=== PATIENT | female | born 1945 | race Caucasian/White ===

== ENCOUNTER → 2017-11-22 | Outpatient (CLI) | payer MEDICARE ==
--- NOTE | 2017-11-22 10:47 | US ---
EXAMINATION TYPE: US venous doppler duplex LE RT DATE OF EXAM: 11/22/2017 10:33 AM COMPARISON: Prior right lower extremity venous ultrasound October 31, 2017 CLINICAL HISTORY: I82.401 DVT of right lower extremity. History of DVT right leg 10/31/17 SIDE PERFORMED: Right TECHNIQUE: The lower extremity deep venous system is examined utilizing real time linear array sonog jodi with graded compression, doppler sonography and color-flow sonography. VESSELS IMAGED: External Iliac Vein (EIV) Common Femoral Vein Deep Femoral Vein Greater Saphenous Vein * Femoral Vein Popliteal Vein Small Saphenous Vein * Proximal Calf Veins (* superficial vessels) Right Leg: *Positive for DVT right EIV extending into popliteal vein. Superficial thrombus noted wi thin Greater saph vein at upper and mid thigh IMPRESSION: There is continuous long segment DVT in the right lower extremity. No significant change from prior.
== END | disposition home or self-care (01) ==
LOC: RADUSWWP 09:51
PROVIDERS: ATTEND Family Medicine
DX: I82.401 Acute embolism and thrombosis of unspecified deep veins of right lower extremity (principal)

== ENCOUNTER → 2018-08-29 | Outpatient (CLI) | payer MEDICARE ==
--- NOTE | 2018-08-29 14:37 | US ---
EXAMINATION TYPE: US venous doppler duplex LE BI DATE OF EXAM: 08/29/2018 2:18 PM COMPARISON: 11/22/2017 CLINICAL HISTORY: I82.529 DEEP VEIN THROMBOSIS LOWER EXT. History of DVT right leg. Patient on blood thinner SIDE PERFORMED: bilateral TECHNIQUE: The lower extremity deep venous system is examined utilizing real time linear array sonog jodi with graded compression, doppler sonography and color-flow sonography. VESSELS IMAGED: External Iliac Vein (EIV) Common Femoral Vein Deep Femoral Vein Greater Saphenous Vein * Femoral Vein Popliteal Vein Small Saphenous Vein * Proximal Calf Veins (* superficial vessels) Right Leg: +Positive for DVT. Thready flow with incomplete compression right EIV extending into popl iteal vein Left Leg: +Positive for DVT left popliteal vein IMPRESSION: 1. Exam is positive for DVT right lower extremity external iliac vein extending through the level the popliteal vein. Findings are fairly similar to the exam of 2017 2. Exam is positive for DVT left popliteal vein. No prior exam of the left lower extremity available for comparison.
== END | disposition home or self-care (01) ==
LOC: RADUSWWP 13:40
PROVIDERS: ATTEND Internal Medicine Hematology & Oncology
DX: I82.521 Chronic embolism and thrombosis of right iliac vein (principal); I82.532 Chronic embolism and thrombosis of left popliteal vein
CPT/HCPCS: 93970

== ENCOUNTER 2018-12-09 22:40 | Emergency (ER) | payer MEDICARE ==
[2018-12-09 22:49] VITALS: BP 149/98; TEMP 98.2
[2018-12-09] MEDS ORDERED: HYDROcodone/APAP 7.5-325MG 1 EACH TAB PO ONE (22:50)
--- NOTE | 2018-12-09 23:12 | XR ---
EXAMINATION TYPE: XR humerus LT DATE OF EXAM: 12/09/2018 COMPARISON: NONE HISTORY: Shoulder pain TECHNIQUE: 3 views FINDINGS: There is comminuted fracture of proximal shaft of the humerus. There is separation of the f ragments up to 10 mm. There is no dislocation. Elbow joint is not well seen. I see no elbow fracture. Shoulder joint appears intact. IMPRESSION: Acute mildly displaced comminuted fracture proximal shaft of the humerus.
[2018-12-09] MEDS ORDERED: ACET/COD 300 MG/30 MG STARTER PACK 6 TAB BTL PO STA (23:22)
--- NOTE | 2018-12-09 23:22 | ED ---
Upper Extremity HPI - General Chief Complaint: Extremity Injury, Upper Stated Complaint: Fall, Shoulder Injury Time Seen by Provider: 12/09/18 22:42 Source: patient, EMS, RN notes reviewed Mode of arrival: EMS Limitations: no limitations - History of Present Illness Initial Comments: This a 73-year-old female presents emergency Department chief complaint of trip and fall. Patient states that she was at home tripped and fell onto her left arm. Patient states that she noted she cannot move it, there is noted swelling. Denies any head injury no loss conscious. Denies any other extremity injury including lower extremity. Denies neck, back pain. Patient is right-hand dominant. - Related Data Home Medications Medication Instructions Recorded Confirmed No Known Home Medications 12/09/18 12/09/18 Allergies Allergy/AdvReac Type Severity Reaction Status Date / Time No Known Allergies Allergy Verified 12/09/18 23:15 Review of Systems ROS Statement: Those systems with pertinent positive or pertinent negative responses have been documented in the HPI. ROS Other: All systems not noted in ROS Statement are negative. 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 History of Any Multi-Drug Resistant Organisms: None Reported Past Surgical History: No Surgical Hx Reported Past Anesthesia/Blood Transfusion Reactions: No Reported Reaction Additional Past Anesthesia/Blood Transfusion Reaction / Comment(s): PT DENIED EVER HAVING ANY SX Past Psychological History: No Psychological Hx Reported Smoking Status: Current every day smoker Past Alcohol Use History: Occasional Past Drug Use History: None Reported - Past Family History Father History Unknown: Yes Mother History Unknown: Yes General Exam General appearance: alert, in no apparent distress Head exam: Present: atraumatic, normocephalic, normal inspection ENT exam: Present: normal exam, mucous membranes moist Neck exam: Present: normal inspection, full ROM. Absent: tenderness, meningismus, lymphadenopathy Respiratory exam: Present: normal lung sounds bilaterally. Absent: respiratory distress, wheezes, rales, rhonchi, stridor Cardiovascular Exam: Present: regular rate, normal rhythm, normal heart sounds. Absent: systolic murmur, diastolic murmur, rubs, gallop, clicks Extremities exam: Present: other (Noted deformity to left proximal to mid humeral region, neurovascular intact remaining extremity exam within normal limits) Back exam: Present: normal inspection, full ROM. Absent: tenderness Neurological exam: Present: alert, oriented X3, CN II-XII intact, reflexes normal. Absent: motor sensory deficit Skin exam: Present: warm, dry, intact, normal color. Absent: rash Course Vital Signs 12/09/18 22:45 Temperature 98.2 F Pulse Rate 76 Respiratory 16 Rate Blood Pressure 149/98 O2 Sat by Pulse 97 Oximetry Procedures - Orthopedic Splinting/Casting Injury #1 Side: left Upper Extremity Injury Location: shoulder, long arm Upper Extremity Immobilizer: sling/shoulder immobilizer, posterior splint, synthetic pre-padded splint Medical Decision Making - Medical Decision Making Patient presented emergency department for a trip and fall. Patient is noted to have comminuted humeral fracture. She was splinted and placed in a sling. Patient follow-up with orthopedics return parameters were discussed. Disposition Clinical Impression: Humeral fracture Disposition: HOME SELF-CARE Condition: Stable Instructions: Arm Fracture in Adults (ED) Additional Instructions: Please return to the Emergency Department if symptoms worsen or any other concerns. Is patient prescribed a controlled substance at d/c from ED?: No Referrals: None,Stated [Primary Care Provider] - 1-2 days Juan De Leon MD [STAFF PHYSICIAN] - 1-2 days Time of Disposition: 23:22
[2018-12-09 23:59] VITALS: PULSE 66; RESP 19
== END 2018-12-10 00:17 | disposition home or self-care (01) ==
LOC: EC 22:40
DX: S42.352A Displaced comminuted fracture of shaft of humerus, left arm, initial encounter for closed fracture (principal); F17.200 Nicotine dependence, unspecified, uncomplicated; W01.0XXA Fall on same level from slipping, tripping and stumbling without subsequent striking against object, initial encounter; Y92.009 Unspecified place in unspecified non-institutional (private) residence as the place of occurrence of the external cause
CPT/HCPCS: 29105; 99283

== ENCOUNTER 2019-11-18 19:56 | Emergency (ER) | payer MEDICARE ==
[2019-11-18 20:03] VITALS: TEMP 97
--- NOTE | 2019-11-18 21:23 | CT ---
EXAMINATION TYPE: CT brain wo con DATE OF EXAM: 11/18/2019 COMPARISON: None HISTORY: fall Headache CT DLP: 1099.4 mGycm Automated exposure control for dose reduction was used. There is some cerebral cortical atrophy. There is patchy hypodensity in the periventricular white mat ter. There is no mass effect nor midline shift. There is no sign of intracranial hemorrhage. Calvariu m is intact. IMPRESSION: Cerebral atrophy and chronic small vessel ischemia. No acute intracranial abnormality.
[2019-11-18 21:25] LABS: HCT 43.3 % (34.0-46.0); HGB 15.2 gm/dL (11.4-16.0); MCH 34.5 pg (25.0-35.0); MCV 98.5 fL (80.0-100.0); Mean Platelet Volume 7.8; Platelet Count 355 k/uL (150-450); RDW 13.6 % (11.5-15.5); WBC 7.4 k/uL (3.8-10.6)
--- NOTE | 2019-11-18 21:32 | XR ---
EXAMINATION TYPE: XR chest 2V DATE OF EXAM: 11/18/2019 COMPARISON: NONE HISTORY: Nausea TECHNIQUE: Single view FINDINGS: Heart size is normal. There is coarsening of the lung markings. Thoracic aorta is atheromat ous. There is no pleural effusion or pneumothorax. There is pleural thickening at the lung apices. Th ere is old fracture of the left humerus. IMPRESSION: Pleural and pulmonary scarring. Normal heart. No heart failure.
[2019-11-18 21:55] LABS: ALT 12 U/L (4-34); AST 25 U/L (14-36); African American GFR (CKD) >90 (>60 ml/min/1.73 sqM); Albumin 3.7 g/dL (3.5-5.0); Alkaline Phosphatase 118 U/L (38-126); Anion Gap 14 mmol/L; Blood Urea Nitrogen 8 mg/dL (7-17); Calcium 8.5 mg/dL (8.4-10.2); Carbon Dioxide 18 mmol/L (22-30); Chloride 106 mmol/L (98-107); Glucose 90 mg/dL (74-99); Non-African American GFR(CKD) >90 (>60 ml/min/1.73 sqM); Potassium 3.7 mmol/L (3.5-5.1); Sodium 138 mmol/L (137-145); Total Bilirubin 0.6 mg/dL (0.2-1.3)
--- NOTE | 2019-11-18 22:52 | ED ---
Fall HPI - General Chief Complaint: Fall Stated Complaint: ETOH Fall Time Seen by Provider: 11/18/19 20:17 Source: patient, EMS Mode of arrival: EMS - History of Present Illness Initial Comments: Patient is 74-year-old female presenting to emergency Department with a chief complaint of a fall. Patient brought to the ED via EMS. According to EMS, patient was in a bar having several drinks and fell afterwards. Patient does not remember the fall but does remember the ambulance ride to the ED. Patient is AO 4. Patient reports she had some tea and several alcoholic beverages. Patient states she was not accompanied by anyone at the bar. Patient denies headache, blurry vision, nausea, vomiting, diarrhea, gait instability, chest pain, shortness of breath, abdominal pain, back pain or any extremity pain. - Related Data Home Medications Medication Instructions Recorded Confirmed No Known Home Medications 12/09/18 11/18/19 Allergies Allergy/AdvReac Type Severity Reaction Status Date / Time No Known Allergies Allergy Verified 11/18/19 20:03 Review of Systems ROS Statement: Those systems with pertinent positive or pertinent negative responses have been documented in the HPI. ROS Other: All systems not noted in ROS Statement are negative. 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 History of Any Multi-Drug Resistant Organisms: None Reported Past Surgical History: No Surgical Hx Reported Past Anesthesia/Blood Transfusion Reactions: No Reported Reaction Additional Past Anesthesia/Blood Transfusion Reaction / Comment(s): PT DENIED EVER HAVING ANY SX Past Psychological History: No Psychological Hx Reported Smoking Status: Current every day smoker Past Alcohol Use History: Occasional Past Drug Use History: None Reported - Past Family History Father History Unknown: Yes Mother History Unknown: Yes General Exam Limitations: no limitations General appearance: alert, in no apparent distress Head exam: Present: normocephalic. Absent: atraumatic, normal inspection (Less then 0.5 cm laceration on the left lateral periorbital region. Hematoma on the left supraorbital region. No bony deformities noted. No active bleeding at this time.), other (Negative Kelly sign, negative hemotympanum, negative raccoon eyes.) Eye exam: Present: normal appearance, PERRL, EOMI Pupils: Present: normal accommodation ENT exam: Present: normal exam, normal oropharynx (No oral trauma), mucous membranes moist, TM's normal bilaterally, normal external ear exam Neck exam: Present: normal inspection, full ROM. Absent: tenderness Respiratory exam: Present: normal lung sounds bilaterally Cardiovascular Exam: Present: regular rate, normal rhythm, normal heart sounds Extremities exam: Present: normal inspection, full ROM Back exam: Present: normal inspection, full ROM Neurological exam: Present: alert, oriented X3 Psychiatric exam: Present: normal affect, normal mood Skin exam: Present: warm, dry, intact, normal color Course Vital Signs 11/18/19 11/18/19 19:58 23:08 Temperature 97 F L Pulse Rate 62 65 Respiratory 18 17 Rate Blood Pressure 129/79 110/65 O2 Sat by Pulse 97 98 Oximetry Medical Decision Making - Medical Decision Making Patient is 74-year-old female presenting to emergency Department with chief complaint of a fall. Patient brought to the ED via EMS. BAT 0.127. Physical examination is remarkable for a very small laceration on the left periorbital region that does not require any suturing. Hematoma in the left periorbital region as well. No other head trauma noted. No cervical tenderness. Patient has been and bleeding without any issues. Patient was in the ED for over 3 vega rs and is not below the theoretical alcohol level. Patient is not on blood thinners. CT of brain is unremarkable for acute intracranial pathologies fracture or dislocations. Chest x-ray is showing pleural scarring but otherwise no acute cardio pulmonary pathologies. Patient declining any suicidal thoughts or ideations. Patient given the opportunity to discuss with a psychiatric nurse. Patient declined states that she was to go home. Patient is requesting a ride to her car. Strict return parameters were thoroughly discussed the patient was in a standing agreeable. Case discussed with physician. - Lab Data Result diagrams: 11/18/19 20:11 11/18/19 20:11 Lab Results 11/18/19 11/18/19 Range/Units 20:11 20:11 WBC 7.4 (3.8-10.6) k/uL RBC 4.40 (3.80-5.40) m/uL Hgb 15.2 (11.4-16.0) gm/dL Hct 43.3 (34.0-46.0) % MCV 98.5 (80.0-100.0) fL MCH 34.5 (25.0-35.0) pg MCHC 35.0 (31.0-37.0) g/dL RDW 13.6 (11.5-15.5) % Plt Count 355 (150-450) k/uL Sodium 138 (137-145) mmol/L Potassium 3.7 (3.5-5.1) mmol/L Chloride 106 (98-107) mmol/L Carbon Dioxide 18 L (22-30) mmol/L Anion Gap 14 mmol/L BUN 8 (7-17) mg/dL Creatinine 0.55 (0.52-1.04) mg/dL Est GFR (CKD-EPI)AfAm >90 (>60 ml/min/1.73 sqM) Est GFR (CKD-EPI)NonAf >90 (>60 ml/min/1.73 sqM) Glucose 90 (74-99) mg/dL Calcium 8.5 (8.4-10.2) mg/dL Total Bilirubin 0.6 (0.2-1.3) mg/dL AST 25 (14-36) U/L ALT 12 (4-34) U/L Alkaline Phosphatase 118 (38-126) U/L Total Protein 7.0 (6.3-8.2) g/dL Albumin 3.7 (3.5-5.0) g/dL Disposition Clinical Impression: Fall, Traumatic hematoma of face Disposition: HOME SELF-CARE Condition: Good Instructions (If sedation given, give patient instructions): Fall Prevention (ED) Additional Instructions: Please follow with primary care. Please return to emergency department if symptoms worsen. Is patient prescribed a controlled substance at d/c from ED?: No Referrals: Zack Leon MD [Primary Care Provider] - 1-2 days Time of Disposition: 23:29
[2019-11-18 23:09] VITALS: BP 110/65; PULSE 65; RESP 17
== END 2019-11-18 23:45 | disposition home or self-care (01) ==
LOC: EC 19:56
DX: S01.112A Laceration without foreign body of left eyelid and periocular area, initial encounter (principal); F17.200 Nicotine dependence, unspecified, uncomplicated; W19.XXXA Unspecified fall, initial encounter
CPT/HCPCS: 36415; 70450; 71046; 80053; 85027; 99285

== ENCOUNTER 2019-12-31 20:15 | Inpatient (IN) | payer MEDICARE ==
[2019-12-31] MEDS ORDERED: DIPH,PERTUS(ACELL)TETVAC-LF 0.5 ML VIAL IM ONE (20:41)
--- NOTE | 2019-12-31 20:51 | ED ---
General Adult HPI - General Chief complaint: Psychiatric Symptoms Stated complaint: cuts on wrists Time Seen by Provider: 12/31/19 20:26 Source: patient, police, RN notes reviewed, old records reviewed Mode of arrival: ambulatory Limitations: no limitations - History of Present Illness Initial comments: 74-year-old female patient presents to ED with police for evaluation. She denies any physical complaints, denies suicidal or homicidal ideations. Per mateo mathis they arrived for a wellness call family and friends had not heard from her in several days. She would not answer door. They report that they made entry into the house and it did appear to be on The Didn't Notice Superficial Lacerations on Her Right Wrist. Patient Reports That This Happened While She Was Attempting to Cut Meat Yesterday. There Are Approximate 5 Lacerations. Denies any depression, prior psychiatric history, any actions to herself. Systemic: Pt denies fatigue, fever/chills, rash. Pt denies weakness, night sweats, weight loss. Neuro: Pt denies headache, visual disturbances, syncope or pre-syncope. HEENT: Pt denies ocular discharge or irritation, otalgia, rhinorrhea, pharyngitis or notable lymphadenopathy. Cardiopulmonary: Pt denies chest pain, SOB, heart palpitations, dyspnea on exertion. Abdominal/GI: Pt denies abdominal pain, n/v/d. : Pt denies dysuria, burning w/ urination, frequency/urgency. Denies new onset urinary or bowel incontinence. MSK: Pt denies myalgia, loss of strength or function in extremities. Neuro: Pt denies new onset weakness, paresthesias. - Related Data Allergies Allergy/AdvReac Type Severity Reaction Status Date / Time No Known Allergies Allergy Verified 12/31/19 20:23 Review of Systems ROS Statement: Those systems with pertinent positive or pertinent negative responses have been documented in the HPI. ROS Other: All systems not noted in ROS Statement are negative. Past Medical History Past Medical History: Hypertension History of Any Multi-Drug Resistant Organisms: None Reported Past Surgical History: No Surgical Hx Reported Past Psychological History: Depression Smoking Status: Current every day smoker Past Alcohol Use History: None Reported Past Drug Use History: None Reported General Exam - General Exam Comments Initial Comments: Constitutional: NAD, AOX3, Pt has pleasant affect. HEENT: NC/AT, trachea midline, neck supple, no lymphadenopathy. Posterior pharynx non erythematous, without exudates. External ears appear normal, without discharge. Mucous membranes moist. Eyes PERRLA, EOM intact. There is no scleral icterus. No pallor noted. Cardiopulmonary: RRR, no murmurs, rubs or gallops, no JVD noted. Lungs CTAB in anterior and posterior rendon. No peripheral edema. Abdominal exam: Abdomen soft and non-distended. Abdomen non-tender to palpation in all 4 quadrants. Bowel sounds active in LLQ. No hepatosplenomegaly. No ecchymosis Neuro: CN II-XII grossly intact. No nuchal rigidity. No raccon eyes, no huerta sign, no hemotympanum. No cervical spinal tenderness. MSK: 5 superficial lacerations on right forearm region. Cleaned dressed. No posterior calf tenderness bilaterally, homans sign negative bilaterally. Posterior tibialis and radial pulse +2 bilaterally. Sensation intact in upper and lower extremities. Full active ROM in upper and lower extremities, 5/5 stregnth. Limitations: no limitations Course Vital Signs 12/31/19 20:17 Temperature 97.8 F Pulse Rate 78 Respiratory 20 Rate Blood Pressure 157/78 O2 Sat by Pulse 98 Oximetry Medical Decision Making - Medical Decision Making 74-year-old female patient presents to ED with police for evaluation. She denies any physical complaints, denies suicidal or homicidal ideations. Per police they arrived for a wellness call family and friends had not heard from her in several days. She would not answer door. They report that they made entry into the house and it did appear to be on The Didn't Notice Superficial Lacerations on Her Right Wrist. Patient Reports That This Happened While She Was Attempting to Cut Meat Yesterday. There Are Approximate 5 Lacerations. Denies any depression, prior psychiatric history, any actions to herself. Vital signs stable, afebrile. Physical exam didn't display 5 superficial lacerations on right forearm. Full active range of motion. Clean, dressed in ED. Laboratory investigations were obtained, they are noncompressive. UA and tox screen is still pending. Salicylates 1.0. Patient was that she takes aspirin from time to time. Acetaminophen negative. Alcohol negative. EKG is nonischemic. Evaluated by EPS and recommended for admission. Case discussed with Dr. Young. - Lab Data Result diagrams: 12/31/19 21:15 12/31/19 21:15 Lab Results 12/31/19 12/31/19 Range/Units 21:15 21:15 WBC 7.5 (3.8-10.6) k/uL RBC 5.14 (3.80-5.40) m/uL Hgb 17.1 H (11.4-16.0) gm/dL Hct 50.8 H (34.0-46.0) % MCV 98.8 (80.0-100.0) fL MCH 33.3 (25.0-35.0) pg MCHC 33.7 (31.0-37.0) g/dL RDW 13.0 (11.5-15.5) % Plt Count 434 (150-450) k/uL Neutrophils % 71 % Lymphocytes % 17 % Monocytes % 6 % Eosinophils % 4 % Basophils % 1 % Neutrophils # 5.3 (1.3-7.7) k/uL Lymphocytes # 1.3 (1.0-4.8) k/uL Monocytes # 0.4 (0-1.0) k/uL Eosinophils # 0.3 (0-0.7) k/uL Basophils # 0.1 (0-0.2) k/uL Sodium 137 (137-145) mmol/L Potassium 3.8 (3.5-5.1) mmol/L Chloride 103 (98-107) mmol/L Carbon Dioxide 23 (22-30) mmol/L Anion Gap 11 mmol/L BUN 12 (7-17) mg/dL Creatinine 0.66 (0.52-1.04) mg/dL Est GFR (CKD-EPI)AfAm >90 (>60 ml/min/1.73 sqM) Est GFR (CKD-EPI)NonAf 87 (>60 ml/min/1.73 sqM) Glucose 118 H (74-99) mg/dL Calcium 9.4 (8.4-10.2) mg/dL Total Bilirubin 0.7 (0.2-1.3) mg/dL AST 28 (14-36) U/L ALT 15 (4-34) U/L Alkaline Phosphatase 126 (38-126) U/L Total Protein 7.7 (6.3-8.2) g/dL Albumin 4.1 (3.5-5.0) g/dL Salicylates 1.0 mg/dL Acetaminophen <10.0 ug/mL Serum Alcohol <10 mg/dL - EKG Data -: EKG Interpreted by Me (and Dr. Young) EKG Comments: Ventricular rate 62,. Full 120, QRS 76, QT/QTc 472/479. Sensory with premature atrial complexes, borderline left atrial enlargement. No concern for acute ischemia at this time. Disposition Clinical Impression: Psychiatric disorder Disposition: ADMITTED IP TO THIS HOSP Condition: Serious Is patient prescribed a controlled substance at d/c from ED?: No Referrals: None,Stated [Primary Care Provider] - 1-2 days
[2019-12-31 22:08] LABS: Basophils # (A) 0.1 k/uL (0-0.2); Basophils % (A) 1 %; Eosinophils # (A) 0.3 k/uL (0-0.7); Eosinophils % (A) 4 %; HCT 50.8 % (34.0-46.0); HGB 17.1 gm/dL (11.4-16.0); Lymphocytes # (A) 1.3 k/uL (1.0-4.8); Lymphocytes % (A) 17 %; MCH 33.3 pg (25.0-35.0); MCHC 33.7 g/dL (31.0-37.0); MCV 98.8 fL (80.0-100.0); Mean Platelet Volume 7.8; Monocytes # (A) 0.4 k/uL (0-1.0); Monocytes % (A) 6 %; Neutrophils # (A) 5.3 k/uL (1.3-7.7); Neutrophils % (A) 71 %; Platelet Count 434 k/uL (150-450); RBC 5.14 m/uL (3.80-5.40); WBC 7.5 k/uL (3.8-10.6)
[2019-12-31 22:14] LABS: ALT 15 U/L (4-34); AST 28 U/L (14-36); Acetaminophen <10.0 ug/mL; African American GFR (CKD) >90 (>60 ml/min/1.73 sqM); Albumin 4.1 g/dL (3.5-5.0); Alcohol <10 mg/dL; Alkaline Phosphatase 126 U/L (38-126); Anion Gap 11 mmol/L; Blood Urea Nitrogen 12 mg/dL (7-17); Calcium 9.4 mg/dL (8.4-10.2); Carbon Dioxide 23 mmol/L (22-30); Chloride 103 mmol/L (98-107); Glucose 118 mg/dL (74-99); Non-African American GFR(CKD) 87 (>60 ml/min/1.73 sqM); Potassium 3.8 mmol/L (3.5-5.1); Sodium 137 mmol/L (137-145); Total Bilirubin 0.7 mg/dL (0.2-1.3); Total Protein 7.7 g/dL (6.3-8.2)
[2020-01-01 00:58] LABS: Amphetamine Screen,Urine Not Detected (NotDetected); Barbiturate Screen,Urine Not Detected (NotDetected); Benzodiazepines Screen,Urine Not Detected (NotDetected); Cocaine Screen,Urine Not Detected (NotDetected); Methadone Screen, Urine Not Detected (NotDetected); Opiate Screen,Urine Detected (NotDetected); Oxycodone Screen, Urine Not Detected (NotDetected); Phencyclidine Screen,Urine Not Detected (NotDetected); Tricyclic Antidepressant,Urine Not Detected (NotDetected); Urn Cannabinoid Scrn Not Detected (NotDetected)
[2020-01-01] MEDS ORDERED: MAGNESIUM HYDROXIDE 2,400 MG/10 ML CUP PO PRN (01:29)
[2020-01-01] MEDS ORDERED: ZIPRASIDONE 20 MG VIAL IM PRN (01:29)
[2020-01-01] MEDS ORDERED: MAG HYDROX/AL HYDROX/SIMETH 30 ML CUP PO PRN (01:29)
[2020-01-01 02:27] LABS: Appearance,Urine Clear (Clear); Bacteria,Urine Rare /hpf; Bilirubin,Urine Negative (Negative); Blood,Urine Small (Negative); Color,Urine Yellow; Glucose,Urine (UA) Negative (Negative); Hyaline Casts,Urine 3 /lpf (0-2); Ketones,Urine Negative (Negative); Leukocyte Esterase,Urine Moderate (Negative); Mucus,Urine Rare /hpf; Nitrite,Urine Negative (Negative); Protein,Urine Negative (Negative); RBC,Urine 2 /hpf (0-5); Specific Gravity,Urine 1.009 (1.001-1.035); Squamous Epithelial Cell,Urine 2 /hpf (0-4); Urobilinogen,Urine <2.0 mg/dL (<2.0); WBC,Urine 6 /hpf (0-5)
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
[2020-01-01] MEDS: THIAMINE 100 MG TAB PO SCH (10:19)
[2020-01-01] MEDS: MULTIVITAMINS, THERA 1 EACH TAB PO SCH (10:19)
[2020-01-01 13:57] LABS: Albumin 4.1 g/dL (3.5-5.0); Bilirubin, Delta 0.4 mg/dL (0.0-0.2); Bilirubin,Unconjugated 0.1 mg/dL (0.0-1.1); Total Bilirubin 0.5 mg/dL (0.2-1.3); Total Protein 7.5 g/dL (6.3-8.2)
[2020-01-01] MEDS ORDERED: LORazepam 1 MG TAB PO PRN (14:21)
[2020-01-01 18:26] LABS: Hemoglobin A1C 4.7 % (4.0-6.0)
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
[2020-01-02] MEDS: THIAMINE 100 MG TAB PO SCH (08:41)
[2020-01-02] MEDS: MULTIVITAMINS, THERA 1 EACH TAB PO SCH (08:41)
--- NOTE | 2020-01-02 15:13 | P.PN ---
Progress Note - Text Progress Note Date: 01/02/20 Clinical Problems: Unspecified depressive disorder, rule out alcohol use disorder, rule out major neurocognitive disorder Interim history: I reviewed the medical record and interviewed the patient. She denied problems or concerns other than being in hospital. She described the circumstances that led to this hospitalization maintaining that the police had no cause to bring her to the hospital. She denied feeling depressed or having thoughts of or suicide. Admission urine was positive for opiates and her serum alcohol was less than 10. Mental status exam: She presented as disheveled elderly woman who appeared impatient and irritable. She made eye contact and attended to the interview. She had a blunted facial expression. She was alert and oriented to person, place and time. She showed no abnormality of psychomotor activity. Her speech was spontaneous with decreased rate and volume. She was angry and a bit irritable but not inappropriate. She denied suicidal ideations, wishes or homicidal ideation. She denied feeling hopeless, helpless or worthless. She di d not express ideas reference, paranoid ideation or delusions. Her thinking was concrete and associations were coherent and logical. She denied hallucinations and did not appear to be responding to internal stimuli. We completed the [facility] Orientation Memory Concentration test. Her total weighted error score was 8; total weighted error score greater than 10 is consistent with a dementia. She knew the month and year. She is able to register memory phrase "Jesus Quach, [address] [place] [id number].". She estimated time correctly (within 1 hour actual time). She is able count backwards 20-1 and name the months of the year in reverse order. She recalled one element of the memory phrase. Assessment: She is an elderly woman with no apparent history of mental illness who presented to unit voluntarily after apparently secluding herself in her apartment for 2 weeks. She is disheveled and concrete but is denying psychiatric symptoms. She has memory impairment on screening. Plan: Continue current treatment plan. Complete the [facility] Cognitive Assessment.
[2020-01-03] MEDS: MULTIVITAMINS, THERA 1 EACH TAB PO SCH (08:59)
[2020-01-03] MEDS: THIAMINE 100 MG TAB PO SCH (08:59)
--- NOTE | 2020-01-03 16:43 | P.PN ---
Progress Note - Text Progress Note Date: 01/03/20 Clinical Problems: Unspecified depressive disorder, rule out alcohol use disorder, rule out major neurocognitive disorder. Interim history: The medical record and interviewed the patient. She was slow complaint or concern other than being discharged. She continues to maintain that was devised for this admission or for the police to forcibly entered her house. She consented to [facility] Cognitive Assessment. Mental status exam: He presented as a disheveled appearing elderly female who was pleasant on approach. She made eye contact and attended to the interview. She had a blunted facial expression. Her affect was blunted but stable and appropriate. She denied suicidal or homicidal ideation. Her thinking was concrete but organized and coherent. She denied hallucinations and did not appear to be responding to internal stimuli. Her total score on the [facility] Cognitive Assessment was 21/30. She showed impairment with visual spatial/executive functioning, attention, abstraction and delayed recall. Assessment: She has evidence for cognitive impairment as demonstrated by her performance on the [facility] cognitive assessment. Plan: Evaluate for treatable causes of dementia. Continue safety precautions.
[2020-01-04] MEDS: THIAMINE 100 MG TAB PO SCH (09:09)
[2020-01-04] MEDS: MULTIVITAMINS, THERA 1 EACH TAB PO SCH (09:09)
--- NOTE | 2020-01-04 11:14 | P.PN ---
Progress Note - Text Interval history: The patient is found in the hallway she follows me to an interview room. Upon observing her this morning before we spoke she was seen ambulating in the hallway trying to enter rooms to which she did not have access. Staff report that she continues to appear confused at times. Progress notes over the weekend were reviewed. She scored 21 out of 30 on the moca exam administered by Dr. Germain. When asked again about the lacerations to her right wrist she continues to state they occurred when she was cutting meat and her knife slipped. Upon counting there are 9 lacerations which does not support her explanation. She continues to state she is not depressed or anxious. She is reporting no hallucinations. She continues to identify no support in her life with no one for us to contact to gain collateral information. She has previously stated that she has a hand gun in the home which is of concern. Mental status exam: The patient is a female appearing her stated age hygiene grooming impaired, eye contact is intermittent she is observed looking about the room. Affect remains constricted to blunted. She indicates her mood is "fine". She is reporting no auditory or visual hallucinations she is endorsing no specific delusions. She has not availed historian especially when trying to explain how her wrist was lacerated. She provides incorrect descriptions of events. She indicates that her apartment was clean and in good order when in fact the police documented that it was in disarray. She demonstrates no verbal or physical aggressiveness. She has little spontaneous speech but provides brief answers to questions. She does have a hearing impairment but when I use a louder tone she is able to hear. She demonstrates no involuntary repetitive movements. She expresses no concern about being in the hospital in terms of why she is here or when she is being discharged. Insight and judgment are poor. Plan: The patient continues to demonstrate confusion. The etiology is unclear. We will consider the possibility of neurocognitive symptoms. We will repeat the urinalysis to see if there is any evidence of infection which we could treat. The patient's appears to have lacerated her right wrist several times, she lives alone with no identifiable support, she has been using alcohol at least intermittently, and has reported having a loaded handgun in her home. I feel it's unsafe to discharge her back home under the circumstances and we will petition for a guardian. The patient requires this level of care until an appropriate safety plan is created.
[2020-01-04 12:24] LABS: Appearance,Urine Clear (Clear); Bilirubin,Urine Negative (Negative); Blood,Urine Small (Negative); Color,Urine Yellow; Glucose,Urine (UA) Negative (Negative); Ketones,Urine Negative (Negative); Leukocyte Esterase,Urine Small (Negative); Mucus,Urine Rare /hpf; Nitrite,Urine Negative (Negative); PH, Urine 5.5 (5.0-8.0); Protein,Urine Negative (Negative); RBC,Urine 1 /hpf (0-5); Specific Gravity,Urine 1.012 (1.001-1.035); Squamous Epithelial Cell,Urine <1 /hpf (0-4); Urobilinogen,Urine <2.0 mg/dL (<2.0); WBC,Urine 3 /hpf (0-5)
[2020-01-05] MEDS: THIAMINE 100 MG TAB PO SCH (09:08)
[2020-01-05] MEDS: MULTIVITAMINS, THERA 1 EACH TAB PO SCH (09:08)
--- NOTE | 2020-01-05 11:03 | P.PN ---
Progress Note - Text Interval history: The patient is found in the [facility] she follows me to an interview room. She indicates her moods fine. She states she sleeping and eating adequately. Staff report that the patient continues to demonstrate some confusion and often tries to access rooms where she is not permitted. At times the patient will answer questions appropriately in casual conversation. We discussed her use of alcohol she states that she's only had 6 months of sobriety and that was several years ago. She states that it's very unlikely that she'll ever stop drinking alcohol. She continues to refute that she intentionally cut her wrist. Staff report no agitated behavior. The patient's guardianship hearing is scheduled for Saturday. Mental status exam: The patient is alert she is a thin female she has a disheveled appearance she is dressed in her own clothing. She is observed ambulating throughout this morning. She takes very short steps almost shuffling in nature. She wanders about the unit appearing confused. She is observed trying door handles to locker rooms. She initiates no conversation she asked no questions as to why she is admitted here or when she is being discharged. She states that when she does return home her plan is to resume using alcohol. She is reporting no thoughts of harming herself or others. She reports no auditory or visual hallucinations or any specific delusions. The patient is not entirely reliable historian. She does have hearing deficit but this is overcome when I use a louder tone. She demonstrates no verbal or physical aggressiveness. She does appear somewhat stimulus bound and looks about the room. This does distract her from our conversation at least once. Plan: The patient will be monitored for safety we will continue evaluating her clinical presentation. Her guardianship hearing is Saturday. Again she requires this level of care until an appropriate placement is found to be determined by her guardian. The patient presented with intentional lacerations to her right wrist, she is excessively using alcohol, she has no social support we are able to identify, and she has a loaded firearm in her home. She demonstrates poor insight into her presentation her judgment is subsequently poor. We will monitor her for safety. She requires continued psychiatric hospital for safety reasons.
[2020-01-06] MEDS: THIAMINE 100 MG TAB PO SCH (08:28)
[2020-01-06] MEDS: MULTIVITAMINS, THERA 1 EACH TAB PO SCH ×2 (08:28→12:17)
--- NOTE | 2020-01-06 12:12 | P.PN ---
Progress Note - Text Progress Note Date: 01/06/20 Interval History: Patient was seen leaving group today after doing activities and went to the [facility] and then was agreeable to speak to life insurance underwriter in the office. Patient was concrete however was superficially cooperative with the life insurance underwriter. Patient gave minimal information about the circumstances that led her to the hospital. She states that she was "just cutting meat" when her hand slipped and she cut her arm. Patient denies any depression at this time and states that her mood is "good". Patient has a constricted affect. She states that she has been eating well on the unit and has been sleeping approximately 8 hours a night. Patient was alert and oriented 3 today and was able to spell "world" backwards and can identify the current president however no previous presidents. At this time patient denies any suicidal or homical ideations, intent or plan. Patient denies any auditory, visual hallucinations and denies any paranoia or delusions. Patient denies any side effects from the medications and has been compliant with meds. Mental Status Exam: General Appearance: Patient appears to be thin/tall, stated age is alert, superficially cooperative, guarded with poor hygiene. Behavior: Patient is calmly seated without any agitated behavior. Superficially cooperative, concrete. Speech: Patient's speech is fluent and nonpressured. Mood/Affect: Mood is improving mildly, affect is congruent and constricted. Suicidality/Homicidality: Patient denies having any suicidal or homicidal ideation intent or plan. Perceptions: Patient denies any visual hallucinations and denies any auditory hallucinations Though content/process: Poverty of content/speech. Logical and non-bizarre. Memory and concentration: AOX3, see above for further comments. Judgment and insight: Limited chronically. Assessment Mood disorder unspecified, rule out secondary to substance use. Dementia, likely secondary to chronic alcohol use History of Alcohol abuse Plan: -Patient continues to meet criteria for inpatient psychiatric admission for symptom stabilization and safety. Patient has signed adult voluntary form and medication consent and was placed in patient's chart. -Medications: At this time no specific psychotropic medication is indicated. Patient demonstrates poor insight and judgment and likely related to her chronic alcohol use and cognitive status. -Thiamine, folic acid, multivitamin for chronic alcohol use. -When necessary Ativan for agitation/aggression. -NRT - not needed as patient does not smoke -SW on board for discharge planning. The patient will be monitored for safety we will continue evaluating her clinical presentation. Her guardianship hearing is Saturday. She requires this level of care until an appropriate placement is found to be determined by her guardian. She requires continued psychiatric hospital for safety reasons.
[2020-01-06] MEDS: FOLIC ACID 1 MG TAB PO SCH (12:18)
[2020-01-07] MEDS: FOLIC ACID 1 MG TAB PO SCH (09:21)
[2020-01-07] MEDS: THIAMINE 100 MG TAB PO SCH (09:21)
[2020-01-07] MEDS: MULTIVITAMINS, THERA 1 EACH TAB PO SCH (09:21)
--- NOTE | 2020-01-07 09:49 | P.PN ---
Progress Note - Text Progress Note Date: 01/07/20 Interval History: Patient was seen lying in bed this morning and was agreeable to speak to advertising copywriter in the office. Patient was concrete however was directable and cooperative with advertising copywriter during interview. Patient gave minimal information once again about how she is doing and how her night was. She offered no overnight complaints. Patient states that she feels "fine today". Patient showed her wrist where she supposedly had a cut and appears to be healing well. Patient denies any depression at this time and states that her mood is "good". Patient has a constricted affect. She states that she has been eating well on the unit and has been sleeping approximately 8 hours a night. Patient was alert and oriented 3 today and was able to list the days of the week backwards. At this time patient denies any suicidal or homical ideations, intent or plan. Patient denies any auditory, visual hallucinations and denies any paranoia or delusions. Patient denies any side effects from the medications and has been compliant with meds. Mental Status Exam: General Appearance: Patient appears to be thin/tall, stated age is alert, superficially cooperative, guarded with poor hygiene. Behavior: Patient is calmly seated without any agitated behavior. Superficially cooperative, concrete. Speech: Patient's speech is fluent and nonpressured. Mood/Affect: Mood is "good", affect is congruent and constricted. Suicidality/Homicidality: Patient denies having any suicidal or homicidal ideation intent or plan. Perceptions: Patient denies any visual hallucinations and denies any auditory hallucinations Though content/process: Poverty of content/speech. Logical and non-bizarre. Memory and concentration: AOX3, see above for further comments. Judgment and insight: Limited chronically. Assessment Mood disorder unspecified, rule out secondary to substance use. Dementia, likely secondary to chronic alcohol use History of Alcohol abuse Plan: -Patient continues to meet criteria for inpatient psychiatric admission for symptom stabilization and safety. Patient has signed adult voluntary form and medication consent and was placed in patient's chart. -Medications: At this time no specific psychotropic medication is indicated. Patient demonstrates poor insight and judgment and likely related to her chronic alcohol use and cognitive status. -Thiamine, folic acid, multivitamin for chronic alcohol use. -When necessary Ativan for agitation/aggression. -BID WRITER consult for cognitive testing/moca. -NRT - not needed as patient does not smoke -SW on board for discharge planning. The patient will be monitored for safety we will continue evaluating her clinical presentation. Her guardianship hearing is Saturday. She requires this level of care until an appropriate placement is found to be determined by her guardian. She requires continued psychiatric hospital for safety reasons. developmental services worker also to follow-up with guardian about removal of gun in patient's house.
[2020-01-08] MEDS: THIAMINE 100 MG TAB PO SCH (09:10)
[2020-01-08] MEDS: FOLIC ACID 1 MG TAB PO SCH (09:10)
[2020-01-08] MEDS: MULTIVITAMINS, THERA 1 EACH TAB PO SCH (09:10)
--- NOTE | 2020-01-08 10:28 | P.PN ---
Progress Note - Text Progress Note Date: 01/08/20 Interval History: Patient was seen attending group this morning and was agreeable to speak to wr shreyas in the office. Patient was concrete and gave minimal information about her night and day yesterday however was directable and cooperative with ad writer during interview and answered most questions appropriately. Patient states that she does have some pain in her leg and claims that "I've been sitting for too long and it hurts" and requested to have an Aleve. She offered no overnight complaints. Patient states that she feels "fine" denies any depression. Patient continues to show impairment in her memory and recall. Patient has a constricted affect. She states that she has been eating well on the unit. She states that she has been sleeping approximately 7 hours a night. Patient was alert and oriented 3 today. At this time patient denies any suicidal or homical ideations, intent or plan. Patient denies any auditory, visual hallucinations and denies any paranoia or delusions. Patient denies any side effects from the medications and has been compliant with meds. Patient had a moca completed yesterday which showed 20 out of 30 score and mild cognitive impairment with a significant decline in her memory recall. Mental Status Exam: General Appearance: Patient appears to be thin/tall, stated age is alert, superficially cooperative, guarded with poor hygiene. Behavior: Patient is calmly seated without any agitated behavior. Superficially cooperative, concrete. Speech: Patient's speech is fluent and nonpressured. Mood/Affect: Mood is "fine", affect is congruent and constricted. Suicidality/Homicidality: Patient denies having any suicidal or homicidal ideation intent or plan. Perceptions: Patient denies any visual hallucinations and denies any auditory hallucinations Though content/process: Poverty of content/speech. Logical and non-bizarre. Memory and concentration: AOX3, see above for further comments. Judgment and insight: Limited chronically. Assessment Mood disorder unspecified, rule out secondary to substance use. Dementia, likely secondary to chronic alcohol use History of Alcohol abuse Plan: -Patient continues to meet criteria for inpatient psychiatric admission for symptom stabilization and safety. Patient has signed adult voluntary form and medication consent and was placed in patient's chart. -Medications: At this time no specific psychotropic medication is indicated. Patient demonstrates poor insight and judgment and likely related to her chronic alcohol use and cognitive status. -Thiamine, folic acid, multivitamin for chronic alcohol use. -When necessary Ativan for agitation/aggression. -INTERIOR ASSEMBLIES DEVELOPER PROVER consulted and performed a MOCA on 01/07/20 which showed 20 out of 30 score and mild cognitive impairment with a significant decline in her memory recall. -NRT - not needed as patient does not smoke -SW on board for discharge planning. The patient will be monitored for safety we will continue evaluating her clinical presentation. Her guardianship hearing is today. She requires this level of care until an appropriate placement is found to be determined by her guardian. She requires continued psychiatric hospital for safety reasons. car worker also to follow-up with guardian about removal of gun in patient's house.
[2020-01-08] MEDS: ACETAMINOPHEN TAB 325 MG TAB PO PRN (18:42)
[2020-01-09] MEDS: FOLIC ACID 1 MG TAB PO SCH (08:42)
[2020-01-09] MEDS: MULTIVITAMINS, THERA 1 EACH TAB PO SCH (08:42)
[2020-01-09] MEDS: THIAMINE 100 MG TAB PO SCH (08:42)
--- NOTE | 2020-01-09 10:44 | P.PN ---
Progress Note - Text Progress Note Date: 01/09/20 Interval History: Patient was seen wandering the hallways morning and was agreeable to speak to comic book writer in the office. Patient was concrete today and gave minimal information about her night and denied any overnight complaints. Patient states that she feels "ok" denies any depression. She states that she has been going to some of the groups and trying to participate as best she can. She states that she has been eating well on the unit. She states that she has been sleeping approximately 6-7 hours a night. Patient was alert and oriented 3 today. At this time patient denies any suicidal or homical ideations, intent or plan. Patient denies any auditory, visual hallucinations and denies any paranoia or delusions. Patient denies any side effects from the medications and has been compliant with meds. Mental Status Exam: General Appearance: Patient appears to be thin/tall, stated age is alert, superficially cooperative, poor hygiene. Behavior: Patient is calmly seated without any agitated behavior. Superficially cooperative, concrete. Speech: Patient's speech is fluent and nonpressured. Mood/Affect: Mood is "ok", affect is congruent and constricted. Suicidality/Homicidality: Patient denies having any suicidal or homicidal ideation intent or plan. Perceptions: Patient denies any visual hallucinations and denies any auditory hallucinations Though content/process: Poverty of content/speech. Logical and non-bizarre. Memory and concentration: AOX3, fair attention span. Judgment and insight: Limited chronically. Assessment Mood disorder unspecified, rule out secondary to substance use. Dementia, likely secondary to chronic alcohol use History of Alcohol abuse Plan: -Patient continues to meet criteria for inpatient psychiatric admission for symptom stabilization and safety. Patient has signed adult voluntary form and medication consent and was placed in patient's chart. -Medications: At this time no specific psychotropic medication is indicated. Patient demonstrates poor insight and judgment and likely related to her chronic alcohol use and cognitive status. -Thiamine, folic acid, multivitamin for chronic alcohol use. -When necessary Ativan for agitation/aggression. -DIRECTOR OF PROGRAM MANAGEMENT consulted and performed a MOCA on 01/07/20 which showed 20 out of 30 score and mild cognitive impairment with a significant decline in her memory recall. -NRT - not needed as patient does not smoke -SW on board for discharge planning. The patient will be monitored for safety we will continue evaluating her clinical presentation. Patient had a guardianship hearing on 01/08/2020 and now has a public guardian. Patient requires inpatient level of care until an appropriate placement is found to be determined by her guardian. She requires continued psychiatric hospital for safety reasons. forming process worker also to follow-up with guardian about removal of gun in patient's house. Likely discharge early next week.
[2020-01-10] MEDS: FOLIC ACID 1 MG TAB PO SCH (08:31)
[2020-01-10] MEDS: THIAMINE 100 MG TAB PO SCH (08:31)
[2020-01-10] MEDS: MULTIVITAMINS, THERA 1 EACH TAB PO SCH (08:31)
--- NOTE | 2020-01-10 12:09 | P.PN ---
Progress Note - Text Progress Note Date: 01/10/20 Interval History: Patient was seen wandering the hallways morning and was agreeable to speak to [place] underwriter. Patient continues to be concrete with poverty of content/speech. She denied any overnight complaints and claimed that she slept well. Patient states that she feels "good" denies any depression. She states that she has been going to some of the groups. She states that she has been eating well on the unit. She states that she has been sleeping approximately 7 hours a night. Patient was alert and oriented 2 today and believes that it was "SaturdayJanuary 08" today. At this time patient denies any suicidal or homical ideations, intent or plan. Patient denies any auditory, visual hallucinations and denies any paranoia or delusions. Patient denies any side effects from the medications and has been compliant with meds. Mental Status Exam: General Appearance: Patient appears to be thin, stated age is alert, attempts to cooperate. poor hygiene, fair eye contact . Behavior: Patient is calmly seated without any agitated behavior. concrete. Speech: Patient's speech is fluent and nonpressured. Mood/Affect: Mood is "good", affect is congruent and constricted. Suicidality/Homicidality: Patient denies having any suicidal or homicidal ideation intent or plan. Perceptions: Patient denies any visual hallucinations and denies any auditory hallucinations Though content/process: Poverty of content/speech. Logical and non-bizarre. Memory and concentration: AOX2, fair attention span. Judgment and insight: Limited chronically. Assessment Mood disorder unspecified, rule out secondary to substance use. Dementia, likely secondary to chronic alcohol use History of Alcohol abuse Plan: -Patient continues to meet criteria for inpatient psychiatric admission for symptom stabilization and safety. Patient has signed adult voluntary form and medication consent and was placed in patient's chart. -Medications: At this time no specific psychotropic medication is indicated. Patient demonstrates chronically poor insight and judgment and likely related to her chronic alcohol use and cognitive status. -Thiamine, folic acid, multivitamin for chronic alcohol use. -When necessary Ativan for agitation/aggression. -SMALL ELECTRIC ENGINE TECHNICIAN consulted and performed a MOCA on 01/07/20 which showed 20 out of 30 score and mild cognitive impairment with a significant decline in her memory recall. -NRT - not needed as patient does not smoke -SW on board for discharge planning. The patient will be monitored for safety we will continue evaluating her clinical presentation. Patient had a guardianship hearing on 01/08/2020 and now has a public guardian. Patient requires inpatient level of care until an appropriate placement is found to be determined by her guardian. She requires continued psychiatric hospital for safety reasons. clerical office worker also to follow-up with guardian about removal of gun in patient's house. Likely discharge early next week once she has a safe environment to return to at home .
[2020-01-11] MEDS: FOLIC ACID 1 MG TAB PO SCH (08:24)
[2020-01-11] MEDS: MULTIVITAMINS, THERA 1 EACH TAB PO SCH (08:24)
[2020-01-11] MEDS: THIAMINE 100 MG TAB PO SCH (08:24)
--- NOTE | 2020-01-11 13:11 | P.PN ---
Progress Note - Text Progress Note Date: 01/11/20 Interval History: Patient was seen sitting in the lounge this morning and watching television and was agreeable to speak to keno writer. Patient continues to be concrete with poverty of content/speech and offered no overnight complaints and claimed that she slept well. Patient states that she feels "alright" denies any depression at this time. She states that she has been going to some of the groups. She states that she has been eating well on the unit. She states that she has been sleeping cris roximately 6-7 hours last night. Patient was alert and oriented 2 today and believes that it was "saturdayDecember 26" today. At this time patient denies any suicidal or homical ideations, intent or plan. Patient denies any auditory, visual hallucinations and denies any paranoia or delusions. Patient denies any side effects from the medications and has been compliant with meds. Mental Status Exam: General Appearance: Patient appears to be thin, stated age is alert, attempts to cooperate. poor hygiene, fair eye contact . Behavior: Patient is calmly seated without any agitated behavior. concrete. Speech: Patient's speech is fluent and nonpressured. Mood/Affect: Mood is "alright", affect is congruent and constricted. Suicidality/Homicidality: Patient denies having any suicidal or homicidal ideation intent or plan. Perceptions: Patient denies any visual hallucinations and denies any auditory hallucinations Though content/process: Poverty of content/speech. Logical and non-bizarre. Memory and concentration: AOX2, fair attention span. Judgment and insight: Limited chronically. Assessment Mood disorder unspecified, rule out secondary to substance use. Dementia, likely secondary to chronic alcohol use History of Alcohol abuse Plan: -Patient continues to meet criteria for inpatient psychiatric admission for symptom stabilization and safety. Patient has signed adult voluntary form and medication consent and was placed in patient's chart. -Medications: At this time no specific psychotropic medication is indicated. Patient demonstrates chronically poor insight and judgment and likely related to her chronic alcohol use and cognitive status. -Thiamine, folic acid, multivitamin for chronic alcohol use. -When necessary Ativan for agitation/aggression. -DATABASE DEVELOPMENT PROJECT MANAGER consulted and performed a MOCA on 01/07/20 which showed 20 out of 30 score and mild cognitive impairment with a significant decline in her memory recall. -NRT - not needed as patient does not smoke -SW on board for discharge planning. The patient will be monitored for safety we will continue evaluating her clinical presentation. Patient had a guardianship hearing on 01/08/2020 and now has a public guardian. Patient requires inpatient level of care until an appropriate placement is found to be determined by her guardian. She requires continued psychiatric hospital for safety reasons. paint factory worker following up with guardian about removal of gun in patient's house. Likely discharge once she has a safe environment to return to at home in the next 1-2 days.
[2020-01-12] MEDS: MULTIVITAMINS, THERA 1 EACH TAB PO SCH (08:27)
[2020-01-12] MEDS: THIAMINE 100 MG TAB PO SCH (08:27)
[2020-01-12] MEDS: FOLIC ACID 1 MG TAB PO SCH (08:27)
--- NOTE | 2020-01-12 10:48 | P.PN ---
Progress Note - Text Interval history: The patient is found in her room she follows me to an interview room. During my absence the patient was up oriented a guardian. Social work has been communicating with them to determine a disposition. The patient indicates her mood is okay. She continues to lack insight into the reason for the admission. She reports that she sleep at night appetite is stable. She is reporting no complaints including any physical symptoms. Mental status exam: The patient is alert she has a disheveled appearance hygiene is adequate she is dressed in her own clothing. Eye contact is appropriate speech is nonspontaneous but she provides answers to questions. She reports no suicidal or homicidal ideation intent or plan. She is reporting no auditory or visual hallucinations or specific delusions. Insight and judgment remain impaired. She demonstrates no verbal or physical aggressiveness she demonstrates no involuntary repetitive movements. She is oriented to person place and date. Plan: The patient will continue on her current medication. We will monitor her for safety. She is encouraged to participate in the milieu. We are awaiting feedback from her newly appointed guardian in terms of disposition. We will be sure that the firearm is removed from her home if she is returning to that residence. She requires continued psychiatric hospitalization until a safe disposition can be determined. Vital signs reviewed.
[2020-01-13] MEDS: THIAMINE 100 MG TAB PO SCH (08:11)
[2020-01-13] MEDS: MULTIVITAMINS, THERA 1 EACH TAB PO SCH (08:11)
[2020-01-13] MEDS: FOLIC ACID 1 MG TAB PO SCH (08:11)
--- NOTE | 2020-01-13 09:20 | P.PN ---
Progress Note - Text Interval history: The patient is found in the [facility] she follows me to an interview room. She indicates her mood is good. Her thoughts of been focused on being discharged. Social work notes were reviewed. Contact has been made with the guardian's office. No directions provided yet as to what the patient's disposition will be as determined by the guardian. The patient states that she slept last night staff indicates she slept 6 hours. She has been eating. No report of any behavioral disturbance. Again we discussed the self induced lacerations on her wrist and she continues to assert that it was accidental while she was cutting meat. Mental status exam: The patient is alert she is dressed in the same clothing hygiene grooming fair. Eye contact is appropriate speech is fluent nonspontaneous but she does provide answers to questions. She does mumble under her breath in disagreement at times especially when discussing the lacerations on her wrist. She reports no thoughts of self-harm or harm to others she is reporting no auditory or visual hallucinations she is endorsing no specific delusions. Insight and judgment remain impaired. She continues to not understand why she was admitted. Again she asked no questions about her discharge treatment or any aspect of this hospitalization. She maintains a con stricted affect. Plan: The patient will continue on her current medications. We are awaiting input from the guardian in terms of the disposition. We will continue to monitor her for safety. She requires hospitalization until she is safely transitioned either back to her home with some sort of intervention in place or another type of residence. Vital signs reviewed.
[2020-01-14] MEDS: FOLIC ACID 1 MG TAB PO SCH (08:47)
[2020-01-14] MEDS: MULTIVITAMINS, THERA 1 EACH TAB PO SCH (08:47)
[2020-01-14] MEDS: THIAMINE 100 MG TAB PO SCH (08:47)
--- NOTE | 2020-01-14 10:18 | P.PN ---
Progress Note - Text Interval history: The patient is found in the hallway she follows me to an interview room. Again she indicates her mood is fine. She has no questions or concerns. Social work notes were reviewed. We have been in contact with the guardian's office several times. They are working on having the firearm removed. It appears that the patient may be returning back to her residence with in-home care. The patient indicates she sleeping at night appetite is stable. She has been attending some groups but is not able to comment on any of the group content. No behavioral disturbances reported. Mental status exam: The patient's a thin female she stressed her own clothing hygiene grooming fair. Eye contacts appropriate. She has a constricted affect. She is reporting no thoughts of harming herself or others. She reports no auditory or visual hallucinations or specific delusions. She demonstrates no verbal or physical aggressiveness. She has no spontaneous speech but provides answers to questions asked. She does have hearing impairment but this is overcome fairly easily in session. She remains oriented to person place and date. She demonstrates no repetitive involuntary movements. Plan: The patient will continue on her current medication. We are awaiting discharge planning recommendations from her guardian. We will monitor her for safety encourage full participation in the milieu. Vital signs reviewed. She requires continued hospitalization until appropriate discharge planning is complete.
[2020-01-15] MEDS: MULTIVITAMINS, THERA 1 EACH TAB PO SCH (08:19)
[2020-01-15] MEDS: THIAMINE 100 MG TAB PO SCH (08:19)
[2020-01-15] MEDS: FOLIC ACID 1 MG TAB PO SCH (08:19)
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
[2020-01-16] MEDS: FOLIC ACID 1 MG TAB PO SCH (08:15)
[2020-01-16] MEDS: THIAMINE 100 MG TAB PO SCH (08:15)
[2020-01-16] MEDS: MULTIVITAMINS, THERA 1 EACH TAB PO SCH (08:15)
--- NOTE | 2020-01-16 10:03 | P.PN ---
Progress Note - Text Interval history: The patient is found in group she follows me to an interview room. She indicates she was just leaving group She wanted to walk around and "see what else was going on". She has no spontaneous speech today. She indicates her mood is fine. She is sleeping at night appetite is stable. She has no questions or concerns regarding her treatment. Mental status exam: The patient's a thin female she has a disheveled appearance hygiene is fair. She is dressed in the same clothing. Eye contact is appropriate. She does have a hearing impairment but we are able to overcome that by using a louder tone of speech. She is reporting no suicidal or homicidal ideation intent or plan she is reporting no symptoms of psychosis. She is not a valid historian. Insight and judgment are impaired. She continues to under appreciate the reason she was admitted in the need for ongoing supervision once discharged. She demonstrates no verbal or physical aggressiveness she demonstrates no involuntary repetitive movements. Plan: Suspect neurocognitive disorder, continue supportive medications as written. We will monitor her for safety. Vital signs reviewed. She is encouraged to continue participating in groups. We continue to await appropriate placement and an AFC home to be determined by the patient's guard
[2020-01-17] MEDS: MULTIVITAMINS, THERA 1 EACH TAB PO SCH (08:46)
[2020-01-17] MEDS: THIAMINE 100 MG TAB PO SCH (08:46)
[2020-01-17] MEDS: FOLIC ACID 1 MG TAB PO SCH (08:46)
--- NOTE | 2020-01-17 13:02 | P.PN ---
Progress Note - Text Interval history: The patient is found in her room she follows me to an interview room. She states her mood is fine. She has no questions or concerns. She reports no visits or phone calls. She indicates that she has been eating meals and going to groups. Mental status exam: The patient is a thin female appearing her stated age he has a disheveled appearance she is dressed in her own clothing eye contact is appropriate. She has little spontaneous speech but does answer questions. She reports no suicidal or homicidal ideation intent or plan she reports no auditory or visual hallucinations or any specific delusions. Again she is an impaired historian to some extent. She was not oriented to day of week she reported it was Saturday rather than Saturday she did correctly name the month and she could recall my name. She demonstrates no verbal or physical aggressiveness. Affect is constricted. Plan: The patient will continue on the current medication. Again we suspect neurocognitive symptoms. Vital signs reviewed. We will monitor her for safety. We continue to await appropriate placement as determined by her guardian.
[2020-01-17] MEDS: ACETAMINOPHEN TAB 325 MG TAB PO PRN (18:26)
[2020-01-18] MEDS: FOLIC ACID 1 MG TAB PO SCH (08:31)
[2020-01-18] MEDS: MULTIVITAMINS, THERA 1 EACH TAB PO SCH (08:31)
[2020-01-18] MEDS: THIAMINE 100 MG TAB PO SCH (08:31)
--- NOTE | 2020-01-18 09:33 | P.PN ---
Progress Note - Text Interval history: The patient is found in her room she follows me to an interview room. She states her mood is good. She indicates she is sleeping well and appetite is stable. She has no questions or concerns today. She selectively attended groups. Mental status exam: The patient is alert she is dressed in her own clothing which is the same. She appears to have fair hygiene grooming is disheveled. Eye contact is appropriate. She is pleasant easily directed. Again she has no questions regarding her treatment for a discharge date. She reports no suicidal or homicidal ideation intent or plan. She is reporting no auditory or visual hallucinations she endorses no specific delusions. Insight and judgment are impaired. She demonstrates no verbal or physical aggressiveness. She demonstrates no tangential thinking loose associations or flight of ideas. Plan: The patient is suspected to have symptoms of neurocognitive disorder, we continue to collaborate with her guardian to find appropriate placement as her current residence was determined to be unsafe and she has no support. We will monitor her for safety and encourage full participation in the milieu. Vital signs are stable. She is ambulating without difficulty. Her oral intake is being monitored.
[2020-01-19] MEDS: FOLIC ACID 1 MG TAB PO SCH (08:17)
[2020-01-19] MEDS: MULTIVITAMINS, THERA 1 EACH TAB PO SCH (08:17)
[2020-01-19] MEDS: THIAMINE 100 MG TAB PO SCH (08:17)
--- NOTE | 2020-01-19 09:13 | P.PN ---
Progress Note - Text Interval history: The patient is found in her room she follows me to an interview room. She indicates her mood is fine. She did meet with a videotape sales representative from a AFC home yesterday. The patient expresses an understanding that she will be residing at a different place where there'll be more helpful available. She has no questions or concerns regarding placement or her medication. She slept 7 hours last night appetite stable. She selectively attended groups. Mental status exam: The patient is alert she is pleasant cooperative she is easily directed. She is observed appropriately ambulating in the hallway without ataxia. She does not appear lethargic. Eye contact is good speech is not very spontaneous but she provides brief answers to questions asked. Affect is appropriately bright today she is reporting no suicidal or homicidal ideation intent or plan. She is reporting no auditory or visual hallucinations or any sp ecific delusions. Due to neurocognitive symptoms she is an impaired historian. She identifies the day the week as Saturday rather than Saturday. She demonstrates no verbal or physical aggressiveness she demonstrates no involuntary repetitive movements. Insight and judgment remain impaired. Plan: The patient will continue on her current medications. We will anticipate discharging her once inappropriate A[facility] home is identified. Vital signs reviewed. She is encouraged to participate in the milieu we will continue to monitor her for safety.
[2020-01-19] MEDS: ACETAMINOPHEN TAB 325 MG TAB PO PRN (17:23)
[2020-01-20] MEDS: FOLIC ACID 1 MG TAB PO SCH (08:15)
[2020-01-20] MEDS: THIAMINE 100 MG TAB PO SCH (08:15)
[2020-01-20] MEDS: MULTIVITAMINS, THERA 1 EACH TAB PO SCH (08:15)
--- NOTE | 2020-01-20 11:29 | P.PN ---
Progress Note - Text Interval history: The patient is found in her room she follows me to an interview room. She indicates her mood is fine. She is aware that new placement has been determined. We are awaiting further direction from her guardian. The patient has no questions or concerns. Mental status exam: The patient is alert she is dressed in her own clothing she has a disheveled appearance eye contact is appropriate. She has little spontaneous speech but offers brief answers to questions. She indicates her mood is fine. She continues to lack insight into the reasons for this admission her judgment is subsequently impacted by suspected symptoms of neurocognitive disorder. She demonstrates no verbal or physical aggressiveness. She endorses no current suicidal or homicidal thoughts. Again she expresses no interest in her treatment or discharge plans spontaneously. Plan: The patient will continue on the current medication we are awaiting further direction from her guardian. The patient requires continued hospitalization until she safely placed at the [facility] home. It is because of her suspected symptoms of major neurocognitive disorder that she requires this level of care. I'll signs reviewed. We will continue to monitor her for safety.
[2020-01-20] MEDS: ACETAMINOPHEN TAB 325 MG TAB PO PRN (19:12)
[2020-01-21] MEDS: FOLIC ACID 1 MG TAB PO SCH (09:05)
[2020-01-21] MEDS: MULTIVITAMINS, THERA 1 EACH TAB PO SCH (09:05)
[2020-01-21] MEDS: THIAMINE 100 MG TAB PO SCH (09:05)
--- NOTE | 2020-01-21 09:07 | P.PN ---
Progress Note - Text Interval history: The patient's found in her room she follows me to an interview room. She continues to report mood is stable. She is reported to have slept 6 hours last night appetite stable. She's had no contact with anyone via phone no visiting. Social work notes were reviewed it appears that a discharge is planned for tomorrow. The patient has no questions or concerns about discharge. Mental status exam: The patient is alert she is a thin female appearing her stated age. She is dressed in the same clothing that she has worn throughout the hospitalization. She has a disheveled appearance. She seated calmly she demonstrates no verbal or physical aggressiveness. She reports no suicidal or homicidal ideation intent or plan. She is reporting no auditory or visual hallucinations or any specific delusions. She is in no acute distress. Insight and judgment remain impaired. She is oriented to day the week as Saturday rather than . Again she engages in a conversation spontaneously. She asks some questions about discharge planning or her new residence. Plan: The patient will continue on current medications. We anticipate her being discharged tomorrow to an [facility] home under the direction of her guardian. Vital signs reviewed the remain within normal limits. She continues to family without difficulty. She is encouraged to fully participate in the milieu.
[2020-01-21] MEDS: ACETAMINOPHEN TAB 325 MG TAB PO PRN (19:48)
[2020-01-22 07:06] VITALS: BP 120/59; PULSE 76; RESP 14; TEMP 97.7
[2020-01-22] MEDS: MULTIVITAMINS, THERA 1 EACH TAB PO SCH (08:44)
[2020-01-22] MEDS: FOLIC ACID 1 MG TAB PO SCH (08:44)
[2020-01-22] MEDS: THIAMINE 100 MG TAB PO SCH (08:44)
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
[2020-01-22] MEDS: ACETAMINOPHEN TAB 325 MG TAB PO PRN (09:25)
[2020-01-22 10:13] VITALS: BMI 21.6
== END 2020-01-22 10:19 | disposition home health service (06) | DRG 884 ==
LOC: EC 20:15 → 3MHU 01-01 → MERGE 01-01
PROVIDERS: ADMIT Psychiatry & Neurology Psychiatry; ATTEND Psychiatry & Neurology Psychiatry
DX: F01.50 Vascular dementia, unspecified severity, without behavioral disturbance, psychotic disturbance, mood disturbance, and anxiety (principal); Z71.6 Tobacco abuse counseling; F17.210 Nicotine dependence, cigarettes, uncomplicated; F32.9 Major depressive disorder, single episode, unspecified; I10 Essential (primary) hypertension; S61.511A Laceration without foreign body of right wrist, initial encounter; Z79.82 Long term (current) use of aspirin; F10.10 Alcohol abuse, uncomplicated; D75.1 Secondary polycythemia; H91.90 Unspecified hearing loss, unspecified ear; M19.90 Unspecified osteoarthritis, unspecified site; V89.2XXS Person injured in unspecified motor-vehicle accident, traffic, sequela; M19.042 Primary osteoarthritis, left hand; M19.041 Primary osteoarthritis, right hand; X78.1XXA Intentional self-harm by knife, initial encounter
CPT/HCPCS: 36415; 80053; 80061; 80076; 80306; 80320; 80329; 81001; 83036; 83520; 84443; 85025; 87086; 90471; 90715; 93005; 99285

== ENCOUNTER 2021-12-25 10:30 | Emergency (ER) | payer MEDICARE ==
[2021-12-25] MEDS ORDERED: SODIUM CHLORIDE 0.9% 500 ML 500 ML IV STA (11:16)
--- NOTE | 2021-12-25 11:23 | ED ---
General Adult HPI - General Chief complaint: Fall Stated complaint: Fall, Weakness Time Seen by Provider: 12/25/21 11:10 Source: patient, EMS, RN notes reviewed, old records reviewed Mode of arrival: EMS Limitations: altered mental status (hx dementia) - History of Present Illness Initial comments: Patient arrives via EMS from assisted living after she was found on the floor in her room. Patient denies falling and denies any pain. It was not a witnessed fall. The nurse did speak with the facility who expressed concern that the patient had a bump on the back of her head and left arm redness. Patient denies any pain, difficulty breathing, fevers, nausea vomiting or diarrhea. There is no evidence of head trauma. She denies left arm pain. Vital signs are stable. -: days(s) (1) Severity scale (1-10): 0 Associated Symptoms: denies other symptoms - Related Data Home Medications Medication Instructions Recorded Confirmed Atorvastatin [Lipitor] 10 mg PO HS 12/25/21 12/25/21 Donepezil [Aricept] 10 mg PO HS 12/25/21 12/25/21 Ergocalciferol [Vitamin D2 (1250 1,250 mcg PO REINOSO 12/25/21 12/25/21 Mcg = 82902 Iu)] Ibuprofen [Motrin Ib] 400 mg PO Q8H PRN 12/25/21 12/25/21 Lactose-Reduced Food [Boost] 237 ml PO DAILY 12/25/21 12/25/21 Magnesium Hydroxide [Milk of 2,400 mg PO DAILY 12/25/21 12/25/21 Magnesia] Oxybutynin Chloride [Oxybutynin 10 mg PO DAILY 12/25/21 12/25/21 Chloride ER] Psyllium Husk 100% [Metamucil 6 gm PO DAILY PRN 12/25/21 12/25/21 Packet] QUEtiapine [SEROquel] 25 mg PO HS 12/25/21 12/25/21 polyethylene glycoL 3350 [Miralax] 17 gm PO DAILY PRN 12/25/21 12/25/21 Previous Rx's Medication Instructions Recorded Nystatin 100,000Unit/gm Cream 1 applic TOPICAL BID #15 gram 12/25/21 [Mycostatin Cream] Allergies Allergy/AdvReac Type Severity Reaction Status Date / Time No Known Allergies Allergy Verified 12/25/21 13:18 Review of Systems ROS Statement: Those systems with pertinent positive or pertinent negative responses have been documented in the HPI. ROS Other: All systems not noted in ROS Statement are negative. 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 History of Any Multi-Drug Resistant Organisms: None Reported Past Surgical History: No Surgical Hx Reported, Orthopedic Surgery Past Anesthesia/Blood Transfusion Reactions: No Reported Reaction Additional Past Anesthesia/Blood Transfusion Reaction / Comment(s): PT DENIED EVER HAVING ANY SX Past Psychological History: Depression, No Psychological Hx Reported Smoking Status: Former smoker Past Alcohol Use History: None Reported, Occasional - Past Family History Father History Unknown: Yes Mother History Unknown: Yes General Exam Limitations: altered mental status General appearance: alert, in no apparent distress Head exam: Present: atraumatic, normocephalic, normal inspection Eye exam: Present: normal appearance, EOMI. Absent: scleral icterus, conjunctival injection ENT exam: Present: normal exam, normal oropharynx, mucous membranes moist Neck exam: Present: normal inspection, full ROM. Absent: tenderness, meningismus, lymphadenopathy, thyromegaly Respiratory exam: Present: normal lung sounds bilaterally. Absent: respiratory distress, wheezes, rales, rhonchi, stridor Cardiovascular Exam: Present: regular rate GI/Abdominal exam: Present: soft, normal bowel sounds. Absent: distended, tenderness, guarding, rebound, rigid External exam: Present: erythema (intertrigo left groin). Absent: swelling, lesions, lacerations, ecchymosis Extremities exam: Present: normal inspection, full ROM, normal capillary refill. Absent: tenderness, pedal edema, joint swelling, calf tenderness Back exam: Present: normal inspection. Absent: tenderness, CVA tenderness (R), CVA tenderness (L), rash noted Expanded Back exam: Negative Straight Leg Raising: Left, Right Neurological exam: Present: alert, CN II-XII intact Expanded Patient oriented to: Present: person, place, time Speech: Present: fluid speech Cranial nerves: EOM's Intact: Normal, Gag Reflex: Normal, Tongue Deviation: Normal Motor strength exam: RUE: 5, LUE: 5, RLE: 5, LLE: 5 Eye Response: (4) open spontaneously Motor Response: (6) obeys commands Verbal Response: (5) oriented Lewis Total: 15 Psychiatric exam: Present: normal affect, normal mood Skin exam: Present: warm, dry, intact, normal color. Absent: cyanosis, diaphoretic Course Vital Signs 12/25/21 12/25/21 12/25/21 10:38 13:00 16:22 Temperature 98.3 F 98.6 F Pulse Rate 86 78 84 Respiratory 16 18 18 Rate Blood Pressure 107/64 110/74 118/87 O2 Sat by Pulse 96 96 99 Oximetry EKG Findings - EKG Results: EKG: sinus rhythm (Ventricular rate 80, NE interval 0.112, QRS 0.70, QTC 0.468), not changed from: (01/01/2020) Medical Decision Making - Medical Decision Making Patient arrives via EMS from assisted living after she was found on the floor in her room. There was not a witnessed fall. The ER nurse did speak with the facility who expressed concern that the patient had a bump on the back of her head and left arm redness. Patient denies any pain. There is no evidence of head trauma. She denies left arm pain however patient does have a surgical history of a proximal humerus fracture with internal fixation screws and plates. Due to the facility's concern that the patient may have hit her head CT, was performed. CT of brain and C-spine shows no acute fracture dislocation of cervical spine. There is age-related atrophy and small vessel ischemia. No intracranial hemorrhage, mass affect or midline shift is seen. Chest x-ray shows an underlying COPD. X-ray of the left humerus was obtained and compared to the left humerus x-ray performed in November 2018. There is a fixating plate through prior comminuted fracture of the left proximal humerus with incomplete healing and nonunion. There are a few loose screws outside fixating plate with extensive demineralization and ossification. Findings are consistent with loosening and/or infection recommended to correlate clinically. I have low suspicion for infection, patient has no leukocytosis, no fevers and no pain at the site. She has good range of motion and there is no erythema. UA shows no evidence of ketones or white blood cells. White blood cell count 6.6, hemoglobin and hematocrit are stable. She is negative for influenza or coronavirus. Blood glucose is 100. Electrolytes are unremarkable. Patient is able to stand at the bedside ambulate with one person assistance. It is unclear why the patient was found on the floor, there is no evidence of trauma. Vital signs are stable. Case discussed with Dr. Blevins and was agreeable to discharge patient back to facility to follow up with PCP and return to the emergency room with any new or concerning symptoms. - Lab Data Result diagrams: 12/25/21 12:10 12/25/21 12:10 Lab Results 12/25/21 12/25/21 12/25/21 Range/Units 12:10 12:10 12:10 WBC 6.6 (3.8-10.6) k/uL RBC 4.48 (3.80-5.40) m/uL Hgb 14.0 (11.4-16.0) gm/dL Hct 43.0 (34.0-46.0) % MCV 96.1 (80.0-100.0) fL MCH 31.3 (25.0-35.0) pg MCHC 32.6 (31.0-37.0) g/dL RDW 15.0 (11.5-15.5) % Plt Count 444 (150-450) k/uL MPV 7.5 Neutrophils % 79 % Lymphocytes % 10 % Monocytes % 8 % Eosinophils % 0 % Basophils % 1 % Neutrophils # 5.2 (1.3-7.7) k/uL Lymphocytes # 0.7 L (1.0-4.8) k/uL Monocytes # 0.5 (0-1.0) k/uL Eosinophils # 0.0 (0-0.7) k/uL Basophils # 0.0 (0-0.2) k/uL PT 10.6 (9.0-12.0) sec INR 1.0 (<1.2) APTT 22.9 (22.0-30.0) sec Sodium 139 (137-145) mmol/L Potassium 3.9 (3.5-5.1) mmol/L Chloride 107 (98-107) mmol/L Carbon Dioxide 24 (22-30) mmol/L Anion Gap 8 mmol/L BUN 13 (7-17) mg/dL Creatinine 0.60 (0.52-1.04) mg/dL Est GFR (CKD-EPI)AfAm >90 (>60 ml/min/1.73 sqM) Est GFR (CKD-EPI)NonAf 89 (>60 ml/min/1.73 sqM) Glucose 100 H (74-99) mg/dL Plasma Lactic Acid Wilder (0.7-2.0) mmol/L Calcium 9.0 (8.4-10.2) mg/dL Magnesium 2.1 (1.6-2.3) mg/dL Total Bilirubin 0.5 (0.2-1.3) mg/dL AST 25 (14-36) U/L ALT 17 (4-34) U/L Alkaline Phosphatase 107 (38-126) U/L Troponin I (0.000-0.034) ng/mL Total Protein 7.2 (6.3-8.2) g/dL Albumin 3.4 L (3.5-5.0) g/dL Urine Color Urine Appearance (Clear) Urine pH (5.0-8.0) Ur Specific [place] (1.001-1.035) Urine Protein (Negative) Urine Glucose (UA) (Negative) Urine Ketones (Negative) Urine Blood (Negative) Urine Nitrite (Negative) Urine Bilirubin (Negative) Urine Urobilinogen (<2.0) mg/dL Ur Leukocyte Esterase (Negative) Urine RBC (0-5) /hpf Urine WBC (0-5) /hpf Urine Bacteria (None) /hpf Hyaline Casts (0-2) /lpf Urine Mucus (None) /hpf Coronavirus (PCR) (Not Detectd) Influenza Type A RNA (Not Detectd) Influenza Type B (PCR) (Not Detectd) RSV (PCR) (Negative) 12/25/21 12/25/21 12/25/21 Range/Units 12:10 12:10 12:30 WBC (3.8-10.6) k/uL RBC (3.80-5.40) m/uL Hgb (11.4-16.0) gm/dL Hct (34.0-46.0) % MCV (80.0-100.0) fL MCH (25.0-35.0) pg MCHC (31.0-37.0) g/dL RDW (11.5-15.5) % Plt Count (150-450) k/uL MPV Neutrophils % % Lymphocytes % % Monocytes % % Eosinophils % % Basophils % % Neutrophils # (1.3-7.7) k/uL Lymphocytes # (1.0-4.8) k/uL Monocytes # (0-1.0) k/uL Eosinophils # (0-0.7) k/uL Basophils # (0-0.2) k/uL PT (9.0-12.0) sec INR (<1.2) APTT (22.0-30.0) sec Sodium (137-145) mmol/L Potassium (3.5-5.1) mmol/L Chloride (98-107) mmol/L Carbon Dioxide (22-30) mmol/L Anion Gap mmol/L BUN (7-17) mg/dL Creatinine (0.52-1.04) mg/dL Est GFR (CKD-EPI)AfAm (>60 ml/min/1.73 sqM) Est GFR (CKD-EPI)NonAf (>60 ml/min/1.73 sqM) Glucose (74-99) mg/dL Plasma Lactic Acid Wilder 1.5 (0.7-2.0) mmol/L Calcium (8.4-10.2) mg/dL Magnesium (1.6-2.3) mg/dL Total Bilirubin (0.2-1.3) mg/dL AST (14-36) U/L ALT (4-34) U/L Alkaline Phosphatase (38-126) U/L Troponin I 0.015 (0.000-0.034) ng/mL Total Protein (6.3-8.2) g/dL Albumin (3.5-5.0) g/dL Urine Color Urine Appearance (Clear) Urine pH (5.0-8.0) Ur Specific [place] (1.001-1.035) Urine Protein (Negative) Urine Glucose (UA) (Negative) Urine Ketones (Negative) Urine Blood (Negative) Urine Nitrite (Negative) Urine Bilirubin (Negative) Urine Urobilinogen (<2.0) mg/dL Ur Leukocyte Esterase (Negative) Urine RBC (0-5) /hpf Urine WBC (0-5) /hpf Urine Bacteria (None) /hpf Hyaline Casts (0-2) /lpf Urine Mucus (None) /hpf Coronavirus (PCR) Not Detected (Not Detectd) Influenza Type A RNA (Not Detectd) Influenza Type B (PCR) (Not Detectd) RSV (PCR) (Negative) 12/25/21 12/25/21 Range/Units 12:30 15:37 WBC (3.8-10.6) k/uL RBC (3.80-5.40) m/uL Hgb (11.4-16.0) gm/dL Hct (34.0-46.0) % MCV (80.0-100.0) fL MCH (25.0-35.0) pg MCHC (31.0-37.0) g/dL RDW (11.5-15.5) % Plt Count (150-450) k/uL MPV Neutrophils % % Lymphocytes % % Monocytes % % Eosinophils % % Basophils % % Neutrophils # (1.3-7.7) k/uL Lymphocytes # (1.0-4.8) k/uL Monocytes # (0-1.0) k/uL Eosinophils # (0-0.7) k/uL Basophils # (0-0.2) k/uL PT (9.0-12.0) sec INR (<1.2) APTT (22.0-30.0) sec Sodium (137-145) mmol/L Potassium (3.5-5.1) mmol/L Chloride (98-107) mmol/L Carbon Dioxide (22-30) mmol/L Anion Gap mmol/L BUN (7-17) mg/dL Creatinine (0.52-1.04) mg/dL Est GFR (CKD-EPI)AfAm (>60 ml/min/1.73 sqM) Est GFR (CKD-EPI)NonAf (>60 ml/min/1.73 sqM) Glucose (74-99) mg/dL Plasma Lactic Acid Wilder (0.7-2.0) mmol/L Calcium (8.4-10.2) mg/dL Magnesium (1.6-2.3) mg/dL Total Bilirubin (0.2-1.3) mg/dL AST (14-36) U/L ALT (4-34) U/L Alkaline Phosphatase (38-126) U/L Troponin I (0.000-0.034) ng/mL Total Protein (6.3-8.2) g/dL Albumin (3.5-5.0) g/dL Urine Color Yellow Urine Appearance Clear (Clear) Urine pH 5.5 (5.0-8.0) Ur Specific [place] 1.020 (1.001-1.035) Urine Protein Trace H (Negative) Urine Glucose (UA) Negative (Negative) Urine Ketones Negative (Negative) Urine Blood Negative (Negative) Urine Nitrite Negative (Negative) Urine Bilirubin Negative (Negative) Urine Urobilinogen <2.0 (<2.0) mg/dL Ur Leukocyte Esterase Small H (Negative) Urine RBC 3 (0-5) /hpf Urine WBC 1 (0-5) /hpf Urine Bacteria Rare H (None) /hpf Hyaline Casts 3 H (0-2) /lpf Urine Mucus Rare H (None) /hpf Coronavirus (PCR) (Not Detectd) Influenza Type A RNA Not Detected (Not Detectd) Influenza Type B (PCR) Not Detected (Not Detectd) RSV (PCR) Negative (Negative) Disposition Clinical Impression: Intertrigo, Fall Disposition: HOME SELF-CARE Condition: Good Instructions (If sedation given, give patient instructions): Fall Prevention for Older Adults (ED), Skin Yeast Infection (ED) Additional Instructions: Use nystatin powder to the left groin. Follow-up with your primary care doctor next week. Return to the emergency room with any new or concerning symptoms. Prescriptions: Nystatin 100,000Unit/gm Cream [Mycostatin Cream] 1 applic TOPICAL BID #15 gram Is patient prescribed a controlled substance at d/c from ED?: No Referrals: None,Stated [Primary Care Provider] - 1-2 days Time of Disposition: 16:49
--- NOTE | 2021-12-25 12:13 | CT ---
EXAMINATION TYPE: CT brain billy weeks con DATE OF EXAM: 12/25/2021 COMPARISON: CT brain 11/18/2019 HISTORY: fall, trauma and pain CT DLP: 1231.2 mGycm Automated exposure control for dose reduction was used. TECHNIQUE: CT scan of the head and cervical spine are performed without contrast. FINDINGS: There is no acute intracranial hemorrhage, mass effect, or midline shift identified. The ventricles and sulci are within normal limits in size. There is cortical atrophy. Periventricular wh ite matter shows patchy low attenuation as on prior exam. The globes are intact and the visualized si nuses are clear. Cervical spine is visualized in its entirety from C1 through upper thoracic levels and demonstrates s atisfactory alignment without evidence of acute fracture or dislocation. Prevertebral soft tissue ap pears within normal limits. The C1-C2 articulation is unremarkable. There is degenerative disc murray ges, loss of disc height at C4-5, C5-6 and C6-7, multilevel foraminal encroachment. There is multilev el facet arthropathy. Lung apices show no pneumothorax, apical pleural thickening is present, there i s an azygos lobe present. Degenerative changes are present temporomandibular joints. There is spinal curvature. IMPRESSION: 1. There is no acute fracture or dislocation evident in the cervical spine. Stable age-related change s of atrophy and chronic small vessel ischemia 2. No acute intracranial hemorrhage, mass effect, or midline shift is seen.
[2021-12-25 12:37] LABS: Partial Thromboplastin Time 22.9 sec (22.0-30.0); Prothrombin Time 10.6 sec (9.0-12.0)
[2021-12-25 12:41] LABS: Basophils % (A) 1 %; Eosinophils % (A) 0 %; Lymphocytes # (A) 0.7 k/uL (1.0-4.8); Lymphocytes % (A) 10 %; MCH 31.3 pg (25.0-35.0); MCHC 32.6 g/dL (31.0-37.0); MCV 96.1 fL (80.0-100.0); Mean Platelet Volume 7.5; Monocytes # (A) 0.5 k/uL (0-1.0); Monocytes % (A) 8 %; Neutrophils # (A) 5.2 k/uL (1.3-7.7); Neutrophils % (A) 79 %; Platelet Count 444 k/uL (150-450); RBC 4.48 m/uL (3.80-5.40); WBC 6.6 k/uL (3.8-10.6)
[2021-12-25 12:44] LABS: ALT 17 U/L (4-34); AST 25 U/L (14-36); African American GFR (CKD) >90 (>60 ml/min/1.73 sqM); Albumin 3.4 g/dL (3.5-5.0); Alkaline Phosphatase 107 U/L (38-126); Anion Gap 8 mmol/L; Blood Urea Nitrogen 13 mg/dL (7-17); Carbon Dioxide 24 mmol/L (22-30); Chloride 107 mmol/L (98-107); Glucose 100 mg/dL (74-99); Magnesium 2.1 mg/dL (1.6-2.3); Non-African American GFR(CKD) 89 (>60 ml/min/1.73 sqM); Potassium 3.9 mmol/L (3.5-5.1); Sodium 139 mmol/L (137-145); Total Bilirubin 0.5 mg/dL (0.2-1.3); Total Protein 7.2 g/dL (6.3-8.2)
--- NOTE | 2021-12-25 13:10 | XR ---
EXAMINATION TYPE: XR chest 2V DATE OF EXAM: 12/25/2021 COMPARISON: 11/18/2019 HISTORY: 76-year-old female with weakness TECHNIQUE: AP and lateral views FINDINGS: Partially visualized plate and screw fixation left humerus. The fracture there may be ununited. Incom pletely imaged. Heart normal size. Mild hyperinflation. Mild interstitial densities especially mid and lower lungs. N ormal variant azygos fissure. No pleural effusion. IMPRESSION: 1. Suspect underlying COPD. Some interstitial density in the mid and lower lungs could reflect bronch itis, chronic asthma, or atypical pneumonia. Clinically correlate. 2. Plate and screw fixation of the left humerus is only partially visualized. There may be a nonunion at the fracture site.
--- NOTE | 2021-12-25 14:57 | XR ---
EXAMINATION TYPE: XR humerus LT DATE OF EXAM: 12/25/2021 CLINICAL HISTORY: Pain after fall injury. TECHNIQUE: Two views of the left humerus are obtained. COMPARISON: Prior left humerus x-ray December 09, 2018. FINDINGS: There is a fixating plate through prior comminuted fracture left proximal humerus with inco mplete healing or nonunion. There are few loose screws outside fixating plate with extensive deminera lization and heterotopic ossification. Some abnormal surrounding lucency is present in the femoral he ad and distally. Findings are consistent with loosening and/or infection since time of fixation. Tiff elate clinically. No suspicious linear lucency to suggest new acute fracture. Visualized left elbow j oint appears within normal limits. Overlying clothing material and/or blankets are present. IMPRESSION: As above.
[2021-12-25 15:58] LABS: Appearance,Urine Clear (Clear); Bacteria,Urine Rare /hpf; Bilirubin,Urine Negative (Negative); Blood,Urine Negative (Negative); Color,Urine Yellow; Glucose,Urine (UA) Negative (Negative); Hyaline Casts,Urine 3 /lpf (0-2); Ketones,Urine Negative (Negative); Leukocyte Esterase,Urine Small (Negative); Mucus,Urine Rare /hpf; Nitrite,Urine Negative (Negative); PH, Urine 5.5 (5.0-8.0); Protein,Urine Trace (Negative); RBC,Urine 3 /hpf (0-5); Urobilinogen,Urine <2.0 mg/dL (<2.0); WBC,Urine 1 /hpf (0-5)
[2021-12-25 16:23] VITALS: RESP 18
[2021-12-25 16:53] VITALS: TEMP 98.6
[2021-12-25 18:06] VITALS: BP 114/82; PULSE 81
== END 2021-12-25 17:50 | disposition home or self-care (01) ==
LOC: EC 10:30 → EEVIPCON 10:30 → EC 17:50
DX: L30.4 Erythema intertrigo (principal); F17.200 Nicotine dependence, unspecified, uncomplicated; Z20.822 Contact with and (suspected) exposure to COVID-19; W19.XXXA Unspecified fall, initial encounter
CPT/HCPCS: 36415; 70450; 71046; 72125; 80053; 81001; 83605; 83735; 84484; 85025; 85610; 85730; 87502; 87634; 87635; 93005; 96360; 99285

== ENCOUNTER 2021-12-26 18:39 | Inpatient (IN) | payer MEDICARE ==
[2021-12-26] MEDS ORDERED: ACETAMINOPHEN TAB 500 MG TAB PO STA (18:48)
--- NOTE | 2021-12-26 18:50 | ED ---
General Adult HPI - General Stated complaint: Weakness Time Seen by Provider: 12/26/21 18:41 Source: patient, EMS, RN notes reviewed, old records reviewed Mode of arrival: EMS Limitations: no limitations - History of Present Illness Initial comments: Patient is a pleasantly demented 76 year old female presenting to the emergency department for generalized weakness. Patient normally is and that her with a walker however is refusing to walk. Patient also reportedly has a mild cough. Patient denies any problems and is unclear why she is here. When directly questioned patient admits to having a mild cough. Patient also agrees that not walking is abnormal for her. - Related Data Home Medications Medication Instructions Recorded Confirmed Atorvastatin [Lipitor] 10 mg PO HS 12/25/21 12/26/21 Donepezil [Aricept] 10 mg PO HS 12/25/21 12/26/21 Ergocalciferol [Vitamin D2 (1250 1,250 mcg PO MO 12/25/21 12/26/21 Mcg = 22068 Iu)] Ibuprofen [Motrin Ib] 400 mg PO Q8H PRN 12/25/21 12/26/21 Lactose-Reduced Food [Boost] 237 ml PO DAILY 12/25/21 12/26/21 Magnesium Hydroxide [Milk of 2,400 mg PO DAILY 12/25/21 12/26/21 Magnesia] Oxybutynin Chloride [Oxybutynin 10 mg PO DAILY 12/25/21 12/26/21 Chloride ER] Psyllium Husk 100% [Metamucil 6 gm PO DAILY PRN 12/25/21 12/26/21 Packet] QUEtiapine [SEROquel] 25 mg PO HS 12/25/21 12/26/21 polyethylene glycoL 3350 [Miralax] 17 gm PO DAILY PRN 12/25/21 12/26/21 Previous Rx's Medication Instructions Recorded Nystatin 100,000Unit/gm Cream 1 applic TOPICAL BID #15 gram 12/25/21 [Mycostatin Cream] Allergies Allergy/AdvReac Type Severity Reaction Status Date / Time No Known Allergies Allergy Verified 12/26/21 20:53 Review of Systems ROS Statement: Those systems with pertinent positive or pertinent negative responses have been documented in the HPI. ROS Other: All systems not noted in ROS Statement are negative. Constitutional: Reports: fever Eyes: Denies: eye pain ENT: Denies: ear pain Respiratory: Reports: cough. 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 History of Any Multi-Drug Resistant Organisms: None Reported Past Surgical History: No Surgical Hx Reported, Orthopedic Surgery Past Anesthesia/Blood Transfusion Reactions: No Reported Reaction Additional Past Anesthesia/Blood Transfusion Reaction / Comment(s): PT DENIED EVER HAVING ANY SX Past Psychological History: Depression, No Psychological Hx Reported Smoking Status: Former smoker Past Alcohol Use History: None Reported, Occasional - Past Family History Father History Unknown: Yes Mother History Unknown: Yes General Exam Limitations: no limitations General appearance: alert, in no apparent distress Head exam: Present: normocephalic Eye exam: Present: normal appearance, PERRL Neck exam: Present: normal inspection. Absent: tenderness, meningismus Respiratory exam: Present: normal lung sounds bilaterally Cardiovascular Exam: Present: regular rate, normal rhythm GI/Abdominal exam: Present: soft. Absent: tenderness Extremities exam: Present: normal inspection Neurological exam: Present: alert Expanded Cranial nerves: EOM's Intact: Normal Sensory exam: Upper Extremity Light Touch: Normal, Lower Extremity Light Touch: Normal Motor strength exam: RUE: 5, LUE: 5, RLE: 5, LLE: 5 Eye Response: (4) open spontaneously Motor Response: (6) obeys commands Verbal Response: (4) confused conversation Psychiatric exam: Present: normal affect, normal mood Skin exam: Present: normal color Course Vital Signs 12/26/21 12/26/21 12/26/21 18:41 18:50 19:43 Temperature 100.7 F H Pulse Rate 18 L 84 Respiratory 18 18 18 Rate Blood Pressure 115/69 117/88 O2 Sat by Pulse 98 96 Oximetry EKG Findings - EKG Comments: EKG Findings:: Sinus tachycardia at 01/24/2004. OK 114. QRS 64. QT 348. QTC 457. Normal axis. Normal QRS. No acute ST change. Medical Decision Making - Medical Decision Making Patient does have positive COVID-19 test. Patient otherwise is acting appropriately without any focal weakness. Patient does not meet criteria for inpatient care. - Lab Data Result diagrams: 12/26/21 19:25 12/26/21 19:25 Lab Results 12/26/21 12/26/21 12/26/21 Range/Units 19:25 19:25 19:25 WBC 7.3 (3.8-10.6) k/uL RBC 4.30 (3.80-5.40) m/uL Hgb 13.5 (11.4-16.0) gm/dL Hct 41.4 (34.0-46.0) % MCV 96.4 (80.0-100.0) fL MCH 31.4 (25.0-35.0) pg MCHC 32.6 (31.0-37.0) g/dL RDW 14.6 (11.5-15.5) % Plt Count 445 (150-450) k/uL MPV 7.6 Neutrophils % 78 % Lymphocytes % 11 % Monocytes % 7 % Eosinophils % 1 % Basophils % 1 % Neutrophils # 5.7 (1.3-7.7) k/uL Lymphocytes # 0.8 L (1.0-4.8) k/uL Monocytes # 0.5 (0-1.0) k/uL Eosinophils # 0.1 (0-0.7) k/uL Basophils # 0.1 (0-0.2) k/uL PT 10.5 (9.0-12.0) sec INR 1.0 (<1.2) APTT 26.3 (22.0-30.0) sec Sodium (137-145) mmol/L Potassium (3.5-5.1) mmol/L Chloride (98-107) mmol/L Carbon Dioxide (22-30) mmol/L Anion Gap mmol/L BUN (7-17) mg/dL Creatinine (0.52-1.04) mg/dL Est GFR (CKD-EPI)AfAm (>60 ml/min/1.73 sqM) Est GFR (CKD-EPI)NonAf (>60 ml/min/1.73 sqM) Glucose (74-99) mg/dL Plasma Lactic Acid Wilder (0.7-2.0) mmol/L Calcium (8.4-10.2) mg/dL Total Bilirubin (0.2-1.3) mg/dL AST (14-36) U/L ALT (4-34) U/L Alkaline Phosphatase (38-126) U/L Total Protein (6.3-8.2) g/dL Albumin (3.5-5.0) g/dL Urine Color Yellow Urine Appearance Clear (Clear) Urine pH 5.0 (5.0-8.0) Ur Specific [place] 1.023 (1.001-1.035) Urine Protein Trace H (Negative) Urine Glucose (UA) Negative (Negative) Urine Ketones Negative (Negative) Urine Blood Trace H (Negative) Urine Nitrite Negative (Negative) Urine Bilirubin Negative (Negative) Urine Urobilinogen <2.0 (<2.0) mg/dL Ur Leukocyte Esterase Negative (Negative) Urine RBC 2 (0-5) /hpf Urine WBC 1 (0-5) /hpf Ur Squamous Epith Cells <1 (0-4) /hpf Urine Mucus Rare H (None) /hpf Coronavirus (PCR) (Not Detectd) 12/26/21 12/26/21 12/26/21 Range/Units 19:25 19:25 19:25 WBC (3.8-10.6) k/uL RBC (3.80-5.40) m/uL Hgb (11.4-16.0) gm/dL Hct (34.0-46.0) % MCV (80.0-100.0) fL MCH (25.0-35.0) pg MCHC (31.0-37.0) g/dL RDW (11.5-15.5) % Plt Count (150-450) k/uL MPV Neutrophils % % Lymphocytes % % Monocytes % % Eosinophils % % Basophils % % Neutrophils # (1.3-7.7) k/uL Lymphocytes # (1.0-4.8) k/uL Monocytes # (0-1.0) k/uL Eosinophils # (0-0.7) k/uL Basophils # (0-0.2) k/uL PT (9.0-12.0) sec INR (<1.2) APTT (22.0-30.0) sec Sodium 137 (137-145) mmol/L Potassium 5.5 H (3.5-5.1) mmol/L Chloride 101 (98-107) mmol/L Carbon Dioxide 25 (22-30) mmol/L Anion Gap 11 mmol/L BUN 19 H (7-17) mg/dL Creatinine 0.60 (0.52-1.04) mg/dL Est GFR (CKD-EPI)AfAm >90 (>60 ml/min/1.73 sqM) Est GFR (CKD-EPI)NonAf 89 (>60 ml/min/1.73 sqM) Glucose 106 H (74-99) mg/dL Plasma Lactic Acid Wilder 2.4 H* (0.7-2.0) mmol/L Calcium 8.8 (8.4-10.2) mg/dL Total Bilirubin 1.0 (0.2-1.3) mg/dL AST 58 H (14-36) U/L ALT 27 (4-34) U/L Alkaline Phosphatase 95 (38-126) U/L Total Protein 8.3 H (6.3-8.2) g/dL Albumin 3.9 (3.5-5.0) g/dL Urine Color Urine Appearance (Clear) Urine pH (5.0-8.0) Ur Specific [place] (1.001-1.035) Urine Protein (Negative) Urine Glucose (UA) (Negative) Urine Ketones (Negative) Urine Blood (Negative) Urine Nitrite (Negative) Urine Bilirubin (Negative) Urine Urobilinogen (<2.0) mg/dL Ur Leukocyte Esterase (Negative) Urine RBC (0-5) /hpf Urine WBC (0-5) /hpf Ur Squamous Epith Cells (0-4) /hpf Urine Mucus (None) /hpf Coronavirus (PCR) Detected A (Not Detectd) - Radiology Data Radiology results: image reviewed (Chest x-ray does show some mild increase inte rstitial density) Disposition Clinical Impression: COVID-19 Disposition: HOME SELF-CARE Condition: Stable Instructions (If sedation given, give patient instructions): Coronavirus Di e 2019 (COVID-19) Additional Instructions: Please follow-up with your primary care physician in the next day or 2 for recheck. [id number] Tylenol as needed for fever. [id number] vitamin C, vitamin D, and zinc may help. Return for not tolerating oral intake, difficulty breathing, uncontrolled fevers, worsening or changing symptoms or other concerns. Is patient prescribed a controlled substance at d/c from ED?: No Referrals: Adiel,Peter, MD [STAFF PHYSICIAN] - 1-2 days Time of Disposition: 21:46
[2021-12-26 19:59] LABS: Basophils # (A) 0.1 k/uL (0-0.2); Basophils % (A) 1 %; Eosinophils # (A) 0.1 k/uL (0-0.7); Eosinophils % (A) 1 %; HCT 41.4 % (34.0-46.0); HGB 13.5 gm/dL (11.4-16.0); Lymphocytes # (A) 0.8 k/uL (1.0-4.8); Lymphocytes % (A) 11 %; MCH 31.4 pg (25.0-35.0); MCHC 32.6 g/dL (31.0-37.0); MCV 96.4 fL (80.0-100.0); Mean Platelet Volume 7.6; Monocytes # (A) 0.5 k/uL (0-1.0); Monocytes % (A) 7 %; Neutrophils # (A) 5.7 k/uL (1.3-7.7); Neutrophils % (A) 78 %; Platelet Count 445 k/uL (150-450); RDW 14.6 % (11.5-15.5); WBC 7.3 k/uL (3.8-10.6)
[2021-12-26 20:12] LABS: Partial Thromboplastin Time 26.3 sec (22.0-30.0); Prothrombin Time 10.5 sec (9.0-12.0)
[2021-12-26 20:14] LABS: ALT 27 U/L (4-34); AST 58 U/L (14-36); African American GFR (CKD) >90 (>60 ml/min/1.73 sqM); Albumin 3.9 g/dL (3.5-5.0); Alkaline Phosphatase 95 U/L (38-126); Anion Gap 11 mmol/L; Blood Urea Nitrogen 19 mg/dL (7-17); Calcium 8.8 mg/dL (8.4-10.2); Carbon Dioxide 25 mmol/L (22-30); Chloride 101 mmol/L (98-107); Glucose 106 mg/dL (74-99); Non-African American GFR(CKD) 89 (>60 ml/min/1.73 sqM); Sodium 137 mmol/L (137-145); Total Protein 8.3 g/dL (6.3-8.2)
[2021-12-26 20:25] LABS: Potassium 5.5 mmol/L (3.5-5.1)
--- NOTE | 2021-12-26 21:00 | XR ---
EXAMINATION TYPE: XR chest 2V DATE OF EXAM: 12/26/2021 COMPARISON: 12/25/2021 HISTORY: Fever TECHNIQUE: 2 views FINDINGS: There is some coarsening of the interstitial markings. There are chest leads. There is mild pleural thickening at the lung apices. Heart size is normal. There is no pleural effusion. IMPRESSION: There is increased pulmonary interstitial density compared to recent exam and could be de veloping mild acute pneumonia.
[2021-12-26] MEDS ORDERED: SODIUM CHLORIDE 0.9% 500 ML 500 ML IV STA (21:17)
[2021-12-26 21:27] LABS: Appearance,Urine Clear (Clear); Bilirubin,Urine Negative (Negative); Blood,Urine Trace (Negative); Color,Urine Yellow; Glucose,Urine (UA) Negative (Negative); Ketones,Urine Negative (Negative); Leukocyte Esterase,Urine Negative (Negative); Mucus,Urine Rare /hpf; Nitrite,Urine Negative (Negative); Protein,Urine Trace (Negative); RBC,Urine 2 /hpf (0-5); Specific Gravity,Urine 1.023 (1.001-1.035); Squamous Epithelial Cell,Urine <1 /hpf (0-4); Urobilinogen,Urine <2.0 mg/dL (<2.0); WBC,Urine 1 /hpf (0-5)
[2021-12-26] MEDS ORDERED: NALOXONE 0.4 MG/ML 1 ML VIAL IV PRN (23:34)
[2021-12-27] MEDS ORDERED: IBUPROFEN 400 MG TAB PO PRN (00:48)
[2021-12-27] MEDS: SODIUM CHLORIDE 0.9% 1,000 ML IV SCH ×3 (00:58→21:46)
[2021-12-27] MEDS ORDERED: ACETAMINOPHEN TAB 325 MG TAB PO PRN (01:27)
[2021-12-27] MEDS: QUEtiapine 25 MG TAB PO SCH ×2 (01:28→20:31)
[2021-12-27] MEDS: DONEPEZIL 10 MG TAB PO SCH ×2 (01:28→20:31)
[2021-12-27] MEDS ORDERED: PSYLLIUM HUSK 100% 6 GM PACKET PO PRN (09:00)
[2021-12-27] MEDS ORDERED: polyethylene glycoL 3350 17 GM POWD.PACK PO PRN (09:00)
[2021-12-27] MEDS: NYSTATIN 100,000 UNIT/GM POWD 15 GM TOPICAL SCH ×2 (09:15→20:31)
[2021-12-27] MEDS: OXYBUTYNIN 10 MG TAB.ER.24 PO SCH (09:15)
[2021-12-27 13:05] VITALS: BMI 24.3
[2021-12-27] MEDS: ATORVASTATIN 10 MG TAB PO SCH (20:31)
[2021-12-28] MEDS: ASCORBIC ACID 500 MG TAB PO SCH ×2 (09:29→21:26)
[2021-12-28] MEDS: OXYBUTYNIN 10 MG TAB.ER.24 PO SCH (09:29)
[2021-12-28] MEDS: CHOLECALCIFEROL 25 MCG (1000 IU) TABLET PO SCH (09:29)
[2021-12-28] MEDS: NYSTATIN 100,000 UNIT/GM POWD 15 GM TOPICAL SCH ×2 (09:29→21:26)
[2021-12-28] MEDS: ZINC SULFATE 220 MG CAP PO SCH (09:29)
[2021-12-28] MEDS: ENOXAPARIN 40 MG/0.4 ML SYRINGE SQ SCH (09:29)
--- NOTE | 2021-12-28 10:07 | P.HPIM ---
History of Present Illness H&P Date: 12/27/21 Patient was a 76-year-old the female with a known history of psychiatric problems and the has a guardian, [facility] and was brought into the hospital be because she was falling. Patient is incidentally found to have mild low-grade fever and a chest x-ray findings consistent with the COVID-19 and a had COVID-19 be serous pocket positive. Apart from a low-grade fever on admission patient doesn't have any symptoms at this time. Patient is not a good historian. Patient potassium is bit elevated and it's hemolyzed sample. Patient had mild lactic acidosis was receiving IV fluids although she pulled out IV lines we'll repeat lactic is acid again. REVIEW OF SYSTEMS: CONSTITUTIONAL: No fever, no malaise, no fatigue. HEENT: No recent visual problems or hearing problems. Denied any sore throat. CARDIOVASCULAR: No chest pain, orthopnea, PND, no palpitations, no syncope. PULMONARY: No shortness of breath, no cough, no hemoptysis. GASTROINTESTINAL: No diarrhea, no nausea, no vomiting, no abdominal pain. NEUROLOGICAL: No headaches, no weakness, no numbness. HEMATOLOGICAL: Denies any bleeding or petechiae. GENITOURINARY: Denies any burning micturition, frequency, or urgency. MUSCULOSKELETAL/RHEUMATOLOGICAL: Denies any joint pain, swelling, or any muscle pain. ENDOCRINE: Denies any polyuria or polydipsia. The rest of the 14-point review of systems is negative. Patient is not a reliable historian PHYSICAL EXAMINATION: GENERAL: The patient is alert and oriented x2, not in any acute distress. Well developed, well nourished. HEENT: Pupils are round and equally reacting to light. EOMI. No scleral icterus. No conjunctival pallor. Normocephalic, atraumatic. No pharyngeal erythema. No thyromegaly. CARDIOVASCULAR: S1 and S2 present. No murmurs, rubs, or gallops. PULMONARY: Chest is clear to auscultation, no wheezing or crackles. ABDOMEN: Soft, nontender, nondistended, normoactive bowel sounds. No palpable organomegaly. MUSCULOSKELETAL: No joint swelling or deformity. EXTREMITIES: No cyanosis, clubbing, or pedal edema. NEUROLOGICAL: Gross neurological examination did not reveal any focal deficits. SKIN: No rashes. Assessment and plan -Falls, generalized weakness secondary to age-related muscle atrophy and moderate dementia. -Possible vascular dementia -Hyperlipidemia -COVID-19 infection asymptomatic at this time patient does have COVID-19 pneumonia will not require any steroids at this time as patient is not hypoxic patient will be started on with vitamins we will obtain d-dimer. 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 History of Any Multi-Drug Resistant Organisms: None Reported Past Surgical History: Unable to Obtain, Orthopedic Surgery Past Anesthesia/Blood Transfusion Reactions: Unable to Obtain Additional Past Anesthesia/Blood Transfusion Reaction / Comment(s): PT DENIED EVER HAVING ANY SX Past Psychological History: Depression Smoking Status: Former smoker Past Alcohol Use History: Heavy Additional Past Alcohol Use History / Comment(s): STARTED SMOKING AT AGE 14(1959) SMOKED 1/2 PPD. Previous ETOH Past Drug Use History: None Reported - Past Family History Father History Unknown: Yes Mother History Unknown: Yes Medications and Allergies Home Medications Medication Instructions Recorded Confirmed Type Atorvastatin [Lipitor] 10 mg PO HS 12/25/21 12/26/21 History Donepezil [Aricept] 10 mg PO HS 12/25/21 12/26/21 History Ergocalciferol [Vitamin D2 (1250 1,250 mcg PO MO 12/25/21 12/26/21 History Mcg = 48929 Iu)] Ibuprofen [Motrin Ib] 400 mg PO Q8H PRN 12/25/21 12/26/21 History Lactose-Reduced Food [Boost] 237 ml PO DAILY 12/25/21 12/26/21 History Magnesium Hydroxide [Milk of 2,400 mg PO DAILY 12/25/21 12/26/21 History Magnesia] Nystatin 100,000Unit/gm Cream 1 applic TOPICAL BID #15 gram 12/25/21 12/26/21 Rx [Mycostatin Cream] Oxybutynin Chloride [Oxybutynin 10 mg PO DAILY 12/25/21 12/26/21 History Chloride ER] Psyllium Husk 100% [Metamucil 6 gm PO DAILY PRN 12/25/21 12/26/21 History Packet] QUEtiapine [SEROquel] 25 mg PO HS 12/25/21 12/26/21 History polyethylene glycoL 3350 [Miralax] 17 gm PO DAILY PRN 12/25/21 12/26/21 History Allergies Allergy/AdvReac Type Severity Reaction Status Date / Time No Known Allergies Allergy Verified 12/26/21 20:53 Physical Exam Vitals: Vital Signs Temp Pulse Resp BP Pulse Ox 12/28/21 05:59 97.7 F 73 14 116/66 97 12/28/21 01:25 99.9 F H 78 16 107/44 96 12/27/21 22:25 99 F 81 20 107/63 95 12/27/21 18:00 98.9 F 66 18 102/60 95 12/27/21 14:00 98.7 F 72 18 121/74 96 Intake and Output 12/27/21 12/28/21 12/28/21 22:59 06:59 14:59 Intake Total 450 480 296 Balance 450 480 296 Intake: Oral 450 480 296 Other: Voiding Method Diaper # Voids 3 2 # Bowel Movements 1 Results CBC & Chem 7: 12/26/21 19:25 12/26/21 19:25 Labs: Abnormal Lab Results - Last 24 Hours (Table) 12/28/21 Range/Units 07:11 D-Dimer 3.84 H (<0.60) mg/L FEU Microbiology - Last 24 Hours (Table) 12/26/21 19:25 Blood Culture - Preliminary Blood No Growth after 24 hours 12/26/21 19:25 Blood Culture - Preliminary Blood No Growth after 24 hours Thrombosis Risk Factor Assmnt - Choose All That Apply Any of the Below Risk Factors Present?: Yes Other Risk Factors: Yes Each Risk Factor Represents 3 Points: Age 75 years or older, History of DVT/PE Thrombosis Risk Factor Assessment Total Risk Factor Score: 6 Thrombosis Risk Factor Assessment Level: High Risk
--- NOTE | 2021-12-28 10:15 | P.PN ---
Subjective Patient was a 76-year-old the female with a known history of psychiatric problems and the has a guardian, lives at a intermediate and was brought into the hospital be because she was falling. Patient is incidentally found to have mild low-grade fever and a chest x-ray findings consistent with the COVID-19 and a had COVID-19 be serous pocket positive. Apart from a low-grade fever on admission patient doesn't have any symptoms at this time. Patient is not a good historian. Patient potassium is bit elevated and it's hemolyzed sample. Patient had mild lactic acidosis was receiving IV fluids although she pulled out IV lines we'll repeat lactic is acid again. 12/28/2021 Patient's d-dimer is elevated will obtain a CT of the chest rule out pulmonary embolism Lactic acid levels have come down. Patient will be evaluated by physical therapy and occupational therapy patient will need placement. Constitutional: Denied any fatigue denied any fever. Cardio vascular: denied any chest pain, palpitations Gastrointestinal denied any nausea vomiting Pulmonary: Denied any shortness of breath cough Neurologic denied any new focal deficits All inpatient medications were reviewed and appropriate changes in these medications as dictated in the interval history and assessment and plan. PHYSICAL EXAMINATION: GENERAL: The patient is alert and oriented x2, not in any acute distress. Well developed, well nourished. HEENT: Pupils are round and equally reacting to light. EOMI. No scleral icterus. No conjunctival pallor. Normocephalic, atraumatic. No pharyngeal erythema. No thyromegaly. CARDIOVASCULAR: S1 and S2 present. No murmurs, rubs, or gallops. PULMONARY: Chest is clear to auscultation, no wheezing or crackles. ABDOMEN: Soft, nontender, nondistended, normoactive bowel sounds. No palpable organomegaly. MUSCULOSKELETAL: No joint swelling or deformity. EXTREMITIES: No cyanosis, clubbing, or pedal edema. NEUROLOGICAL: Gross neurological examination did not reveal any focal deficits. SKIN: No rashes. Assessment and plan -Falls, generalized weakness secondary to age-related muscle atrophy and moderate dementia. Physical therapy and occupational evaluation and the patient will need is for subacute rehabilitation -Possible vascular dementia -Hyperlipidemia -COVID-19 infection asymptomatic at this time patient does have COVID-19 pneumonia will not require any steroids at this time as patient is not hypoxic patient will be started on with vitamins, d-dimer is elevated will obtain a CT angios the chest to rule out any pulmonary embolism. -Lactic acidosis secondary to COVID-19 patient is on IV fluids and lactic acid h as come down DVT prophylaxis: Lovenox Objective - Vital Signs Vital signs: Vital Signs Temp 97.7 F 12/28/21 05:59 Pulse 73 12/28/21 05:59 Resp 14 12/28/21 05:59 BP 116/66 12/28/21 05:59 Pulse Ox 97 12/28/21 05:59 Intake & Output 12/27/21 12/28/21 12/28/21 18:59 06:59 18:59 Intake Total 450 480 296 Balance 450 480 296 Weight 68.5 kg Intake: Oral 450 480 296 Other: Voiding Method Diaper Diaper # Voids 3 2 # Bowel Movements 1 - Labs CBC & Chem 7: 12/26/21 19:25 12/26/21 19:25 Labs: Abnormal Lab Results - Last 24 Hours (Table) 12/28/21 Range/Units 07:11 D-Dimer 3.84 H (<0.60) mg/L FEU Microbiology - Last 24 Hours (Table) 12/26/21 19:25 Blood Culture - Preliminary Blood No Growth after 24 hours 12/26/21 19:25 Blood Culture - Preliminary Blood No Growth after 24 hours
--- NOTE | 2021-12-28 15:05 | CT ---
EXAMINATION TYPE: CT chest angio for PE DATE OF EXAM: 12/28/2021 COMPARISON: NONE HISTORY: pulmonary embolism CT DLP: 273.7 mGycm. Automated Exposure Control for Dose Reduction was Utilized. CONTRAST: CTA scan of the thorax is performed with IV Contrast, patient injected with 100 mL of Isovue 370, pul monary embolism protocol. MIP Images are created on CT scanner and reviewed. FINDINGS: LUNGS: The exam is suboptimal as patient unable to hold breath. There is azygos lobe/fissure. Mild in creased interstitial markings. No pleural effusion or pneumothorax seen. Mild left basilar linear sca rring and/or atelectasis. Dependent atelectasis or consolidation right lung base. MEDIASTINUM: There is satisfactory enhancement of the pulmonary artery and its branches, there is no CT evidence for pulmonary embolism. Satisfactory enhancement of the aorta without aneurysm or dissect ion. There are prominent left hilar and subcarinal lymph nodes. No cardiomegaly or pericardial effu jocelyn is seen. OTHER: Multiple enlarged left axillary lymph nodes. For reference there is 2.4 x 1.7 cm lymph node ax ial image 30. Partial visualization of surgical change left shoulder. Underlying scoliotic curvature Omni coronal images in the upper to midthoracic spine. IMPRESSION: 1. No CT evidence for acute pulmonary embolism. 2. Mild interstitial edema. No suspicious focal infiltrate. Correlate for fluid overload state. 3. Abnormal left axillary adenopathy. Correlate clinically. Consider reactive from recent infectious process if patient had recent left upper extremity infection. Consider product of recent vaccine or b ooster administration, correlate clinically. Otherwise other etiologies such as neoplasm from primary lymphoma or breast cancer would be in differential.
[2021-12-28] MEDS: QUEtiapine 25 MG TAB PO SCH (21:26)
[2021-12-28] MEDS: DONEPEZIL 10 MG TAB PO SCH (21:26)
[2021-12-28] MEDS: ATORVASTATIN 10 MG TAB PO SCH (21:26)
[2021-12-28] MEDS: SODIUM CHLORIDE 0.9% 1,000 ML IV SCH (21:29)
[2021-12-29] MEDS: SODIUM CHLORIDE 0.9% 1,000 ML IV SCH ×2 (06:16→16:52)
[2021-12-29] MEDS: ASCORBIC ACID 500 MG TAB PO SCH (07:37)
[2021-12-29] MEDS: OXYBUTYNIN 10 MG TAB.ER.24 PO SCH (07:37)
[2021-12-29] MEDS: CHOLECALCIFEROL 25 MCG (1000 IU) TABLET PO SCH (07:37)
[2021-12-29] MEDS: ZINC SULFATE 220 MG CAP PO SCH (07:37)
[2021-12-29] MEDS: ENOXAPARIN 40 MG/0.4 ML SYRINGE SQ SCH (07:37)
[2021-12-29] MEDS: NYSTATIN 100,000 UNIT/GM POWD 15 GM TOPICAL SCH (07:42)
[2021-12-29 12:10] LABS: African American GFR (CKD) >90 (>60 ml/min/1.73 sqM); Anion Gap 6 mmol/L; Blood Urea Nitrogen 9 mg/dL (7-17); Calcium 8.9 mg/dL (8.4-10.2); Carbon Dioxide 25 mmol/L (22-30); Chloride 107 mmol/L (98-107); Glucose 94 mg/dL (74-99); Non-African American GFR(CKD) >90 (>60 ml/min/1.73 sqM); Potassium 4.2 mmol/L (3.5-5.1); Sodium 138 mmol/L (137-145)
--- NOTE | 2021-12-29 13:47 | P.DS ---
Providers Date of admission: 12/26/21 23:34 Attending physician: Justine Sue Primary care physician: Stated None Hospital Course: Final Diagnosis Falls, generalized weakness secondary to age-related muscle atrophy and moderate dementia Possible vascular dementia Hyperlipidemia Acute Covid 19 infection with pneumonia, patient is on room air was 99% oxygen saturation continues on vitamins, d-dimer was elevated CT angiogram ruled out pulmonary embolism Lactic acidosis secondary to COVID-19, resolved with IV fluids History DVT which this will continue Lovenox for a short duration after discharge Osteoarthritis' History tobacco use, not currently smoking Left axillary adenopathy, recommend follow up on discharge with Gen. surgery for possible biopsy and evaluation Discharge disposition Patient is discharged in stable condition she is currently medically cleared for discharge to subacute rehab. Hospital course This is a pleasant 76 revealed presents to the hospital with complaints of generalized weakness, she does usually uses a walker however she is refusing to walk at this time. She reports falls at home. She also has a mild cough with no sputum production. Patient is also unclear why she is in the [facility]. She was brought in by EMS. Chest x-ray on admission shows increased pulmonary interstitial density compared to recent exam that could be developing mild acute pneumonia. She also presents with fever 100.7. Past medical history significant for DVT, osteoarthritis, patient is not a good historian. COVID-19 PCR was positive. Because of which we proceeded to do a d-dimer which was 2.84, CT angiography was completed which showed no evidence for acute pulmonary embolism, mild interstitial edema, there is no suspicious focal infiltrate, correlate for fluid overload state. Abnormal left at axillary adenopathy was found, correlate clinically. Consider reactive from recent infectious processes patient had a recent left upper extremity infection. Also consider product of recent vaccine or booster ministration. Correlate clinically. Otherwise other etiology such as neoplasm from primary lymphoma or breast cancer will be differential. Recommended outpatient follow-up with Gen. surgery for this patient would need possible biopsy and further evaluation. Additional labs on admission show a potassium of 5.5, sodium 137, BUN 19, creatinine 0.60, glucose 106, lactic acid 2.4, AST 58, ALT 27, urinalysis negative for infection. She was hydrated with IV fluids and subsequently lactic acid improved 1.1 and repeat chemistry panel is within normal limits. Patient was evaluated PT OT to recommend subacute rehab on discharge. 12/29/2021 Patient evaluated today resting in bed, she is oriented however slightly confused. She does states that she lives alone. She denies any chest pain cough or shortness of breath. She denies any nausea vomiting diarrhea. There is no focal neurological deficits. Lungs are clear to auscultation, S1-S2 present abdomen soft nontender. Vital signs are stable today, repeat lab work within normal limits. She is cleared medically for discharge to rehab on room air. She will need a follow-up with a PCP we did refer Dr. Chun as well as a general surgery we did refer her to Dr. Jarrell Salinas. Due to history of DVT, we will continue Lovenox for short duration at rehab, two-week duration. Additionally she can continue with vitamins there is no need for steroids at this time. Please see medication reconciliaton for a list of current medications. Thank you for allowing us to participate in the care of this patient. Patient Condition at Discharge: Stable Plan - Discharge Summary Discharge Rx Participant: No New Discharge Prescriptions: New Acetaminophen Tab [Tylenol] 650 mg PO Q6HR PRN tab PRN Reason: Fever And/ Or Pain Ascorbic Acid [Vitamin C] 500 mg PO DAILY #30 tab Cholecalciferol [Vitamin D3 (25 Mcg = 1000 Iu)] 100 mcg PO DAILY #30 tablet Nystatin 100,000 Unit/gm Powd [Mycostatin Powder] 1 applic TOPICAL BID Continue Psyllium Husk 100% [Metamucil Packet] 6 gm PO DAILY PRN PRN Reason: BOWEL REGULARITY Ibuprofen [Motrin Ib] 400 mg PO Q8H PRN PRN Reason: Pain Ergocalciferol [Vitamin D2 (1250 Mcg = 63936 Iu)] 1,250 mcg PO MO polyethylene glycoL 3350 [Miralax] 17 gm PO DAILY PRN PRN Reason: Constipation QUEtiapine [SEROquel] 25 mg PO HS Donepezil [Aricept] 10 mg PO HS Atorvastatin [Lipitor] 10 mg PO HS Oxybutynin Chloride [Oxybutynin Chloride ER] 10 mg PO DAILY Magnesium Hydroxide [Milk of Magnesia] 2,400 mg PO DAILY Lactose-Reduced Food [Boost] 237 ml PO DAILY Nystatin 100,000Unit/gm Cream [Mycostatin Cream] 1 applic TOPICAL BID #15 gram Discharge Medication List Atorvastatin [Lipitor] 10 mg PO HS 12/25/21 [History] Donepezil [Aricept] 10 mg PO HS 12/25/21 [History] Ergocalciferol [Vitamin D2 (1250 Mcg = 35334 Iu)] 1,250 mcg PO MO 12/25/21 [History] Ibuprofen [Motrin Ib] 400 mg PO Q8H PRN 12/25/21 [History] Lactose-Reduced Food [Boost] 237 ml PO DAILY 12/25/21 [History] Magnesium Hydroxide [Milk of Magnesia] 2,400 mg PO DAILY 12/25/21 [History] Nystatin 100,000Unit/gm Cream [Mycostatin Cream] 1 applic TOPICAL BID #15 gram 12/25/21 [Rx] Oxybutynin Chloride [Oxybutynin Chloride ER] 10 mg PO DAILY 12/25/21 [History] Psyllium Husk 100% [Metamucil Packet] 6 gm PO DAILY PRN 12/25/21 [History] QUEtiapine [SEROquel] 25 mg PO HS 12/25/21 [History] polyethylene glycoL 3350 [Miralax] 17 gm PO DAILY PRN 12/25/21 [History] Acetaminophen Tab [Tylenol] 650 mg PO Q6HR PRN tab 12/29/21 [Rx] Ascorbic Acid [Vitamin C] 500 mg PO DAILY #30 tab 12/29/21 [Rx] Cholecalciferol [Vitamin D3 (25 Mcg = 1000 Iu)] 100 mcg PO DAILY #30 tablet 12/29/21 [Rx] Nystatin 100,000 Unit/gm Powd [Mycostatin Powder] 1 applic TOPICAL BID 12/29/21 [Rx] Follow up Appointment(s)/Referral(s): Peter Chun MD [STAFF PHYSICIAN] - 1-2 days Inga Rockwell MD [STAFF PHYSICIAN] - 1 Week (Patient needs follow up for left axillary adenopathy, multiple found, 2.4 x 1.7cm for reference size.) Patient Instructions/Handouts: Coronavirus Disease 2019 (COVID-19) Activity/Diet/Wound Care/Special Instructions: Please follow-up with your primary care physician in the next day or 2 for recheck. [id number] Tylenol as needed for fever. [id number] vitamin C, vitamin D, and zinc may help. Return for not tolerating oral intake, difficulty breathing, uncontrolled fevers, worsening or changing symptoms or other concerns. Discharge Disposition: TRANSFER TO SNF/ECF
[2021-12-29 14:06] VITALS: BP 121/73; PULSE 75; RESP 17; TEMP 98.3
[2022-01-01] MEDS ORDERED: ERGOCALCIFEROL 1,250 MCG (50,000 IU) CAPSULE PO SCH (09:00)
== END 2021-12-29 17:28 | DRG 177 ==
LOC: EC 18:39 → OBSVTOIN 23:34 → 4SSUR 23:34
PROVIDERS: ADMIT Hospitalist; ATTEND Hospitalist
DX: U07.1 COVID-19 (principal); J12.82 Pneumonia due to coronavirus disease 2019; E87.2 Acidosis; F01.50 Vascular dementia, unspecified severity, without behavioral disturbance, psychotic disturbance, mood disturbance, and anxiety; M62.50 Muscle wasting and atrophy, not elsewhere classified, unspecified site; R59.0 Localized enlarged lymph nodes; M19.042 Primary osteoarthritis, left hand; M19.041 Primary osteoarthritis, right hand; F32.A Depression, unspecified; R29.6 Repeated falls; E78.5 Hyperlipidemia, unspecified; Z79.899 Other long term (current) drug therapy; Z87.891 Personal history of nicotine dependence; Z86.718 Personal history of other venous thrombosis and embolism; Z87.2 Personal history of diseases of the skin and subcutaneous tissue
CPT/HCPCS: 36415; 71046; 71275; 80048; 80053; 81001; 83605; 85025; 85379; 85610; 85730; 87040; 87635; 93005; 94760; 99285

== ENCOUNTER 2024-02-29 06:37 | Emergency (ER) | payer MEDICARE ==
--- NOTE | 2024-02-29 07:02 | ED ---
GI Bleed HPI - General Chief complaint: GI Bleed Stated complaint: Rectal bleeding Time Seen by Provider: 02/29/24 06:38 Source: EMS, RN notes reviewed Mode of arrival: EMS Limitations: language barrier, altered mental status - History of Present Illness Initial comments: 78-year-old female presents emergency department from [facility] home for small amount of bright red blood in brief. Patient reportedly has a hemorrhoid and noticed some bright red blood the size of a quarter. Patient is on no blood thinners per records. Patient has a history of dementia is nonverbal. No reports of pain no fevers no other complaints noted. Information is very limited. - Related Data Home Medications Medication Instructions Recorded Confirmed Atorvastatin [Lipitor] 10 mg PO HS 12/25/21 12/26/21 Donepezil [Aricept] 10 mg PO HS 12/25/21 12/26/21 Ergocalciferol [Vitamin D2 (1250 1,250 mcg PO MO 12/25/21 12/26/21 Mcg = 51819 Iu)] Ibuprofen [Motrin Ib] 400 mg PO Q8H PRN 12/25/21 12/26/21 Lactose-Reduced Food [Boost] 237 ml PO DAILY 12/25/21 12/26/21 Magnesium Hydroxide [Milk of 2,400 mg PO DAILY 12/25/21 12/26/21 Magnesia] Oxybutynin Chloride [oxyBUTYnin 10 mg PO DAILY 12/25/21 12/26/21 chloride ER] Psyllium Husk 100% [Metamucil 6 gm PO DAILY PRN 12/25/21 12/26/21 Packet] QUEtiapine [SEROquel] 25 mg PO HS 12/25/21 12/26/21 polyethylene glycoL 3350 [Miralax] 17 gm PO DAILY PRN 12/25/21 12/26/21 Previous Rx's Medication Instructions Recorded Nystatin 100,000Unit/gm Cream 1 applic TOPICAL BID #15 gram 12/25/21 [Mycostatin Cream] Acetaminophen Tab [Tylenol] 650 mg PO Q6HR PRN tab 12/29/21 Ascorbic Acid [Vitamin C] 500 mg PO DAILY #30 tab 12/29/21 Cholecalciferol [Vitamin D3 (25 100 mcg PO DAILY #30 tablet 12/29/21 Mcg = 1000 Iu)] Enoxaparin [Lovenox] 40 mg SQ DAILY each 12/29/21 Nystatin 100,000 Unit/gm Powd 1 applic TOPICAL BID 12/29/21 [Mycostatin Powder] Zinc Sulfate [Orazinc] 220 mg PO DAILY cap 12/29/21 Allergies Allergy/AdvReac Type Severity Reaction Status Date / Time No Known Allergies Allergy Verified 02/29/24 06:41 Review of Systems ROS Statement: Those systems with pertinent positive or pertinent negative responses have been documented in the HPI. ROS Other: All systems not noted in ROS Statement are negative. 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 History of Any Multi-Drug Resistant Organisms: None Reported Past Surgical History: Unable to Obtain, Orthopedic Surgery Past Anesthesia/Blood Transfusion Reactions: Unable to Obtain Additional Past Anesthesia/Blood Transfusion Reaction / Comment(s): PT DENIED EVER HAVING ANY SX Past Psychological History: Depression Smoking Status: Former smoker Past Alcohol Use History: Heavy Past Drug Use History: None Reported - Past Family History Father History Unknown: Yes Mother History Unknown: Yes General Exam General appearance: alert, in no apparent distress Head exam: Present: atraumatic, normocephalic, normal inspection Neck exam: Present: normal inspection. Absent: tenderness, meningismus, lymphadenopathy Respiratory exam: Present: normal lung sounds bilaterally. Absent: respiratory distress, wheezes, rales, rhonchi, stridor Cardiovascular Exam: Present: regular rate, normal rhythm, normal heart sounds. Absent: systolic murmur, diastolic murmur, rubs, gallop, clicks GI/Abdominal exam: Present: soft, normal bowel sounds. Absent: distended, tenderness, guarding, rebound, rigid Rectal exam: Present: hemorrhoids, other (No bleeding noted) Neurological exam: Present: alert Skin exam: Present: warm, dry, intact, normal color. Absent: rash Course Vital Signs 02/29/24 02/29/24 06:38 08:17 Temperature 98.2 F Pulse Rate 58 L 68 Respiratory 16 18 Rate Blood Pressure 150/82 137/73 O2 Sat by Pulse 98 97 Oximetry Medical Decision Making - Medical Decision Making Was pt. sent in by a medical professional or institution (, PA, [employer], urgent care, hospital, or fci...) When possible be specific @ -No Did you speak to anyone other than the patient for history (EMS, parent, family, police, friend...)? What history was obtained from this source @ -Obtained from EMS as patient is nonverbal Did you review nursing and triage notes (agree or disagree)? Why? @ -I reviewed and agree with nursing and triage notes Were old charts reviewed (outside hosp., previous admission, EMS record, old EKG, old radiological studies, urgent care reports/EKG's, fci records)? Report findings @ -No old charts were reviewed Differential Diagnosis (chest pain, altered mental status, abdominal pain women, abdominal pain men, vaginal bleeding, weakness, fever, dyspnea, syncope, headache, dizziness, GI bleed, back pain, seizure, CVA, palpatations, mental he alth, musculoskeletal)? @ -Differential GI Bleed: Esophageal varices, aortoenteric fistula, [place]ph[place], gastritis, peptic ulcer disease, diverticulosis, inflammatory bowel disease, hemorrhoids, fissure, colitis, malignancy, Meckels diverticulum, this is not meant to be an all- inclusive list. EKG interpreted by me (3pts min.). @ -None X-rays interpreted by me (1pt min.). @ -None done CT interpreted by me (1pt min.). @ -None done U/S interpreted by me (1pt. min.). @ -None done What testing was considered but not performed or refused? (CT, X-rays, U/S, labs)? Why? @ -None What meds were considered but not given or refused? Why? @ -None Did you discuss the management of the patient with other professionals (professionals i.e. , PA, [employer], lab, RT, psych nurse, social media designer, box strapper, teacher, account officer, case operator)? Give summary @ -No Was smoking cessation discussed for >3mins.? @ -No Was critical care preformed (if so, how long)? @ -No Were there social determinants of health that impacted care today? How? (Homelessness, low income, unemployed, alcoholism, drug addiction, tr ansportation, low edu. Level, literacy, decrease access to med. care, [facility], rehab)? @ -No Was there de-escalation of care discussed even if they declined (Discuss DNR or withdrawal of care, Hospice)? DNR status @ -No What co-morbidities impacted this encounter? (DM, HTN, Smoking, COPD, CAD, Cancer, CVA, ARF, Chemo, Hep., AIDS, mental health diagnosis, sleep apnea, morbid obesity)? @ -None Was patient admitted / discharged? Hospital course, mention meds given and route, prescriptions, significant lab abnormalities, going to OR and other pertinent info. @ -Discharged patient laboratory findings are unremarkable patient did report to have small amount of blood within her brief by staff she has no active bleeding likely from hemorrhoid. Patient will be discharged back and return for any worsening or changing symptoms. Undiagnosed new problem with uncertain prognosis? @ -No Drug Therapy requiring intensive monitoring for toxicity (Heparin, Nitro, Insulin, Cardizem)? @ -No Were any procedures done? @ -No Diagnosis/symptom? @ -Hemorrhoid, rectal bleeding Acute, or Chronic, or Acute on Chronic? @ -Acute Uncomplicated (without systemic symptoms) or Complicated (systemic symptoms)? @ -Uncomplicated Side effects of treatment? @ -No Exacerbation, Progression, or Severe Exacerbation? @ -No Poses a threat to life or bodily function? How? (Chest pain, [place], [place], pneumonia, PE, COPD, DKA, ARF, appy, cholecystitis, CVA, Diverticulitis, Homicidal, Suicidal, threat to staff... and all critical care pts) @ -No - Lab Data Result diagrams: 02/29/24 06:58 02/29/24 06:58 Lab Results 02/29/24 02/29/24 Range/Units 06:58 06:58 WBC 8.8 (3.8-10.6) k/uL RBC 4.81 (3.80-5.40) m/uL Hgb 15.1 (11.4-16.0) gm/dL Hct 45.6 (34.0-46.0) % MCV 94.8 (80.0-100.0) fL MCH 31.3 (25.0-35.0) pg MCHC 33.0 (31.0-37.0) g/dL RDW 16.6 H (11.5-15.5) % Plt Count 424 (150-450) k/uL MPV 8.6 Neutrophils % 70 % Lymphocytes % 18 % Monocytes % 8 % Eosinophils % 3 % Basophils % 1 % Neutrophils # 6.2 (1.3-7.7) k/uL Lymphocytes # 1.5 (1.0-4.8) k/uL Monocytes # 0.7 (0-1.0) k/uL Eosinophils # 0.3 (0-0.7) k/uL Basophils # 0.1 (0-0.2) k/uL Anisocytosis Slight Sodium 143 (137-145) mmol/L Potassium 4.5 (3.5-5.1) mmol/L Chloride 111 H (98-107) mmol/L Carbon Dioxide 20 L (22-30) mmol/L Anion Gap 12 mmol/L BUN 19 H (7-17) mg/dL Creatinine 0.44 L (0.52-1.04) mg/dL Est GFR (CKD-EPI)AfAm >90 (>60 ml/min/1.73 sqM) Est GFR (CKD-EPI)NonAf >90 (>60 ml/min/1.73 sqM) Glucose 84 (74-99) mg/dL Calcium 9.1 (8.4-10.2) mg/dL Total Bilirubin 0.6 (0.2-1.3) mg/dL AST 33 (14-36) U/L ALT 33 (4-34) U/L Alkaline Phosphatase 65 (38-126) U/L Total Protein 7.2 (6.3-8.2) g/dL Albumin 3.6 (3.5-5.0) g/dL Disposition Clinical Impression: Hemorrhoids, Rectal bleeding Disposition: HOME SELF-CARE Condition: Stable Instructions (If sedation given, give patient instructions): Gastrointestinal Bleeding (ED) Additional Instructions: Please return to the Emergency Department if symptoms worsen or any other concerns. Is patient prescribed a controlled substance at d/c from ED?: No Referrals: None,Stated [Primary Care Provider] - 1-2 days Time of Disposition: 09:03
[2024-02-29 07:32] VITALS: TEMP 98.2
[2024-02-29 08:06] LABS: Anisocytosis Slight; Basophils # (A) 0.1 k/uL (0-0.2); Basophils % (A) 1 %; Eosinophils # (A) 0.3 k/uL (0-0.7); Eosinophils % (A) 3 %; HCT 45.6 % (34.0-46.0); HGB 15.1 gm/dL (11.4-16.0); Lymphocytes # (A) 1.5 k/uL (1.0-4.8); Lymphocytes % (A) 18 %; MCH 31.3 pg (25.0-35.0); MCV 94.8 fL (80.0-100.0); Mean Platelet Volume 8.6; Monocytes # (A) 0.7 k/uL (0-1.0); Monocytes % (A) 8 %; Neutrophils # (A) 6.2 k/uL (1.3-7.7); Neutrophils % (A) 70 %; Platelet Count 424 k/uL (150-450); RBC 4.81 m/uL (3.80-5.40); RDW 16.6 % (11.5-15.5); WBC 8.8 k/uL (3.8-10.6)
[2024-02-29 08:30] LABS: ALT 33 U/L (4-34); AST 33 U/L (14-36); African American GFR (CKD) >90 (>60 ml/min/1.73 sqM); Albumin 3.6 g/dL (3.5-5.0); Alkaline Phosphatase 65 U/L (38-126); Anion Gap 12 mmol/L; Blood Urea Nitrogen 19 mg/dL (7-17); Calcium 9.1 mg/dL (8.4-10.2); Carbon Dioxide 20 mmol/L (22-30); Chloride 111 mmol/L (98-107); Glucose 84 mg/dL (74-99); Non-African American GFR(CKD) >90 (>60 ml/min/1.73 sqM); Sodium 143 mmol/L (137-145); Total Bilirubin 0.6 mg/dL (0.2-1.3); Total Protein 7.2 g/dL (6.3-8.2)
[2024-02-29 08:53] VITALS: PULSE 68; RESP 18
[2024-02-29 08:54] LABS: Potassium 4.5 mmol/L (3.5-5.1)
[2024-02-29 10:13] VITALS: BP 137/76
== END 2024-02-29 09:49 | disposition home or self-care (01) ==
LOC: EC 06:37
DX: K64.9 Unspecified hemorrhoids (principal); Z87.891 Personal history of nicotine dependence
CPT/HCPCS: 36415; 80053; 85025; 99285

== ENCOUNTER 2024-03-17 09:52 | Inpatient (IN) | payer MEDICARE ==
--- NOTE | 2024-03-17 10:17 | ED ---
ENT HPI - General Source: patient, EMS, RN notes reviewed Mode of arrival: EMS Limitations: no limitations <Barbara Yeh - Last Filed: 03/17/24 12:51> <Ryan Bourgeois - Last Filed: 03/17/24 15:08> - General Chief complaint: ENT Stated complaint: AMS,JOSE Time Seen by Provider: 03/17/24 10:05 - History of Present Illness Initial comments: This is an 78-year-old female with a history of dementia who presents emergency department via EMS from [facility] chief complaint of potential aspiration. Patient is nonverbal therefore history was obtained from EMS and nursing facility. It was stated that patient Was choking this morning on her breakfast which included sausage and oatmeal. It was observed that the patient expelled the sausage and oatmeal after this time. After this the patient is experiencing a productive cough. (Barbara Yeh) - Related Data Home Medications Medication Instructions Recorded Confirmed Atorvastatin [Lipitor] 10 mg PO HS@199912/25/21 03/17/24 Magnesium Hydroxide [Milk of 2,400 mg PO DAILY@79912/25/21 03/17/24 Magnesia] Oxybutynin Chloride [oxyBUTYnin 10 mg PO DAILY@79912/25/21 03/17/24 chloride ER] Psyllium Husk 100% [Metamucil 6 gm PO HS@199912/25/21 03/17/24 Packet] QUEtiapine [SEROquel] 25 mg PO HS@199912/25/21 03/17/24 polyethylene glycoL 3350 [Miralax] 17 gm PO DAILY PRN 12/25/21 03/17/24 Ammonium Lactate Cream [Lac-Hydrin 1 applic TOPICAL DAILY PRN 03/17/24 03/17/24 12% Cream] Ascorbic Acid [Vitamin C] 500 mg PO DAILY@79903/17/24 03/17/24 Benadryl [place] 2-0.1% 1 applic TOPICAL QID PRN 03/17/24 03/17/24 Coricidin Hbp Chest Congestion & 1 cap PO Q6H PRN 03/17/24 03/17/24 Cough Cyproheptadine [Cyproheptadine HCl] 4 mg PO QID@08,12,16,20 03/17/24 03/17/24 Ensure 1 can PO DAILY@0800 03/17/24 03/17/24 Famotidine [Pepcid] 20 mg PO HS@199903/17/24 03/17/24 Ibuprofen [Motrin] 400 mg PO Q8H PRN 03/17/24 03/17/24 Loperamide HCl [Loperamide] 2 - 4 mg PO QID PRN MDD 16 MG 03/17/24 03/17/24 Magnesium Hydroxide [Milk of 2,400 mg PO DAILY PRN 03/17/24 03/17/24 Magnesia] Megestrol Acetate 624 mg PO DAILY@0800 03/17/24 03/17/24 Mirtazapine 30 mg PO HS@199903/17/24 03/17/24 Nystatin 100,000Unit/gm Cream 1 applic TOPICAL BID@08,199903/17/24 03/17/24 [Mycostatin Cream] Pedialyte Pack 1 pack PO Q48H 03/17/24 03/17/24 Sennosides [Senokot] 17.2 mg PO HS@199903/17/24 03/17/24 nitrofurantoin macrocrystaL 100 mg PO BID@08,199903/17/24 03/17/24 Previous Rx's Medication Instructions Recorded Acetaminophen Tab [Tylenol] 650 mg PO Q6HR PRN tab 12/29/21 Allergies Allergy/AdvReac Type Severity Reaction Status Date / Time No Known Allergies Allergy Verified 03/17/24 12:41 Review of Systems ROS Other: All systems not noted in ROS Statement are negative. <Barbara Yeh - Last Filed: 03/17/24 12:51> ROS Other: All systems not noted in ROS Statement are negative. <Ryan Bourgeois - Last Filed: 03/17/24 15:08> ROS Statement: Those systems with pertinent positive or pertinent negative responses have been documented in the HPI. 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 History of Any Multi-Drug Resistant Organisms: None Reported Past Surgical History: Unable to Obtain, Orthopedic Surgery Past Anesthesia/Blood Transfusion Reactions: Unable to Obtain Additional Past Anesthesia/Blood Transfusion Reaction / Comment(s): PT DENIED EVER HAVING ANY SX Past Psychological History: Depression Smoking Status: Former smoker Past Alcohol Use History: Heavy Past Drug Use History: None Reported - Past Family History Father History Unknown: Yes Mother History Unknown: Yes <Barbara Yeh - Last Filed: 03/17/24 12:51> General Exam Limitations: no limitations, language barrier (patient is nonverbal on examination) Head exam: Present: atraumatic, normocephalic, normal inspection Eye exam: Present: normal appearance, PERRL, EOMI. Absent: scleral icterus, conjunctival injection, periorbital swelling ENT exam: Present: normal exam, mucous membranes moist Neck exam: Present: normal inspection. Absent: tenderness, meningismus, lymphadenopathy Respiratory exam: Present: wheezes, rhonchi. Absent: normal lung sounds amberly aterally Cardiovascular Exam: Present: regular rate, normal rhythm, tachycardia, normal heart sounds. Absent: systolic murmur, diastolic murmur, rubs, gallop, clicks GI/Abdominal exam: Present: soft, normal bowel sounds. Absent: distended, tenderness, guarding, rebound, rigid Extremities exam: Present: normal inspection, full ROM, normal capillary refill. Absent: tenderness, pedal edema, joint swelling, calf tenderness Back exam: Present: normal inspection Neurological exam: Present: alert, oriented X3, CN II-XII intact Psychiatric exam: Present: normal affect, normal mood Skin exam: Present: warm, dry, intact, normal color. Absent: rash <Barbara Yeh - Last Filed: 03/17/24 12:51> Course Vital Signs 03/17/24 03/17/24 03/17/24 10:01 10:15 10:20 Temperature 97.5 F L Pulse Rate 104 H Respiratory 16 Rate Blood Pressure 122/86 O2 Sat by Pulse 93 L 82 L 83 L Oximetry Fraction of Inspired Oxygen (FIO2) 03/17/24 03/17/24 03/17/24 10:50 11:00 11:23 Temperature Pulse Rate 127 H Respiratory Rate Blood Pressure O2 Sat by Pulse 87 L 93 L 97 Oximetry Fraction of Inspired Oxygen (FIO2) 03/17/24 03/17/24 03/17/24 12:02 12:34 12:45 Temperature 97.9 F Pulse Rate 140 H 144 H Respiratory 38 H 38 H Rate Blood Pressure 197/111 137/97 O2 Sat by Pulse 96 Oximetry Fraction of 100 Inspired Oxygen (FIO2) 03/17/24 03/17/24 03/17/24 12:53 13:10 13:34 Temperature Pulse Rate 135 H Respiratory 32 H Rate Blood Pressure 149/89 O2 Sat by Pulse 95 Oximetry Fraction of 100 50 Inspired Oxygen (FIO2) 03/17/24 03/17/24 03/17/24 14:00 14:13 14:25 Temperature 98.9 F Pulse Rate 120 H 131 H 120 H Respiratory 32 H 40 H 40 H Rate Blood Pressure 126/101 115/86 108/64 O2 Sat by Pulse 90 L 91 L 94 L Oximetry Fraction of Inspired Oxygen (FIO2) Procedures - Intubation Sedative: Versed Paralytic: Succinylcholine Laryngoscope: Barrett Size: 4 ET Tube Size: 8 ET Tube Uncuffed: No Tube Secured Location: teeth Tube Placement Confirmation: visualized tube passing through cords, equal breath sounds bilaterally, no breath sounds over epigastrium, confirmation by capnometry Patient Tolerated Procedure: well Intubation Complications: none <Ryan Bourgeois - Last Filed: 03/17/24 15:08> Medical Decision Making - Lab Data Result diagrams: 03/17/24 12:28 <Barbara Yeh - Last Filed: 03/17/24 12:51> - Lab Data Result diagrams: 03/17/24 12:28 03/17/24 12:28 <Ryan Bourgeois - Last Filed: 03/17/24 15:08> - Medical Decision Making Was pt. sent in by a medical professional or institution (, PA, BULK DELIVERY DRIVER, urgent care, hospital, or half-way...) When possible be specific @ -[No] Did you speak to anyone other than the patient for history (EMS, parent, family, police, friend...)? What history was obtained from this source @ -[No] Did you review nursing and triage notes (agree or disagree)? Why? @ -[I reviewed and agree with nursing and triage notes] Were old charts reviewed (outside hosp., previous admission, EMS record, old EK G, old radiological studies, urgent care reports/EKG's, half-way records)? Report findings @ -[No old charts were reviewed] Differential Diagnosis (chest pain, altered mental status, abdominal pain women, abdominal pain men, vaginal bleeding, weakness, fever, dyspnea, syncope, headache, dizziness, GI bleed, back pain, seizure, CVA, palpatations, mental health, musculoskeletal)? @ -Differential Dyspnea: Coronary syndrome, arrhythmia, tamponade, asthma, COPD, pulmonary embolism, pneumonia, pneumothorax, pulmonary effusion, anaphylaxis, diabetic ketoacidosis, flailed chest, pulmonary contusion, diaphragmatic rupture, anemia, neuromuscular, this is not meant to be an all-inclusive list. EKG interpreted by me (3pts min.). @ -Pleated at 1158 reading sinus tachycardia, ventricular 143, AR interval 137, QTc 406. X-rays interpreted by me (1pt min.). @ -Chest x-ray no acute cardiopulmonary process or disease noted CT interpreted by me (1pt min.). @ -[None done] U/S interpreted by me (1pt. min.). @ -[None done] What testing was considered but not performed or refused? (CT, X-rays, U/S, labs)? Why? @ -[None] What meds were considered but not given or refused? Why? @ -[None] Did you discuss the management of the patient with other professionals (professionals i.e. , PA, BULK DELIVERY DRIVER, lab, RT, psych nurse, social media coordinator, rough planer tender, teacher, homicide squad commanding officer, manager case)? Give summary @ -[No] Was smoking cessation discussed for >3mins.? @ -[No] Was critical care preformed (if so, how long)? @ -[No] Were there social determinants of health that impacted care today? How? (Homelessness, low income, unemployed, alcoholism, drug addiction, transportation, low edu. Level, literacy, decrease access to med. care, [place] [facility], rehab)? @ -[No] Was there de-escalation of care discussed even if they declined (Discuss DNR or withdrawal of care, Hospice)? DNR status @ -[No] What co-morbidities impacted this encounter? (DM, HTN, Smoking, COPD, CAD, Cancer, CVA, ARF, Chemo, Hep., AIDS, mental health diagnosis, sleep apnea, morbid obesity)? @ -Dementia Was patient admitted / discharged? Hospital course, mention meds given and route, prescriptions, significant lab abnormalities, going to OR and other pe rtinent info. @ -78-year-old female with complaint of choking on food this morning. Of systems unable to be obtained due to patient being nonverbal at baseline from dementia diagnosis. On physical examination patient noted to have ongoing rales noted over the superior bilateral lung bases in addition to being auscultated on the anterior chest. Cardiac examination unremarkable. Patient was noted to be hypoxic with 6 L nasal cannula therefore patient placed on nonrebreather mask. At this time, [place] consultation was made with recommendation of suction due to clinical suggestion of retained aspirated products on physical examination. Additionally, patient's chest x-ray unremarkable. At this time, it is noted that patient is requiring further oxygen demand and she was placed on 15 L nonrebreather mask. Additionally patient noted to be tachycardic and hypertensive. Laboratory results ordered in addition to EKG, blood cultures, lactate and patient started on antibiotics for aspiration pneumonia. Undiagnosed new problem with uncertain prognosis? @ -[No] Drug Therapy requiring intensive monitoring for toxicity (Heparin, Nitro, Insulin, Cardizem)? @ -[No] Were any procedures done? @ -[No] Diagnosis/symptom? @ -[default] Acute, or Chronic, or Acute on Chronic? @ -[default] Uncomplicated (without systemic symptoms) or Complicated (systemic symptoms)? @ -[default] Side effects of treatment? @ -[No] Exacerbation, Progression, or Severe Exacerbation? @ -[No] Poses a threat to life or bodily function? How? (Chest pain, USA, PA, pneumonia, PE, COPD, DKA, ARF, appy, cholecystitis, CVA, Diverticulitis, Homicidal, Suicidal, threat to staff... and all critical care pts) @ -[No] (Brabara Yeh) EKG is interpreted by myself. EKG shows a sinus tachycardia with frequent PVCs at a rate of 119 QRS is 96 AR interval is 124 QT interval 339 QTc 410. Patient's EKG shows no ST segment ovation or depression. Was pt. sent in by a medical professional or institution (NANDO Smith, BULK DELIVERY DRIVER, urgent care, hospital, or half-way...) When possible be specific @ -Patient was sent into the hospital from the half-way. Did you speak to anyone other than the patient for history (EMS, parent, family, police, friend...)? What history was obtained from this source @ -No Did you review nursing and triage notes (agree or disagree)? Why? @ -I reviewed and agree with nursing and triage notes Were old charts reviewed (outside hosp., previous admission, EMS record, old EKG, old radiological studies, urgent care reports/EKG's, half-way records)? Report findings @ -I compared today's chest x-ray with the previous chest x-ray this chest x-ray shows no new abnormalities. I did compare today's lab work with old lab work and today's white count was considerably elevated. Differential Diagnosis (chest pain, altered mental status, abdominal pain women, abdominal pain men, vaginal bleeding, weakness, fever, dyspnea, syncope, headache, dizziness, GI bleed, back pain, seizure, CVA, palpatations, mental health, musculoskeletal)? @ -Differential Dyspnea: Coronary syndrome, arrhythmia, tamponade, asthma, COPD, pulmonary embolism, pneumonia, pneumothorax, pulmonary effusion, anaphylaxis, diabetic ketoacidosis, flailed chest, pulmonary contusion, diaphragmatic rupture, anemia, neuromuscular, this is not meant to be an all-inclusive list. EKG interpreted by me (3pts min.). @ -As above X-rays interpreted by me (1pt min.). @ -Chest x-ray shows no acute abnormality CT interpreted by me (1pt min.). @ -None done U/S interpreted by me (1pt. min.). @ -None done What testing was considered but not performed or refused? (CT, X-rays, U/S, labs)? Why? @ -None What meds were considered but not given or refused? Why? @ -None Did you discuss the management of the patient with other professionals (professionals i.e. DrPatricia, PA, BULK DELIVERY DRIVER, lab, RT, psych nurse, social media coordinator, rough planer tender, teacher, homicide squad commanding officer, manager case)? Give summary @ -I spoke with Dr. Escobedo and he agreed to admit the patient. I also spoke with Dr. Nieto and he will see the patient for critical care management Was smoking cessation discussed for >3mins.? @ -No Was critical care preformed (if so, how long)? @ -35 minutes Were there social determinants of health that impacted care today? How? (Ho melessness, low income, unemployed, alcoholism, drug addiction, transportation, low edu. Level, literacy, decrease access to med. care, [place] [facility], rehab)? @ -No Was there de-escalation of care discussed even if they declined (Discuss DNR or withdrawal of care, Hospice)? DNR status @ -No What co-morbidities impacted this encounter? (DM, HTN, Smoking, COPD, CAD, Cancer, CVA, ARF, Chemo, Hep., AIDS, mental health diagnosis, sleep apnea, morbid obesity)? @ -None Was patient admitted / discharged? Hospital course, mention meds given and route, prescriptions, significant lab abnormalities, going to OR and other pertinent info. @ -Patient came in and was seen by the physician vector control assistant initially patient got progressively worse with her respiratory distress and was eventually placed on a nonrebreather and was having difficulty maintaining at this point in time I took her into a trauma module and intubated the patient. Patient was also started on antibiotics. Patient was put on propofol because she was not tolerating the vent very well however she was oxygenating much better and heart rate was coming down nicely. Patient will be admitted to Dr. Escobedo and I consulted Dr. Nieto Undiagnosed new problem with uncertain prognosis? @ -No Drug Therapy requiring intensive monitoring for toxicity (Heparin, Nitro, Insulin, Cardizem)? @ -No Were any procedures done? @ -No Diagnosis/symptom? @ -Aspiration pneumonia Acute, or Chronic, or Acute on Chronic? @ -Acute Uncomplicated (without systemic symptoms) or Complicated (systemic symptoms)? @ -Complicated Side effects of treatment? @ -No Exacerbation, Progression, or Severe Exacerbation? @ -No Poses a threat to life or bodily function? How? (Chest pain, USA, PA, pneumonia, PE, COPD, DKA, ARF, appy, cholecystitis, CVA, Diverticulitis, Homicidal, Suicidal, threat to staff... and all critical care pts) @ -Yes this can lead to sepsis and endorgan dysfunction Diagnosis/symptom? @ -Respiratory failure Acute, or Chronic, or Acute on Chronic? @ -Acute Uncomplicated (without systemic symptoms) or Complicated (systemic symptoms)? @ -Complicated Side effects of treatment? @ -None Exacerbation, Progression, or Severe Exacerbation] @ -No Poses a threat to life or bodily function? @ -Yes this can lead to hypoxia and endorgan dysfunction (Ryan Bourgeois) - Lab Data Lab Results 03/17/24 03/17/24 03/17/24 Range/Units 12:28 12:28 12:28 WBC 30.5 H (3.8-10.6) k/uL RBC 4.92 (3.80-5.40) m/uL Hgb 15.1 (11.4-16.0) gm/dL Hct 46.9 H (34.0-46.0) % MCV 95.2 (80.0-100.0) fL MCH 30.6 (25.0-35.0) pg MCHC 32.2 (31.0-37.0) g/dL RDW 16.3 H (11.5-15.5) % Plt Count 680 H (150-450) k/uL MPV 8.7 Neutrophils % (Manual) 85 % Band Neuts % (Manual) 1 % Lymphocytes % (Manual) 13 % Monocytes % (Manual) 2 % Eosinophils % (Manual) 1 % Myelocytes % 1 % Neutrophils # (Manual) 26.20 H (1.3-7.7) k/uL Lymphocytes # (Manual) 3.97 (1.0-4.8) k/uL Monocytes # (Manual) 0.61 (0-1.0) k/uL Eosinophils # (Manual) 0.31 (0-0.7) k/uL Myelocytes # (Manual) 0.31 H (0) k/uL Nucleated RBCs 0 (0-0) /100 WBC Manual Slide Review Performed Anisocytosis Slight PT 10.7 (10.0-12.5) sec INR 1.0 (<1.2) APTT 19.9 L (22.0-30.0) sec Sample Site ABG pH (7.35-7.45) ABG pCO2 (35-45) mmHg ABG pO2 (83-108) mmHg ABG HCO3 (21-25) mmol/L ABG Total CO2 (19-24) mmol/L ABG O2 Saturation (94-97) % ABG Base Excess mmol/L Jose Test FiO2 % Sodium 140 (137-145) mmol/L Potassium 4.6 (3.5-5.1) mmol/L Chloride 108 H (98-107) mmol/L Carbon Dioxide 24 (22-30) mmol/L Anion Gap 8 mmol/L BUN 21 H (7-17) mg/dL Creatinine 0.50 L (0.52-1.04) mg/dL Est GFR (CKD-EPI)AfAm >90 (>60 ml/min/1.73 sqM) Est GFR (CKD-EPI)NonAf >90 (>60 ml/min/1.73 sqM) Glucose 132 H (74-99) mg/dL Plasma Lactic Acid Wilder (0.7-2.0) mmol/L Calcium 9.3 (8.4-10.2) mg/dL Magnesium 2.2 (1.6-2.3) mg/dL Total Bilirubin 0.5 (0.2-1.3) mg/dL AST 29 (14-36) U/L ALT 35 H (4-34) U/L Alkaline Phosphatase 91 (38-126) U/L Troponin I (0.000-0.034) ng/mL NT-Pro-B Natriuret Pep 1580 pg/mL Total Protein 7.7 (6.3-8.2) g/dL Albumin 3.9 (3.5-5.0) g/dL Urine Color Urine Appearance (Clear) Urine pH (5.0-8.0) Ur Specific [place] (1.001-1.035) Urine Protein (Negative) Urine Glucose (UA) (Negative) Urine Ketones (Negative) Urine Blood (Negative) Urine Nitrite (Negative) Urine Bilirubin (Negative) Urine Urobilinogen (<2.0) mg/dL Ur Leukocyte Esterase (Negative) Urine RBC (0-5) /hpf Urine WBC (0-5) /hpf Urine Mucus (None) /hpf 03/17/24 03/17/24 03/17/24 Range/Units 12:28 12:28 13:17 WBC (3.8-10.6) k/uL RBC (3.80-5.40) m/uL Hgb (11.4-16.0) gm/dL Hct (34.0-46.0) % MCV (80.0-100.0) fL MCH (25.0-35.0) pg MCHC (31.0-37.0) g/dL RDW (11.5-15.5) % Plt Count (150-450) k/uL MPV Neutrophils % (Manual) % Band Neuts % (Manual) % Lymphocytes % (Manual) % Monocytes % (Manual) % Eosinophils % (Manual) % Myelocytes % % Neutrophils # (Manual) (1.3-7.7) k/uL Lymphocytes # (Manual) (1.0-4.8) k/uL Monocytes # (Manual) (0-1.0) k/uL Eosinophils # (Manual) (0-0.7) k/uL Myelocytes # (Manual) (0) k/uL Nucleated RBCs (0-0) /100 WBC Manual Slide Review Anisocytosis PT (10.0-12.5) sec INR (<1.2) APTT (22.0-30.0) sec Sample Site rrad ABG pH 7.35 (7.35-7.45) ABG pCO2 41 (35-45) mmHg ABG pO2 314 H (83-108) mmHg ABG HCO3 23 (21-25) mmol/L ABG Total CO2 24 (19-24) mmol/L ABG O2 Saturation 99.7 H (94-97) % ABG Base Excess -2.9 mmol/L Jose Test Yes FiO2 100 % Sodium (137-145) mmol/L Potassium (3.5-5.1) mmol/L Chloride (98-107) mmol/L Carbon Dioxide (22-30) mmol/L Anion Gap mmol/L BUN (7-17) mg/dL Creatinine (0.52-1.04) mg/dL Est GFR (CKD-EPI)AfAm (>60 ml/min/1.73 sqM) Est GFR (CKD-EPI)NonAf (>60 ml/min/1.73 sqM) Glucose (74-99) mg/dL Plasma Lactic Acid Wilder 1.5 (0.7-2.0) mmol/L Calcium (8.4-10.2) mg/dL Magnesium (1.6-2.3) mg/dL Total Bilirubin (0.2-1.3) mg/dL AST (14-36) U/L ALT (4-34) U/L Alkaline Phosphatase (38-126) U/L Troponin I 0.016 (0.000-0.034) ng/mL NT-Pro-B Natriuret Pep pg/mL Total Protein (6.3-8.2) g/dL Albumin (3.5-5.0) g/dL Urine Color Urine Appearance (Clear) Urine pH (5.0-8.0) Ur Specific [place] (1.001-1.035) Urine Protein (Negative) Urine Glucose (UA) (Negative) Urine Ketones (Negative) Urine Blood (Negative) Urine Nitrite (Negative) Urine Bilirubin (Negative) Urine Urobilinogen (<2.0) mg/dL Ur Leukocyte Esterase (Negative) Urine RBC (0-5) /hpf Urine WBC (0-5) /hpf Urine Mucus (None) /hpf 03/17/24 Range/Units 14:37 WBC (3.8-10.6) k/uL RBC (3.80-5.40) m/uL Hgb (11.4-16.0) gm/dL Hct (34.0-46.0) % MCV (80.0-100.0) fL MCH (25.0-35.0) pg MCHC (31.0-37.0) g/dL RDW (11.5-15.5) % Plt Count (150-450) k/uL MPV Neutrophils % (Manual) % Band Neuts % (Manual) % Lymphocytes % (Manual) % Monocytes % (Manual) % Eosinophils % (Manual) % Myelocytes % % Neutrophils # (Manual) (1.3-7.7) k/uL Lymphocytes # (Manual) (1.0-4.8) k/uL Monocytes # (Manual) (0-1.0) k/uL Eosinophils # (Manual) (0-0.7) k/uL Myelocytes # (Manual) (0) k/uL Nucleated RBCs (0-0) /100 WBC Manual Slide Review Anisocytosis PT (10.0-12.5) sec INR (<1.2) APTT (22.0-30.0) sec Sample Site ABG pH (7.35-7.45) ABG pCO2 (35-45) mmHg ABG pO2 (83-108) mmHg ABG HCO3 (21-25) mmol/L ABG Total CO2 (19-24) mmol/L ABG O2 Saturation (94-97) % ABG Base Excess mmol/L Jose Test FiO2 % Sodium (137-145) mmol/L Potassium (3.5-5.1) mmol/L Chloride (98-107) mmol/L Carbon Dioxide (22-30) mmol/L Anion Gap mmol/L BUN (7-17) mg/dL Creatinine (0.52-1.04) mg/dL Est GFR (CKD-EPI)AfAm (>60 ml/min/1.73 sqM) Est GFR (CKD-EPI)NonAf (>60 ml/min/1.73 sqM) Glucose (74-99) mg/dL Plasma Lactic Acid Wilder (0.7-2.0) mmol/L Calcium (8.4-10.2) mg/dL Magnesium (1.6-2.3) mg/dL Total Bilirubin (0.2-1.3) mg/dL AST (14-36) U/L ALT (4-34) U/L Alkaline Phosphatase (38-126) U/L Troponin I (0.000-0.034) ng/mL NT-Pro-B Natriuret Pep pg/mL Total Protein (6.3-8.2) g/dL Albumin (3.5-5.0) g/dL Urine Color Colorless Urine Appearance Clear (Clear) Urine pH 6.5 (5.0-8.0) Ur Specific [place] 1.013 (1.001-1.035) Urine Protein Negative (Negative) Urine Glucose (UA) Negative (Negative) Urine Ketones Negative (Negative) Urine Blood Moderate H (Negative) Urine Nitrite Negative (Negative) Urine Bilirubin Negative (Negative) Urine Urobilinogen <2.0 (<2.0) mg/dL Ur Leukocyte Esterase Trace H (Negative) Urine RBC 13 H (0-5) /hpf Urine WBC 5 (0-5) /hpf Urine Mucus Rare H (None) /hpf Critical Care Time Critical Care Time: Yes Total Critical Care Time: 35 <Ryan Bourgeois - Last Filed: 03/17/24 15:08> Disposition <Barbara Yeh - Last Filed: 03/17/24 12:51> Time of Disposition: 15:07 <Ryan Bourgeois - Last Filed: 03/17/24 15:08> Clinical Impression: Aspiration pneumonia Disposition: ADMITTED IP TO THIS HOSP Referrals: Stanislaw Grey MD [Primary Care Provider] - 1-2 days
--- NOTE | 2024-03-17 11:10 | XR ---
EXAMINATION TYPE: XR chest 2V DATE OF EXAM: 03/17/2024 11:02 AM CLINICAL INDICATION:Female, 78 years old with history of productive cough; [facility] COMPARISON: Chest radiographs from T1 22 TECHNIQUE: XR chest 2V Frontal and lateral views of the chest. FINDINGS: Lungs/Pleura: There is no evidence of pleural effusion, focal consolidation, or pneumothorax. Pulmonary vascularity: Unremarkable. Heart/mediastinum: Cardiomediastinal silhouette is unremarkable. Musculoskeletal: No acute osseous pathology. Other findings: None Lines/Tubes: None IMPRESSION: No acute cardiopulmonary disease/process.
[2024-03-17] MEDS: MIDAZOLAM 1 MG/ML 5 ML VIAL IV STA (12:42)
[2024-03-17 12:43] LABS: Anisocytosis Slight; HCT 46.9 % (34.0-46.0); HGB 15.1 gm/dL (11.4-16.0); MCH 30.6 pg (25.0-35.0); MCHC 32.2 g/dL (31.0-37.0); MCV 95.2 fL (80.0-100.0); Mean Platelet Volume 8.7; Platelet Count 680 k/uL (150-450); RBC 4.92 m/uL (3.80-5.40); RDW 16.3 % (11.5-15.5); WBC 30.5 k/uL (3.8-10.6)
[2024-03-17] MEDS ORDERED: VANCOMYCIN IV PER PHARMACY 1 EACH MISC MISCELLANE PRN (12:47)
[2024-03-17 12:51] LABS: ALT 35 U/L (4-34); AST 29 U/L (14-36); African American GFR (CKD) >90 (>60 ml/min/1.73 sqM); Albumin 3.9 g/dL (3.5-5.0); Alkaline Phosphatase 91 U/L (38-126); Anion Gap 8 mmol/L; Blood Urea Nitrogen 21 mg/dL (7-17); Calcium 9.3 mg/dL (8.4-10.2); Carbon Dioxide 24 mmol/L (22-30); Chloride 108 mmol/L (98-107); Glucose 132 mg/dL (74-99); Magnesium 2.2 mg/dL (1.6-2.3); Non-African American GFR(CKD) >90 (>60 ml/min/1.73 sqM); Potassium 4.6 mmol/L (3.5-5.1); Sodium 140 mmol/L (137-145); Total Bilirubin 0.5 mg/dL (0.2-1.3); Total Protein 7.7 g/dL (6.3-8.2)
[2024-03-17] MEDS: SODIUM CHLORIDE 0.9% 1,000 ML IV STA (12:54)
[2024-03-17] MEDS: SUCCINYLCHOLINE CHLORIDE 200 MG/10 ML VIAL IV ONE (12:54)
[2024-03-17 12:58] LABS: NT-Pro-B-Type Natriuretic Pept 1580 pg/mL
[2024-03-17 13:04] LABS: Prothrombin Time 10.7 sec (10.0-12.5)
--- NOTE | 2024-03-17 13:12 | XR ---
EXAMINATION TYPE: XR chest 1V portable DATE OF EXAM: 03/17/2024 1:02 PM CLINICAL INDICATION:Female, 78 years old with history of post intubation; [facility] COMPARISON: Chest radiographs from 03/17/2024 TECHNIQUE: XR chest 1V portable Frontal view of the chest. FINDINGS: Lungs/Pleura: There is no evidence of pleural effusion, focal consolidation, or pneumothorax. Pulmonary vascularity: Unremarkable. Heart/mediastinum: Cardiomediastinal silhouette is unremarkable. Musculoskeletal: No acute osseous pathology. Other findings: None Lines/Tubes: Tracheostomy cannula tip projecting over the trachea. Nasogastric tube with its distal tip projecting over the GE junction. It could be advanced for better positioning.. IMPRESSION: Tracheostomy cannula tip projecting over the trachea. Nasogastric tube with its distal tip projecting over the GE junction. It could be advanced for better positioning.. No radiographic evidence of acute cardiopulmonary disease/process.
[2024-03-17] MEDS: PIPERACILLIN-TAZOBACTAM 3.375 GM in SODIUM CHLORIDE 0.9% 100 ML IVPB STA (13:15)
[2024-03-17 13:22] LABS: ABG Base Excess -2.9 mmol/L; ABG HCO3 23 mmol/L (21-25); ABG Oxygen Saturation 99.7 % (94-97); ABG PCO2 41 mmHg (35-45); ABG PH 7.35 (7.35-7.45); ABG PO2 314 mmHg (83-108); ABG TCO2 24 mmol/L (19-24); Allen Test Performed? Yes
[2024-03-17 13:30] LABS: Band Neutrophils % 1 %; Eosinophils # (M) 0.31 k/uL (0-0.7); Lymphocytes # (M) 3.97 k/uL (1.0-4.8); Monocytes # (M) 0.61 k/uL (0-1.0); Myelocytes # (M) 0.31 k/uL (0); Myelocytes % 1 %; Neutrophils % (M) 85 %; Nucleated Red Blood Cells 0 /100 WBC (0-0); Total Cells Counted 200
[2024-03-17 13:35] LABS: Partial Thromboplastin Time 19.9 sec (22.0-30.0)
[2024-03-17] MEDS: VANCOMYCIN 1,250 MG in SODIUM CHLORIDE 0.9% 250 ML IVPB ONE (14:00)
[2024-03-17] MEDS: AMPICILLIN-SULBACTAM 3 GM in SODIUM CHLORIDE 0.9% 100 ML IVPB STA (14:02)
[2024-03-17] MEDS: IPRATROPIUM-ALBUTEROL 3 ML NEB INHALATION STA (14:10)
[2024-03-17] MEDS: metroNIDAZOLE-NS PMX 500 MG in SALINE 1 100ML.BAG IVPB STA (14:19)
[2024-03-17 14:51] LABS: Appearance,Urine Clear (Clear); Bilirubin,Urine Negative (Negative); Blood,Urine Moderate (Negative); Color,Urine Colorless; Glucose,Urine (UA) Negative (Negative); Ketones,Urine Negative (Negative); Leukocyte Esterase,Urine Trace (Negative); Mucus,Urine Rare /hpf; Nitrite,Urine Negative (Negative); PH, Urine 6.5 (5.0-8.0); Protein,Urine Negative (Negative); RBC,Urine 13 /hpf (0-5); Specific Gravity,Urine 1.013 (1.001-1.035); Urobilinogen,Urine <2.0 mg/dL (<2.0); WBC,Urine 5 /hpf (0-5)
[2024-03-17] MEDS ORDERED: NALOXONE 0.4 MG/ML 1 ML VIAL IV PRN (15:08)
--- NOTE | 2024-03-17 16:00 | P.CNPUL ---
History of Present Illness Consult date: 03/17/24 Requesting physician: Toni Escobedo Reason for consult: abnormal CXR/CT, other (Critical care management) Chief complaint: Aspiration History of present illness: This is a 78-year-old female patient with a known history of hyperlipidemia and dementia and resides in a adult foster care setting. He was brought into the emergency room earlier this morning for possible aspiration. Apparently the patient is nonverbal. She was found choking this morning after her breakfast of sausage and oatmeal. She developed productive cough. This x-ray initially revealed no acute pulmonary process. Her condition continued to deteriorate and she required intubation mechanical ventilatory support. He was seen in consultation in the emergency department. She remains intubated on the mechanical ventilator at assist-control mode at a rate of 16, tidal volume 350, FiO2 of 50% and a PEEP of 5. Initial blood gases on 100% FiO2 revealed a PaO2 of 314, pCO2 41, pH 7.35. White count 30.5. Hemoglobin 15.1. Platelets 680. INR 1.0. Sodium 140. Potassium 4.6. Bicarb 24. BUN 21. Creatinine 0.50. Glucose 132. proBNP 1580. She is sedated on propofol at 50 mcg/kg/min. She has been initiated on vancomycin, Flagyl and Zosyn. Review of Systems ROS unobtainable: due to endotracheal tube Past Medical History Past Medical History: Unable to Obtain, Dementia, Deep Vein Thrombosis (DVT), Osteoarthritis (OA), Skin Disorder Additional Past Medical History / Comment(s): ARHTITIS IN HANDS. History of Any Multi-Drug Resistant Organisms: None Reported Past Surgical History: Unable to Obtain, Orthopedic Surgery Past Anesthesia/Blood Transfusion Reactions: Unable to Obtain Additional Past Anesthesia/Blood Transfusion Reaction / Comment(s): PT DENIED EVER HAVING ANY SX Past Psychological History: Depression Smoking Status: Former smoker Past Alcohol Use History: Heavy Past Drug Use History: None Reported - Past Family History Father History Unknown: Yes Mother History Unknown: Yes Medications and Allergies Home Medications Medication Instructions Recorded Confirmed Type Atorvastatin [Lipitor] 10 mg PO HS@199912/25/21 03/17/24 History Magnesium Hydroxide [Milk of 2,400 mg PO DAILY@79912/25/21 03/17/24 History Magnesia] Oxybutynin Chloride [oxyBUTYnin 10 mg PO DAILY@0800 12/25/21 03/17/24 History chloride ER] Psyllium Husk 100% [Metamucil 6 gm PO HS@199912/25/21 03/17/24 History Packet] QUEtiapine [SEROquel] 25 mg PO HS@199912/25/21 03/17/24 History polyethylene glycoL 3350 [Miralax] 17 gm PO DAILY PRN 12/25/21 03/17/24 History Acetaminophen Tab [Tylenol] 650 mg PO Q6HR PRN tab 12/29/21 03/17/24 Rx Ammonium Lactate Cream [Lac-Hydrin 1 applic TOPICAL DAILY PRN 03/17/24 03/17/24 History 12% Cream] Ascorbic Acid [Vitamin C] 500 mg PO DAILY@79903/17/24 03/17/24 History Benadryl [place] 2-0.1% 1 applic TOPICAL QID PRN 03/17/24 03/17/24 History Coricidin Hbp Chest Congestion & 1 cap PO Q6H PRN 03/17/24 03/17/24 History Cough Cyproheptadine [Cyproheptadine HCl] 4 mg PO QID@08,12,16,20 03/17/24 03/17/24 History Ensure 1 can PO DAILY@79903/17/24 03/17/24 History Famotidine [Pepcid] 20 mg PO HS@199903/17/24 03/17/24 History Ibuprofen [Motrin] 400 mg PO Q8H PRN 03/17/24 03/17/24 History Loperamide HCl [Loperamide] 2 - 4 mg PO QID PRN MDD 16 MG 03/17/24 03/17/24 History Magnesium Hydroxide [Milk of 2,400 mg PO DAILY PRN 03/17/24 03/17/24 History Magnesia] Megestrol Acetate 624 mg PO DAILY@79903/17/24 03/17/24 History Mirtazapine 30 mg PO HS@199903/17/24 03/17/24 History Nystatin 100,000Unit/gm Cream 1 applic TOPICAL BID@799,199903/17/24 03/17/24 History [Mycostatin Cream] Pedialyte Pack 1 pack PO Q48H 03/17/24 03/17/24 History Sennosides [Senokot] 17.2 mg PO HS@199903/17/24 03/17/24 History nitrofurantoin macrocrystaL 100 mg PO BID@799,199903/17/24 03/17/24 History Allergies Allergy/AdvReac Type Severity Reaction Status Date / Time No Known Allergies Allergy Verified 03/17/24 12:41 Physical Exam Vitals: Vital Signs Temp Pulse Resp BP Pulse Ox FiO2 03/17/24 15:11 50 03/17/24 14:25 98.9 F 120 H 40 H 108/64 94 L 03/17/24 14:13 131 H 40 H 115/86 91 L 03/17/24 14:00 120 H 32 H 126/101 90 L 03/17/24 13:34 50 03/17/24 13:10 135 H 32 H 149/89 95 03/17/24 12:53 100 03/17/24 12:45 100 03/17/24 12:34 144 H 38 H 137/97 03/17/24 12:02 97.9 F 140 H 38 H 197/111 96 03/17/24 11:23 127 H 97 03/17/24 11:00 93 L 03/17/24 10:50 87 L 03/17/24 10:20 83 L 03/17/24 10:15 82 L 03/17/24 10:01 97.5 F L 104 H 16 122/86 93 L Intake and Output 03/17/24 03/17/24 03/17/24 06:59 14:59 22:59 Intake Total 9.083 Output Total 900 Balance -890.917 Intake: Intake, IV Titration 9.083 Amount propofoL 1,000 mg In 9.083 Empty Bag 1 bag @ 15 MCG/ KG/MIN 6.124 mls/hr IV . [id number] [facility] Rx#:[id number] Output: Urine 900 Other: Weight 68.039 kg GENERAL EXAM: Intubated, sedated 78-year-old female on the mechanical ventilator. HEAD: Normocephalic. EYES: Normal reaction of pupils, equal size. NOSE: Clear with pink turbinates. THROAT: Orogastric and endotracheal tube secured in place. No erythema or exudates. NECK: No masses, no JVD. CHEST: No chest wall deformity. LUNGS: Equal air entry with bilateral scattered rhonchi. CVS: S1 and S2 normal with no audible murmur, regular rhythm. ABDOMEN: No hepatosplenomegaly, normal bowel sounds, no guarding or rigidity. SPINE: No scoliosis or deformity SKIN: No rashes CENTRAL NERVOUS SYSTEM: Sedated, tone is normal in all 4 extremities. EXTREMITIES: There is no peripheral edema. No clubbing, no cyanosis. Peripheral pulses are intact. Results - Laboratory Findings CBC and BMP: 03/17/24 12:28 03/17/24 12:28 ABG ABG pH 7.35 (7.35-7.45) 03/17/24 13:17 ABG pCO2 41 mmHg (35-45) 03/17/24 13:17 ABG pO2 314 mmHg (83-108) H 03/17/24 13:17 ABG O2 Saturation 99.7 % (94-97) H 03/17/24 13:17 PT/INR, D-dimer PT 10.7 sec (10.0-12.5) 03/17/24 12:28 INR 1.0 (<1.2) 03/17/24 12:28 Abnormal lab findings: Abnormal Labs 03/17/24 03/17/24 03/17/24 12:28 12:28 12:28 WBC 30.5 H Hct 46.9 H RDW 16.3 H Plt Count 680 H Neutrophils # (Manual) 26.20 H Myelocytes # (Manual) 0.31 H APTT 19.9 L ABG pO2 ABG O2 Saturation Chloride 108 H BUN 21 H Creatinine 0.50 L Glucose 132 H ALT 35 H Urine Blood Ur Leukocyte Esterase Urine RBC Urine Mucus 03/17/24 03/17/24 13:17 14:37 WBC Hct RDW Plt Count Neutrophils # (Manual) Myelocytes # (Manual) APTT ABG pO2 314 H ABG O2 Saturation 99.7 H Chloride BUN Creatinine Glucose ALT Urine Blood Moderate H Ur Leukocyte Esterase Trace H Urine RBC 13 H Urine Mucus Rare H - Diagnostic Findings Chest x-ray: image reviewed Assessment and Plan Assessment: Acute hypoxemic respiratory failure secondary to aspiration of oatmeal, sausage requiring intubation mechanical ventilatory support Leukocytosis secondary to above History of advanced dementia residing in an adult foster care Hyperlipidemia Plan: The patient was seen and evaluated Chest x-ray, ABGs, labs and medications reviewed Continue vancomycin and Zosyn for now Ventilator adjustments made accordingly Add bronchodilators every 4 hours We will continue to follow and make further recommendations based on her clinical status I have personally seen and examined the patient, performed the documentation and the assessment and plan as written. Number of minutes spent on the visit: 20.
[2024-03-17] MEDS ORDERED: SODIUM CHLORIDE 0.9% IVPB SCH (18:00)
[2024-03-17] MEDS ORDERED: AMPICILLIN SULBACTAM IVPB SCH (18:00)
[2024-03-17] MEDS ORDERED: metroNIDAZOLE-NS PMX 500 MG in SALINE 1 100ML.BAG IVPB SCH (20:00)
[2024-03-17] MEDS: IPRATROPIUM-ALBUTEROL 3 ML NEB INHALATION SCH (20:05)
[2024-03-17] MEDS: SODIUM CHLORIDE 0.9% 500 ML 500 ML IV ONE ×2 (21:10→23:32)
[2024-03-17 21:13] LABS: Glucose,Whole Blood 106 mg/dL (70-110)
--- NOTE | 2024-03-17 22:01 | P.HPIM ---
History of Present Illness H&P Date: 03/17/24 Chief Complaint: Aspiration This is a 78-year-old patient, brought into the ER. She was sent in from [facility] which is assisted living via EMS for potential aspiration. Patient at baseline is nonverbal. Patient was found to be choking on her breakfast including sausages and oatmeal. Patient did expel the sausage and oatmeal. Patient became progressively hypoxic in the ER had to be intubated. oat meal was recovered beyond the vocal cords. Patient taken to the ICU. Intubated. Currently on FiO2 50% and a PEEP of 5. Drips include propofol. Review of systems: Patient intubated. Social history: Patient lives at [facility]. History of heavy alcohol use in the past. Started smoking at age of 14 smoked half a pack a day. Physical examination: VITAL SIGNS: 96, 120, 32, 76 x 53, 92% on ventilator GENERAL: BMI 24.2, laying in bed intubated. EYES: Pupils equal. Conjunctiva paul l. HEENT: External appearance of nose and ears normal, oral cavity grossly normal. Endotracheal tube NECK: JVD not raised; masses not palpable. HEART: First and second heart sounds are normal; no edema. LUNGS: Respiratory rate crease diminished breath sounds some crackles. ABDOMEN: Soft, nontender, liver spleen not palpable, no masses palpable. PSYCH: Patient sedated l. MUSCULOSKELETAL: OA NEUROLOGICAL: Cranial nerves grossly intact; no facial asymmetry, no obvious neuro abnormality. LYMPHATICS: No lymph nodes palpable in the axilla and neck INVESTIGATIONS, reviewed in the clinical context: March 17, 2024: White count 3.5 hemoglobin 15.1 platelets 680 sodium 140 potassium 4.6. 21 creatinine 0.50 Troponin I 0.016. proBNP 1580 EKG tracing personally reviewed by me-sinus tachycardia. Questionable atrial flutter. Chest x-ray film personally reviewed by me-hyperinflation. Possible scant infiltrate Assessment plan: -Aspiration pneumonitis secondary to patient witnessed to choke on oatmeal and sausage. Some of that was coughed up. Some more was obtained when patient being intubated in the ER. IV Zosyn -Acute hypoxic respiratory failure from aspiration pneumonia, requiring ventilator assist FiO2 50%. PEEP 5. -Severe cognitive impairment underlying dementia -Primary osteoarthritis Tylenol as needed -Hyperlipidemia Lipitor 10 mg nightly -Chronic urinary incontinence Oxybutynin Full code Patient is ICU. Being followed by dredge pipe operator. 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 History of Any Multi-Drug Resistant Organisms: None Reported Past Surgical History: Unable to Obtain, Orthopedic Surgery Past Anesthesia/Blood Transfusion Reactions: Unable to Obtain Additional Past Anesthesia/Blood Transfusion Reaction / Comment(s): PT DENIED EVER HAVING ANY SX Past Psychological History: Depression Smoking Status: Former smoker Past Alcohol Use History: Heavy Past Drug Use History: None Reported - Past Family History Father History Unknown: Yes Mother History Unknown: Yes Medications and Allergies Home Medications Medication Instructions Recorded Confirmed Type Atorvastatin [Lipitor] 10 mg PO HS@199912/25/21 03/17/24 History Magnesium Hydroxide [Milk of 2,400 mg PO DAILY@79912/25/21 03/17/24 History Magnesia] Oxybutynin Chloride [oxyBUTYnin 10 mg PO DAILY@79912/25/21 03/17/24 History chloride ER] Psyllium [place] 100% [Metamucil 6 gm PO HS@199912/25/21 03/17/24 History Packet] QUEtiapine [SEROquel] 25 mg PO HS@199912/25/21 03/17/24 History polyethylene glycoL 3350 [Miralax] 17 gm PO DAILY PRN 12/25/21 03/17/24 History Acetaminophen Tab [Tylenol] 650 mg PO Q6HR PRN tab 12/29/21 03/17/24 Rx Ammonium Lactate Cream [Lac-Hydrin 1 applic TOPICAL DAILY PRN 03/17/24 03/17/24 History 12% Cream] Ascorbic Acid [Vitamin C] 500 mg PO DAILY@0803/17/24 03/17/24 History Benadryl [place] 2-0.1% 1 applic TOPICAL QID PRN 03/17/24 03/17/24 History Coricidin Hbp Chest Congestion & 1 cap PO Q6H PRN 03/17/24 03/17/24 History Cough Cyproheptadine [Cyproheptadine HCl] 4 mg PO QID@08,12,16,20 03/17/24 03/17/24 History Ensure 1 can PO DAILY@0800 03/17/24 03/17/24 History Famotidine [Pepcid] 20 mg PO HS@199903/17/24 03/17/24 History Ibuprofen [Motrin] 400 mg PO Q8H PRN 03/17/24 03/17/24 History Loperamide HCl [Loperamide] 2 - 4 mg PO QID PRN MDD 16 MG 03/17/24 03/17/24 History Magnesium Hydroxide [Milk of 2,400 mg PO DAILY PRN 03/17/24 03/17/24 History Magnesia] Megestrol Acetate 624 mg PO DAILY@0800 03/17/24 03/17/24 History Mirtazapine 30 mg PO HS@199903/17/24 03/17/24 History Nystatin 100,000Unit/gm Cream 1 applic TOPICAL BID@08,199903/17/24 03/17/24 History [Mycostatin Cream] Pedialyte Pack 1 pack PO Q48H 03/17/24 03/17/24 History Sennosides [Senokot] 17.2 mg PO HS@199903/17/24 03/17/24 History nitrofurantoin macrocrystaL 100 mg PO BID@08,199903/17/24 03/17/24 History Allergies Allergy/AdvReac Type Severity Reaction Status Date / Time No Known Allergies Allergy Verified 03/17/24 12:41 Physical Exam Vitals: Vital Signs Temp Pulse Resp BP Pulse Ox FiO2 03/17/24 21:30 96 F L 121 H 32 H 76/53 50 03/17/24 21:05 14 03/17/24 20:39 96.0 F L 118 H 21 84/51 92 L 03/17/24 20:30 120 H 36 H 74/50 92 L 03/17/24 20:15 116 H 03/17/24 20:08 50 03/17/24 20:05 120 H 03/17/24 20:00 117 H 36 H 92/57 91 L 03/17/24 19:30 121 H 35 H 88/70 91 L 03/17/24 19:00 121 H 35 H 105/58 92 L 03/17/24 18:30 118 H 37 H 99/57 93 L 03/17/24 18:00 114 H 37 H 95/59 95 03/17/24 17:30 103 H 16 92/59 93 L 50 03/17/24 17:00 105 H 16 86/58 93 L 50 03/17/24 16:30 105 H 16 93/62 92 L 50 03/17/24 16:00 105 H 16 89/61 93 L 03/17/24 15:30 108 H 16 91/57 92 L 50 03/17/24 15:11 50 03/17/24 15:00 100 16 85/61 93 L 03/17/24 14:30 118 H 16 108/64 93 L 03/17/24 14:25 98.9 F 120 H 40 H 108/64 94 L 03/17/24 14:13 131 H 40 H 115/86 91 L 03/17/24 14:00 131 H 16 91/80 93 L 03/17/24 13:34 50 03/17/24 13:30 125 H 16 155/120 100 03/17/24 13:10 135 H 32 H 149/89 95 03/17/24 13:00 133 H 141/90 96 03/17/24 12:53 100 03/17/24 12:45 100 03/17/24 12:34 144 H 38 H 137/97 03/17/24 12:30 197/111 96 03/17/24 12:02 97.9 F 140 H 38 H 197/111 96 03/17/24 12:00 138 H 182/114 97 03/17/24 11:54 182/114 96 03/17/24 11:23 127 H 97 03/17/24 11:00 93 L 03/17/24 10:50 87 L 03/17/24 10:20 83 L 03/17/24 10:15 82 L 03/17/24 10:01 97.5 F L 104 H 16 122/86 93 L Intake and Output 03/17/24 03/17/24 03/17/24 06:59 14:59 22:59 Intake Total 9.083 131.997 Output Total 900 Balance -890.917 131.997 Intake: Intake, IV Titration 9.083 131.997 Amount propofoL 1,000 mg In 9.083 131.997 Empty Bag 1 bag @ 15 MCG/ KG/MIN 6.124 mls/hr IV . [id number] [facility] Rx#:[id number] Output: Urine 900 Other: Weight 68.039 kg Results CBC & Chem 7: 03/17/24 12:28 03/17/24 12:28 Labs: Abnormal Lab Results - Last 24 Hours (Table) 03/17/24 03/17/24 03/17/24 Range/Units 12:28 12:28 12:28 WBC 30.5 H (3.8-10.6) k/uL Hct 46.9 H (34.0-46.0) % RDW 16.3 H (11.5-15.5) % Plt Count 680 H (150-450) k/uL Neutrophils # (Manual) 26.20 H (1.3-7.7) k/uL Myelocytes # (Manual) 0.31 H (0) k/uL APTT 19.9 L (22.0-30.0) sec ABG pO2 (83-108) mmHg ABG O2 Saturation (94-97) % Chloride 108 H (98-107) mmol/L BUN 21 H (7-17) mg/dL Creatinine 0.50 L (0.52-1.04) mg/dL Glucose 132 H (74-99) mg/dL ALT 35 H (4-34) U/L Urine Blood (Negative) Ur Leukocyte Esterase (Negative) Urine RBC (0-5) /hpf Urine Mucus (None) /hpf 03/17/24 03/17/24 Range/Units 13:17 14:37 WBC (3.8-10.6) k/uL Hct (34.0-46.0) % RDW (11.5-15.5) % Plt Count (150-450) k/uL Neutrophils # (Manual) (1.3-7.7) k/uL Myelocytes # (Manual) (0) k/uL APTT (22.0-30.0) sec ABG pO2 314 H (83-108) mmHg ABG O2 Saturation 99.7 H (94-97) % Chloride (98-107) mmol/L BUN (7-17) mg/dL Creatinine (0.52-1.04) mg/dL Glucose (74-99) mg/dL ALT (4-34) U/L Urine Blood Moderate H (Negative) Ur Leukocyte Esterase Trace H (Negative) Urine RBC 13 H (0-5) /hpf Urine Mucus Rare H (None) /hpf
[2024-03-17] MEDS: SODIUM CHLORIDE 0.9% 1,000 ML IV ONE (22:27)
[2024-03-17] MEDS: PIPERACILLIN-TAZOBACTAM 3.375 GM in SODIUM CHLORIDE 0.9% 100 ML IVPB SCH (22:27)
[2024-03-18] MEDS ORDERED: VANCOMYCIN 1,250 MG in SODIUM CHLORIDE 0.9% 250 ML IVPB SCH
[2024-03-18] MEDS: NYSTATIN 100,000UNIT/GM CREAM 30 GM TUBE TOPICAL SCH (00:25)
[2024-03-18] MEDS: NOREPINEPHRINE 4 MG in SODIUM CHLORIDE 0.9% 250 ML IV SCH (00:34)
--- NOTE | 2024-03-18 00:56 | XR ---
EXAM: XR Chest, 1 View CLINICAL HISTORY: OG Placement TECHNIQUE: Frontal view of the chest. COMPARISON: Portal chest single view dated 03/17/2024 FINDINGS: Lungs: Subsegmental perihilar, left lower lung zone and right mid- upper lung zone airspace opacities, more prominent from the previous examination. There is no subsegmental opacities noted in the right lower lung zone and minimally in the medial left apex and perihilar region. Pleural space: Mild blunting the left costophrenic margin is not significantly altered. No large pleural effusions or pneumothorax. Heart: Unremarkable. No cardiomegaly. Mediastinum: The mediastinal contours are thought to be stable and unremarkable. No tracheal deviation. Bones/joints: No acute osseous abnormality. Stable prior ORIF of the proximal left humerus. Tubes, lines and devices: Nasogastric tube tip cannot be seen but is below the diaphragm. The endotracheal tube is identified with the tip approximately 3.7 cm from the shay. IMPRESSION: 1. The orogastric tube tip is not included, but is presumed in the distal body of the stomach. 2. Subsegmental perihilar, left lower lung zone and right mid-upper lung zone airspace opacities, more prominent from the previous examination. There is no subsegmental opacities noted in the right lower lung zone and minimally in the medial left apex and perihilar region. Findings are most consistent with multifocal pneumonia. Asymmetric edema is thought to be less likely.
[2024-03-18] MEDS: MIRTAZAPINE 15 MG TAB PO SCH (02:21)
--- NOTE | 2024-03-18 04:29 | P.PCN ---
Date of Procedure: 03/18/24 Preoperative Diagnosis: Aspiration pneumonia; sepsis; septic shock Postoperative Diagnosis: Aspiration pneumonia; sepsis; septic shock Procedure(s) Performed: Insertion of a left wrist radial arterial line Indications for Procedure: Continuous blood pressure monitoring and frequent blood draws Description of Procedure: Informed consent was obtained, and a procedural timeout was performed . The patient was placed in supine position. The left radial region was prepared in a sterile fashion, and a sterile drape was applied. The left radial artery was palpated, easily cannulated, and a guidewire was placed. A Cook catheter was inserted over the guidewire, and the guidewire was removed. There was good arterial blood flow, good arterial waveform, and no complications. The line was secured with using a 3-0 silk suture.
[2024-03-18 05:25] LABS: Glucose,Whole Blood 133 mg/dL (70-110)
[2024-03-18 05:51] LABS: ABG Base Excess -6.8 mmol/L; ABG HCO3 20 mmol/L (21-25); ABG Oxygen Saturation 99.4 % (94-97); ABG PCO2 43 mmHg (35-45); ABG PH 7.28 (7.35-7.45); ABG PO2 150 mmHg (83-108); ABG TCO2 21 mmol/L (19-24); Allen Test Performed? Yes
[2024-03-18 05:55] LABS: African American GFR (CKD) >90 (>60 ml/min/1.73 sqM); Anion Gap 8 mmol/L; Blood Urea Nitrogen 22 mg/dL (7-17); Calcium 7.8 mg/dL (8.4-10.2); Carbon Dioxide 18 mmol/L (22-30); Chloride 115 mmol/L (98-107); Glucose 130 mg/dL (74-99); Non-African American GFR(CKD) 87 (>60 ml/min/1.73 sqM); Potassium 3.7 mmol/L (3.5-5.1); Sodium 141 mmol/L (137-145)
[2024-03-18] MEDS: POTASSIUM BICARBONATE/CIT AC 20 MEQ TABLET.EFF NG-TUBE SCH (06:10)
[2024-03-18 06:47] LABS: Anisocytosis Slight; HCT 41.2 % (34.0-46.0); HGB 13.2 gm/dL (11.4-16.0); Hypochromasia Slight; MCH 31.5 pg (25.0-35.0); MCHC 32.1 g/dL (31.0-37.0); MCV 98.1 fL (80.0-100.0); Macrocytosis Slight; Mean Platelet Volume 9.3; Platelet Count 293 k/uL (150-450); RDW 16.7 % (11.5-15.5); WBC 28.6 k/uL (3.8-10.6)
--- NOTE | 2024-03-18 07:32 | XR ---
EXAMINATION TYPE: XR chest 1V portable DATE OF EXAM: 03/18/2024 HISTORY: Shortness of breath. COMPARISON: 03/18/2024 TECHNIQUE: Single view of the chest is submitted. FINDINGS: Demonstrated are scattered senescent parenchymal change. Persistent patchy infiltrate right upper lobe. Improving aeration throughout the left lung. The heart is stable. Hilar and mediastinal structures are within normal limits. Degenerative changes are seen of the dorsal spine. IMPRESSION: 1. Persistent patchy infiltrate right upper lobe. Improving aeration throughout the left lung.
[2024-03-18] MEDS: OXYBUTYNIN 10 MG TAB.ER.24 PO SCH (07:45)
[2024-03-18] MEDS: VASOPRESSIN 60 UNIT in SODIUM CHLORIDE 0.9% 150 ML IV SCH (07:45)
[2024-03-18] MEDS: MEGESTROL 400 MG/10 ML CUP PO SCH (08:29)
[2024-03-18] MEDS: CYPROHEPTADINE 4 MG TABLET PO SCH (08:29)
[2024-03-18] MEDS: PANTOPRAZOLE 40 MG/10 ML VIAL IV SCH (08:30)
[2024-03-18] MEDS: ENOXAPARIN 40 MG/0.4 ML SYRINGE SQ SCH (08:31)
[2024-03-18] MEDS: CHLORHEXIDINE GLUCONATE 15 ML CUP MUCOUS MEM SCH (08:31)
[2024-03-18] MEDS: CISATRACURIUM 2 MG/ML 5 ML VIAL IV ONE (09:15)
[2024-03-18 09:20] LABS: Band Neutrophils % 10 %; Lymphocytes # (M) 0.57 k/uL (1.0-4.8); Metamyelocytes # (M) 0.57 k/uL (0); Metamyelocytes % 2 %; Monocytes # (M) 1.14 k/uL (0-1.0); Neutrophils % (M) 83 %; Nucleated Red Blood Cells 0 /100 WBC (0-0); Total Cells Counted 200
--- NOTE | 2024-03-18 10:53 | XR ---
EXAMINATION TYPE: XR chest 1V confirm line plcco DATE OF EXAM: 03/18/2024 HISTORY: Shortness of breath. COMPARISON: 03/18/2024 TECHNIQUE: Single view of the chest is submitted. FINDINGS: Endotracheal and NG tubes are unchanged in position. Left subclavian central venous line with its dis trip tip overlying the SVC. No evidence for pneumothorax. Patchy infiltrates persist right upper lobe, right perihilar and left perihilar left lower lobe regio ns. Hyperinflation compatible with COPD. The heart is stable. Hilar and mediastinal structures are within normal limits. Degenerative changes are seen of the dorsal spine. IMPRESSION: 1. Endotracheal and NG tubes are unchanged in position. Left subclavian central venous line with its distal tip overlying the SVC. No evidence for pneumothorax. 2. Patchy infiltrates persist right upper lobe, right perihilar and left perihilar left lower lobe r egions.
--- NOTE | 2024-03-18 11:30 | PCN ---
PROCEDURE NOTE PROCEDURE PERFORMED: Right radial art line. PREOPERATIVE DIAGNOSES: Frequent blood draws, blood gas monitoring, hypotension. POSTOPERATIVE DIAGNOSES: Frequent blood draws, blood gas monitoring, hypotension. AUTOMOTIVE ASSEMBLER: Dr. Nieto. FIRST ENGRAVER COPPERPLATE: Dr. Patricia Vora. A time-out was completed verifying correct patient, procedure, site, positioning, and implant(s) or special equipment if applicable. DESCRIPTION OF PROCEDURE: Jose's test was performed to ensure adequate perfusion. The patient's right wrist was prepped and draped in sterile fashion. 1% Lidocaine was used to anesthetize the area. An 18G Arrow arterial line was introduced into the radial/femoral artery. The catheter was threaded over the guide wire and the needle was removed with appropriate pulsatile blood return. Blood loss was minimal. The catheter was then sutured in place to the skin and a sterile dressing applied. Perfusion to the extremity distal to the point of catheter insertion was checked and found to be adequate. There was good waveform and blood pressure reading. The catheter was sutured in place. Sterile dressing was applied by the nurse. There was no immediate complication. The patient tolerated the procedure well and there were no complications. MMODL / IJN: [id number] /
--- NOTE | 2024-03-18 11:36 | PCN ---
PROCEDURE NOTE PROCEDURE: A left subclavian triple-lumen catheter. PREOPERATIVE DIAGNOSIS: Administration of fluids and pressors. POSTOPERATIVE DIAGNOSIS: Administration of fluids and pressors. BALLPOINT PEN CARTRIDGE TESTER: Dr. Nieto. FIRST SENIOR BUYER: Patricia Vora. INDICATIONS: Hemodynamic monitoring/Intravenous access. A time-out was completed verifying correct patient, procedure, site, positioning, and implant(s) or special equipment if applicable. DESCRIPTION OF PROCEDURE: The patient was placed in a dependent position appropriate for triple lumen catheter placement based on the vein to be cannulated. The patient's left shoulder was prepped and draped in sterile fashion. 1% Lidocaine was used to anesthetize the surrounding skin area. A triple lumen 9F Cordis catheter was introduced into the left subclavian vein using Seldinger technique. The catheter was threaded smoothly over the guide wire and appropriate blood return was obtained. Each lumen of the catheter was evacuated of air and flushed with sterile saline. The catheter was then sutured in place to the skin and a sterile dressing applied. Perfusion to the extremity distal to the point of catheter insertion was checked and found to be adequate. There was no immediate complication. There was good blood return from all 3 ports. The patient tolerated the procedure well. The catheter was sutured in place. Sterile dressing was applied by the nurse. A chest x-ray was ordered. The tip of the catheter should be seen at the junction of the right atrium and superior vena cava. The patient's procedure took place in room 264. MMODL / IJN: [id number] /
[2024-03-18 11:46] LABS: Glucose,Whole Blood 125 mg/dL (70-110)
[2024-03-18] MEDS: LACTATED RINGERS 1,000 ML IV SCH (13:03)
--- NOTE | 2024-03-18 13:25 | P.PN ---
Subjective Progress Note Date: 03/18/24 This is a 78-year-old female patient with a known history of hyperlipidemia and dementia and resides in a adult foster care setting. He was brought into the emergency room earlier this morning for possible aspiration. Apparently the patient is nonverbal. She was found choking this morning after her breakfast of sausage and oatmeal. She developed productive cough. This x-ray initially revealed no acute pulmonary process. Her condition continued to deteriorate and she required intubation mechanical ventilatory support. He was seen in consultation in the emergency department. She remains intubated on the mechanical ventilator at assist-control mode at a rate of 16, tidal volume 350, FiO2 of 50% and a PEEP of 5. Initial blood gases on 100% FiO2 revealed a PaO2 of 314, pCO2 41, pH 7.35. White count 30.5. Hemoglobin 15.1. Platelets 680. INR 1.0. Sodium 140. Potassium 4.6. Bicarb 24. BUN 21. Creatinine 0.50. Glucose 132. proBNP 1580. She is sedated on propofol at 50 mcg/kg/min. She has been initiated on vancomycin, Flagyl and Zosyn. The patient is seen today March 18, 2024 and follow-up in the intensive care unit. She remains intubated on mechanical ventilator. Currently in assist- control mode at a rate of 16, tidal volume 350, FiO2 40% and a PEEP of 5. Morning blood gases revealed pO2 of 150, pCO2 43 and a pH of 7.22 that was on 50% FiO2. She remains sedated on propofol 35 mcg/kg/min. She has required norepinephrine at 9.5 mcg/min. She has lactated Ringer's at 75 mL/h. She is continued on Lovenox for DVT prophylaxis. Continued on antibiotics in the form of Zosyn. White count 28.6. Hemoglobin 13.2. Platelets 293. Sodium 141. Potassium 3.7. Bicarb 18. BUN 22. Creatinine 0.61. Glucose 130. Chest x-ray reveals endotracheal nasogastric tubes in good position. Left subclavian triple-lumen catheter in place. There is patchy infiltrates persist in the right upper lobe right perihilar and left perihilar lower lobe regions. Sputum culture is pending. Objective - Vital Signs Vital signs: Vital Signs Temp 98.7 F 03/18/24 12:00 Pulse 98 03/18/24 12:45 Resp 32 H 03/18/24 12:45 BP 100/64 03/18/24 12:45 Pulse Ox 97 03/18/24 12:45 FiO2 40 03/18/24 12:00 Intake & Output 03/17/24 03/18/24 03/18/24 18:59 06:59 18:59 Intake Total 57.051 1722.942 634.211 Output Total 900 565 155 Balance -401.896 2227.942 479.211 Weight 68.039 kg 58.287 kg 58.287 kg Intake: IV 1600 225 Lactated Ringers 1,000 ml 150 @ 75 mls/hr IV .[id number] [facility] Rx#:[id number] Piperacillin-Tazobactam 3 100 75 .375 gm In Sodium Chloride 0.9% 100 ml @ 25 mls/hr IVPB Q8H RON Rx#: [id number] Sodium Chloride 0.9% 1, 1000 000 ml @ 999 mls/hr IV . Q1H1M ONE Rx#:[id number] Sodium Chloride 0.9% 500 500 ml 500 ml @ 999 mls/hr IV .Q31M ONE Rx#:[id number] Intake, IV Titration 57.051 122.942 399.211 Amount Norepinephrine 4 mg In 22.942 399.211 Sodium Chloride 0.9% 250 ml @ 0.03 MCG/KG/MIN 7. 777 mls/hr IV .Q24H RON Rx#:[id number] propofoL 1,000 mg In 57.051 100.000 Empty Bag 1 bag @ 15 MCG/ KG/MIN 6.124 mls/hr IV . [id number] [facility] Rx#:[id number] Tube Feeding 10 Output: Urine 900 565 155 Other: Voiding Method Indwelling Catheter Indwelling Catheter ABP, PAP, CO, CI - Last Documented Arterial Blood Pressure 83/62 - Exam GENERAL EXAM: Intubated, sedated this 78-year-old female, comfortable in no apparent distress. HEAD: Normocephalic. EYES: Normal reaction of pupils, equal size. NOSE: Clear with pink turbinates. THROAT: No erythema or exudates. NECK: Right IJ triple-lumen catheter in place no masses, no JVD. CHEST: No chest wall deformity. LUNGS: Equal air entry with bilateral scattered rhonchi. CVS: S1 and S2 normal with no audible murmur, regular rhythm. ABDOMEN: No hepatosplenomegaly, normal bowel sounds, no guarding or rigidity. SPINE: No scoliosis or deformity SKIN: No rashes CENTRAL NERVOUS SYSTEM: No focal deficits, tone is normal in all 4 extremities. EXTREMITIES: Right radial arterial line in place. There is no peripheral edema. No clubbing, no cyanosis. Peripheral pulses are intact. - Labs CBC & Chem 7: 03/18/24 05:20 03/18/24 05:20 Labs: Abnormal Lab Results - Last 24 Hours (Table) 03/17/24 03/17/24 03/17/24 Range/Units 12:28 12:28 13:17 WBC (3.8-10.6) k/uL RDW (11.5-15.5) % Neutrophils # (Manual) 26.20 H (1.3-7.7) k/uL Lymphocytes # (Manual) (1.0-4.8) k/uL Monocytes # (Manual) (0-1.0) k/uL Metamyelocytes # (Man) (0) k/uL Myelocytes # (Manual) 0.31 H (0) k/uL APTT 19.9 L (22.0-30.0) sec ABG pH (7.35-7.45) ABG pO2 314 H (83-108) mmHg ABG HCO3 (21-25) mmol/L ABG O2 Saturation 99.7 H (94-97) % Chloride (98-107) mmol/L Carbon Dioxide (22-30) mmol/L BUN (7-17) mg/dL Glucose (74-99) mg/dL POC Glucose (mg/dL) (70-110) mg/dL Calcium (8.4-10.2) mg/dL Urine Blood (Negative) Ur Leukocyte Esterase (Negative) Urine RBC (0-5) /hpf Urine Mucus (None) /hpf 03/17/24 03/18/24 03/18/24 Range/Units 14:37 05:20 05:20 WBC 28.6 H (3.8-10.6) k/uL RDW 16.7 H (11.5-15.5) % Neutrophils # (Manual) 26.50 H (1.3-7.7) k/uL Lymphocytes # (Manual) 0.57 L (1.0-4.8) k/uL Monocytes # (Manual) 1.14 H (0-1.0) k/uL Metamyelocytes # (Man) 0.57 H (0) k/uL Myelocytes # (Manual) (0) k/uL APTT (22.0-30.0) sec ABG pH (7.35-7.45) ABG pO2 (83-108) mmHg ABG HCO3 (21-25) mmol/L ABG O2 Saturation (94-97) % Chloride 115 H (98-107) mmol/L Carbon Dioxide 18 L (22-30) mmol/L BUN 22 H (7-17) mg/dL Glucose 130 H (74-99) mg/dL POC Glucose (mg/dL) (70-110) mg/dL Calcium 7.8 L (8.4-10.2) mg/dL Urine Blood Moderate H (Negative) Ur Leukocyte Esterase Trace H (Negative) Urine RBC 13 H (0-5) /hpf Urine Mucus Rare H (None) /hpf 03/18/24 03/18/24 03/18/24 Range/Units 05:24 05:51 11:45 WBC (3.8-10.6) k/uL RDW (11.5-15.5) % Neutrophils # (Manual) (1.3-7.7) k/uL Lymphocytes # (Manual) (1.0-4.8) k/uL Monocytes # (Manual) (0-1.0) k/uL Metamyelocytes # (Man) (0) k/uL Myelocytes # (Manual) (0) k/uL APTT (22.0-30.0) sec ABG pH 7.28 L (7.35-7.45) ABG pO2 150 H (83-108) mmHg ABG HCO3 20 L (21-25) mmol/L ABG O2 Saturation 99.4 H (94-97) % Chloride (98-107) mmol/L Carbon Dioxide (22-30) mmol/L BUN (7-17) mg/dL Glucose (74-99) mg/dL POC Glucose (mg/dL) 133 H 125 H (70-110) mg/dL Calcium (8.4-10.2) mg/dL Urine Blood (Negative) Ur Leukocyte Esterase (Negative) Urine RBC (0-5) /hpf Urine Mucus (None) /hpf Microbiology - Last 24 Hours (Table) 03/17/24 12:55 Gram Stain - Preliminary Sputum Assessment and Plan Assessment: Acute hypoxemic respiratory failure secondary to aspiration requiring intubation mechanical ventilatory support Leukocytosis secondary to above History of advanced dementia residing in an adult foster care Hyperlipidemia Plan: The patient was seen and evaluated Chest x-ray, ABGs, labs and medications reviewed Allowing for permissive acidosis FiO2 decreased to 40% Continue Zosyn, bronchodilators Continue DVT and GI prophylaxis We will continue to follow I have personally seen and examined the patient, performed the documentation and the assessment and plan as written. Number of minutes spent on the visit: 15.
--- NOTE | 2024-03-18 15:20 | P.PN ---
Progress Note - Text Progress Note Date: 03/18/24 Chief Complaint: Aspiration This is a 78-year-old patient, brought into the ER. She was sent in from [facility] which is assisted living via EMS for potential aspiration. Patient at baseline is nonverbal. Patient was found to be choking on her breakfast including sausages and oatmeal. Patient did expel the sausage and oatmeal. Patient became progressively hypoxic in the ER had to be intubated. oat meal was recovered beyond the vocal cords. Patient taken to the ICU. Intubated. Currently on FiO2 50% and a PEEP of 5. Drips include propofol. March 18: ICU. Remains intubated. FiO2 40 and a PEEP of 5. Patient last started on norepinephrine. Started on tube feeding at 10 cc an hour. Also on propofol. Vasopressin was ordered last night but never started. Active Medications Acetaminophen (Acetaminophen Tab 325 Mg Tab) 650 mg PO Q6HR PRN PRN Reason: Fever and/ or Pain Albuterol/Ipratropium (Ipratropium-Albuterol 3 Ml Neb) 3 ml INHALATION RT-Q4H [facility] Last Admin: 03/18/24 11:36 Dose: 3 ml Atorvastatin Calcium (Atorvastatin 10 Mg Tab) 10 mg PO HS@2000 R[facility] Chlorhexidine Gluconate (Chlorhexidine Gluconate 15 Ml Cup) 15 ml MUCOUS MEM BID [facility] Last Admin: 03/18/24 08:31 Dose: 15 ml Cyproheptadine HCl (Cyproheptadine 4 Mg Tablet) 4 mg PO QID@08,12,16,20 RON Last Admin: 03/18/24 13:03 Dose: 4 mg Enoxaparin Sodium (Enoxaparin 40 Mg/0.4 Ml Syringe) 40 mg SQ DAILY [facility] Last Admin: 03/18/24 08:31 Dose: 40 mg Famotidine (Famotidine 20 Mg Tab) 20 mg PO HS@2000 RON Piperacillin Sod/Tazobactam (Sod 3.375 gm/ Sodium Chloride) 100 mls @ 25 mls/hr IVPB Q8H [facility]; Protocol Last Admin: 03/18/24 13:03 Dose: 25 mls/hr Propofol 1,000 mg/ IV Solution 100 mls @ 6.124 mls/hr IV .[id number] [facility]; Protocol Last Admin: 03/17/24 22:26 Dose: 35 mcg/kg/min, 14.288 mls/hr Norepinephrine Bitartrate 4 mg (/ Sodium Chloride) 254 mls @ 7.777 mls/hr IV .Q24H [facility]; Protocol Last Titration: 03/18/24 13:05 Dose: 0.22 mcg/kg/min, 57.03 mls/hr Vasopressin 60 unit/ Sodium (Chloride) 153 mls @ 4.59 mls/hr IV .Q24H [facility]; Protocol Last Admin: 03/18/24 07:45 Dose: Not Given Lactated Ringer's (Lactated Ringers) 1,000 mls @ 75 mls/hr IV .[id number] [facility] Last Admin: 03/18/24 13:03 Dose: 75 mls/hr Megestrol Acetate (Megestrol 400 Mg/10 Ml Cup) 624 mg PO DAILY@0800 [facility] Last Admin: 03/18/24 08:29 Dose: 624 mg Mirtazapine (Mirtazapine 15 Mg Tab) 30 mg PO HS@1999 [facility] Last Admin: 03/18/24 02:21 Dose: Not Given Naloxone HCl (Naloxone 0.4 Mg/Ml 1 Ml Vial) 0.2 mg IV Q2M PRN PRN Reason: Opioid Reversal Nystatin (Nystatin 100,000unit/Gm Cream 30 Gm Tube) 1 applic TOPICAL BID@799,1999 [facility]; Protocol Last Admin: 03/18/24 08:31 Dose: 1 applic Oxybutynin Chloride (Oxybutynin 10 Mg Tab.Er.24) 10 mg PO DAILY@0800 [facility] Last Admin: 03/18/24 07:45 Dose: Not Given Pantoprazole Sodium (Pantoprazole 40 Mg/10 Ml Vial) 40 mg IV DAILY [facility] Last Admin: 03/18/24 08:30 Dose: 40 mg Social history: Patient lives at [facility]. History of heavy alcohol use in the past. Started smoking at age of 14 smoked half a pack a day. Physical examination: VITAL SIGNS: Afebrile, 95, 31, 98/53, 97% on FiO2 50% GENERAL: laying in bed intubated. EYES: Pupils equal. Conjunctiva paul l. HEENT: External appearance of nose and ears normal, oral cavity grossly normal. Endotracheal tube. OG tube feeding NECK: JVD not raised; masses not palpable. HEART: First and second heart sounds are normal; no edema. LUNGS: Respiratory rate crease diminished breath sounds some crackles. ABDOMEN: Soft, nontender, liver spleen not palpable, no masses palpable. PSYCH: Patient sedated l. MUSCULOSKELETAL: OA INVESTIGATIONS, reviewed in the clinical context: March 18: White count 14.6 hemoglobin 13.2 platelets 293 sodium 141 potassium 3.7 BUN 22 creatinine 0.61 March 17, 2024: White count 3.5 hemoglobin 15.1 platelets 680 sodium 140 potassium 4.6. 21 creatinine 0.50 Troponin I 0.016. proBNP 1580 EKG tracing personally reviewed by me-sinus tachycardia. Questionable atrial flutter. Chest x-ray film personally reviewed by me-hyperinflation. Possible scant infiltrate Assessment plan: -Aspiration pneumonitis secondary to patient witnessed to choke on oatmeal and sausage. Some of that was coughed up. Some more was obtained when patient being intubated in the ER. IV Zosyn -Septic shock from underlying pneumonia IV norepinephrine -Acute hypoxic respiratory failure from aspiration pneumonia, requiring ventilator assist: Slow to respond FiO2 40%. PEEP 5. -Severe cognitive impairment underlying dementia -Primary osteoarthritis Tylenol as needed -Hyperlipidemia Lipitor 10 mg nightly -Chronic urinary incontinence Oxybutynin Full code Remains critically ill. Nurses try to get more information from the jail. 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 History of Any Multi-Drug Resistant Organisms: None Reported Past Surgical History: Unable to Obtain, Orthopedic Surgery Past Anesthesia/Blood Transfusion Reactions: Unable to Obtain Additional Past Anesthesia/Blood Transfusion Reaction / Comment(s): PT DENIED EVER HAVING ANY SX Past Psychological History: Depression Smoking Status: Former smoker Past Alcohol Use History: Heavy Past Drug Use History: None Reported
[2024-03-18 18:29] LABS: Glucose,Whole Blood 137 mg/dL (70-110)
[2024-03-18] MEDS: FAMOTIDINE 20 MG TAB PO SCH (21:49)
[2024-03-18] MEDS: ATORVASTATIN 10 MG TAB PO SCH (21:49)
[2024-03-19 00:13] LABS: Glucose,Whole Blood 135 mg/dL (70-110)
[2024-03-19 05:05] LABS: Anisocytosis Slight; Basophils # (A) 0.1 k/uL (0-0.2); Basophils % (A) 0 %; Eosinophils # (A) 0.3 k/uL (0-0.7); Eosinophils % (A) 1 %; HGB 11.6 gm/dL (11.4-16.0); Lymphocytes # (A) 0.8 k/uL (1.0-4.8); Lymphocytes % (A) 4 %; MCH 31.2 pg (25.0-35.0); MCHC 32.3 g/dL (31.0-37.0); MCV 96.5 fL (80.0-100.0); Macrocytosis Slight; Mean Platelet Volume 8.4; Monocytes # (A) 0.5 k/uL (0-1.0); Monocytes % (A) 2 %; Neutrophils # (A) 19.3 k/uL (1.3-7.7); Neutrophils % (A) 92 %; Platelet Count 236 k/uL (150-450); Poikilocytosis Slight; RBC 3.73 m/uL (3.80-5.40); RDW 17.1 % (11.5-15.5)
[2024-03-19 05:56] LABS: African American GFR (CKD) >90 (>60 ml/min/1.73 sqM); Anion Gap 3 mmol/L; Blood Urea Nitrogen 14 mg/dL (7-17); Carbon Dioxide 22 mmol/L (22-30); Chloride 118 mmol/L (98-107); Glucose 121 mg/dL (74-99); Non-African American GFR(CKD) >90 (>60 ml/min/1.73 sqM); Potassium 3.6 mmol/L (3.5-5.1); Sodium 143 mmol/L (137-145)
[2024-03-19 06:01] LABS: Glucose,Whole Blood 97 mg/dL (70-110)
[2024-03-19] MEDS: POTASSIUM BICARBONATE/CIT AC 20 MEQ TABLET.EFF NG-TUBE SCH (06:08)
[2024-03-19 06:20] LABS: ABG Base Excess -3.1 mmol/L; ABG HCO3 23 mmol/L (21-25); ABG Oxygen Saturation 99.5 % (94-97); ABG PCO2 43 mmHg (35-45); ABG PH 7.33 (7.35-7.45); ABG PO2 127 mmHg (83-108); ABG TCO2 24 mmol/L (19-24); Allen Test Performed? Yes
--- NOTE | 2024-03-19 07:55 | XR ---
EXAMINATION TYPE: XR chest 1V portable DATE OF EXAM: 03/19/2024 COMPARISON: 03/18/2024 HISTORY: SOB, Follow Up FINDINGS: Indwelling tubes and catheters are unchanged. Patchy infiltrates persist right upper lobe, right perihilar and left perihilar left lower lobe regio ns. Stable appearance of the cardio-mediastinal structures at this time. IMPRESSION: 1. Stable portable chest. Clinical correlation and follow up until resolution is recommended.
[2024-03-19 11:49] LABS: Glucose,Whole Blood 102 mg/dL (70-110)
--- NOTE | 2024-03-19 12:02 | CDI ---
Date: 03/19/2024 From: Patricia Sanchez Phone: [phone] Admit Date: 03/17/2024 03:12:00 PM Patient Name: Olivia Butts Visit Number: [id number] Discharge Date: ATTENTION: The Clinical Documentation Specialists (CDI) and [facility] Coding Staff appreciate your assistance in clarifying documentation. Please respond to the clarification below the line at the bottom and electronically sign. The CDI & [facility] Coding staff will review the response and follow-up if needed. Please note: Queries are made part of the Legal Health Record. If you have any questions, please contact the author of this message via ITS. Dr. Toni Escobedo: Sepsis is documented in the Procedure Note 03/18. For each diagnosis, documentation must be clear to determine if the condition was present at the time of the patients inpatient admission or developed during the hospital stay. Additional clarification regarding the sepsis is requested. History/Risk Factors: Dementia who presents after aspiration of breakfast and intubated in the ED Clinical Indicators: 03/17 Triage VS: 122/86, 97.5, 104, 93% room air 03/18-03/19 Temperature max: 100.7 (03/18) 03/18 Procedure Note (Insertion of left wrist radial arterial line), Pre/Post- operative diagnosis: "Aspiration pneumonia; sepsis; septic shock" 03/18 IM PN, Assessment plan: "Septic shock from underlying pneumonia." 03/17 Chest X Ray, Impression: "No acute cardiopulmonary disease/process." 03/18 Chest X Ray, Impression: "2. Subsegmental perihilar, left lower lung zone and right mid-upper lung zone airspace opacities, more prominent from the previous examination.... Findings are most consistent with multifocal pneumonia." 03/17-03/19 WBC: 30.5, 28.6, 21.0 03/17 Lactic Acid: 1.5 03/18 Procalcitonin: 11.40, Treatment: Zosyn 3.375gram IV [id number] start 03/17 Flagyl 500m g IV once 03/17 Vancomycin 1,250mg IV once 03/17 Normal Saline 1000cc IV bolus X2 on 03/17 Normal Saline 500cc IV bolus x2 on 03/17 Levophed titrated drip start 03/18 Definition of Present on Admission (POA): A diagnosis present at the time the order for admission to inpatient status was written. Please clarify if the Sepsis was POA [ + ] Y = Yes, the condition was present at the time of the order for inpatient admission. [ ] N = No, the condition was not present at the time of the order for inpatient admission. [ ] W = Clinically undetermined if the condition was present at the time of the order for inpatient admission. MTDD
--- NOTE | 2024-03-19 12:42 | P.PN ---
Subjective Progress Note Date: 03/19/24 This is a 78-year-old female patient with a known history of hyperlipidemia and dementia and resides in a adult foster care setting. He was brought into the emergency room earlier this morning for possible aspiration. Apparently the patient is nonverbal. She was found choking this morning after her breakfast of sausage and oatmeal. She developed productive cough. This x-ray initially revealed no acute pulmonary process. Her condition continued to deteriorate and she required intubation mechanical ventilatory support. He was seen in consultation in the emergency department. She remains intubated on the mechanical ventilator at assist-control mode at a rate of 16, tidal volume 350, FiO2 of 50% and a PEEP of 5. Initial blood gases on 100% FiO2 revealed a PaO2 of 314, pCO2 41, pH 7.35. White count 30.5. Hemoglobin 15.1. Platelets 680. INR 1.0. Sodium 140. Potassium 4.6. Bicarb 24. BUN 21. Creatinine 0.50. Glucose 132. proBNP 1580. She is sedated on propofol at 50 mcg/kg/min. She has been initiated on vancomycin, Flagyl and Zosyn. The patient is seen today March 18, 2024 and follow-up in the intensive care unit. She remains intubated on mechanical ventilator. Currently in assist- control mode at a rate of 16, tidal volume 350, FiO2 40% and a PEEP of 5. Morning blood gases revealed pO2 of 150, pCO2 43 and a pH of 7.22 that was on 50% FiO2. She remains sedated on propofol 35 mcg/kg/min. She has required norepinephrine at 9.5 mcg/min. She has lactated Ringer's at 75 mL/h. She is continued on Lovenox for DVT prophylaxis. Continued on antibiotics in the form of Zosyn. White count 28.6. Hemoglobin 13.2. Platelets 293. Sodium 141. Potassium 3.7. Bicarb 18. BUN 22. Creatinine 0.61. Glucose 130. Chest x-ray reveals endotracheal nasogastric tubes in good position. Left subclavian triple-lumen catheter in place. There is patchy infiltrates persist in the right upper lobe right perihilar and left perihilar lower lobe regions. Sputum culture is pending. The patient is seen today March 19, 2024 in follow-up in the intensive care unit. She remains intubated on mechanical ventilator. Currently on assist- control mode with a rate of 16, tidal volume 350, FiO2 30% and a PEEP of 5. Morning blood gases reveal a PaO2 of 127 pounds, pCO2 43, pH 7.33. Chest x-ray reveals right upper lobe and left lower lobe infiltrates. Procalcitonin 11.4. She is currently on Zosyn. Remains on lactated Ringer's at 75 MLS per hour. Continued on sedation with propofol at 25 mcg/kg/min. Norepinephrine at 4 mcg/min. Being nourished with vital AF. Blood cultures pending. Sputum culture revealed no growth. White count 21.0. Hemoglobin 11.6. Platelets 236. Sodium 143. Potassium 3.6. Bicarb 22. BUN 14. Creatinine 0.50. She is continued on DuoNeb inhalations, Lovenox for DVT prophylaxis. Objective - Vital Signs Vital signs: Vital Signs Temp 96.8 F L 03/19/24 04:00 Pulse 100 03/19/24 11:11 Resp 27 H 03/19/24 07:00 BP 128/61 03/19/24 07:00 Pulse Ox 95 03/19/24 07:00 FiO2 30 03/19/24 11:12 Intake & Output 03/18/24 03/19/24 03/19/24 18:59 06:59 18:59 Intake Total 8528.171 6769.279 75 Output Total 675 1090 50 Balance 843.429 919.279 25 Weight 58.287 kg Intake: IV 875 1100 75 Lactated Ringers 1,000 ml 675 900 75 @ 75 mls/hr IV .[id number] [facility] Rx#:[id number] Piperacillin-Tazobactam 3 200 200 .375 gm In Sodium Chloride 0.9% 100 ml @ 25 mls/hr IVPB Q8H [facility] Rx#: [id number] Intake, IV Titration 503.429 639.279 Amount Norepinephrine 4 mg In 485.058 550.212 Sodium Chloride 0.9% 250 ml @ 0.03 MCG/KG/MIN 7. 777 mls/hr IV .Q24H [facility] Rx#:[id number] propofoL 1,000 mg In 18.371 89.067 Empty Bag 1 bag @ 15 MCG/ KG/MIN 6.124 mls/hr IV . [id number] [facility] Rx#:[id number] Tube Feeding 80 210 Other 60 60 Output: Urine 675 1090 50 Other: Voiding Method Indwelling Catheter Indwelling Catheter ABP, PAP, CO, CI - Last Documented Arterial Blood Pressure 100/45 - Exam GENERAL EXAM: Intubated, sedated this 78-year-old female, in no apparent distress. HEAD: Normocephalic. EYES: Normal reaction of pupils, equal size. NOSE: Clear with pink turbinates. THROAT: No erythema or exudates. NECK: Right IJ triple-lumen catheter in place no masses, no JVD. CHEST: No chest wall deformity. LUNGS: Equal air entry with bilateral scattered rhonchi. CVS: S1 and S2 normal with no audible murmur, regular rhythm. ABDOMEN: No hepatosplenomegaly, normal bowel sounds, no guarding or rigidity. SPINE: No scoliosis or deformity SKIN: No rashes CENTRAL NERVOUS SYSTEM: No focal deficits, tone is normal in all 4 extremities. EXTREMITIES: Right radial arterial line in place. There is no peripheral edema. No clubbing, no cyanosis. Peripheral pulses are intact. - Labs CBC & Chem 7: 03/19/24 04:48 03/19/24 04:48 Labs: Abnormal Lab Results - Last 24 Hours (Table) 03/18/24 03/18/24 03/19/24 Range/Units 05:20 18:27 00:11 WBC (3.8-10.6) k/uL RBC (3.80-5.40) m/uL RDW (11.5-15.5) % Neutrophils # (1.3-7.7) k/uL Lymphocytes # (1.0-4.8) k/uL ABG pH (7.35-7.45) ABG pO2 (83-108) mmHg ABG O2 Saturation (94-97) % Chloride (98-107) mmol/L Creatinine (0.52-1.04) mg/dL Glucose (74-99) mg/dL POC Glucose (mg/dL) 137 H 135 H (70-110) mg/dL Calcium (8.4-10.2) mg/dL Procalcitonin 11.40 H (0.02-0.09) ng/mL 03/19/24 03/19/24 03/19/24 Range/Units 04:48 04:48 06:15 WBC 21.0 H (3.8-10.6) k/uL RBC 3.73 L (3.80-5.40) m/uL RDW 17.1 H (11.5-15.5) % Neutrophils # 19.3 H (1.3-7.7) k/uL Lymphocytes # 0.8 L (1.0-4.8) k/uL ABG pH 7.33 L (7.35-7.45) ABG pO2 127 H (83-108) mmHg ABG O2 Saturation 99.5 H (94-97) % Chloride 118 H (98-107) mmol/L Creatinine 0.50 L (0.52-1.04) mg/dL Glucose 121 H (74-99) mg/dL POC Glucose (mg/dL) (70-110) mg/dL Calcium 8.0 L (8.4-10.2) mg/dL Procalcitonin (0.02-0.09) ng/mL Microbiology - Last 24 Hours (Table) 03/17/24 12:55 Gram Stain - Final Sputum Sputum Culture - Final 03/17/24 12:28 Blood Culture - Preliminary Blood Assessment and Plan Assessment: Acute hypoxemic respiratory failure secondary to aspiration requiring intubation mechanical ventilatory support Leukocytosis secondary to above History of advanced dementia residing in an adult foster care Hyperlipidemia Plan: The patient was seen and evaluated Chest x-ray, ABGs, labs and medications reviewed Continue Zosyn, bronchodilators No requiring a small dose of pressors Continue DVT and GI prophylaxis Daily interruption of sedation We will continue to follow I have personally seen and examined the patient, performed the documentation and the assessment and plan as written. Number of minutes spent on the visit: 15.
[2024-03-19] MEDS: METOCLOPRAMIDE 5 MG/ML 2 ML VIAL IVP SCH (13:16)
--- NOTE | 2024-03-19 13:56 | P.PN ---
Progress Note - Text Progress Note Date: 03/19/24 Chief Complaint: Aspiration This is a 78-year-old patient, brought into the ER. She was sent in from [facility] which is assisted living via EMS for potential aspiration. Patient at baseline is nonverbal. Patient was found to be choking on her breakfast including sausages and oatmeal. Patient did expel the sausage and oatmeal. Patient became progressively hypoxic in the ER had to be intubated. oat meal was recovered beyond the vocal cords. Patient taken to the ICU. Intubated. Currently on FiO2 50% and a PEEP of 5. Drips include propofol. March 18: ICU. Remains intubated. FiO2 40 and a PEEP of 5. Patient last started on norepinephrine. Started on tube feeding at 10 cc an hour. Also on propofol. Vasopressin was ordered last night but never started. March 19: ICU. Intubated. FiO2 30% and a PEEP of 5. Drips include propofol 25 mics, norepinephrine 0.07 mcg. Tube feeding at 30 cc an hour. Sedated. Remains on IV Zosyn. At Active Medications Acetaminophen (Acetaminophen Tab 325 Mg Tab) 650 mg PO Q6HR PRN PRN Reason: Fever and/ or Pain Albuterol/Ipratropium (Ipratropium-Albuterol 3 Ml Neb) 3 ml INHALATION RT-Q4H [facility] Last Admin: 03/19/24 11:10 Dose: 3 ml Atorvastatin Calcium (Atorvastatin 10 Mg Tab) 10 mg PO HS@1999 [facility] Last Admin: 03/18/24 21:49 Dose: 10 mg Chlorhexidine Gluconate (Chlorhexidine Gluconate 15 Ml Cup) 15 ml MUCOUS MEM BID [facility] Last Admin: 03/19/24 10:13 Dose: 15 ml Cyproheptadine HCl (Cyproheptadine 4 Mg Tablet) 4 mg PO QID@08,12,16,20 [facility] Last Admin: 03/19/24 13:17 Dose: 4 mg Enoxaparin Sodium (Enoxaparin 40 Mg/0.4 Ml Syringe) 40 mg SQ DAILY [facility] Last Admin: 03/19/24 10:13 Dose: 40 mg Famotidine (Famotidine 20 Mg Tab) 20 mg PO HS@1999 [facility] Last Admin: 03/18/24 21:49 Dose: 20 mg Piperacillin Sod/Tazobactam (Sod 3.375 gm/ Sodium Chloride) 100 mls @ 25 mls/hr IVPB Q8H [facility]; Protocol Last Admin: 03/19/24 13:15 Dose: 25 mls/hr Propofol 1,000 mg/ IV Solution 100 mls @ 6.124 mls/hr IV .[id number] [facility]; Protocol Last Titration: 03/19/24 06:44 Dose: 25 mcg/kg/min, 10.206 mls/hr Norepinephrine Bitartrate 4 mg (/ Sodium Chloride) 254 mls @ 7.777 mls/hr IV .Q24H [facility]; Protocol Last Titration: 03/19/24 06:59 Dose: 0.07 mcg/kg/min, 18.146 mls/hr Lactated Ringer's (Lactated Ringers) 1,000 mls @ 75 mls/hr IV .[id number] [facility] Last Admin: 03/19/24 13:16 Dose: 75 mls/hr Megestrol Acetate (Megestrol 400 Mg/10 Ml Cup) 624 mg PO DAILY@08 [facility] Last Admin: 03/19/24 10:14 Dose: 624 mg Metoclopramide HCl (Metoclopramide 5 Mg/Ml 2 Ml Vial) 10 mg IVP Q6HR [facility] Last Admin: 03/19/24 13:16 Dose: 10 mg Mirtazapine (Mirtazapine 15 Mg Tab) 30 mg PO HS@1999 [facility] Last Admin: 03/18/24 21:50 Dose: 30 mg Naloxone HCl (Naloxone 0.4 Mg/Ml 1 Ml Vial) 0.2 mg IV Q2M PRN PRN Reason: Opioid Reversal Nystatin (Nystatin 100,000unit/Gm Cream 30 Gm Tube) 1 applic TOPICAL BID@ [facility]; Protocol Last Admin: 03/19/24 10:15 Dose: 1 applic Oxybutynin Chloride (Oxybutynin 10 Mg Tab.Er.24) 10 mg PO DAILY@0800 [facility] Last Admin: 03/19/24 10:34 Dose: Not Given Pantoprazole Sodium (Pantoprazole 40 Mg/10 Ml Vial) 40 mg IV DAILY [facility] Last Admin: 03/19/24 10:13 Dose: 40 mg Social history: Patient lives at [facility]. History of heavy alcohol use in the past. Started smoking at age of 14 smoked half a pack a day. Physical examination: VITAL SIGNS: Afebrile, 101, 27, 128 x 61, 95% on 30% FiO2 GENERAL: laying in bed intubated. EYES: Pupils equal. Conjunctiva paul l. HEENT: External appearance of nose and ears normal, oral cavity grossly normal. Endotracheal tube. OG tube feeding NECK: JVD not raised; masses not palpable. HEART: First and second heart sounds are normal; no edema. LUNGS: Respiratory rate crease diminished breath sounds some crackles. ABDOMEN: Soft, nontender, liver spleen not palpable, no masses palpable. PSYCH: Patient sedated l. MUSCULOSKELETAL: OA INVESTIGATIONS, reviewed in the clinical context: March 19: White count 21 hemoglobin 11.6 platelets 236 potassium 3.6 creatinine 0.5 March 18: White count 14.6 hemoglobin 13.2 platelets 293 sodium 141 potassium 3.7 BUN 22 creatinine 0.61 March 17, 2024: White count 3.5 hemoglobin 15.1 platelets 680 sodium 140 potassium 4.6. 21 creatinine 0.50 Troponin I 0.016. proBNP 1580 EKG tracing personally reviewed by me-sinus tachycardia. Questionable atrial flutter. Chest x-ray film personally reviewed by me-hyperinflation. Possible scant infiltrate Assessment plan: -Aspiration pneumonitis secondary to patient witnessed to choke on oatmeal and sausage. Some of that was coughed up. Some more was obtained when patient being intubated in the ER.: Slow to respond IV Zosyn -Septic shock from underlying pneumonia: Slow to respond IV norepinephrine -Acute hypoxic respiratory failure from aspiration pneumonia, requiring ventilator assist: Slow to respond FiO2 30%. PEEP 5. -Severe cognitive impairment underlying dementia -Primary osteoarthritis Tylenol as needed -Hyperlipidemia Lipitor 10 mg nightly -Chronic urinary incontinence Oxybutynin Full code Remains critically ill. ICU. 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 History of Any Multi-Drug Resistant Organisms: None Reported Past Surgical History: Unable to Obtain, Orthopedic Surgery Past Anesthesia/Blood Transfusion Reactions: Unable to Obtain Additional Past Anesthesia/Blood Transfusion Reaction / Comment(s): PT DENIED EVER HAVING ANY SX Past Psychological History: Depression Smoking Status: Former smoker Past Alcohol Use History: Heavy Past Drug Use History: None Reported
[2024-03-19] MEDS: DEXTROSE 5% IN WATER 100 ML with AMIODARONE 150 MG IV ONE (14:27)
[2024-03-19] MEDS: AMIODARONE 360 MG in DEXTROSE 5% IN WATER 200 ML IV ONE (14:27)
[2024-03-19] MEDS ORDERED: Potassium Replacement Protocol 1 EACH MISC MISCELLANE PRN (15:04)
[2024-03-19] MEDS: POTASSIUM CHLORIDE 20 MEQ in WATER FOR INJECTION 1 100ML.BAG IVPB SCH (15:19)
[2024-03-19] MEDS: NOREPINEPHRINE 8 MG in SODIUM CHLORIDE 0.9% 250 ML IV SCH (15:42)
[2024-03-19] MEDS: LACTATED RINGERS 1,000 ML IV ONE (17:29)
[2024-03-19 17:58] LABS: Glucose,Whole Blood 135 mg/dL (70-110)
[2024-03-19] MEDS: AMIODARONE 450 MG in DEXTROSE 5% IN WATER 250 ML IV SCH (20:58)
[2024-03-19] MEDS: AMIODARONE 360 MG in DEXTROSE 5% IN WATER 200 ML IV SCH (21:47)
[2024-03-19] MEDS: VASOPRESSIN 20 UNIT in SODIUM CHLORIDE 0.9% 50 ML IV SCH (22:26)
[2024-03-20 00:04] LABS: Glucose,Whole Blood 41 mg/dL (70-110)
[2024-03-20 00:08] LABS: Glucose,Whole Blood 167 mg/dL (70-110)
[2024-03-20 04:07] LABS: Anisocytosis Slight; Basophils # (A) 0.1 k/uL (0-0.2); Basophils % (A) 0 %; Eosinophils # (A) 0.3 k/uL (0-0.7); Eosinophils % (A) 1 %; HCT 35.2 % (34.0-46.0); HGB 11.2 gm/dL (11.4-16.0); Hypochromasia Slight; Lymphocytes # (A) 0.9 k/uL (1.0-4.8); Lymphocytes % (A) 5 %; MCH 30.7 pg (25.0-35.0); MCHC 31.7 g/dL (31.0-37.0); MCV 96.8 fL (80.0-100.0); Macrocytosis Slight; Monocytes # (A) 0.4 k/uL (0-1.0); Monocytes % (A) 2 %; Neutrophils # (A) 17.3 k/uL (1.3-7.7); Neutrophils % (A) 91 %; Platelet Count 252 k/uL (150-450); Poikilocytosis Slight; RBC 3.64 m/uL (3.80-5.40); RDW 16.7 % (11.5-15.5)
[2024-03-20 04:16] LABS: African American GFR (CKD) >90 (>60 ml/min/1.73 sqM); Anion Gap 3 mmol/L; Blood Urea Nitrogen 10 mg/dL (7-17); Calcium 7.9 mg/dL (8.4-10.2); Carbon Dioxide 21 mmol/L (22-30); Chloride 116 mmol/L (98-107); Glucose 173 mg/dL (74-99); Non-African American GFR(CKD) >90 (>60 ml/min/1.73 sqM); Potassium 3.7 mmol/L (3.5-5.1); Sodium 140 mmol/L (137-145)
[2024-03-20] MEDS ORDERED: Potassium Replacement Protocol 1 EACH MISC MISCELLANE PRN (04:46)
[2024-03-20] MEDS: POTASSIUM BICARBONATE/CIT AC 20 MEQ TABLET.EFF NG-TUBE SCH ×2 (05:18→17:24)
[2024-03-20 06:22] LABS: ABG Base Excess -2.6 mmol/L; ABG HCO3 24 mmol/L (21-25); ABG Oxygen Saturation 98.5 % (94-97); ABG PCO2 46 mmHg (35-45); ABG PH 7.32 (7.35-7.45); ABG PO2 99 mmHg (83-108); ABG TCO2 25 mmol/L (19-24)
[2024-03-20 06:40] LABS: Glucose,Whole Blood 149 mg/dL (70-110)
--- NOTE | 2024-03-20 07:16 | XR ---
EXAMINATION TYPE: XR chest 1V portable DATE OF EXAM: 03/20/2024 COMPARISON: 03/19/2024 HISTORY: SOB, Follow Up FINDINGS: Indwelling tubes and catheters are unchanged. Scattered airspace infiltrates throughout both lung rendon remain stable. Stable appearance of the cardio-mediastinal structures at this time. Mild bilateral Pleural effusion unchanged. IMPRESSION: 1. Stable portable chest. Clinical correlation and follow up until resolution is recommended.
[2024-03-20 11:48] LABS: Glucose,Whole Blood 145 mg/dL (70-110)
--- NOTE | 2024-03-20 11:57 | P.PN ---
Subjective Progress Note Date: 03/20/24 This is a 78-year-old female patient with a known history of hyperlipidemia and dementia and resides in a adult foster care setting. He was brought into the emergency room earlier this morning for possible aspiration. Apparently the patient is nonverbal. She was found choking this morning after her breakfast of sausage and oatmeal. She developed productive cough. This x-ray initially revealed no acute pulmonary process. Her condition continued to deteriorate and she required intubation mechanical ventilatory support. He was seen in consultation in the emergency department. She remains intubated on the mechanical ventilator at assist-control mode at a rate of 16, tidal volume 350, FiO2 of 50% and a PEEP of 5. Initial blood gases on 100% FiO2 revealed a PaO2 of 314, pCO2 41, pH 7.35. White count 30.5. Hemoglobin 15.1. Platelets 680. INR 1.0. Sodium 140. Potassium 4.6. Bicarb 24. BUN 21. Creatinine 0.50. Glucose 132. proBNP 1580. She is sedated on propofol at 50 mcg/kg/min. She has been initiated on vancomycin, Flagyl and Zosyn. The patient is seen today March 18, 2024 and follow-up in the intensive care unit. She remains intubated on mechanical ventilator. Currently in assist- control mode at a rate of 16, tidal volume 350, FiO2 40% and a PEEP of 5. Morning blood gases revealed pO2 of 150, pCO2 43 and a pH of 7.22 that was on 50% FiO2. She remains sedated on propofol 35 mcg/kg/min. She has required norepinephrine at 9.5 mcg/min. She has lactated Ringer's at 75 mL/h. She is continued on Lovenox for DVT prophylaxis. Continued on antibiotics in the form of Zosyn. White count 28.6. Hemoglobin 13.2. Platelets 293. Sodium 141. Potassium 3.7. Bicarb 18. BUN 22. Creatinine 0.61. Glucose 130. Chest x-ray reveals endotracheal nasogastric tubes in good position. Left subclavian triple-lumen catheter in place. There is patchy infiltrates persist in the right upper lobe right perihilar and left perihilar lower lobe regions. Sputum culture is pending. The patient is seen today March 19, 2024 in follow-up in the intensive care unit. She remains intubated on mechanical ventilator. Currently on assist- control mode with a rate of 16, tidal volume 350, FiO2 30% and a PEEP of 5. Morning blood gases reveal a PaO2 of 127 pounds, pCO2 43, pH 7.33. Chest x-ray reveals right upper lobe and left lower lobe infiltrates. Procalcitonin 11.4. She is currently on Zosyn. Remains on lactated Ringer's at 75 MLS per hour. Continued on sedation with propofol at 25 mcg/kg/min. Norepinephrine at 4 mcg/min. Being nourished with vital AF. Blood cultures pending. Sputum culture revealed no growth. White count 21.0. Hemoglobin 11.6. Platelets 236. Sodium 143. Potassium 3.6. Bicarb 22. BUN 14. Creatinine 0.50. She is continued on DuoNeb inhalations, Lovenox for DVT prophylaxis. The patient is seen today March 20, 2024 in follow-up in the [facility] intensive care unit. She remains intubated on the mechanical ventilator. Current setti ngs are assist-control mode with a rate of 16, tidal volume 350, FiO2 30% and a PEEP of 5. Morning blood gases revealed a PaO2 of 99, pCO2 46, pH 7.32. She has lactated Ringer's at 75 MLS per hour. Sedated on propofol at 40 mcg/kg/min. Remains on amiodarone at 1 mg/min. Vasopressin at 0.03 units/min. Norepinephrine at 7.2 mcg/min. She is being nourished with vital AF at 34 out of 34 MLS per hour. She is continued on Zosyn. Chest x-ray is stable with scattered airspace infiltrates bilaterally. White count 19.0. Hemoglobin 11.2. Platelets 252. Sodium 140. Potassium 3.7. Bicarb 21. BUN 10. Creatinine 0.35. Glucose 173. She is continued on bronchodilators. Continue on Lovenox for DVT prophylaxis. Objective - Vital Signs Vital signs: Vital Signs Temp 97.6 F 03/20/24 08:00 Pulse 74 03/20/24 11:30 Resp 23 03/20/24 11:30 BP 103/61 03/20/24 11:30 Pulse Ox 96 03/20/24 11:30 FiO2 30 03/20/24 09:54 Intake & Output 03/19/24 03/20/24 03/20/24 18:59 06:59 18:59 Intake Total 3315.755 1730.023 816.672 Output Total 1385 575 240 Balance 9023.787 3202.023 576.672 Weight 60.691 kg Intake: IV 2541.53 750 409 .9 NS pressure bag 9 Amiodarone 360 mg In 166.53 Dextrose 5% in Water 200 ml @ 1 MG/MIN 33.333 mls/ hr IV .Q6H [facility] Rx#: [id number] Dextrose 5% in Water 100 100 ml @ 618 mls/hr IV .Q10M [facility] with Amiodarone 150 mg Rx#:[id number] Lactated Ringers 1,000 ml 975 750 300 @ 75 mls/hr IV .[id number] [facility] Rx#:[id number] Lactated Ringers 1,000 ml 1000 @ 999 mls/hr IV .Q1H1M [facility] Rx#:[id number] Piperacillin-Tazobactam 3 100 100 .375 gm In Sodium Chloride 0.9% 100 ml @ 25 mls/hr IVPB Q8H [facility] Rx#: [id number] Potassium Chloride 20 meq 200 In Water For Injection 1 100ml.bag @ 50 mls/hr IVPB Q2H [facility] Rx#: [id number] Intake, IV Titration 370.225 708.023 241.672 Amount Amiodarone 360 mg In 200 194.998 Dextrose 5% in Water 200 ml @ 1 MG/MIN 33.333 mls/ hr IV .Q6H [facility] Rx#: [id number] Norepinephrine 4 mg In 154.542 Sodium Chloride 0.9% 250 ml @ 0.03 MCG/KG/MIN 7. 777 mls/hr IV .Q24H [facility] Rx#:[id number] Norepinephrine 8 mg In 97.974 313.189 46.674 Sodium Chloride 0.9% 250 ml @ 0.18 MCG/KG/MIN 20. 301 mls/hr IV .[id number] [facility] Rx#:[id number] Vasopressin 20 unit In 34.807 Sodium Chloride 0.9% 50 ml @ 0.03 UNITS/MIN 4.59 mls/hr IV .Q11H7M [facility] Rx# :[id number] propofoL 1,000 mg In 117.709 160.027 Empty Bag 1 bag @ 15 MCG/ KG/MIN 6.124 mls/hr IV . [id number] [facility] Rx#:[id number] Tube Feeding 314 272 136 Other 90 30 Output: Urine 1385 575 240 Other: Voiding Method Indwelling Catheter Indwelling Catheter Indwelling Catheter ABP, PAP, CO, CI - Last Documented Arterial Blood Pressure 95/56 - Exam GENERAL EXAM: Intubated, sedated this 78-year-old female, on the mechanical ventilator, in no apparent distress. HEAD: Normocephalic. EYES: Sluggish reaction of pupils, equal size. NOSE: Clear with pink turbinates. THROAT: No erythema or exudates. NECK: Right IJ triple-lumen catheter in place no masses, no JVD. CHEST: No chest wall deformity. LUNGS: Equal air entry with bilateral scattered rhonchi. CVS: S1 and S2 normal with no audible murmur, regular rhythm. ABDOMEN: No hepatosplenomegaly, normal bowel sounds, no guarding or rigidity. SPINE: No scoliosis or deformity SKIN: No rashes CENTRAL NERVOUS SYSTEM: No focal deficits, tone is normal in all 4 extremities. EXTREMITIES: Right radial arterial line in place. There is no peripheral edema. No clubbing, no cyanosis. Peripheral pulses are intact. - Labs CBC & Chem 7: 03/20/24 03:52 03/20/24 03:52 Labs: Abnormal Lab Results - Last 24 Hours (Table) 03/19/24 03/20/24 03/20/24 Range/Units 17:56 00:03 00:07 WBC (3.8-10.6) k/uL RBC (3.80-5.40) m/uL Hgb (11.4-16.0) gm/dL RDW (11.5-15.5) % Neutrophils # (1.3-7.7) k/uL Lymphocytes # (1.0-4.8) k/uL ABG pH (7.35-7.45) ABG pCO2 (35-45) mmHg ABG Total CO2 (19-24) mmol/L ABG O2 Saturation (94-97) % Chloride (98-107) mmol/L Carbon Dioxide (22-30) mmol/L Creatinine (0.52-1.04) mg/dL Glucose (74-99) mg/dL POC Glucose (mg/dL) 135 H 41 L 167 H (70-110) mg/dL Calcium (8.4-10.2) mg/dL 03/20/24 03/20/24 03/20/24 Range/Units 03:52 03:52 06:15 WBC 19.0 H (3.8-10.6) k/uL RBC 3.64 L (3.80-5.40) m/uL Hgb 11.2 L (11.4-16.0) gm/dL RDW 16.7 H (11.5-15.5) % Neutrophils # 17.3 H (1.3-7.7) k/uL Lymphocytes # 0.9 L (1.0-4.8) k/uL ABG pH 7.32 L (7.35-7.45) ABG pCO2 46 H (35-45) mmHg ABG Total CO2 25 H (19-24) mmol/L ABG O2 Saturation 98.5 H (94-97) % Chloride 116 H (98-107) mmol/L Carbon Dioxide 21 L (22-30) mmol/L Creatinine 0.35 L (0.52-1.04) mg/dL Glucose 173 H (74-99) mg/dL POC Glucose (mg/dL) (70-110) mg/dL Calcium 7.9 L (8.4-10.2) mg/dL 03/20/24 03/20/24 Range/Units 06:39 11:46 WBC (3.8-10.6) k/uL RBC (3.80-5.40) m/uL Hgb (11.4-16.0) gm/dL RDW (11.5-15.5) % Neutrophils # (1.3-7.7) k/uL Lymphocytes # (1.0-4.8) k/uL ABG pH (7.35-7.45) ABG pCO2 (35-45) mmHg ABG Total CO2 (19-24) mmol/L ABG O2 Saturation (94-97) % Chloride (98-107) mmol/L Carbon Dioxide (22-30) mmol/L Creatinine (0.52-1.04) mg/dL Glucose (74-99) mg/dL POC Glucose (mg/dL) 149 H 145 H (70-110) mg/dL Calcium (8.4-10.2) mg/dL Microbiology - Last 24 Hours (Table) 03/17/24 12:28 Blood Culture - Preliminary Blood 03/17/24 12:55 Gram Stain - Final Sputum Sputum Culture - Final Assessment and Plan Assessment: Acute hypoxemic respiratory failure secondary to aspiration requiring intubation mechanical ventilatory support Hypotension secondary to above requiring pressor support Leukocytosis secondary to above Atrial fibrillation with a rapid ventricular response currently on amiodarone drip History of advanced dementia residing in an adult foster care Hyperlipidemia Plan: The patient was seen and evaluated Chest x-ray, ABGs, labs and medications reviewed Sputum and blood cultures revealed no growth Continue Zosyn, bronchodilators Titrate the pressors as tolerated Amiodarone for atrial fibrillation Cardiology consult Daily interruption of sedation Prognosis is guarded We will continue to follow I have personally seen and examined the patient, performed the documentation and the assessment and plan as written. Number of minutes spent on the visit: 15.
[2024-03-20] MEDS: AMIODARONE 200 MG TAB PO SCH (13:35)
[2024-03-20] MEDS: LACTULOSE 20 GM/30 ML CUP PO ONE (13:40)
[2024-03-20] MEDS: HEPARIN SOD,PORK IN 0.45% NACL 25,000 UNIT in 0.45% NACL 1 250ML.BAG IV SCH (13:43)
[2024-03-20] MEDS: HEPARIN SODIUM 1,000 UN/ML (10ML VL) IV ONE (13:45)
[2024-03-20 14:10] LABS: Anisocytosis Slight; Basophils # (A) 0.1 k/uL (0-0.2); Basophils % (A) 0 %; Eosinophils # (A) 0.3 k/uL (0-0.7); Eosinophils % (A) 2 %; HCT 35.7 % (34.0-46.0); HGB 11.2 gm/dL (11.4-16.0); Hypochromasia Moderate; Lymphocytes # (A) 1.1 k/uL (1.0-4.8); Lymphocytes % (A) 6 %; MCH 31.1 pg (25.0-35.0); MCHC 31.3 g/dL (31.0-37.0); MCV 99.3 fL (80.0-100.0); Macrocytosis Slight; Monocytes # (A) 0.4 k/uL (0-1.0); Monocytes % (A) 2 %; Neutrophils # (A) 17.1 k/uL (1.3-7.7); Neutrophils % (A) 90 %; Platelet Count 243 k/uL (150-450); Poikilocytosis Slight; RBC 3.59 m/uL (3.80-5.40); RDW 16.8 % (11.5-15.5); WBC 19.1 k/uL (3.8-10.6)
[2024-03-20 14:18] LABS: Partial Thromboplastin Time 27.4 sec (22.0-30.0); Prothrombin Time 10.7 sec (10.0-12.5)
--- NOTE | 2024-03-20 17:25 | P.PN ---
Progress Note - Text Progress Note Date: 03/20/24 Chief Complaint: Aspiration This is a 78-year-old patient, brought into the ER. She was sent in from [facility] which is assisted living via EMS for potential aspiration. Patient at baseline is nonverbal. Patient was found to be choking on her breakfast including sausages and oatmeal. Patient did expel the sausage and oatmeal. Patient became progressively hypoxic in the ER had to be intubated. oat meal was recovered beyond the vocal cords. Patient taken to the ICU. Intubated. Currently on FiO2 50% and a PEEP of 5. Drips include propofol. March 18: ICU. Remains intubated. FiO2 40 and a PEEP of 5. Patient last started on norepinephrine. Started on tube feeding at 10 cc an hour. Also on propofol. Vasopressin was ordered last night but never started. March 19: ICU. Intubated. FiO2 30% and a PEEP of 5. Drips include propofol 25 mics, norepinephrine 0.07 mcg. Tube feeding at 30 cc an hour. Sedated. Remains on IV Zosyn. March 20 ICU. Intubated. FiO2 30 and PEEP of 5. Last night went into atrial fibrillation. Put on IV amiodarone. Went back in sinus rhythm. Drips include propofol 35 mics, norepinephrine 0.11 nikolas. Vasopressin started at 0.03 mics. Minimal secretions. Tube feeding at 34 cc an hour. Active Medications Acetaminophen (Acetaminophen Tab 325 Mg Tab) 650 mg PO Q6HR PRN PRN Reason: Fever and/ or Pain Albuterol/Ipratropium (Ipratropium-Albuterol 3 Ml Neb) 3 ml INHALATION RT-Q4H [facility] Last Admin: 03/20/24 15:36 Dose: 3 ml Amiodarone HCl (Amiodarone 200 Mg Tab) 400 mg PO BID [facility] Last Admin: 03/20/24 13:35 Dose: 400 mg Atorvastatin Calcium (Atorvastatin 10 Mg Tab) 10 mg PO HS@2000 [facility] Last Admin: 03/19/24 21:24 Dose: 10 mg Chlorhexidine Gluconate (Chlorhexidine Gluconate 15 Ml Cup) 15 ml MUCOUS MEM BID [facility] Last Admin: 03/20/24 08:58 Dose: 15 ml Cyproheptadine HCl (Cyproheptadine 4 Mg Tablet) 4 mg PO QID@08,12,16,20 [facility] Last Admin: 03/20/24 13:40 Dose: 4 mg Famotidine (Famotidine 20 Mg Tab) 20 mg PO HS@2000 [facility] Last Admin: 03/19/24 21:25 Dose: 20 mg Heparin Sodium (Porcine) (Heparin Sodium 1,000 Un/Ml (10ml Vl)) 0 unit IV PER PROTOCOL PRN; Protocol PRN Reason: Low PTT Piperacillin Sod/Tazobactam (Sod 3.375 gm/ Sodium Chloride) 100 mls @ 25 mls/hr IVPB Q8H [facility]; Protocol Last Admin: 03/20/24 13:49 Dose: 25 mls/hr Propofol 1,000 mg/ IV Solution 100 mls @ 6.124 mls/hr IV .[id number] [facility]; Protocol Last Titration: 03/20/24 13:15 Dose: Infused Lactated Ringer's (Lactated Ringers) 1,000 mls @ 75 mls/hr IV .[id number] [facility] Last Admin: 03/20/24 13:35 Dose: 75 mls/hr Norepinephrine Bitartrate 8 mg (/ Sodium Chloride) 258 mls @ 20.301 mls/hr IV .[id number] [facility]; Protocol Last Titration: 03/20/24 15:52 Dose: 0.08 mcg/kg/min, 9.023 mls/hr Vasopressin 20 unit/ Sodium (Chloride) 51 mls @ 4.59 mls/hr IV .Q11H7M [facility]; Protocol Last Admin: 03/20/24 06:01 Dose: 0.03 units/min, 4.59 mls/hr Heparin Sodium/Sodium Chloride (25,000 unit/ Sodium Chloride) 250 mls @ 7.283 mls/hr IV .Q24H [facility]; Protocol Last Admin: 03/20/24 13:43 Dose: 12 units/kg/hr, 7.283 mls/hr Megestrol Acetate (Megestrol 400 Mg/10 Ml Cup) 624 mg PO DAILY@0800 [facility] Last Admin: 03/20/24 08:59 Dose: 624 mg Metoclopramide HCl (Metoclopramide 5 Mg/Ml 2 Ml Vial) 10 mg IVP Q6HR [facility] Last Admin: 03/20/24 13:40 Dose: 10 mg Mirtazapine (Mirtazapine 15 Mg Tab) 30 mg PO HS@1999 [facility] Last Admin: 03/19/24 21:25 Dose: 30 mg Miscellaneous Information (Potassium Replacement Protocol 1 Each Misc) 1 each MISCELLANE DAILY PRN; Protocol PRN Reason: Per Protocol Miscellaneous Information (Potassium Replacement Protocol 1 Each Misc) 1 each MISCELLANE DAILY PRN; Protocol PRN Reason: Per Protocol Naloxone HCl (Naloxone 0.4 Mg/Ml 1 Ml Vial) 0.2 mg IV Q2M PRN PRN Reason: Opioid Reversal Nystatin (Nystatin 100,000unit/Gm Cream 30 Gm Tube) 1 applic TOPICAL BID@799,1999 [facility]; Protocol Last Admin: 03/20/24 09:01 Dose: 1 applic Oxybutynin Chloride (Oxybutynin 10 Mg Tab.Er.24) 10 mg PO DAILY@08 [facility] Last Admin: 03/20/24 08:02 Dose: Not Given Pantoprazole Sodium (Pantoprazole 40 Mg/10 Ml Vial) 40 mg IV DAILY [facility] Last Admin: 03/20/24 08:58 Dose: 40 mg Psyllium Hydrophilic Mucilloid (Psyllium Husk 100% 6 Gm Packet) 6 gm PO DAILY [facility] Social history: Patient lives at [facility]. History of heavy alcohol use in the past. Started smoking at age of 14 smoked half a pack a day. Physical examination: VITAL SIGNS: 97.8, 79, 25, 117/87, 97% on ventilator 30% GENERAL: laying in bed intubated. EYES: Pupils equal. Conjunctiva paul l. HEENT: External appearance of nose and ears normal, oral cavity grossly normal. Endotracheal tube. OG tube feeding NECK: JVD not raised; masses not palpable. HEART: First and second heart sounds are normal; no edema. LUNGS: Respiratory rate crease diminished breath sounds some crackles. ABDOMEN: Soft, nontender, liver spleen not palpable, no masses palpable. PSYCH: Patient sedated l. MUSCULOSKELETAL: OA INVESTIGATIONS, reviewed in the clinical context: March 19: White count 21 hemoglobin 11.6 platelets 236 potassium 3.6 creatinine 0.5 March 18: White count 14.6 hemoglobin 13.2 platelets 293 sodium 141 potassium 3.7 BUN 22 creatinine 0.61 March 17, 2024: White count 3.5 hemoglobin 15.1 platelets 680 sodium 140 potassium 4.6. 21 creatinine 0.50 Troponin I 0.016. proBNP 1580 EKG tracing personally reviewed by me-sinus tachycardia. Questionable atrial flutter. Chest x-ray film personally reviewed by me-hyperinflation. Possible scant infiltrate Assessment plan: -Aspiration pneumonitis secondary to patient witnessed to choke on oatmeal and sausage. Some of that was coughed up. Some more was obtained when patient being intubated in the ER.: IV Zosyn -Septic shock from underlying pneumonia: Slow to respond IV norepinephrine, IV vasopressin added overnight -Paroxysmal atrial fibrillation rapid ventricular rate IV amiodarone -Acute hypoxic respiratory failure from aspiration pneumonia, requiring ventilator assist: Slow to respond FiO2 30%. PEEP 5. -Severe cognitive impairment underlying dementia -Primary osteoarthritis Tylenol as needed -Hyperlipidemia Lipitor 10 mg nightly -Chronic urinary incontinence Oxybutynin Full code Critically ill. 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 History of Any Multi-Drug Resistant Organisms: None Reported Past Surgical History: Unable to Obtain, Orthopedic Surgery Past Anesthesia/Blood Transfusion Reactions: Unable to Obtain Additional Past Anesthesia/Blood Transfusion Reaction / Comment(s): PT DENIED EVER HAVING ANY SX Past Psychological History: Depression Smoking Status: Former smoker Past Alcohol Use History: Heavy Past Drug Use History: None Reported
[2024-03-20 17:41] LABS: Glucose,Whole Blood 151 mg/dL (70-110)
--- NOTE | 2024-03-20 19:11 | CA ---
Transthoracic Echo Report Name: Olivia Butts Age: 78 Gender: F : 1945 Exam Date: 03/20/2024 14:31 Exam Location: [place] [place] [facility] Ht (in): 66 Wt (lb): 133 Ordering Physician: Hong Pa MD ([id number]) Attending/Referring Phys: Thierno HE Metal Cnc Operator Eunice Ashby RDCS Procedure CPT: Indications: PAF Cardiac Hx: Technical Quality: Good Contrast 1: Definity Total Dose (mL): 2 Contrast 2: Total Dose (mL): MEASUREMENTS (Male / Female) Normal Values 2D ECHO LV Diastolic Diameter PLAX 4.2 cm 4.2 - 5.9 / 3.9 - 5.3 cm LV Systolic Diameter PLAX 3.2 cm IVS Diastolic Thickness 1.1 cm 0.6 - 1.0 / 0.6 - 0.9 cm LVPW Diastolic Thickness 1.1 cm 0.6 - 1.0 / 0.6 - 0.9 cm LV Relative Wall Thickness 0.5 RV Internal Dim ED PLAX 3.0 cm LA Systolic Diameter LX 3.7 cm 3.0 - 4.0 / 2.7 - 3.8 cm LV Diastolic Volume MOD BP 54.5 cm??? 67 - 155 / 56 - 104 cm??? LV Systolic Volume MOD BP 26.5 cm??? 22 - 58 / 19 - 49 cm??? LV Ejection Fraction MOD BP 51.3 % >= 55 % LV Cardiac Index MOD BP 1352.9 cm???/min???m??? LV Diastolic Volume MOD 4C 53.2 cm??? LV Systolic Volume MOD 4C 31.1 cm??? LV Ejection Fraction MOD 4C 41.7 % LV Cardiac Index MOD 4C 1071.4 cm???/min???m??? LV Diastolic Length 4C 6.4 cm LV Systolic Length 4C 5.6 cm LV Diastolic Volume MOD 2C 37.0 cm??? LV Systolic Volume MOD 2C 19.5 cm??? LV Ejection Fraction MOD 2C 47.3 % LV Cardiac Index MOD 2C 847.0 cm???/min???m??? LV Diastolic Length 2C 5.9 cm LV Systolic Length 2C 5.4 cm LA Volume 58.1 cm??? 18 - 58 / 22 - 52 cm??? LA Volume Index 34.7 cm???/m??? 16 - 28 cm???/m??? M-MODE Aortic Root Diameter MM 2.9 cm MV E Point Septal Separation 0.5 cm AV Cusp Separation MM 1.8 cm DOPPLER AV Peak Velocity 86.5 cm/s AV Peak Gradient 3.0 mmHg MV Area PHT 3.6 cm??? Mitral E Point Velocity 127.9 cm/s Mitral A Point Velocity 97.2 cm/s Mitral E to A Ratio 1.3 MV Deceleration Time 213.3 ms TR Peak Velocity 285.1 cm/s TR Peak Gradient 32.5 mmHg Right Ventricular Systolic Press 52.0 mmHg FINDINGS Left Ventricle Left ventricular ejection fraction is estimated at 50-55 %. Left ventricular cavity size normal. Mildly increased septal wall thickness. Mildly increased posterior wall thickness. Mildly decreased left ventricular ejection fraction. Right Ventricle Normal right ventricular size. Moderate pulmonary hypertension. Right Atrium Mild right atrial dilatation. Left Atrium Mildly increased left atrial volume. Mitral Valve Mitral valve thickened. Mild mitral annular calcification. Mild mitral regurgitation. Aortic Valve Trileaflet aortic valve. Trace to mild aortic regurgitation. Tricuspid Valve Structurally normal tricuspid valve. Moderate tricuspid regurgitation. Pulmonic Valve Structurally normal pulmonic valve. Mild pulmonic regurgitation. Pericardium No pericardial effusion. Aorta Normal size aortic root and proximal ascending aorta. CONCLUSIONS Increased LV mass with borderline normal LV systolic function Previewed by: Dr. Jaswant Matson MD (Electronically Signed) Final Date: 20 March 2024 19:11
[2024-03-20] MEDS: HEPARIN SODIUM 1,000 UN/ML (10ML VL) IV PRN (22:30)
--- NOTE | 2024-03-20 23:40 | CONS ---
CONSULTATION HISTORY OF PRESENT ILLNESS: Olivia is a 78-year-old lady, who is in the ICU, intubated on vent following her admission with aspiration pneumonia. The patient was at [facility] prior to coming in. We have been consulted last night, as the patient developed atrial fibrillation with rapid ventricular rate. This lasted for several hours and was started on IV amiodarone following which she converted to sinus rhythm. At the time of my evaluation this morning, she is in sinus rhythm, intubated on vent. I am going to stop the IV Cardizem and start her on amiodarone and IV heparin per protocol. PAST MEDICAL HISTORY: Significant for dyslipidemia. MEDICATIONS: Medications at home are as charted, I reviewed them. ALLERGIES: No known drug allergies. FAMILY HISTORY: I am unable to obtain from the patient, who is intubated and vented. SOCIAL HISTORY: I am unable to obtain from the patient, who is intubated and vented. REVIEW OF SYSTEMS: I am unable to obtain from the patient, who is intubated and vented. PHYSICAL EXAMINATION: GENERAL: The patient is intubated on vent. Remains in sinus rhythm, stable hemodynamically. CHEST: Reveals good air entry bilaterally. HEART: Reveals first and second heart sounds. No gallop. ABDOMEN: Soft. EXTREMITIES: Reveals mild edema. Peripheral pulses are palpable. ASSESSMENT AND PLAN: 1. Aspiration. 2. Vent-requiring respiratory failure, probably related to aspiration. 3. Paroxysmal atrial fibrillation. PLAN: The patient will be treated with IV heparin and amiodarone and obtain a 2D echo if one has not been done. LESLIE / DIONN: [id number] /
[2024-03-21 00:28] LABS: Glucose,Whole Blood 150 mg/dL (70-110)
--- NOTE | 2024-03-21 06:02 | XR ---
EXAM: XR Chest, 1 View CLINICAL HISTORY: Vent TECHNIQUE: Frontal view of the chest. COMPARISON: 03/20/2024. FINDINGS: Lines are unchanged. Heart is normal in size. Slight increase in bilateral multifocal infiltrates greatest in the right upper lobe and lung bases. Slight increase in bilateral pleural effusions, left greater than right. No pneumothorax. Bones are unchanged. IMPRESSION: Slight increase in patchy bilateral infiltrates and pleural effusions.
[2024-03-21 06:03] LABS: Glucose,Whole Blood 139 mg/dL (70-110)
[2024-03-21 06:16] LABS: Anisocytosis Slight; Basophils % (A) 0 %; Eosinophils # (A) 0.3 k/uL (0-0.7); Eosinophils % (A) 2 %; HCT 33.3 % (34.0-46.0); HGB 10.5 gm/dL (11.4-16.0); Hypochromasia Slight; Lymphocytes # (A) 0.7 k/uL (1.0-4.8); Lymphocytes % (A) 6 %; MCH 30.3 pg (25.0-35.0); MCHC 31.4 g/dL (31.0-37.0); MCV 96.4 fL (80.0-100.0); Macrocytosis Slight; Mean Platelet Volume 9.1; Monocytes # (A) 0.3 k/uL (0-1.0); Monocytes % (A) 3 %; Neutrophils # (A) 11.3 k/uL (1.3-7.7); Neutrophils % (A) 89 %; Platelet Count 173 k/uL (150-450); Poikilocytosis Slight; RBC 3.46 m/uL (3.80-5.40); RDW 17.1 % (11.5-15.5); WBC 12.6 k/uL (3.8-10.6)
[2024-03-21 06:19] LABS: Prothrombin Time 10.7 sec (10.0-12.5)
[2024-03-21 06:28] LABS: African American GFR (CKD) >90 (>60 ml/min/1.73 sqM); Anion Gap 3 mmol/L; Blood Urea Nitrogen 9 mg/dL (7-17); Calcium 7.5 mg/dL (8.4-10.2); Carbon Dioxide 25 mmol/L (22-30); Chloride 108 mmol/L (98-107); Glucose 113 mg/dL (74-99); Magnesium 1.6 mg/dL (1.6-2.3); Non-African American GFR(CKD) >90 (>60 ml/min/1.73 sqM); Sodium 136 mmol/L (137-145)
[2024-03-21 07:12] LABS: ABG Base Excess 1.3 mmol/L; ABG HCO3 26 mmol/L (21-25); ABG Oxygen Saturation 98.7 % (94-97); ABG PCO2 39 mmHg (35-45); ABG PH 7.43 (7.35-7.45); ABG PO2 88 mmHg (83-108); ABG TCO2 27 mmol/L (19-24); Allen Test Performed? Yes
[2024-03-21] MEDS ORDERED: Magnesium Replacement Protocol 1 EACH MISC MISCELLANE PRN (08:02)
[2024-03-21] MEDS: PSYLLIUM HUSK 100% 6 GM PACKET PO SCH (08:10)
[2024-03-21] MEDS: MAGNESIUM SULFATE-D5W PMX 1 GM in DEXTROSE/WATER 1 100ML.BAG IVPB SCH (08:56)
--- NOTE | 2024-03-21 11:30 | OP ---
OPERATIVE REPORT DATE OF SERVICE : PREOPERATIVE DIAGNOSES: 1. Frequent blood draws. 2. Blood gas monitoring. POSTOPERATIVE DIAGNOSES: 1. Frequent blood draws. 2. Blood gas monitoring. FIRST CLINICAL CYTOGENETICIST SCIENTIST: Dr. Patricia Vora. Informed consent and universal timeout. The patient's procedure was done in room 264. ARTERIAL LINE PLACEMENT: Indications: Hemodynamic monitoring. A time-out was completed verifying correct patient, procedure, site, positioning, and implant(s) or special equipment if applicable. Jose's test was performed to ensure adequate perfusion. The patient's right/left wrist or right/left groin was prepped and draped in sterile fashion. 1% Lidocaine was used to anesthetize the area. An 18G Arrow arterial line was introduced into the femoral artery. The catheter was threaded over the guide wire and the needle was removed with appropriate pulsatile blood return. Blood loss was minimal. The catheter was then sutured in place to the skin and a sterile dressing applied. Perfusion to the extremity distal to the point of catheter insertion was checked and found to be adequate. The patient tolerated the procedure well and there were no complications. There was good blood return and waveform. The catheter was sutured in place. A sterile dressing was applied by the nurse. There was no immediate complication. MMODL / IJN: [id number] /
[2024-03-21 11:47] LABS: Glucose,Whole Blood 134 mg/dL (70-110)
--- NOTE | 2024-03-21 13:57 | P.PN ---
Subjective Progress Note Date: 03/21/24 This is a 78-year-old female patient with a known history of hyperlipidemia and dementia and resides in a adult foster care setting. He was brought into the emergency room earlier this morning for possible aspiration. Apparently the patient is nonverbal. She was found choking this morning after her breakfast of sausage and oatmeal. She developed productive cough. This x-ray initially revealed no acute pulmonary process. Her condition continued to deteriorate and she required intubation mechanical ventilatory support. He was seen in consultation in the emergency department. She remains intubated on the mechanical ventilator at assist-control mode at a rate of 16, tidal volume 350, FiO2 of 50% and a PEEP of 5. Initial blood gases on 100% FiO2 revealed a PaO2 of 314, pCO2 41, pH 7.35. White count 30.5. Hemoglobin 15.1. Platelets 680. INR 1.0. Sodium 140. Potassium 4.6. Bicarb 24. BUN 21. Creatinine 0.50. Glucose 132. proBNP 1580. She is sedated on propofol at 50 mcg/kg/min. She has been initiated on vancomycin, Flagyl and Zosyn. The patient is seen today March 18, 2024 and follow-up in the intensive care unit. She remains intubated on mechanical ventilator. Currently in assist- control mode at a rate of 16, tidal volume 350, FiO2 40% and a PEEP of 5. Morning blood gases revealed pO2 of 150, pCO2 43 and a pH of 7.22 that was on 50% FiO2. She remains sedated on propofol 35 mcg/kg/min. She has required norepinephrine at 9.5 mcg/min. She has lactated Ringer's at 75 mL/h. She is continued on Lovenox for DVT prophylaxis. Continued on antibiotics in the form of Zosyn. White count 28.6. Hemoglobin 13.2. Platelets 293. Sodium 141. Potassium 3.7. Bicarb 18. BUN 22. Creatinine 0.61. Glucose 130. Chest x-ray reveals endotracheal nasogastric tubes in good position. Left subclavian triple-lumen catheter in place. There is patchy infiltrates persist in the right upper lobe right perihilar and left perihilar lower lobe regions. Sputum culture is pending. The patient is seen today March 19, 2024 in follow-up in the intensive care unit. She remains intubated on mechanical ventilator. Currently on assist- control mode with a rate of 16, tidal volume 350, FiO2 30% and a PEEP of 5. Morning blood gases reveal a PaO2 of 127 pounds, pCO2 43, pH 7.33. Chest x-ray reveals right upper lobe and left lower lobe infiltrates. Procalcitonin 11.4. She is currently on Zosyn. Remains on lactated Ringer's at 75 MLS per hour. Continued on sedation with propofol at 25 mcg/kg/min. Norepinephrine at 4 mcg/min. Being nourished with vital AF. Blood cultures pending. Sputum culture revealed no growth. White count 21.0. Hemoglobin 11.6. Platelets 236. Sodium 143. Potassium 3.6. Bicarb 22. BUN 14. Creatinine 0.50. She is continued on DuoNeb inhalations, Lovenox for DVT prophylaxis. The patient is seen today March 20, 2024 in follow-up in the corporate communications intern intensive care unit. She remains intubated on the mechanical ventilator. Current setti ngs are assist-control mode with a rate of 16, tidal volume 350, FiO2 30% and a PEEP of 5. Morning blood gases revealed a PaO2 of 99, pCO2 46, pH 7.32. She has lactated Ringer's at 75 MLS per hour. Sedated on propofol at 40 mcg/kg/min. Remains on amiodarone at 1 mg/min. Vasopressin at 0.03 units/min. Norepinephrine at 7.2 mcg/min. She is being nourished with vital AF at 34 out of 34 MLS per hour. She is continued on Zosyn. Chest x-ray is stable with scattered airspace infiltrates bilaterally. White count 19.0. Hemoglobin 11.2. Platelets 252. Sodium 140. Potassium 3.7. Bicarb 21. BUN 10. Creatinine 0.35. Glucose 173. She is continued on bronchodilators. Continue on Lovenox for DVT prophylaxis. The patient is seen today March 21, 2024 in follow-up in the intensive care [facility]. She remains intubated on the mechanical ventilator. Currently on assist- control mode at a rate of 16, tidal volume 350, FiO2 30% and a PEEP of 5. Morning blood gases revealed a PaO2 of 88, pCO2 39 and a pH of 7.43. She remains on a heparin drip. Continue on lactated Ringer's at 75 MLS per hour. Propofol at 15 mcg/kg/min. Vasopressin at 0.03 units/min. She is being nourished with vital HP at 10 with a goal of 29. She has had issues with high residuals. She is on Reglan. She remains in atrial fibrillation. Blood culture revealed no growth. Sputum culture revealed no growth. White count 12.6. Hemoglobin 10.5. Platelets 173. Sodium 136. Potassium 4.0. Bicarb 25. BUN 9. Creatinine 0.30. Glucose 113. Remains on bronchodilators. Remains on Zosyn. Objective - Vital Signs Vital signs: Vital Signs Temp 98.8 F 03/21/24 08:00 Pulse 85 03/21/24 13:00 Resp 34 H 03/21/24 13:00 BP 117/59 03/21/24 13:00 Pulse Ox 97 03/21/24 13:00 FiO2 30 03/21/24 12:22 Intake & Output 03/20/24 03/21/24 03/21/24 18:59 06:59 18:59 Intake Total 2260.832 6801.442 3420.105 Output Total 550 580 525 Balance 1710.832 831.396 795.105 Weight 60.691 kg 64.127 kg Intake: IV 1289 903 943 .9 NS pressure bag 39 3 18 Lactated Ringers 1,000 ml 1050 900 525 @ 75 mls/hr IV .[id number] RON Rx#:[id number] Magnesium Sulfate-D5w Pmx 200 1 gm In Dextrose/Water 1 100ml.bag @ 100 mls/hr IVPB Q1H RON Rx#: [id number] Piperacillin-Tazobactam 3 200 200 .375 gm In Sodium Chloride 0.9% 100 ml @ 25 mls/hr IVPB Q8H RON Rx#: [id number] Intake, IV Titration 504.832 159.396 89.105 Amount Amiodarone 360 mg In 194.998 Dextrose 5% in Water 200 ml @ 1 MG/MIN 33.333 mls/ hr IV .Q6H RON Rx#: [id number] Heparin Sod,Pork in 0.45% 63.726 NaCl 25,000 unit In 0.45 % NaCl 1 250ml.bag @ 12 UNITS/KG/HR 7.283 mls/hr IV .Q24H RON Rx#: [id number] Norepinephrine 8 mg In 149.308 1.598 Sodium Chloride 0.9% 250 ml @ 0.18 MCG/KG/MIN 20. 301 mls/hr IV .[id number] RON Rx#:[id number] Vasopressin 20 unit In 51 51 Sodium Chloride 0.9% 50 ml @ 0.03 UNITS/MIN 4.59 mls/hr IV .[id number] RON Rx# :[id number] propofoL 1,000 mg In 109.526 43.072 89.105 Empty Bag 1 bag @ 15 MCG/ KG/MIN 6.124 mls/hr IV . [id number] RON Rx#:[id number] Oral 200 Tube Feeding 407 319 58 Other 60 30 30 Output: Urine 550 580 525 Other: Voiding Method Indwelling Catheter Indwelling Catheter Indwelling Catheter ABP, PAP, CO, CI - Last Documented Arterial Blood Pressure 132/54 - Exam GENERAL EXAM: Intubated, sedated 78-year-old female, on the ventilator, in no apparent distress. HEAD: Normocephalic. EYES: Sluggish reaction of pupils, equal size. NOSE: Clear with pink turbinates. THROAT: No erythema or exudates. NECK: Right IJ triple-lumen catheter in place no masses, no JVD. CHEST: No chest wall deformity. LUNGS: Equal air entry with bilateral scattered rhonchi. CVS: S1 and S2 normal with no audible murmur, regular rhythm. ABDOMEN: No hepatosplenomegaly, normal bowel sounds, no guarding or rigidity. SPINE: No scoliosis or deformity SKIN: No rashes CENTRAL NERVOUS SYSTEM: No focal deficits, tone is normal in all 4 extremities. EXTREMITIES: Right femoral arterial line in place. There is no peripheral edema. No clubbing, no cyanosis. Peripheral pulses are intact. - Labs CBC & Chem 7: 03/21/24 05:18 03/21/24 05:18 Labs: Abnormal Lab Results - Last 24 Hours (Table) 03/20/24 03/20/24 03/21/24 Range/Units 13:58 17:38 00:27 WBC 19.1 H (3.8-10.6) k/uL RBC 3.59 L (3.80-5.40) m/uL Hgb 11.2 L (11.4-16.0) gm/dL Hct (34.0-46.0) % RDW 16.8 H (11.5-15.5) % Neutrophils # 17.1 H (1.3-7.7) k/uL Lymphocytes # (1.0-4.8) k/uL APTT (22.0-30.0) sec ABG HCO3 (21-25) mmol/L ABG Total CO2 (19-24) mmol/L ABG O2 Saturation (94-97) % Sodium (137-145) mmol/L Chloride (98-107) mmol/L Creatinine (0.52-1.04) mg/dL Glucose (74-99) mg/dL POC Glucose (mg/dL) 151 H 150 H (70-110) mg/dL Calcium (8.4-10.2) mg/dL 03/21/24 03/21/24 03/21/24 Range/Units 05:18 05:18 05:18 WBC 12.6 H (3.8-10.6) k/uL RBC 3.46 L (3.80-5.40) m/uL Hgb 10.5 L (11.4-16.0) gm/dL Hct 33.3 L (34.0-46.0) % RDW 17.1 H (11.5-15.5) % Neutrophils # 11.3 H (1.3-7.7) k/uL Lymphocytes # 0.7 L (1.0-4.8) k/uL APTT 44.6 H (22.0-30.0) sec ABG HCO3 (21-25) mmol/L ABG Total CO2 (19-24) mmol/L ABG O2 Saturation (94-97) % Sodium 136 L (137-145) mmol/L Chloride 108 H (98-107) mmol/L Creatinine 0.30 L (0.52-1.04) mg/dL Glucose 113 H (74-99) mg/dL POC Glucose (mg/dL) (70-110) mg/dL Calcium 7.5 L (8.4-10.2) mg/dL 03/21/24 03/21/24 03/21/24 Range/Units 06:02 07:11 11:44 WBC (3.8-10.6) k/uL RBC (3.80-5.40) m/uL Hgb (11.4-16.0) gm/dL Hct (34.0-46.0) % RDW (11.5-15.5) % Neutrophils # (1.3-7.7) k/uL Lymphocytes # (1.0-4.8) k/uL APTT (22.0-30.0) sec ABG HCO3 26 H (21-25) mmol/L ABG Total CO2 27 H (19-24) mmol/L ABG O2 Saturation 98.7 H (94-97) % Sodium (137-145) mmol/L Chloride (98-107) mmol/L Creatinine (0.52-1.04) mg/dL Glucose (74-99) mg/dL POC Glucose (mg/dL) 139 H 134 H (70-110) mg/dL Calcium (8.4-10.2) mg/dL Microbiology - Last 24 Hours (Table) 03/17/24 12:28 Blood Culture - Preliminary Blood Assessment and Plan Assessment: Acute hypoxemic respiratory failure secondary to aspiration requiring intubation mechanical ventilatory support Hypotension secondary to above requiring pressor support Leukocytosis secondary to above Atrial fibrillation with a rapid ventricular response currently on oral amiodarone drip and a heparin drip History of advanced dementia residing in an adult foster care Hyperlipidemia Plan: The patient was seen and evaluated Chest x-ray, ABGs, labs and medications reviewed Continue the current treatment plan Remains on a heparin drip Daily interruption of sedation Prognosis is guarded We will continue to follow I have personally seen and examined the patient, performed the documentation and the assessment and plan as written. Number of minutes spent on the visit: 15.
--- NOTE | 2024-03-21 14:50 | P.PN ---
Progress Note - Text Progress Note Date: 03/21/24 Chief Complaint: Aspiration This is a 78-year-old patient, brought into the ER. She was sent in from [facility] which is assisted living via EMS for potential aspiration. Patient at baseline is nonverbal. Patient was found to be choking on her breakfast including sausages and oatmeal. Patient did expel the sausage and oatmeal. Patient became progressively hypoxic in the ER had to be intubated. oat meal was recovered beyond the vocal cords. Patient taken to the ICU. Intubated. Currently on FiO2 50% and a PEEP of 5. Drips include propofol. March 18: ICU. Remains intubated. FiO2 40 and a PEEP of 5. Patient last started on norepinephrine. Started on tube feeding at 10 cc an hour. Also on propofol. Vasopressin was ordered last night but never started. March 19: ICU. Intubated. FiO2 30% and a PEEP of 5. Drips include propofol 25 mics, norepinephrine 0.07 mcg. Tube feeding at 30 cc an hour. Sedated. Remains on IV Zosyn. March 20 ICU. Intubated. FiO2 30 and PEEP of 5. Last night went into atrial fibrillation. Put on IV amiodarone. Went back in sinus rhythm. Drips include propofol 35 mics, norepinephrine 0.11 nikolas. Vasopressin started at 0.03 mics. Minimal secretions. Tube feeding at 34 cc an hour. March 21: ICU. Intubated. FiO2 30 and a PEEP of 5. Patient had a high residual volume of 550 cc. Reglan was added. Drips include propofol 30 mics, vasopressin 0.3 mcg, patient IV heparin. Telemetry shows sinus rhythm. Has been in and out of A-fib. Active Medications Acetaminophen (Acetaminophen Tab 325 Mg Tab) 650 mg PO Q6HR PRN PRN Reason: Fever and/ or Pain Albuterol/Ipratropium (Ipratropium-Albuterol 3 Ml Neb) 3 ml INHALATION RT-Q4H [facility] Last Admin: 03/21/24 12:22 Dose: 3 ml Amiodarone HCl (Amiodarone 200 Mg Tab) 400 mg PO BID [facility] Last Admin: 03/21/24 08:06 Dose: 400 mg Atorvastatin Calcium (Atorvastatin 10 Mg Tab) 10 mg PO HS@2000 [facility] Last Admin: 03/20/24 20:38 Dose: 10 mg Chlorhexidine Gluconate (Chlorhexidine Gluconate 15 Ml Cup) 15 ml MUCOUS MEM BID [facility] Last Admin: 03/21/24 08:06 Dose: 15 ml Cyproheptadine HCl (Cyproheptadine 4 Mg Tablet) 4 mg PO QID@08,12,16,20 [facility] Last Admin: 03/21/24 12:58 Dose: 4 mg Famotidine (Famotidine 20 Mg Tab) 20 mg PO HS@2000 [facility] Last Admin: 03/20/24 20:38 Dose: 20 mg Heparin Sodium (Porcine) (Heparin Sodium 1,000 Un/Ml (10ml Vl)) 0 unit IV PER PROTOCOL PRN; Protocol PRN Reason: Low PTT Last Admin: 03/20/24 22:30 Dose: 3,000 unit Piperacillin Sod/Tazobactam (Sod 3.375 gm/ Sodium Chloride) 100 mls @ 25 mls/hr IVPB Q8H [facility]; Protocol Last Admin: 03/21/24 13:00 Dose: 25 mls/hr Propofol 1,000 mg/ IV Solution 100 mls @ 6.124 mls/hr IV .[id number] [facility]; Protocol Last Admin: 03/21/24 12:56 Dose: 25 mcg/kg/min, 10.206 mls/hr Lactated Ringer's (Lactated Ringers) 1,000 mls @ 75 mls/hr IV .[id number] [facility] Last Admin: 03/21/24 05:54 Dose: 75 mls/hr Norepinephrine Bitartrate 8 mg (/ Sodium Chloride) 258 mls @ 20.301 mls/hr IV .[id number] [facility]; Protocol Last Admin: 03/21/24 07:40 Dose: Not Given Vasopressin 20 unit/ Sodium (Chloride) 51 mls @ 4.59 mls/hr IV .[id number] [facility]; Protocol Last Admin: 03/21/24 09:04 Dose: 0.03 units/min, 4.59 mls/hr Heparin Sodium/Sodium Chloride (25,000 unit/ Sodium Chloride) 250 mls @ 7.283 mls/hr IV .Q24H [facility]; Protocol Last Admin: 03/21/24 14:28 Dose: 15 units/kg/hr, 9.104 mls/hr Megestrol Acetate (Megestrol 400 Mg/10 Ml Cup) 624 mg PO DAILY@0800 [facility] Last Admin: 03/21/24 08:07 Dose: 624 mg Metoclopramide HCl (Metoclopramide 5 Mg/Ml 2 Ml Vial) 10 mg IVP Q6HR [facility] Last Admin: 03/21/24 12:56 Dose: 10 mg Mirtazapine (Mirtazapine 15 Mg Tab) 30 mg PO HS@1999 [facility] Last Admin: 03/20/24 20:39 Dose: 30 mg Miscellaneous Information (Potassium Replacement Protocol 1 Each Misc) 1 each MISCELLANE DAILY PRN; Protocol PRN Reason: Per Protocol Miscellaneous Information (Potassium Replacement Protocol 1 Each Misc) 1 each MISCELLANE DAILY PRN; Protocol PRN Reason: Per Protocol Miscellaneous Information (Magnesium Replacement Protocol 1 Each Misc) 1 each MISCELLANE DAILY PRN; Protocol PRN Reason: Per Protocol Naloxone HCl (Naloxone 0.4 Mg/Ml 1 Ml Vial) 0.2 mg IV Q2M PRN PRN Reason: Opioid Reversal Nystatin (Nystatin 100,000unit/Gm Cream 30 Gm Tube) 1 applic TOPICAL BID@799,1999 [facility]; Protocol Last Admin: 03/21/24 08:13 Dose: 1 applic Oxybutynin Chloride (Oxybutynin 10 Mg Tab.Er.24) 10 mg PO DAILY@0800 [facility] Last Admin: 03/21/24 08:10 Dose: 10 mg Pantoprazole Sodium (Pantoprazole 40 Mg/10 Ml Vial) 40 mg IV DAILY [facility] Last Admin: 03/21/24 08:06 Dose: 40 mg Psyllium Hydrophilic Mucilloid (Psyllium Husk 100% 6 Gm Packet) 6 gm PO DAILY [facility] Last Admin: 03/21/24 08:10 Dose: 6 gm Social history: Patient lives at [facility]. History of heavy alcohol use in the past. Started smoking at age of 14 smoked half a pack a day. Physical examination: VITAL SIGNS: Afebrile, 86, 30, 104/48, 97% on ventilator GENERAL: laying in bed intubated. EYES: Pupils equal. Conjunctiva paul l. HEENT: External appearance of nose and ears normal, oral cavity grossly normal. Endotracheal tube. OG tube feeding NECK: JVD not raised; masses not palpable. HEART: First and second heart sounds are normal; no edema. LUNGS: Respiratory rate crease diminished breath sounds some crackles. ABDOMEN: Soft, nontender, liver spleen not palpable, no masses palpable. PSYCH: Patient sedated l. MUSCULOSKELETAL: OA INVESTIGATIONS, reviewed in the clinical context: March 21: White count 12.6 hemoglobin 10.5 platelets 173 sodium 136 potassium 4 creatinine 0.30 March 19: White count 21 hemoglobin 11.6 platelets 236 potassium 3.6 creatinine 0.5 March 18: White count 14.6 hemoglobin 13.2 platelets 293 sodium 141 potassium 3.7 BUN 22 creatinine 0.61 Sputum culture [March 17]: Normal respiratory clara March 17, 2024: White count 3.5 hemoglobin 15.1 platelets 680 sodium 140 potassium 4.6. 21 creatinine 0.50 Troponin I 0.016. proBNP 1580 EKG tracing personally reviewed by me-sinus tachycardia. Questionable atrial flutter. Chest x-ray film personally reviewed by me-hyperinflation. Possible scant infiltrate Assessment plan: -Aspiration pneumonitis secondary to patient witnessed to choke on oatmeal and sausage. Some of that was coughed up. Some more was obtained when patient being intubated in the ER.: IV Zosyn -Septic shock from underlying pneumonia: Slow to respond IV norepinephrine, IV vasopressin -Paroxysmal atrial fibrillation rapid ventricular rate, in and out of A-fib IV amiodarone -Acute hypoxic respiratory failure from aspiration pneumonia, requiring ventilator assist: FiO2 30%. PEEP 5. -Severe cognitive impairment underlying dementia -Primary osteoarthritis Tylenol as needed -Hyperlipidemia Lipitor 10 mg nightly -Chronic urinary incontinence Oxybutynin Full code Past Medical History Past Medical History: Unable to Obtain, Dementia, Deep Vein Thrombosis (DVT), Osteoarthritis (OA), Skin Disorder Additional Past Medical History / Comment(s): ARHTITIS IN HANDS. History of Any Multi-Drug Resistant Organisms: None Reported Past Surgical History: Unable to Obtain, Orthopedic Surgery Past Anesthesia/Blood Transfusion Reactions: Unable to Obtain Additional Past Anesthesia/Blood Transfusion Reaction / Comment(s): PT DENIED EVER HAVING ANY SX Past Psychological History: Depression Smoking Status: Former smoker Past Alcohol Use History: Heavy Past Drug Use History: None Reported
[2024-03-21 17:41] LABS: Glucose,Whole Blood 108 mg/dL (70-110)
--- NOTE | 2024-03-21 22:28 | PN ---
PROGRESS NOTE SUBJECTIVE: This is a 78-year-old patient, who was in the ICU, intubated on vent. She was admitted for aspiration pneumonia and we were consulted because of atrial fibrillation with rapid ventricular rate. She is currently on IV heparin and had been started on amiodarone. An echocardiogram on this admission revealed normal LV systolic function with moderate pulmonary hypertension. This morning, she remains in atrial fibrillation at times poorly controlled ventricular rate. OBJECTIVE: VITAL SIGNS: Heart rate is around 100 to 110 beats per minute, blood pressure is 100/62, respiratory rate is 30. CHEST: Reveals diminished air entry with occasional rhonchi. HEART: Reveals first and second heart sounds. No gallop. EXTREMITIES: Did not reveal any edema. Peripheral pulses are felt. LABORATORY DATA: Labs show that the potassium is 4, creatinine is 0.3. ASSESSMENT: 1. Vent requiring respiratory failure. 2. Paroxysmal atrial fibrillation. 3. Aspiration pneumonia. PLAN: I will continue the patient on amiodarone and IV heparin. MMODL / IJN: [id number] /
[2024-03-22 00:37] LABS: Glucose,Whole Blood 97 mg/dL (70-110)
[2024-03-22 04:27] LABS: African American GFR (CKD) >90 (>60 ml/min/1.73 sqM); Anion Gap 3 mmol/L; Blood Urea Nitrogen 7 mg/dL (7-17); Calcium 8.2 mg/dL (8.4-10.2); Carbon Dioxide 30 mmol/L (22-30); Chloride 115 mmol/L (98-107); Glucose 107 mg/dL (74-99); Magnesium 2.1 mg/dL (1.6-2.3); Non-African American GFR(CKD) >90 (>60 ml/min/1.73 sqM); Potassium 3.1 mmol/L (3.5-5.1); Sodium 148 mmol/L (137-145)
[2024-03-22 04:42] LABS: Anisocytosis Slight; Basophils % (A) 0 %; Eosinophils # (A) 0.3 k/uL (0-0.7); Eosinophils % (A) 3 %; HCT 36.1 % (34.0-46.0); HGB 11.8 gm/dL (11.4-16.0); Lymphocytes # (A) 0.7 k/uL (1.0-4.8); Lymphocytes % (A) 7 %; MCH 30.9 pg (25.0-35.0); MCHC 32.7 g/dL (31.0-37.0); MCV 94.5 fL (80.0-100.0); Monocytes # (A) 0.3 k/uL (0-1.0); Monocytes % (A) 3 %; Neutrophils # (A) 8.7 k/uL (1.3-7.7); Neutrophils % (A) 86 %; Platelet Count 198 k/uL (150-450); Poikilocytosis Slight; RBC 3.83 m/uL (3.80-5.40); RDW 16.8 % (11.5-15.5); WBC 10.2 k/uL (3.8-10.6)
[2024-03-22] MEDS: POTASSIUM CHLORIDE 20 MEQ in WATER FOR INJECTION 1 100ML.BAG IVPB SCH (04:58)
[2024-03-22 05:45] LABS: ABG Base Excess 5.1 mmol/L; ABG HCO3 30 mmol/L (21-25); ABG Oxygen Saturation 98.4 % (94-97); ABG PCO2 48 mmHg (35-45); ABG PH 7.41 (7.35-7.45); ABG PO2 106 mmHg (83-108); ABG TCO2 31 mmol/L (19-24); Allen Test Performed? Yes
[2024-03-22 06:33] LABS: Glucose,Whole Blood 90 mg/dL (70-110)
--- NOTE | 2024-03-22 10:28 | PN ---
PROGRESS NOTE A 78-year-old lady, who is intubated and on vent for aspiration pneumonia. She is on IV heparin and amiodarone. We were consulted because of atrial fibrillation with rapid ventricular rate. She is currently in sinus rhythm. She has normal LV function. PHYSICAL EXAMINATION: GENERAL: Intubated on vent, sedated. On exam, comfortable at rest. VITAL SIGNS: Stable. CHEST: Reveals diminished air entry at the bases. HEART: Reveals first and second heart sounds. No gallop. ABDOMEN: Soft. EXTREMITIES: Did not reveal any edema. Peripheral pulses are felt. LABS: Showed the creatinine is 0.3, hemoglobin is 7.8. ASSESSMENT AND PLAN: 1. Vent requiring respiratory failure secondary to aspiration pneumonia. 2. Paroxysmal atrial fibrillation. PLAN: She will continue current medications including amiodarone and heparin. MMODL / IJN: [id number] /
[2024-03-22 11:47] LABS: Glucose,Whole Blood 103 mg/dL (70-110)
--- NOTE | 2024-03-22 12:37 | P.PN ---
Subjective Progress Note Date: 03/22/24 This is a 78-year-old female patient with a known history of hyperlipidemia and dementia and resides in a adult foster care setting. He was brought into the emergency room earlier this morning for possible aspiration. Apparently the patient is nonverbal. She was found choking this morning after her breakfast of sausage and oatmeal. She developed productive cough. This x-ray initially revealed no acute pulmonary process. Her condition continued to deteriorate and she required intubation mechanical ventilatory support. He was seen in consultation in the emergency department. She remains intubated on the mechanical ventilator at assist-control mode at a rate of 16, tidal volume 350, FiO2 of 50% and a PEEP of 5. Initial blood gases on 100% FiO2 revealed a PaO2 of 314, pCO2 41, pH 7.35. White count 30.5. Hemoglobin 15.1. Platelets 680. INR 1.0. Sodium 140. Potassium 4.6. Bicarb 24. BUN 21. Creatinine 0.50. Glucose 132. proBNP 1580. She is sedated on propofol at 50 mcg/kg/min. She has been initiated on vancomycin, Flagyl and Zosyn. The patient is seen today March 18, 2024 and follow-up in the intensive care unit. She remains intubated on mechanical ventilator. Currently in assist- control mode at a rate of 16, tidal volume 350, FiO2 40% and a PEEP of 5. Morning blood gases revealed pO2 of 150, pCO2 43 and a pH of 7.22 that was on 50% FiO2. She remains sedated on propofol 35 mcg/kg/min. She has required norepinephrine at 9.5 mcg/min. She has lactated Ringer's at 75 mL/h. She is continued on Lovenox for DVT prophylaxis. Continued on antibiotics in the form of Zosyn. White count 28.6. Hemoglobin 13.2. Platelets 293. Sodium 141. Potassium 3.7. Bicarb 18. BUN 22. Creatinine 0.61. Glucose 130. Chest x-ray reveals endotracheal nasogastric tubes in good position. Left subclavian triple-lumen catheter in place. There is patchy infiltrates persist in the right upper lobe right perihilar and left perihilar lower lobe regions. Sputum culture is pending. The patient is seen today March 19, 2024 in follow-up in the intensive care unit. She remains intubated on mechanical ventilator. Currently on assist- control mode with a rate of 16, tidal volume 350, FiO2 30% and a PEEP of 5. Morning blood gases reveal a PaO2 of 127 pounds, pCO2 43, pH 7.33. Chest x-ray reveals right upper lobe and left lower lobe infiltrates. Procalcitonin 11.4. She is currently on Zosyn. Remains on lactated Ringer's at 75 MLS per hour. Continued on sedation with propofol at 25 mcg/kg/min. Norepinephrine at 4 mcg/min. Being nourished with vital AF. Blood cultures pending. Sputum culture revealed no growth. White count 21.0. Hemoglobin 11.6. Platelets 236. Sodium 143. Potassium 3.6. Bicarb 22. BUN 14. Creatinine 0.50. She is continued on DuoNeb inhalations, Lovenox for DVT prophylaxis. The patient is seen today March 20, 2024 in follow-up in the [facility] intensive care unit. She remains intubated on the mechanical ventilator. Current setti ngs are assist-control mode with a rate of 16, tidal volume 350, FiO2 30% and a PEEP of 5. Morning blood gases revealed a PaO2 of 99, pCO2 46, pH 7.32. She has lactated Ringer's at 75 MLS per hour. Sedated on propofol at 40 mcg/kg/min. Remains on amiodarone at 1 mg/min. Vasopressin at 0.03 units/min. Norepinephrine at 7.2 mcg/min. She is being nourished with vital AF at 34 out of 34 MLS per hour. She is continued on Zosyn. Chest x-ray is stable with scattered airspace infiltrates bilaterally. White count 19.0. Hemoglobin 11.2. Platelets 252. Sodium 140. Potassium 3.7. Bicarb 21. BUN 10. Creatinine 0.35. Glucose 173. She is continued on bronchodilators. Continue on Lovenox for DVT prophylaxis. The patient is seen today March 21, 2024 in follow-up in the intensive care [facility]. She remains intubated on the mechanical ventilator. Currently on assist- control mode at a rate of 16, tidal volume 350, FiO2 30% and a PEEP of 5. Morning blood gases revealed a PaO2 of 88, pCO2 39 and a pH of 7.43. She remains on a heparin drip. Continue on lactated Ringer's at 75 MLS per hour. Propofol at 15 mcg/kg/min. Vasopressin at 0.03 units/min. She is being nourished with vital HP at 10 with a goal of 29. She has had issues with high residuals. She is on Reglan. She remains in atrial fibrillation. Blood culture revealed no growth. Sputum culture revealed no growth. White count 12.6. Hemoglobin 10.5. Platelets 173. Sodium 136. Potassium 4.0. Bicarb 25. BUN 9. Creatinine 0.30. Glucose 113. Remains on bronchodilators. Remains on Zosyn. The patient is seen today March 22, 2024 in follow-up in the intensive care unit. She remains intubated on the mechanical ventilator and assist-control mode at a rate of 16, tidal volume 350, FiO2 30% and a PEEP of 5. Morning blood gases revealed a PaO2 of 106, pCO2 48, pH 7.41. She is sedated on propofol at 25 mcg/kg/min. Heparin drip per weight-based protocol. Lactated Ringer's at 75 MLS per hour. Vital AF tube feedings currently on hold due to high residuals. Chest x-ray continues to reveal bilateral patchy opacities. Blood culture revealed no growth. Sputum culture revealed no growth. White count 10.2. Hemoglobin 11.1. Platelets 198. Sodium 148. Potassium 3.1. Bicarb 30. BUN 7. Creatinine 0.31. Glucose 107. She remains on a heparin drip for episodes of atrial fibrillation. Continued on bronchodilators. Antibiotics in the form of Zosyn. Objective - Vital Signs Vital signs: Vital Signs Temp 97.5 F L 03/22/24 04:00 Pulse 78 03/22/24 12:18 Resp 19 03/22/24 11:00 BP 124/75 03/22/24 11:00 Pulse Ox 98 03/22/24 11:00 FiO2 30 03/22/24 12:19 Intake & Output 03/21/24 03/22/24 03/22/24 18:59 06:59 18:59 Intake Total 2016.890 1303.684 570.771 Output Total 810 3690 620 Balance 1206.890 -2386.316 -49.229 Weight 62.4 kg Intake: IV 1411 858 468 .9 NS pressure bag 36 33 18 Lactated Ringers 1,000 ml 975 825 450 @ 75 mls/hr IV .[id number] RON Rx#:[id number] Magnesium Sulfate-D5w Pmx 200 1 gm In Dextrose/Water 1 100ml.bag @ 100 mls/hr IVPB Q1H [facility]ON Rx#: [id number] Piperacillin-Tazobactam 3 200 .375 gm In Sodium Chloride 0.9% 100 ml @ 25 mls/hr IVPB Q8H RON Rx#: [id number] Intake, IV Titration 277.890 295.684 92.771 Amount Heparin Sod,Pork in 0.45% 145.664 131.098 NaCl 25,000 unit In 0.45 % NaCl 1 250ml.bag @ 12 UNITS/KG/HR 7.283 mls/hr IV .Q24H RON Rx#: [id number] Vasopressin 20 unit In 43.121 Sodium Chloride 0.9% 50 ml @ 0.03 UNITS/MIN 4.59 mls/hr IV .[id number] RON Rx# :[id number] propofoL 1,000 mg In 89.105 164.586 92.771 Empty Bag 1 bag @ 15 MCG/ KG/MIN 6.124 mls/hr IV . [id number] RON Rx#:[id number] Oral 200 Tube Feeding 68 90 10 Other 60 60 Output: Urine 810 3690 620 Other: Voiding Method Indwelling Catheter Indwelling Catheter Indwelling Catheter ABP, PAP, CO, CI - Last Documented Arterial Blood Pressure 123/53 - Exam GENERAL EXAM: Intubated, sedated 78-year-old female, in no apparent distress. HEAD: Normocephalic. EYES: Sluggish reaction of pupils, equal size. NOSE: Clear with pink turbinates. THROAT: No erythema or exudates. NECK: Right IJ triple-lumen catheter in place no masses, no JVD. CHEST: No chest wall deformity. LUNGS: Equal air entry with bilateral scattered rhonchi. CVS: S1 and S2 normal with no audible murmur, regular rhythm. ABDOMEN: No hepatosplenomegaly, normal bowel sounds, no guarding or rigidity. SPINE: No scoliosis or deformity SKIN: No rashes CENTRAL NERVOUS SYSTEM: No focal deficits, tone is normal in all 4 extremities. EXTREMITIES: Right femoral arterial line in place. There is no peripheral edema. No clubbing, no cyanosis. Peripheral pulses are intact. - Labs CBC & Chem 7: 03/22/24 03:53 03/22/24 03:53 Labs: Abnormal Lab Results - Last 24 Hours (Table) 03/22/24 03/22/24 03/22/24 Range/Units 03:53 03:53 03:53 RDW 16.8 H (11.5-15.5) % Neutrophils # 8.7 H (1.3-7.7) k/uL Lymphocytes # 0.7 L (1.0-4.8) k/uL APTT 41.1 H (22.0-30.0) sec ABG pCO2 (35-45) mmHg ABG HCO3 (21-25) mmol/L ABG Total CO2 (19-24) mmol/L ABG O2 Saturation (94-97) % Sodium 148 H (137-145) mmol/L Potassium 3.1 L (3.5-5.1) mmol/L Chloride 115 H (98-107) mmol/L Creatinine 0.31 L (0.52-1.04) mg/dL Glucose 107 H (74-99) mg/dL Calcium 8.2 L (8.4-10.2) mg/dL 03/22/24 03/22/24 Range/Units 05:42 11:30 RDW (11.5-15.5) % Neutrophils # (1.3-7.7) k/uL Lymphocytes # (1.0-4.8) k/uL APTT 59.5 H (22.0-30.0) sec ABG pCO2 48 H (35-45) mmHg ABG HCO3 30 H (21-25) mmol/L ABG Total CO2 31 H (19-24) mmol/L ABG O2 Saturation 98.4 H (94-97) % Sodium (137-145) mmol/L Potassium (3.5-5.1) mmol/L Chloride (98-107) mmol/L Creatinine (0.52-1.04) mg/dL Glucose (74-99) mg/dL Calcium (8.4-10.2) mg/dL Assessment and Plan Assessment: Acute hypoxemic respiratory failure secondary to aspiration requiring intubation mechanical ventilatory support Hypotension secondary to above requiring pressor support Leukocytosis secondary to above Atrial fibrillation with a rapid ventricular response currently on oral amiodarone drip and a heparin drip History of advanced dementia residing in an adult foster care Hyperlipidemia Plan: The patient was seen and evaluated Chest x-ray, ABGs, labs and medications reviewed Titrate down the FiO2 to 25% Remains on a heparin drip Continue Zosyn and bronchodilator Daily interruption of sedation Prognosis is guarded We will continue to follow I have personally seen and examined the patient, performed the documentation and the assessment and plan as written. Number of minutes spent on the visit: 15.
[2024-03-22] MEDS: POTASSIUM CHLORIDE 10 MEQ in WATER FOR INJECTION 1 100ML.BAG IVPB SCH ×2 (13:19→19:26)
--- NOTE | 2024-03-22 15:25 | P.PN ---
Progress Note - Text Progress Note Date: 03/22/24 Chief Complaint: Aspiration This is a 78-year-old patient, brought into the ER. She was sent in from [facility] which is assisted living via EMS for potential aspiration. Patient at baseline is nonverbal. Patient was found to be choking on her breakfast including sausages and oatmeal. Patient did expel the sausage and oatmeal. Patient became progressively hypoxic in the ER had to be intubated. oat meal was recovered beyond the vocal cords. Patient taken to the ICU. Intubated. Currently on FiO2 50% and a PEEP of 5. Drips include propofol. March 18: ICU. Remains intubated. FiO2 40 and a PEEP of 5. Patient last started on norepinephrine. Started on tube feeding at 10 cc an hour. Also on propofol. Vasopressin was ordered last night but never started. March 19: ICU. Intubated. FiO2 30% and a PEEP of 5. Drips include propofol 25 mics, norepinephrine 0.07 mcg. Tube feeding at 30 cc an hour. Sedated. Remains on IV Zosyn. March 20 ICU. Intubated. FiO2 30 and PEEP of 5. Last night went into atrial fibrillation. Put on IV amiodarone. Went back in sinus rhythm. Drips include propofol 35 mics, norepinephrine 0.11 nikolas. Vasopressin started at 0.03 mics. Minimal secretions. Tube feeding at 34 cc an hour. March 21: ICU. Intubated. FiO2 30 and a PEEP of 5. Patient had a high residual volume of 550 cc. Reglan was added. Drips include propofol 30 mics, vasopressin 0.3 mcg, patient IV heparin. Telemetry shows sinus rhythm. Has been in and out of A-fib. March 22: ICU. Intubated. Hypothermic overnight. Put on Jose hugger. Patient been off epinephrine since yesterday. Also taken off vasopressin. Blood pressures running with systolic around 130s. Propofol was discontinued this afternoon. Patient again had high residuals today around 500 cc. Reglan changed to 10 mg every 6. Dulcolax suppository 10 mg. If no good then we will try enema. Discussed with nurse. Active Medications Acetaminophen (Acetaminophen Tab 325 Mg Tab) 650 mg PO Q6HR PRN PRN Reason: Fever and/ or Pain Albuterol/Ipratropium (Ipratropium-Albuterol 3 Ml Neb) 3 ml INHALATION RT-Q4H [facility] Last Admin: 03/22/24 12:18 Dose: 3 ml Amiodarone HCl (Amiodarone 200 Mg Tab) 400 mg PO BID [facility] Last Admin: 03/22/24 08:29 Dose: 400 mg Atorvastatin Calcium (Atorvastatin 10 Mg Tab) 10 mg PO HS@2000 [facility] Last Admin: 03/21/24 21:12 Dose: 10 mg Bisacodyl (Bisacodyl 10 Mg Supp) 10 mg RECTAL DAILY [facility] Chlorhexidine Gluconate (Chlorhexidine Gluconate 15 Ml Cup) 15 ml MUCOUS MEM BID [facility] Last Admin: 03/22/24 08:29 Dose: 15 ml Cyproheptadine HCl (Cyproheptadine 4 Mg Tablet) 4 mg PO QID@08,12,16,20 [facility] Last Admin: 03/22/24 12:00 Dose: Not Given Famotidine (Famotidine 20 Mg Tab) 20 mg PO BID [facility] Heparin Sodium (Porcine) (Heparin Sodium 1,000 Un/Ml (10ml Vl)) 0 unit IV PER PROTOCOL PRN; Protocol PRN Reason: Low PTT Last Admin: 03/22/24 04:52 Dose: 1,560 unit Piperacillin Sod/Tazobactam (Sod 3.375 gm/ Sodium Chloride) 100 mls @ 25 mls/hr IVPB Q8H [facility]; Protocol Last Admin: 03/22/24 12:32 Dose: 25 mls/hr Propofol 1,000 mg/ IV Solution 100 mls @ 6.124 mls/hr IV .[id number] [facility]; Protocol Last Titration: 03/22/24 12:53 Dose: 0 mcg/kg/min, 0 mls/hr Lactated Ringer's (Lactated Ringers) 1,000 mls @ 75 mls/hr IV .[id number] [facility] Last Admin: 03/22/24 06:37 Dose: 75 mls/hr Heparin Sodium/Sodium Chloride (25,000 unit/ Sodium Chloride) 250 mls @ 7.283 mls/hr IV .Q24H [facility]; Protocol Last Admin: 03/22/24 13:19 Dose: 17 units/kg/hr, 10.317 mls/hr Metoclopramide HCl (Metoclopramide 5 Mg/Ml 2 Ml Vial) 10 mg IVP Q6HR [facility] Last Admin: 03/22/24 12:32 Dose: 10 mg Mirtazapine (Mirtazapine 15 Mg Tab) 30 mg PO HS@1999 [facility] Last Admin: 03/21/24 21:15 Dose: 30 mg Miscellaneous Information (Potassium Replacement Protocol 1 Each Misc) 1 each MISCELLANE DAILY PRN; Protocol PRN Reason: Per Protocol Miscellaneous Information (Magnesium Replacement Protocol 1 Each Misc) 1 each MISCELLANE DAILY PRN; Protocol PRN Reason: Per Protocol Naloxone HCl (Naloxone 0.4 Mg/Ml 1 Ml Vial) 0.2 mg IV Q2M PRN PRN Reason: Opioid Reversal Nystatin (Nystatin 100,000unit/Gm Cream 30 Gm Tube) 1 applic TOPICAL BID@799,1999 [facility]; Protocol Last Admin: 03/22/24 08:28 Dose: 1 applic Oxybutynin Chloride (Oxybutynin 10 Mg Tab.Er.24) 10 mg PO DAILY@0800 [facility] Last Admin: 03/22/24 08:35 Dose: Not Given Social history: Patient lives at [facility]. History of heavy alcohol use in the past. Started smoking at age of 14 smoked half a pack a day. Physical examination: VITAL SIGNS: 7.4, 105, 27, 123 x 65, 93% on ventilator GENERAL: laying in bed intubated. Is open eyes EYES: Pupils equal. Conjunctiva paul l. HEENT: External appearance of nose and ears normal, oral cavity grossly normal. Endotracheal tube. OG tube feeding NECK: JVD not raised; masses not palpable. HEART: First and second heart sounds are normal; no edema. LUNGS: Respiratory rate crease diminished breath sounds some crackles. ABDOMEN: Soft, nontender, liver spleen not palpable, no masses palpable. PSYCH: Patient sedated l. MUSCULOSKELETAL: OA INVESTIGATIONS, reviewed in the clinical context: March 22: White count 10.2 hemoglobin 11.8 platelets 198 sodium 148 potassium 3.1 creatinine 0.31 March 21: White count 12.6 hemoglobin 10.5 platelets 173 sodium 136 potassium 4 creatinine 0.30 March 19: White count 21 hemoglobin 11.6 platelets 236 potassium 3.6 creatinine 0.5 March 18: White count 14.6 hemoglobin 13.2 platelets 293 sodium 141 potassium 3.7 BUN 22 creatinine 0.61 Sputum culture [March 17]: Normal respiratory clara March 17, 2024: White count 3.5 hemoglobin 15.1 platelets 680 sodium 140 potassium 4.6. 21 creatinine 0.50 Troponin I 0.016. proBNP 1580 EKG tracing personally reviewed by me-sinus tachycardia. Questionable atrial flutter. Chest x-ray film personally reviewed by me-hyperinflation. Possible scant infiltrate Assessment plan: -Aspiration pneumonitis secondary to patient witnessed to choke on oatmeal and sausage. Some of that was coughed up. Some more was obtained when patient being intubated in the ER.: IV Zosyn -Septic shock from underlying pneumonia: Better IV norepinephrine, IV vasopressin-both discontinued yesterday -IV heparin monitoring Follow PTT -Hypothermia multifactorial Jose hugger. -Paroxysmal atrial fibrillation rapid ventricular rate, in and out of A-fib likely sinus rhythm IV amiodarone-changed to oral amiodarone -Acute hypoxic respiratory failure from aspiration pneumonia, requiring ventilator assist: FiO2 30%. PEEP 5. -Severe cognitive impairment underlying dementia -Primary osteoarthritis Tylenol as needed -Hyperlipidemia Lipitor 10 mg nightly -Chronic urinary incontinence Oxybutynin Full code Will try Dulcolax suppository if not enema for constipation. HP to subcu Lovenox for IV heparin starting this evening. 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 History of Any Multi-Drug Resistant Organisms: None Reported Past Surgical History: Unable to Obtain, Orthopedic Surgery Past Anesthesia/Blood Transfusion Reactions: Unable to Obtain Additional Past Anesthesia/Blood Transfusion Reaction / Comment(s): PT DENIED EVER HAVING ANY SX Past Psychological History: Depression Smoking Status: Former smoker Past Alcohol Use History: Heavy Past Drug Use History: None Reported
[2024-03-22] MEDS: bisacodyL 10 MG SUPP RECTAL SCH (15:53)
--- NOTE | 2024-03-22 16:29 | XR ---
EXAMINATION TYPE: XR chest 1V DATE OF EXAM: 03/22/2024 5:32 AM CLINICAL INDICATION:Female, 78 years old with history of mechanical ventilation; [facility] COMPARISON: 03/21/2024 TECHNIQUE: XR chest 1V Portable AP radiograph of the chest.. FINDINGS: Right-sided central venous line has been removed. NG tube appears slightly retracted with the tip now over the proximal stomach and the sidehole may be at or just above the GE junction. Left subclavian CVC is stable with its tip over the SVC/RA junction. CM silhouette is stable. Heart is normal in size. Partial calcified aorta. The lungs again demonstrate multiple patchy and focal nodular opacities bilaterally. Suspected small left and tiny right pleural effusions, unchanged. No visualized pneumothorax. Osseous structures appear unchanged. Left proximal humeral fixation hardware IMPRESSION: 1. Interval removal of the right IJ central venous line. 2. NG tube appears slightly retracted from its previous position. Recommend advancement of the least several centimeters to lie in the more distal stomach. 3. Similar pulmonary status. Patchy bilateral pulmonary infiltrates and pleural effusions.
[2024-03-22 18:17] LABS: Glucose,Whole Blood 101 mg/dL (70-110)
[2024-03-22] MEDS: ENOXAPARIN 60 MG/0.6 ML SYRINGE SQ SCH (21:29)
[2024-03-22] MEDS: FAMOTIDINE 20 MG TAB PO SCH (21:37)
[2024-03-23 00:53] LABS: Glucose,Whole Blood 92 mg/dL (70-110)
[2024-03-23 05:13] LABS: Anisocytosis Slight; Basophils # (A) 0.1 k/uL (0-0.2); Basophils % (A) 1 %; Eosinophils # (A) 0.2 k/uL (0-0.7); Eosinophils % (A) 2 %; Lymphocytes # (A) 1.1 k/uL (1.0-4.8); Lymphocytes % (A) 10 %; MCHC 32.3 g/dL (31.0-37.0); MCV 95.8 fL (80.0-100.0); Monocytes # (A) 0.7 k/uL (0-1.0); Monocytes % (A) 6 %; Neutrophils # (A) 9.2 k/uL (1.3-7.7); Neutrophils % (A) 81 %; Platelet Count 243 k/uL (150-450); RBC 3.55 m/uL (3.80-5.40); RDW 17.2 % (11.5-15.5); WBC 11.4 k/uL (3.8-10.6)
[2024-03-23 05:39] LABS: African American GFR (CKD) >90 (>60 ml/min/1.73 sqM); Anion Gap 4 mmol/L; Blood Urea Nitrogen 5 mg/dL (7-17); Calcium 7.7 mg/dL (8.4-10.2); Carbon Dioxide 28 mmol/L (22-30); Chloride 113 mmol/L (98-107); Glucose 85 mg/dL (74-99); Non-African American GFR(CKD) >90 (>60 ml/min/1.73 sqM); Potassium 3.8 mmol/L (3.5-5.1); Sodium 145 mmol/L (137-145)
[2024-03-23] MEDS: DILTIAZEM 125 MG in SODIUM CHLORIDE 0.9% 100 ML IV SCH (05:41)
[2024-03-23] MEDS: DILTIAZEM DRIP BOLUS FROM BAG 1 MG SOLN IV ONE (05:41)
[2024-03-23 06:17] LABS: ABG HCO3 28 mmol/L (21-25); ABG Oxygen Saturation 98.7 % (94-97); ABG PCO2 38 mmHg (35-45); ABG PH 7.49 (7.35-7.45); ABG PO2 96 mmHg (83-108); ABG TCO2 30 mmol/L (19-24)
[2024-03-23 06:38] LABS: Glucose,Whole Blood 74 mg/dL (70-110)
[2024-03-23] MEDS: POTASSIUM CHLORIDE 10 MEQ in WATER FOR INJECTION 1 100ML.BAG IVPB SCH ×2 (06:38→14:17)
--- NOTE | 2024-03-23 07:20 | XR ---
EXAMINATION TYPE: XR chest 1V portable DATE OF EXAM: 03/23/2024 5:44 AM CLINICAL INDICATION:Female, 78 years old with history of mechanical ventilation; COMPARISON: Chest radiographs from 03/22/2024 TECHNIQUE: XR chest 1V portable Frontal view of the chest. FINDINGS: Lungs/Pleura: Multifocal airspace opacities. No evidence of pneumothorax or pleural effusion. Pulmonary vascularity: Unremarkable. Heart/mediastinum: Cardiomediastinal silhouette is unremarkable. Musculoskeletal: No acute osseous pathology. Other findings: None Lines/Tubes: Endotracheal tube with distal tip xx cm above the shay. Nasogastric tube with its distal tip and side-port projecting under the diaphragm. Left internal jugular central venous catheter with distal tip at the cavoatrial junction. IMPRESSION: 1. Similar multifocal airspace opacities. 2. Stable support lines and tubes.
--- NOTE | 2024-03-23 08:31 | P.PN ---
Subjective Progress Note Date: 03/23/24 PROGRESS NOTE The patient is a 78-year-old female with known history of hyperlipidemia, dementia who is intubated because of pneumonia. She had episodes of paroxysmal atrial fibrillation. She continues on IV heparin and was started yesterday on IV Cardizem because of episodes of paroxysmal atrial fibrillation. She is back in sinus mechanism. She is on no vasopressor. The patient was hypotensive ini tially requiring vasopressors. Her echocardiogram showed a preserved systolic function. Medications: IV Cardizem, amiodarone 400 mg twice a day, atorvastatin 10 mg daily, Zosyn, subcu Lovenox PHYSICAL EXAMINATION: Blood pressure 102/50 heart rate 90, intubated and sedated LUNGS: Clear to auscultation anteriorly HEART: Regular rate and rhythm, S1, S2. No S3. Systolic ejection murmur ABDOMEN: Soft, no organomegaly EXTREMETIES: No edema LAB: Hemoglobin 11, platelets 243, potassium 3.8, BUN 5, creatinine 0.33 IMPRESSION: 1. Respiratory failure with aspiration pneumonia 2. Paroxysmal atrial fibrillation, back in sinus mechanism, receiving subcu Lovenox 3. History of hyperlipidemia 4. History of dementia PLAN: 1. Continue IV Cardizem for now 2. Follow hemoglobin for signs of bleeding 3. Follow renal functions 4. Prognosis remains guarded Objective - Vital Signs Vital signs: Vital Signs Temp 98.7 F 03/23/24 08:00 Pulse 90 03/23/24 08:00 Resp 29 H 03/23/24 08:00 BP 102/54 03/23/24 08:00 Pulse Ox 97 03/23/24 08:00 FiO2 30 03/23/24 08:00 Intake & Output 03/22/24 03/23/24 03/23/24 18:59 06:59 18:59 Intake Total 1518.543 904.875 256 Output Total 1500 785 200 Balance 18.543 119.875 56 Weight 64.5 kg Intake: IV 1314 858 256 .9 NS pressure bag 39 33 6 Lactated Ringers 1,000 ml 975 825 150 @ 75 mls/hr IV .[id number] RON Rx#:[id number] Piperacillin-Tazobactam 3 100 100 .375 gm In Sodium Chloride 0.9% 100 ml @ 25 mls/hr IVPB Q8H RON Rx#: [id number] Potassium Chloride 10 meq 200 In Water For Injection 1 100ml.bag @ 100 mls/hr IVPB Q1H RON Rx#: [id number] Intake, IV Titration 194.543 46.875 Amount Heparin Sod,Pork in 0.45% 87.179 NaCl 25,000 unit In 0.45 % NaCl 1 250ml.bag @ 12 UNITS/KG/HR 7.283 mls/hr IV .Q24H RON Rx#: [id number] propofoL 1,000 mg In 107.364 46.875 Empty Bag 1 bag @ 15 MCG/ KG/MIN 6.124 mls/hr IV . [id number] RON Rx#:[id number] Tube Feeding 10 Output: Urine 1500 785 200 Other: Voiding Method Indwelling Catheter Indwelling Catheter # Bowel Movements 1 ABP, PAP, CO, CI - Last Documented Arterial Blood Pressure 105/44 - Labs CBC & Chem 7: 03/23/24 04:44 03/23/24 04:44 Labs: Abnormal Lab Results - Last 24 Hours (Table) 03/22/24 03/22/24 03/23/24 Range/Units 11:30 23:47 04:28 WBC (3.8-10.6) k/uL RBC (3.80-5.40) m/uL Hgb (11.4-16.0) gm/dL RDW (11.5-15.5) % Neutrophils # (1.3-7.7) k/uL APTT 59.5 H (22.0-30.0) sec ABG pH 7.49 H (7.35-7.45) ABG HCO3 28 H (21-25) mmol/L ABG Total CO2 30 H (19-24) mmol/L ABG O2 Saturation 98.7 H (94-97) % Chloride (98-107) mmol/L BUN (7-17) mg/dL Creatinine (0.52-1.04) mg/dL Calcium (8.4-10.2) mg/dL Stool Occult Blood Positive H (Negative) 03/23/24 03/23/24 03/23/24 Range/Units 04:44 04:44 07:13 WBC 11.4 H (3.8-10.6) k/uL RBC 3.55 L (3.80-5.40) m/uL Hgb 11.0 L (11.4-16.0) gm/dL RDW 17.2 H (11.5-15.5) % Neutrophils # 9.2 H (1.3-7.7) k/uL APTT 32.3 H (22.0-30.0) sec ABG pH (7.35-7.45) ABG HCO3 (21-25) mmol/L ABG Total CO2 (19-24) mmol/L ABG O2 Saturation (94-97) % Chloride 113 H (98-107) mmol/L BUN 5 L (7-17) mg/dL Creatinine 0.33 L (0.52-1.04) mg/dL Calcium 7.7 L (8.4-10.2) mg/dL Stool Occult Blood (Negative) Microbiology - Last 24 Hours (Table) 03/17/24 12:28 Blood Culture - Final Blood
[2024-03-23] MEDS: methylPREDNISolone SOD SUCCI 125 MG/2 ML VIAL IV SCH (12:00)
[2024-03-23 12:10] LABS: Glucose,Whole Blood 69 mg/dL (70-110)
[2024-03-23 13:44] LABS: Potassium 3.8 mmol/L (3.5-5.1)
[2024-03-23] MEDS: DEXTROSE 50% SYRINGE 50 ML IVP STA (14:06)
[2024-03-23] MEDS: DEXTROSE 50% SYRINGE 50 ML IVP ONE (14:14)
--- NOTE | 2024-03-23 14:28 | P.PN ---
Subjective Progress Note Date: 03/23/24 This is a 78-year-old female patient with a known history of hyperlipidemia and dementia and resides in a adult foster care setting. He was brought into the emergency room earlier this morning for possible aspiration. Apparently the patient is nonverbal. She was found choking this morning after her breakfast of sausage and oatmeal. She developed productive cough. This x-ray initially revealed no acute pulmonary process. Her condition continued to deteriorate and she required intubation mechanical ventilatory support. He was seen in consultation in the emergency department. She remains intubated on the mechanical ventilator at assist-control mode at a rate of 16, tidal volume 350, FiO2 of 50% and a PEEP of 5. Initial blood gases on 100% FiO2 revealed a PaO2 of 314, pCO2 41, pH 7.35. White count 30.5. Hemoglobin 15.1. Platelets 680. INR 1.0. Sodium 140. Potassium 4.6. Bicarb 24. BUN 21. Creatinine 0.50. Glucose 132. proBNP 1580. She is sedated on propofol at 50 mcg/kg/min. She has been initiated on vancomycin, Flagyl and Zosyn. The patient is seen today March 18, 2024 and follow-up in the intensive care unit. She remains intubated on mechanical ventilator. Currently in assist- control mode at a rate of 16, tidal volume 350, FiO2 40% and a PEEP of 5. Morning blood gases revealed pO2 of 150, pCO2 43 and a pH of 7.22 that was on 50% FiO2. She remains sedated on propofol 35 mcg/kg/min. She has required norepinephrine at 9.5 mcg/min. She has lactated Ringer's at 75 mL/h. She is continued on Lovenox for DVT prophylaxis. Continued on antibiotics in the form of Zosyn. White count 28.6. Hemoglobin 13.2. Platelets 293. Sodium 141. Potassium 3.7. Bicarb 18. BUN 22. Creatinine 0.61. Glucose 130. Chest x-ray reveals endotracheal nasogastric tubes in good position. Left subclavian triple-lumen catheter in place. There is patchy infiltrates persist in the right upper lobe right perihilar and left perihilar lower lobe regions. Sputum culture is pending. The patient is seen today March 19, 2024 in follow-up in the intensive care unit. She remains intubated on mechanical ventilator. Currently on assist- control mode with a rate of 16, tidal volume 350, FiO2 30% and a PEEP of 5. Morning blood gases reveal a PaO2 of 127 pounds, pCO2 43, pH 7.33. Chest x-ray reveals right upper lobe and left lower lobe infiltrates. Procalcitonin 11.4. She is currently on Zosyn. Remains on lactated Ringer's at 75 MLS per hour. Continued on sedation with propofol at 25 mcg/kg/min. Norepinephrine at 4 mcg/min. Being nourished with vital AF. Blood cultures pending. Sputum culture revealed no growth. White count 21.0. Hemoglobin 11.6. Platelets 236. Sodium 143. Potassium 3.6. Bicarb 22. BUN 14. Creatinine 0.50. She is continued on DuoNeb inhalations, Lovenox for DVT prophylaxis. The patient is seen today March 20, 2024 in follow-up in the [facility] intensive care unit. She remains intubated on the mechanical ventilator. Current sett ings are assist-control mode with a rate of 16, tidal volume 350, FiO2 30% and a PEEP of 5. Morning blood gases revealed a PaO2 of 99, pCO2 46, pH 7.32. She has lactated Ringer's at 75 MLS per hour. Sedated on propofol at 40 mcg/kg/min. Remains on amiodarone at 1 mg/min. Vasopressin at 0.03 units/min. Norepinephrine at 7.2 mcg/min. She is being nourished with vital AF at 34 out of 34 MLS per hour. She is continued on Zosyn. Chest x-ray is stable with scattered airspace infiltrates bilaterally. White count 19.0. Hemoglobin 11.2. Platelets 252. Sodium 140. Potassium 3.7. Bicarb 21. BUN 10. Creatinine 0.35. Glucose 173. She is continued on bronchodilators. Continue on Lovenox for DVT prophylaxis. The patient is seen today March 21, 2024 in follow-up in the intensive care u [facility]. She remains intubated on the mechanical ventilator. Currently on assist- control mode at a rate of 16, tidal volume 350, FiO2 30% and a PEEP of 5. Morning blood gases revealed a PaO2 of 88, pCO2 39 and a pH of 7.43. She remains on a heparin drip. Continue on lactated Ringer's at 75 MLS per hour. Propofol at 15 mcg/kg/min. Vasopressin at 0.03 units/min. She is being nourished with vital HP at 10 with a goal of 29. She has had issues with high residuals. She is on Reglan. She remains in atrial fibrillation. Blood culture revealed no growth. Sputum culture revealed no growth. White count 12.6. Hemoglobin 10.5. Platelets 173. Sodium 136. Potassium 4.0. Bicarb 25. BUN 9. Creatinine 0.30. Glucose 113. Remains on bronchodilators. Remains on Zosyn. The patient is seen today March 22, 2024 in follow-up in the intensive care unit. She remains intubated on the mechanical ventilator and assist-control mode at a rate of 16, tidal volume 350, FiO2 30% and a PEEP of 5. Morning blood gases revealed a PaO2 of 106, pCO2 48, pH 7.41. She is sedated on propofol at 25 mcg/kg/min. Heparin drip per weight-based protocol. Lactated Ringer's at 75 MLS per hour. Vital AF tube feedings currently on hold due to high residuals. Chest x-ray continues to reveal bilateral patchy opacities. Blood culture revealed no growth. Sputum culture revealed no growth. White count 10.2. Hemoglobin 11.1. Platelets 198. Sodium 148. Potassium 3.1. Bicarb 30. BUN 7. Creatinine 0.31. Glucose 107. She remains on a heparin drip for episodes of atrial fibrillation. Continued on bronchodilators. Antibiotics in the form of Zosyn. On today's evaluation 03/23/2024, seen the patient for a follow-up. The patient remains intubated on mechanical ventilator. The patient had an acute hypoxic jose failure secondary aspiration and she became hemodynamically unstable requiring pressors. She also had atrial fibrillation with rapid medical response. She has advanced dementia. On today's evaluation, the patient is on propofol running at 15 mcg/kg/min patient is on lactated Ringer at 75 cc an hour. She is on a Cardizem drip at 5 mg an hour. Her current cardiac rhythm is sinus. I was told that she is still having some paroxysmal atrial fibrillation's. The patient had an echocardiogram that showed preserved LV function. She is currently on anticoagulation with Lovenox 60 mg subcu every 12 hours. Her procalcitonin level at time of admission was 11.4. She is on assist-control mode of mechanical ventilation at rate of 60, tidal volume of 350, FiO2 30% with a PEEP of 5. The blood gas showed a pH of 7.49 with a pCO2 of 38 and pO2 of 96. Fluid balance is +1.1 L over the past 24 hours. WBC count 11.4 with a hemoglobin of 11 and a platelet count of 243. BUN is at 5 with a creatinine of 0.33 and a sodium levels at 135. She did have an episode of hypothermia earlier and her TSH came back at 3.3. Potassium level is at 3.8. The patient had a follow-up chest x-ray today that showed persistent bilateral pulmonary infiltrates, essentially unchanged compared to yesterday's chest x-ray and the patient continues to have multifocal airspace disease. Orotracheal tube is in a good location. No other significant events overnight. Objective - Vital Signs Vital signs: Vital Signs Temp 98.7 F 03/23/24 08:00 Pulse 90 03/23/24 08:00 Resp 29 H 03/23/24 08:00 BP 102/54 03/23/24 08:00 Pulse Ox 97 03/23/24 08:00 FiO2 30 03/23/24 08:00 Intake & Output 03/22/24 03/23/24 03/23/24 18:59 06:59 18:59 Intake Total 1518.543 904.875 256 Output Total 1500 785 200 Balance 18.543 119.875 56 Weight 64.5 kg Intake: IV 1314 858 256 .9 NS pressure bag 39 33 6 Lactated Ringers 1,000 ml 975 825 150 @ 75 mls/hr IV .[id number] RON Rx#:[id number] Piperacillin-Tazobactam 3 100 100 .375 gm In Sodium Chloride 0.9% 100 ml @ 25 mls/hr IVPB Q8H RON Rx#: [id number] Potassium Chloride 10 meq 200 In Water For Injection 1 100ml.bag @ 100 mls/hr IVPB Q1H RON Rx#: [id number] Intake, IV Titration 194.543 46.875 Amount Heparin Sod,Pork in 0.45% 87.179 NaCl 25,000 unit In 0.45 % NaCl 1 250ml.bag @ 12 UNITS/KG/HR 7.283 mls/hr IV .Q24H RON Rx#: [id number] propofoL 1,000 mg In 107.364 46.875 Empty Bag 1 bag @ 15 MCG/ KG/MIN 6.124 mls/hr IV . [id number] RON Rx#:[id number] Tube Feeding 10 Output: Urine 1500 785 200 Other: Voiding Method Indwelling Catheter Indwelling Catheter Indwelling Catheter # Bowel Movements 1 ABP, PAP, CO, CI - Last Documented Arterial Blood Pressure 105/44 - Exam GENERAL EXAM: Intubated, sedated 78-year-old female, in no apparent distress. The patient remains sedated,, comfortable, intubated on mechanical ventilator. Orotracheal and gastric tube are both in place. HEAD: Normocephalic. EYES: Sluggish reaction of pupils, equal size. NOSE: Clear with pink turbinates. THROAT: No erythema or exudates. NECK: Right IJ triple-lumen catheter in place no masses, no JVD. CHEST: No chest wall deformity. LUNGS: Equal air entry with bilateral scattered rhonchi. CVS: S1 and S2 normal with no audible murmur, regular rhythm. ABDOMEN: No hepatosplenomegaly, normal bowel sounds, no guarding or rigidity. SPINE: No scoliosis or deformity SKIN: No rashes CENTRAL NERVOUS SYSTEM: No focal deficits, tone is normal in all 4 extremities. EXTREMITIES: Right femoral arterial line in place. There is no peripheral edema. No clubbing, no cyanosis. Peripheral pulses are intact. - Labs CBC & Chem 7: 03/23/24 04:44 03/23/24 13:25 Labs: Abnormal Lab Results - Last 24 Hours (Table) 03/22/24 03/22/24 03/23/24 Range/Units 11:30 23:47 04:28 WBC (3.8-10.6) k/uL RBC (3.80-5.40) m/uL Hgb (11.4-16.0) gm/dL RDW (11.5-15.5) % Neutrophils # (1.3-7.7) k/uL APTT 59.5 H (22.0-30.0) sec ABG pH 7.49 H (7.35-7.45) ABG HCO3 28 H (21-25) mmol/L ABG Total CO2 30 H (19-24) mmol/L ABG O2 Saturation 98.7 H (94-97) % Chloride (98-107) mmol/L BUN (7-17) mg/dL Creatinine (0.52-1.04) mg/dL Calcium (8.4-10.2) mg/dL Stool Occult Blood Positive H (Negative) 03/23/24 03/23/24 03/23/24 Range/Units 04:44 04:44 07:13 WBC 11.4 H (3.8-10.6) k/uL RBC 3.55 L (3.80-5.40) m/uL Hgb 11.0 L (11.4-16.0) gm/dL RDW 17.2 H (11.5-15.5) % Neutrophils # 9.2 H (1.3-7.7) k/uL APTT 32.3 H (22.0-30.0) sec ABG pH (7.35-7.45) ABG HCO3 (21-25) mmol/L ABG Total CO2 (19-24) mmol/L ABG O2 Saturation (94-97) % Chloride 113 H (98-107) mmol/L BUN 5 L (7-17) mg/dL Creatinine 0.33 L (0.52-1.04) mg/dL Calcium 7.7 L (8.4-10.2) mg/dL Stool Occult Blood (Negative) Microbiology - Last 24 Hours (Table) 03/17/24 12:28 Blood Culture - Final Blood Assessment and Plan Plan: Acute hypoxemic respiratory failure secondary to aspiration requiring intubation mechanical ventilatory support, and the patient continues to have multifocal airspace disease bilaterally. The patient had an elevated procalcitonin level at time of admission. The patient was treated with IV Zosyn. No significant interval improvement in the chest x-ray finding. The pneumonia remains unchanged. Consider bacterial pneumonia wsecondary aspiration. Hypotension secondary to above requiring pressor support, currently off pressors Leukocytosis secondary to above, improving Atrial fibrillation with a rapid ventricular response currently on Cardizem drip 5 mg an hour and the patient is also on anticoagulation with Lovenox 60 mg SQ every 12 hours. The patient is also on amiodarone. History of advanced dementia residing in an adult foster care Hyperlipidemia DTI -buttock constpation and she has responded to Dulcolax Plan: Continue ventilator support Continue Zosyn Check procalcitonin level to assess her progress And IV vancomycin regarding possibility of viscus staphylococcal pneumonia as the patient is intermediate resident Started patient on IV Solu-Medrol 40 mg every 8 hours Continue Cardizem drip at 5 mg an hour. The patient is also on oral amiodarone and Lovenox for anticoagulation 60 mg every 12 hours. Restart enteral feeding for nutritional support and the patient was given appropriate laxatives TSH is within normal limits Continue supportive care. Not ready for weaning at this point in time. Obviously, this going to be a difficult wean based on her underlying advanced dementia. Will continue to follow make further recommendations based on her progress. This is a critical care evaluation that was done more than 30 minutes. Time with Patient: Greater than 30
[2024-03-23 14:43] LABS: Glucose,Whole Blood 131 mg/dL (70-110)
[2024-03-23 15:19] VITALS: BMI 22.9
--- NOTE | 2024-03-23 15:23 | P.PN ---
Progress Note - Text Progress Note Date: 03/23/24 Chief Complaint: Aspiration This is a 78-year-old patient, brought into the ER. She was sent in from [facility] which is assisted living via EMS for potential aspiration. Patient at baseline is nonverbal. Patient was found to be choking on her breakfast including sausages and oatmeal. Patient did expel the sausage and oatmeal. Patient became progressively hypoxic in the ER had to be intubated. oat meal was recovered beyond the vocal cords. Patient taken to the ICU. Intubated. Currently on FiO2 50% and a PEEP of 5. Drips include propofol. March 18: ICU. Remains intubated. FiO2 40 and a PEEP of 5. Patient last started on norepinephrine. Started on tube feeding at 10 cc an hour. Also on propofol. Vasopressin was ordered last night but never started. March 19: ICU. Intubated. FiO2 30% and a PEEP of 5. Drips include propofol 25 mics, norepinephrine 0.07 mcg. Tube feeding at 30 cc an hour. Sedated. Remains on IV Zosyn. March 20 ICU. Intubated. FiO2 30 and PEEP of 5. Last night went into atrial fibrillation. Put on IV amiodarone. Went back in sinus rhythm. Drips include propofol 35 mics, norepinephrine 0.11 nikolas. Vasopressin started at 0.03 mics. Minimal secretions. Tube feeding at 34 cc an hour. March 21: ICU. Intubated. FiO2 30 and a PEEP of 5. Patient had a high residual volume of 550 cc. Reglan was added. Drips include propofol 30 mics, vasopressin 0.3 mcg, patient IV heparin. Telemetry shows sinus rhythm. Has been in and out of A-fib. March 22: ICU. Intubated. Hypothermic overnight. Put on Jose hugger. Patient been off epinephrine since yesterday. Also taken off vasopressin. Blood pressures running with systolic around 130s. Propofol was discontinued this afternoon. Patient again had high residuals today around 500 cc. Reglan changed to 10 mg every 6. Dulcolax suppository 10 mg. If no good then we will try enema. Discussed with nurse. March 23: ICU. Intubated. FiO2 30 and a PEEP of 5. Was in A-fib uncontrolled again was given Cardizem drip 5 mg an hour. Drips include propofol at 15 mics. Tube feeding was held because of increased gastric residual. Has been on Reglan. Patient did have a golf ball sized hard stool with laxative yesterday. Active Medications Acetaminophen (Acetaminophen Tab 325 Mg Tab) 650 mg PO Q6HR PRN PRN Reason: Fever and/ or Pain Albuterol/Ipratropium (Ipratropium-Albuterol 3 Ml Neb) 3 ml INHALATION RT-Q4H [facility] Last Admin: 03/23/24 11:04 Dose: Not Given Amiodarone HCl (Amiodarone 200 Mg Tab) 400 mg PO BID [facility] Last Admin: 03/23/24 08:15 Dose: 400 mg Atorvastatin Calcium (Atorvastatin 10 Mg Tab) 10 mg PO HS@2000 [facility] Last Admin: 03/22/24 21:37 Dose: 10 mg Bisacodyl (Bisacodyl 10 Mg Supp) 10 mg RECTAL DAILY [facility] Last Admin: 03/23/24 08:17 Dose: Not Given Chlorhexidine Gluconate (Chlorhexidine Gluconate 15 Ml Cup) 15 ml MUCOUS MEM BID [facility] Last Admin: 03/23/24 08:14 Dose: 15 ml Cyproheptadine HCl (Cyproheptadine 4 Mg Tablet) 4 mg PO QID@08,12,16,20 [facility] Last Admin: 03/23/24 13:16 Dose: Not Given Enoxaparin Sodium (Enoxaparin 60 Mg/0.6 Ml Syringe) 60 mg SQ Q12HR [facility] Last Admin: 03/23/24 08:17 Dose: 60 mg Famotidine (Famotidine 20 Mg Tab) 20 mg PO BID [facility] Last Admin: 03/23/24 08:14 Dose: 20 mg Piperacillin Sod/Tazobactam (Sod 3.375 gm/ Sodium Chloride) 100 mls @ 25 mls/hr IVPB Q8H [facility]; Protocol Last Admin: 03/23/24 13:24 Dose: 25 mls/hr Propofol 1,000 mg/ IV Solution 100 mls @ 6.124 mls/hr IV .[id number] [facility]; Protocol Last Admin: 03/23/24 05:26 Dose: 15 mcg/kg/min, 6.124 mls/hr Lactated Ringer's (Lactated Ringers) 1,000 mls @ 75 mls/hr IV .[id number] [facility] Last Admin: 03/23/24 08:29 Dose: 75 mls/hr Diltiazem HCl 125 mg/ Sodium (Chloride) 125 mls @ 5 mls/hr IV .Q24H [facility] Last Admin: 03/23/24 05:41 Dose: 5 mg/hr, 5 mls/hr Potassium Chloride 10 meq/ IV (Solution) 100 mls @ 100 mls/hr IVPB Q1H [facility]; Protocol Stop: 03/23/24 16:14 Last Admin: 03/23/24 14:17 Dose: 100 mls/hr Methylprednisolone Sodium Succinate (Methylprednisolone Sod Succi 125 Mg/2 Ml Vial) 80 mg IV Q8HR [facility] Last Admin: 03/23/24 12:00 Dose: 80 mg Metoclopramide HCl (Metoclopramide 5 Mg/Ml 2 Ml Vial) 10 mg IVP Q6HR [facility] Last Admin: 03/23/24 13:24 Dose: 10 mg Mirtazapine (Mirtazapine 15 Mg Tab) 30 mg PO HS@1999 [facility] Last Admin: 03/22/24 21:28 Dose: 30 mg Miscellaneous Information (Potassium Replacement Protocol 1 Each Misc) 1 each MISCELLANE DAILY PRN; Protocol PRN Reason: Per Protocol Miscellaneous Information (Magnesium Replacement Protocol 1 Each Misc) 1 each MISCELLANE DAILY PRN; Protocol PRN Reason: Per Protocol Naloxone HCl (Naloxone 0.4 Mg/Ml 1 Ml Vial) 0.2 mg IV Q2M PRN PRN Reason: Opioid Reversal Nystatin (Nystatin 100,000unit/Gm Cream 30 Gm Tube) 1 applic TOPICAL BID@799,1999 [facility]; Protocol Last Admin: 03/23/24 08:16 Dose: 1 applic Oxybutynin Chloride (Oxybutynin 10 Mg Tab.Er.24) 10 mg PO DAILY@0800 [facility] Last Admin: 03/23/24 08:17 Dose: Not Given Social history: Patient lives at [facility]. History of heavy alcohol use in the past. Started smoking at age of 14 smoked half a pack a day. Physical examination: VITAL SIGNS: 98.7, 90, 29, 102/54, 97% on 30% GENERAL: laying in bed intubated. Sedated EYES: Pupils equal. Conjunctiva paul l. HEENT: External appearance of nose and ears normal, oral cavity grossly normal. Endotracheal tube. OG tube feeding NECK: JVD not raised; masses not palpable. HEART: First and second heart sounds are normal; no edema. LUNGS: Respiratory rate crease diminished breath sounds some crackles. ABDOMEN: Soft, nontender, liver spleen not palpable, no masses palpable. PSYCH: Sedated MUSCULOSKELETAL: OA INVESTIGATIONS, reviewed in the clinical context: March 23: White count 11.4 hemoglobin 11 platelets 243 potassium 3.8 creatinine 0.33 March 22: White count 10.2 hemoglobin 11.8 platelets 198 sodium 148 potassium 3.1 creatinine 0.31 March 21: White count 12.6 hemoglobin 10.5 platelets 173 sodium 136 potassium 4 creatinine 0.30 March 19: White count 21 hemoglobin 11.6 platelets 236 potassium 3.6 creatinine 0.5 March 18: White count 14.6 hemoglobin 13.2 platelets 293 sodium 141 potassium 3.7 BUN 22 creatinine 0.61 Sputum culture [March 17]: Normal respiratory clara March 17, 2024: White count 3.5 hemoglobin 15.1 platelets 680 sodium 140 potassium 4.6. 21 creatinine 0.50 Troponin I 0.016. proBNP 1580 EKG tracing personally reviewed by me-sinus tachycardia. Questionable atrial flutter. Chest x-ray film personally reviewed by me-hyperinflation. Possible scant infiltrate Assessment plan: -Aspiration pneumonitis secondary to patient witnessed to choke on oatmeal and sausage. Some of that was coughed up. Some more was obtained when patient being intubated in the ER.: IV Zosyn -Septic shock from underlying pneumonia: Better IV norepinephrine, IV vasopressin-both discontinued -Hypothermia multifactorial Jose hugger. -Paroxysmal atrial fibrillation rapid ventricular rate, in and out of A-fib uncontrolled overnight IV Cardizem drip at 5 mg an hour IV amiodarone-changed to oral amiodarone Subcu Lovenox 60 mg every 12 -Acute hypoxic respiratory failure from aspiration pneumonia, requiring ventilator assist: FiO2 30%. PEEP 5. -Severe cognitive impairment underlying dementia -Primary osteoarthritis Tylenol as needed -Hyperlipidemia Lipitor 10 mg nightly -Chronic urinary incontinence Oxybutynin Full code -Public guardian Prognosis guarded. Continue current medication treatment plan. 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 History of Any Multi-Drug Resistant Organisms: None Reported Past Surgical History: Unable to Obtain, Orthopedic Surgery Past Anesthesia/Blood Transfusion Reactions: Unable to Obtain Additional Past Anesthesia/Blood Transfusion Reaction / Comment(s): PT DENIED EVER HAVING ANY SX Past Psychological History: Depression Smoking Status: Former smoker Past Alcohol Use History: Heavy Past Drug Use History: None Reported
[2024-03-23 18:53] LABS: Glucose,Whole Blood 111 mg/dL (70-110)
[2024-03-24 00:14] LABS: Glucose,Whole Blood 116 mg/dL (70-110)
[2024-03-24] MEDS: NOREPINEPHRINE 8 MG in SODIUM CHLORIDE 0.9% 250 ML IV SCH (01:24)
[2024-03-24 04:55] LABS: Anisocytosis Slight; HCT 36.9 % (34.0-46.0); HGB 11.5 gm/dL (11.4-16.0); Hypochromasia Slight; MCH 30.6 pg (25.0-35.0); MCHC 31.1 g/dL (31.0-37.0); MCV 98.3 fL (80.0-100.0); Macrocytosis Slight; Mean Platelet Volume 8.6; Platelet Count 368 k/uL (150-450); RBC 3.75 m/uL (3.80-5.40); RDW 17.1 % (11.5-15.5); WBC 12.5 k/uL (3.8-10.6)
[2024-03-24 05:25] LABS: African American GFR (CKD) >90 (>60 ml/min/1.73 sqM); Anion Gap 3 mmol/L; Blood Urea Nitrogen 9 mg/dL (7-17); Calcium 7.3 mg/dL (8.4-10.2); Carbon Dioxide 28 mmol/L (22-30); Chloride 110 mmol/L (98-107); Glucose 132 mg/dL (74-99); Non-African American GFR(CKD) >90 (>60 ml/min/1.73 sqM); Potassium 3.7 mmol/L (3.5-5.1); Sodium 141 mmol/L (137-145)
[2024-03-24 05:42] LABS: ABG Base Excess 2.8 mmol/L; ABG HCO3 27 mmol/L (21-25); ABG Oxygen Saturation 95.1 % (94-97); ABG PCO2 43 mmHg (35-45); ABG PH 7.42 (7.35-7.45); ABG PO2 70 mmHg (83-108); ABG TCO2 29 mmol/L (19-24); Allen Test Performed? Yes
[2024-03-24] MEDS: POTASSIUM BICARBONATE/CIT AC 20 MEQ TABLET.EFF NG-TUBE SCH ×2 (06:16→10:35)
--- NOTE | 2024-03-24 08:32 | XR ---
EXAMINATION TYPE: XR chest 1V portable DATE OF EXAM: 03/24/2024 COMPARISON: 03/23/2024 INDICATION: Mechanical ventilation difficulty breathing TECHNIQUE: Single frontal view of the chest is obtained. FINDINGS: The heart size is normal. The pulmonary vasculature is normal. Right upper lobe consolidation with air bronchograms are present. Correlate for pneumonia. Mild scatt ered tracer present bilaterally. Endotracheal tube tip is 2.5 cm above the shay. Nasogastric tube transverses the thorax to the prox imal left upper abdomen. This is advanced approximately 5 cm for better positioning. Back from prior study. Left central venous catheter has its tip within the proximal right atrium IMPRESSION: 1. Worsening right upper lobe consolidation. Correlate for pneumonia. 2. Some mild scattered infiltrates are with remaining interspaces. 3. Multiple lines and catheters discussed above 4. Endotracheal tube can be advanced at least 5 cm for better positioning.
--- NOTE | 2024-03-24 10:31 | P.PN ---
Subjective Progress Note Date: 03/24/24 PROGRESS NOTE The patient is a 78-year-old female with known history of hyperlipidemia, dementia who is intubated because of pneumonia. She had episodes of paroxysmal atrial fibrillation. She continues on IV heparin and was started yesterday on IV Cardizem because of episodes of paroxysmal atrial fibrillation. She is back in sinus mechanism. She is on no vasopressor. The patient was hypotensive ini tially requiring vasopressors. Her echocardiogram showed a preserved systolic function. March 24: The patient remains intubated. She is in sinus mechanism at this time. She had some episodes of paroxysmal atrial fibrillation. Her blood pressure is stable, she is not on vasopressors. Her chest x-ray shows evidence of pneumonia with consolidation on the right side, could be aspiration. She remains sedated on IV Cardizem. Medications: IV Cardizem, amiodarone 400 mg twice a day, atorvastatin 10 mg daily, Zosyn, subcu Lovenox PHYSICAL EXAMINATION: Blood pressure 90/68 heart rate 105, intubated and sedated LUNGS: Clear to auscultation anteriorly HEART: Regular rate and rhythm, S1, S2. No S3. Systolic ejection murmur ABDOMEN: Soft, no organomegaly EXTREMETIES: No edema LAB: Hemoglobin 11.5, platelets 368, potassium 3.7, BUN 5, creatinine 0.36 IMPRESSION: 1. Respiratory failure with aspiration pneumonia 2. Paroxysmal atrial fibrillation, back in sinus mechanism, receiving subcu Woody enox 3. History of hyperlipidemia 4. History of dementia PLAN: 1. Continue IV Cardizem for now 2. Follow renal functions 3. If she has further episodes of atrial fibrillation, increase the dose of IV Cardizem Objective - Vital Signs Vital signs: Vital Signs Temp 98.1 F 03/24/24 08:00 Pulse 138 H 03/24/24 10:00 Resp 26 H 03/24/24 10:00 BP 89/65 03/24/24 10:00 Pulse Ox 95 03/24/24 10:00 FiO2 30 03/24/24 08:25 Intake & Output 03/23/24 03/24/24 03/24/24 18:59 06:59 18:59 Intake Total 9774.120 7143.542 360.395 Output Total 1135 395 110 Balance 70.295 1065.542 250.395 Weight 64.5 kg 149 kg Intake: IV 1114 1036 234 .9 NS pressure bag 39 36 9 Lactated Ringers 1,000 ml 975 900 150 @ 75 mls/hr IV .[id number] [facility] Rx#:[id number] Piperacillin-Tazobactam 3 100 100 75 .375 gm In Sodium Chloride 0.9% 100 ml @ 25 mls/hr IVPB Q8H [facility] Rx#: [id number] Intake, IV Titration 91.295 144.542 26.395 Amount Diltiazem 125 mg In 21.583 121.084 0 Sodium Chloride 0.9% 100 ml @ 5 MG/HR 5 mls/hr IV .Q24H [facility] Rx#:[id number] Norepinephrine 8 mg In 3.453 26.395 Sodium Chloride 0.9% 250 ml @ 0.03 MCG/KG/MIN 3. 744 mls/hr IV .Q24H [facility] Rx#:[id number] propofoL 1,000 mg In 69.712 20.005 Empty Bag 1 bag @ 15 MCG/ KG/MIN 6.124 mls/hr IV . [id number] [facility] Rx#:[id number] Tube Feeding 190 70 Other 90 30 Output: Urine 1135 395 110 Other: Voiding Method Indwelling Catheter Indwelling Catheter Indwelling Catheter # Bowel Movements 1 ABP, PAP, CO, CI - Last Documented Arterial Blood Pressure 100/59 - Labs CBC & Chem 7: 03/24/24 04:40 03/24/24 04:40 Labs: Abnormal Lab Results - Last 24 Hours (Table) 03/23/24 03/23/24 03/23/24 Range/Units 12:08 13:25 14:40 WBC (3.8-10.6) k/uL RBC (3.80-5.40) m/uL RDW (11.5-15.5) % ABG pO2 (83-108) mmHg ABG HCO3 (21-25) mmol/L ABG Total CO2 (19-24) mmol/L Chloride (98-107) mmol/L Creatinine (0.52-1.04) mg/dL Glucose (74-99) mg/dL POC Glucose (mg/dL) 69 L 131 H (70-110) mg/dL Calcium (8.4-10.2) mg/dL Procalcitonin 0.64 H (0.02-0.09) ng/mL 03/23/24 03/24/24 03/24/24 Range/Units 18:51 00:12 04:40 WBC (3.8-10.6) k/uL RBC (3.80-5.40) m/uL RDW (11.5-15.5) % ABG pO2 (83-108) mmHg ABG HCO3 (21-25) mmol/L ABG Total CO2 (19-24) mmol/L Chloride 110 H (98-107) mmol/L Creatinine 0.36 L (0.52-1.04) mg/dL Glucose 132 H (74-99) mg/dL POC Glucose (mg/dL) 111 H 116 H (70-110) mg/dL Calcium 7.3 L (8.4-10.2) mg/dL Procalcitonin (0.02-0.09) ng/mL 03/24/24 03/24/24 Range/Units 04:40 05:50 WBC 12.5 H (3.8-10.6) k/uL RBC 3.75 L (3.80-5.40) m/uL RDW 17.1 H (11.5-15.5) % ABG pO2 70 L (83-108) mmHg ABG HCO3 27 H (21-25) mmol/L ABG Total CO2 29 H (19-24) mmol/L Chloride (98-107) mmol/L Creatinine (0.52-1.04) mg/dL Glucose (74-99) mg/dL POC Glucose (mg/dL) (70-110) mg/dL Calcium (8.4-10.2) mg/dL Procalcitonin (0.02-0.09) ng/mL
--- NOTE | 2024-03-24 12:14 | P.PN ---
Progress Note - Text Progress Note Date: 03/24/24 Chief Complaint: Aspiration This is a 78-year-old patient, brought into the ER. She was sent in from [facility] which is assisted living via EMS for potential aspiration. Patient at baseline is nonverbal. Patient was found to be choking on her breakfast including sausages and oatmeal. Patient did expel the sausage and oatmeal. Patient became progressively hypoxic in the ER had to be intubated. oat meal was recovered beyond the vocal cords. Patient taken to the ICU. Intubated. Currently on FiO2 50% and a PEEP of 5. Drips include propofol. March 18: ICU. Remains intubated. FiO2 40 and a PEEP of 5. Patient last started on norepinephrine. Started on tube feeding at 10 cc an hour. Also on propofol. Vasopressin was ordered last night but never started. March 19: ICU. Intubated. FiO2 30% and a PEEP of 5. Drips include propofol 25 mics, norepinephrine 0.07 mcg. Tube feeding at 30 cc an hour. Sedated. Remains on IV Zosyn. March 20 ICU. Intubated. FiO2 30 and PEEP of 5. Last night went into atrial fibrillation. Put on IV amiodarone. Went back in sinus rhythm. Drips include propofol 35 mics, norepinephrine 0.11 nikolas. Vasopressin started at 0.03 mics. Minimal secretions. Tube feeding at 34 cc an hour. March 21: ICU. Intubated. FiO2 30 and a PEEP of 5. Patient had a high residual volume of 550 cc. Reglan was added. Drips include propofol 30 mics, vasopressin 0.3 mcg, patient IV heparin. Telemetry shows sinus rhythm. Has been in and out of A-fib. March 22: ICU. Intubated. Hypothermic overnight. Put on Jose hugger. Patient been off epinephrine since yesterday. Also taken off vasopressin. Blood pressures running with systolic around 130s. Propofol was discontinued this afternoon. Patient again had high residuals today around 500 cc. Reglan changed to 10 mg every 6. Dulcolax suppository 10 mg. If no good then we will try enema. Discussed with nurse. March 23: ICU. Intubated. FiO2 30 and a PEEP of 5. Was in A-fib uncontrolled again was given Cardizem drip 5 mg an hour. Drips include propofol at 15 mics. Tube feeding was held because of increased gastric residual. Has been on Reglan. Patient did have a golf ball sized hard stool with laxative yesterday. March 24: ICU. Intubated. FiO2 30 and a PEEP of 5. A-fib uncontrolled this morning.. Drips include IV Cardizem 5 mcg, norepinephrine 0.02 mcg, propofol 20 mcg. Tube feeding at 30 cc an hour. Prognosis remains guarded. I spoke to Guerline the legal guardian. And discussed patient's overall prognosis guarded. Given patient's overall comorbidities patient will be very appropriate for DNR. Chest x-ray diffuse infiltrates Active Medications Acetaminophen (Acetaminophen Tab 325 Mg Tab) 650 mg PO Q6HR PRN PRN Reason: Fever and/ or Pain Albuterol/Ipratropium (Ipratropium-Albuterol 3 Ml Neb) 3 ml INHALATION RT-Q4H [facility] Last Admin: 03/24/24 11:35 Dose: 3 ml Amiodarone HCl (Amiodarone 200 Mg Tab) 400 mg PO BID [facility] Last Admin: 03/24/24 09:31 Dose: 400 mg Atorvastatin Calcium (Atorvastatin 10 Mg Tab) 10 mg PO HS@2000 [facility] Last Admin: 03/23/24 21:29 Dose: 10 mg Bisacodyl (Bisacodyl 10 Mg Supp) 10 mg RECTAL DAILY [facility] Last Admin: 03/24/24 09:33 Dose: Not Given Chlorhexidine Gluconate (Chlorhexidine Gluconate 15 Ml Cup) 15 ml MUCOUS MEM BID [facility] Last Admin: 03/24/24 09:30 Dose: 15 ml Cyproheptadine HCl (Cyproheptadine 4 Mg Tablet) 4 mg PO QID@08,12,16,20 [facility] Last Admin: 03/24/24 09:32 Dose: 4 mg Enoxaparin Sodium (Enoxaparin 60 Mg/0.6 Ml Syringe) 60 mg SQ Q12HR [facility] Last Admin: 03/24/24 09:30 Dose: 60 mg Famotidine (Famotidine 20 Mg Tab) 20 mg PO BID [facility] Last Admin: 03/24/24 09:31 Dose: 20 mg Piperacillin Sod/Tazobactam (Sod 3.375 gm/ Sodium Chloride) 100 mls @ 25 mls/hr IVPB Q8H [facility]; Protocol Last Admin: 03/24/24 05:41 Dose: 25 mls/hr Propofol 1,000 mg/ IV Solution 100 mls @ 6.124 mls/hr IV .[id number] [facility]; Protocol Last Titration: 03/24/24 11:07 Dose: 0 mcg/kg/min, 0 mls/hr Lactated Ringer's (Lactated Ringers) 1,000 mls @ 75 mls/hr IV .[id number] [facility] Last Admin: 03/24/24 10:36 Dose: 75 mls/hr Diltiazem HCl 125 mg/ Sodium (Chloride) 125 mls @ 5 mls/hr IV .Q24H [facility] Last Infusion: 03/24/24 07:30 Dose: 5 mg/hr, 5 mls/hr Norepinephrine Bitartrate 8 mg (/ Sodium Chloride) 258 mls @ 3.744 mls/hr IV .Q24H [facility]; Protocol Last Titration: 03/24/24 10:09 Dose: 0 mcg/kg/min, 0 mls/hr Methylprednisolone Sodium Succinate (Methylprednisolone Sod Succi 125 Mg/2 Ml Vial) 80 mg IV Q8HR [facility] Last Admin: 03/24/24 09:31 Dose: 80 mg Metoclopramide HCl (Metoclopramide 5 Mg/Ml 2 Ml Vial) 10 mg IVP Q6HR [facility] Last Admin: 03/24/24 05:38 Dose: Not Given Mirtazapine (Mirtazapine 15 Mg Tab) 30 mg PO HS@1999 [facility] Last Admin: 03/23/24 21:24 Dose: 30 mg Miscellaneous Information (Potassium Replacement Protocol 1 Each Misc) 1 each MISCELLANE DAILY PRN; Protocol PRN Reason: Per Protocol Miscellaneous Information (Magnesium Replacement Protocol 1 Each Misc) 1 each MISCELLANE DAILY PRN; Protocol PRN Reason: Per Protocol Naloxone HCl (Naloxone 0.4 Mg/Ml 1 Ml Vial) 0.2 mg IV Q2M PRN PRN Reason: Opioid Reversal Nystatin (Nystatin 100,000unit/Gm Cream 30 Gm Tube) 1 applic TOPICAL BID@0800,1999 [facility]; Protocol Last Admin: 03/24/24 09:32 Dose: 1 applic Oxybutynin Chloride (Oxybutynin 10 Mg Tab.Er.24) 10 mg PO DAILY@08 [facility] Last Admin: 04/30/24 09:26 Dose: Not Given Social history: Patient lives at [facility]. History of heavy alcohol use in the past. Started smoking at age of 14 smoked half a pack a day. Physical examination: VITAL SIGNS: 98.1, 147, 25, 90/68, 97% on vent GENERAL: laying in bed intubated. Sedated EYES: Pupils equal. Conjunctiva paul l. HEENT: External appearance of nose and ears normal, oral cavity grossly normal. Endotracheal tube. OG tube feeding NECK: JVD not raised; masses not palpable. HEART: First and second heart sounds are normal; no edema. LUNGS: Respiratory rate increased diminished breath sounds some crackles. ABDOMEN: Soft, nontender, liver spleen not palpable, no masses palpable. PSYCH: Sedated MUSCULOSKELETAL: OA INVESTIGATIONS, reviewed in the clinical context: March 24: White count 12.5 hemoglobin 11.5 platelets 368 sodium 141 potassium 3.7 creatinine 0.36 March 23: White count 11.4 hemoglobin 11 platelets 243 potassium 3.8 creatinine 0.33 March 22: White count 10.2 hemoglobin 11.8 platelets 198 sodium 148 potassium 3.1 creatinine 0.31 March 21: White count 12.6 hemoglobin 10.5 platelets 173 sodium 136 potassium 4 creatinine 0.30 March 19: White count 21 hemoglobin 11.6 platelets 236 potassium 3.6 creatinine 0.5 March 18: White count 14.6 hemoglobin 13.2 platelets 293 sodium 141 potassium 3.7 BUN 22 creatinine 0.61 Sputum culture [March 17]: Normal respiratory clara March 17, 2024: White count 3.5 hemoglobin 15.1 platelets 680 sodium 140 potassium 4.6. 21 creatinine 0.50 Troponin I 0.016. proBNP 1580 EKG tracing personally reviewed by me-sinus tachycardia. Questionable atrial flutter. Chest x-ray film personally reviewed by me-hyperinflation. Possible scant infiltrate Assessment plan: -Aspiration pneumonitis secondary to patient witnessed to choke on oatmeal and sausage. Some of that was coughed up. Some more was obtained when patient being intubated in the ER.: Not improving IV Zosyn -Septic shock from underlying pneumonia: Resolved IV norepinephrine, IV vasopressin-both discontinued -Hypothermia multifactorial: Improved Ojse hugger. -Paroxysmal atrial fibrillation rapid ventricular rate, in and out of A-fib uncontrolled IV Cardizem drip at 5 mg an hour IV amiodarone-changed to oral amiodarone Subcu Lovenox 60 mg every 12 -Acute hypoxic respiratory failure from aspiration pneumonia, requiring ventilator assist: FiO2 30%. PEEP 5. -Severe cognitive impairment underlying dementia -Primary osteoarthritis Tylenol as needed -Hyperlipidemia Lipitor 10 mg nightly -Chronic urinary incontinence Oxybutynin Full code -Public guardianGuerline Patient's prognosis remains guarded. Will be appropriate to be DNR. Met with Guerline public guardian [informed me that patient does have a son but not really involved in patient's care.]. Discussed clinical picture. 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 History of Any Multi-Drug Resistant Organisms: None Reported Past Surgical History: Unable to Obtain, Orthopedic Surgery Past Anesthesia/Blood Transfusion Reactions: Unable to Obtain Additional Past Anesthesia/Blood Transfusion Reaction / Comment(s): PT DENIED EVER HAVING ANY SX Past Psychological History: Depression Smoking Status: Former smoker Past Alcohol Use History: Heavy Past Drug Use History: None Reported
--- NOTE | 2024-03-24 12:46 | P.EN ---
Advance care planning [March 24, 2024] I met with Guerline the legal guardian. Patient's overall prognosis was discussed. Including her medical conditions. Patient at baseline, has dem entia. Clinical condition discussed. She will discuss this with her tea and spice supervisor Kathi and may have to take her to the license clerk. Questions answered Time spent about 25 minutes
[2024-03-24 12:58] LABS: Glucose,Whole Blood 129 mg/dL (70-110)
--- NOTE | 2024-03-24 13:41 | P.PN ---
Subjective Progress Note Date: 03/24/24 This is a 78-year-old female patient with a known history of hyperlipidemia and dementia and resides in a adult foster care setting. He was brought into the emergency room earlier this morning for possible aspiration. Apparently the patient is nonverbal. She was found choking this morning after her breakfast of sausage and oatmeal. She developed productive cough. This x-ray initially revealed no acute pulmonary process. Her condition continued to deteriorate and she required intubation mechanical ventilatory support. He was seen in consultation in the emergency department. She remains intubated on the mechanical ventilator at assist-control mode at a rate of 16, tidal volume 350, FiO2 of 50% and a PEEP of 5. Initial blood gases on 100% FiO2 revealed a PaO2 of 314, pCO2 41, pH 7.35. White count 30.5. Hemoglobin 15.1. Platelets 680. INR 1.0. Sodium 140. Potassium 4.6. Bicarb 24. BUN 21. Creatinine 0.50. Glucose 132. proBNP 1580. She is sedated on propofol at 50 mcg/kg/min. She has been initiated on vancomycin, Flagyl and Zosyn. The patient is seen today March 18, 2024 and follow-up in the intensive care unit. She remains intubated on mechanical ventilator. Currently in assist- control mode at a rate of 16, tidal volume 350, FiO2 40% and a PEEP of 5. Morning blood gases revealed pO2 of 150, pCO2 43 and a pH of 7.22 that was on 50% FiO2. She remains sedated on propofol 35 mcg/kg/min. She has required norepinephrine at 9.5 mcg/min. She has lactated Ringer's at 75 mL/h. She is continued on Lovenox for DVT prophylaxis. Continued on antibiotics in the form of Zosyn. White count 28.6. Hemoglobin 13.2. Platelets 293. Sodium 141. Potassium 3.7. Bicarb 18. BUN 22. Creatinine 0.61. Glucose 130. Chest x-ray reveals endotracheal nasogastric tubes in good position. Left subclavian triple-lumen catheter in place. There is patchy infiltrates persist in the right upper lobe right perihilar and left perihilar lower lobe regions. Sputum culture is pending. The patient is seen today March 19, 2024 in follow-up in the intensive care unit. She remains intubated on mechanical ventilator. Currently on assist- control mode with a rate of 16, tidal volume 350, FiO2 30% and a PEEP of 5. Morning blood gases reveal a PaO2 of 127 pounds, pCO2 43, pH 7.33. Chest x-ray reveals right upper lobe and left lower lobe infiltrates. Procalcitonin 11.4. She is currently on Zosyn. Remains on lactated Ringer's at 75 MLS per hour. Continued on sedation with propofol at 25 mcg/kg/min. Norepinephrine at 4 mcg/min. Being nourished with vital AF. Blood cultures pending. Sputum culture revealed no growth. White count 21.0. Hemoglobin 11.6. Platelets 236. Sodium 143. Potassium 3.6. Bicarb 22. BUN 14. Creatinine 0.50. She is continued on DuoNeb inhalations, Lovenox for DVT prophylaxis. The patient is seen today March 20, 2024 in follow-up in the [facility] intensive care unit. She remains intubated on the mechanical ventilator. Current sett ings are assist-control mode with a rate of 16, tidal volume 350, FiO2 30% and a PEEP of 5. Morning blood gases revealed a PaO2 of 99, pCO2 46, pH 7.32. She has lactated Ringer's at 75 MLS per hour. Sedated on propofol at 40 mcg/kg/min. Remains on amiodarone at 1 mg/min. Vasopressin at 0.03 units/min. Norepinephrine at 7.2 mcg/min. She is being nourished with vital AF at 34 out of 34 MLS per hour. She is continued on Zosyn. Chest x-ray is stable with scattered airspace infiltrates bilaterally. White count 19.0. Hemoglobin 11.2. Platelets 252. Sodium 140. Potassium 3.7. Bicarb 21. BUN 10. Creatinine 0.35. Glucose 173. She is continued on bronchodilators. Continue on Lovenox for DVT prophylaxis. The patient is seen today March 21, 2024 in follow-up in the intensive care [facility]. She remains intubated on the mechanical ventilator. Currently on assist- control mode at a rate of 16, tidal volume 350, FiO2 30% and a PEEP of 5. Morning blood gases revealed a PaO2 of 88, pCO2 39 and a pH of 7.43. She remains on a heparin drip. Continue on lactated Ringer's at 75 MLS per hour. Propofol at 15 mcg/kg/min. Vasopressin at 0.03 units/min. She is being nourished with vital HP at 10 with a goal of 29. She has had issues with high residuals. She is on Reglan. She remains in atrial fibrillation. Blood culture revealed no growth. Sputum culture revealed no growth. White count 12.6. Hemoglobin 10.5. Platelets 173. Sodium 136. Potassium 4.0. Bicarb 25. BUN 9. Creatinine 0.30. Glucose 113. Remains on bronchodilators. Remains on Zosyn. The patient is seen today March 22, 2024 in follow-up in the intensive care unit. She remains intubated on the mechanical ventilator and assist-control mode at a rate of 16, tidal volume 350, FiO2 30% and a PEEP of 5. Morning blood gases revealed a PaO2 of 106, pCO2 48, pH 7.41. She is sedated on propofol at 25 mcg/kg/min. Heparin drip per weight-based protocol. Lactated Ringer's at 75 MLS per hour. Vital AF tube feedings currently on hold due to high residuals. Chest x-ray continues to reveal bilateral patchy opacities. Blood culture revealed no growth. Sputum culture revealed no growth. White count 10.2. Hemoglobin 11.1. Platelets 198. Sodium 148. Potassium 3.1. Bicarb 30. BUN 7. Creatinine 0.31. Glucose 107. She remains on a heparin drip for episodes of atrial fibrillation. Continued on bronchodilators. Antibiotics in the form of Zosyn. On today's evaluation 03/23/2024, seen the patient for a follow-up. The patient remains intubated on mechanical ventilator. The patient had an acute hypoxic jose failure secondary aspiration and she became hemodynamically unstable requiring pressors. She also had atrial fibrillation with rapid medical response. She has advanced dementia. On today's evaluation, the patient is on propofol running at 15 mcg/kg/min patient is on lactated Ringer at 75 cc an hour. She is on a Cardizem drip at 5 mg an hour. Her current cardiac rhythm is sinus. I was told that she is still having some paroxysmal atrial fibrillation's. The patient had an echocardiogram that showed preserved LV function. She is currently on anticoagulation with Lovenox 60 mg subcu every 12 hours. Her procalcitonin level at time of admission was 11.4. She is on assist-control mode of mechanical ventilation at rate of 60, tidal volume of 350, FiO2 30% with a PEEP of 5. The blood gas showed a pH of 7.49 with a pCO2 of 38 and pO2 of 96. Fluid balance is +1.1 L over the past 24 hours. WBC count 11.4 with a hemoglobin of 11 and a platelet count of 243. BUN is at 5 with a creatinine of 0.33 and a sodium levels at 135. She did have an episode of hypothermia earlier and her TSH came back at 3.3. Potassium level is at 3.8. The patient had a follow-up chest x-ray today that showed persistent bilateral pulmonary infiltrates, essentially unchanged compared to yesterday's chest x-ray and the patient continues to have multifocal airspace disease. Orotracheal tube is in a good location. No other significant events overnight. On today's evaluation of 03/24/2024, seen the patient for a follow-up. The patient remains intubated on mechanical ventilator as the patient has multilobar pneumonia that is suspected to be related to aspiration. The patient remains on IV Zosyn. I was concerned that the patient was not showing any signs of improvement on her chest x-ray. I repeated the procalcitonin level and the level is obviously on the decline. The patient was kept on IV Zosyn. The chest x-ray findings are essentially unchanged compared to yesterday and the patient remains intubated on mechanical ventilator. The chest x-ray is showing an area of consolidation of the right upper lobe along with areas of airspace disease in the lower lobes bilaterally. Orotracheal tube is in good location. The patient is on propofol at the rate of 20 mcg/kg/min. The patient is on lactated Ringer at 75 cc an hour. The patient is on Cardizem drip at 5 mg an hour and the patient continues to have episodes of atrial fibrillation, paroxysmal and she converted to sinus rhythm following this. She was sent on amiodarone 4 mg p.o. twice daily and she is on Lovenox 60 mg subcu every 12 hours. She is on assist- control mode with rate of 60, tidal volume of 350, FiO2 of 30% with a PEEP of 5. The blood gas showed a pH of 7.42 with a pCO2 of 43 and pO2 of 70. Fluid balance is +1.1 L over the past 24 hours. She is on tube feeds with vital AF at a rate of 30 cc an hour. WBC count 12.5 with a hemoglobin 11.5 and a platelet count of 368 sodium is at 141, BUN is at 9 with a creatinine of 0.36 and a potassium level is at 3.7. Objective - Vital Signs Vital signs: Vital Signs Temp 98.1 F 03/24/24 08:00 Pulse 138 H 03/24/24 10:00 Resp 26 H 03/24/24 10:00 BP 89/65 03/24/24 10:00 Pulse Ox 95 03/24/24 10:00 FiO2 30 03/24/24 08:25 Intake & Output 03/23/24 03/24/24 03/24/24 18:59 06:59 18:59 Intake Total 6291.604 9249.542 360.395 Output Total 1135 395 110 Balance 70.295 1065.542 250.395 Weight 64.5 kg 149 kg Intake: IV 1114 1036 234 .9 NS pressure bag 39 36 9 Lactated Ringers 1,000 ml 975 900 150 @ 75 mls/hr IV .[id number] RON Rx#:[id number] Piperacillin-Tazobactam 3 100 100 75 .375 gm In Sodium Chloride 0.9% 100 ml @ 25 mls/hr IVPB Q8H RON Rx#: [id number] Intake, IV Titration 91.295 144.542 26.395 Amount Diltiazem 125 mg In 21.583 121.084 0 Sodium Chloride 0.9% 100 ml @ 5 MG/HR 5 mls/hr IV .Q24H RON Rx#:[id number] Norepinephrine 8 mg In 3.453 26.395 Sodium Chloride 0.9% 250 ml @ 0.03 MCG/KG/MIN 3. 744 mls/hr IV .Q24H RON Rx#:[id number] propofoL 1,000 mg In 69.712 20.005 Empty Bag 1 bag @ 15 MCG/ KG/MIN 6.124 mls/hr IV . [id number] RON Rx#:[id number] Tube Feeding 190 70 Other 90 30 Output: Urine 1135 395 110 Other: Voiding Method Indwelling Catheter Indwelling Catheter Indwelling Catheter # Bowel Movements 1 ABP, PAP, CO, CI - Last Documented Arterial Blood Pressure 100/59 - Exam GENERAL EXAM: Intubated, sedated 78-year-old female, in no apparent distress. The patient remains sedated,, comfortable, intubated on mechanical ventilator. Orotracheal and gastric tube are both in place. HEAD: Normocephalic. EYES: Sluggish reaction of pupils, equal size. NOSE: Clear with pink turbinates. THROAT: No erythema or exudates. NECK: Right IJ triple-lumen catheter in place no masses, no JVD. CHEST: No chest wall deformity. LUNGS: Equal air entry with bilateral scattered rhonchi. CVS: S1 and S2 normal with no audible murmur, regular rhythm. ABDOMEN: No hepatosplenomegaly, normal bowel sounds, no guarding or rigidity. SPINE: No scoliosis or deformity SKIN: No rashes CENTRAL NERVOUS SYSTEM: No focal deficits, tone is normal in all 4 extremities. EXTREMITIES: Right femoral arterial line in place. There is no peripheral edema. No clubbing, no cyanosis. Peripheral pulses are intact. - Labs CBC & Chem 7: 03/24/24 04:40 03/24/24 04:40 Labs: Abnormal Lab Results - Last 24 Hours (Table) 03/23/24 03/23/24 03/23/24 Range/Units 12:08 13:25 14:40 WBC (3.8-10.6) k/uL RBC (3.80-5.40) m/uL RDW (11.5-15.5) % ABG pO2 (83-108) mmHg ABG HCO3 (21-25) mmol/L ABG Total CO2 (19-24) mmol/L Chloride (98-107) mmol/L Creatinine (0.52-1.04) mg/dL Glucose (74-99) mg/dL POC Glucose (mg/dL) 69 L 131 H (70-110) mg/dL Calcium (8.4-10.2) mg/dL Procalcitonin 0.64 H (0.02-0.09) ng/mL 03/23/24 03/24/24 03/24/24 Range/Units 18:51 00:12 04:40 WBC (3.8-10.6) k/uL RBC (3.80-5.40) m/uL RDW (11.5-15.5) % ABG pO2 (83-108) mmHg ABG HCO3 (21-25) mmol/L ABG Total CO2 (19-24) mmol/L Chloride 110 H (98-107) mmol/L Creatinine 0.36 L (0.52-1.04) mg/dL Glucose 132 H (74-99) mg/dL POC Glucose (mg/dL) 111 H 116 H (70-110) mg/dL Calcium 7.3 L (8.4-10.2) mg/dL Procalcitonin (0.02-0.09) ng/mL 03/24/24 03/24/24 Range/Units 04:40 05:50 WBC 12.5 H (3.8-10.6) k/uL RBC 3.75 L (3.80-5.40) m/uL RDW 17.1 H (11.5-15.5) % ABG pO2 70 L (83-108) mmHg ABG HCO3 27 H (21-25) mmol/L ABG Total CO2 29 H (19-24) mmol/L Chloride (98-107) mmol/L Creatinine (0.52-1.04) mg/dL Glucose (74-99) mg/dL POC Glucose (mg/dL) (70-110) mg/dL Calcium (8.4-10.2) mg/dL Procalcitonin (0.02-0.09) ng/mL Assessment and Plan Plan: Acute hypoxemic respiratory failure secondary to aspiration requiring intubation mechanical ventilatory support, and the patient continues to have multifocal airspace disease bilaterally. The patient had an elevated procalcitonin level at time of admission. The patient was treated with IV Zosyn. No significant interval improvement in the chest x-ray finding. Nevertheless, the patient's procalcitonin level is improving. Hemodynamically stable, the patient continues to have stable bilateral pulmonary consolidation more so in the right upper lob e. Remains on IV Zosyn. Hypotension secondary to above requiring pressor support, currently off pressors Leukocytosis secondary to above, improving Atrial fibrillation with a rapid ventricular response currently on Cardizem drip 5 mg an hour and the patient is also on anticoagulation with Lovenox 60 mg SQ every 12 hours. The patient is also on amiodarone. History of advanced dementia residing in an adult foster care Hyperlipidemia DTI -buttock constpation and she has responded to Dulcolax Plan: Continue ventilator support, no changes on the mechanical ventilator for today. Continue Zosyn Check procalcitonin level to assess her progress on the level is improving. Continue IV Solu-Medrol 40 mg every 8 hours Continue Cardizem drip at 5 mg an hour. The patient is also on oral amiodarone and Lovenox for anticoagulation 60 mg every 12 hours. Restart enteral feeding for nutritional support and the patient was given appropriate laxatives TSH is within normal limits Continue supportive care. Not ready for weaning at this point in time. Obviously, this going to be a difficult wean based on her underlying advanced dementia. Will have further discussion with the family regarding goals of treatment Will continue to follow make further recommendations based on her progress. Krista bunch is a critical care evaluation that was done more than 30 minutes. Time with Patient: Greater than 30
[2024-03-24 18:03] LABS: Glucose,Whole Blood 172 mg/dL (70-110)
[2024-03-24] MEDS: PIPERACILLIN-TAZOBACTAM 3.375 GM in SODIUM CHLORIDE 0.9% 100 ML IVPB STA (21:49)
[2024-03-25 01:20] LABS: Glucose,Whole Blood 189 mg/dL (70-110)
[2024-03-25 04:36] LABS: Anisocytosis Slight; Basophils # (A) 0.1 k/uL (0-0.2); Basophils % (A) 1 %; Eosinophils % (A) 0 %; HGB 12.1 gm/dL (11.4-16.0); Lymphocytes # (A) 0.9 k/uL (1.0-4.8); Lymphocytes % (A) 6 %; MCH 30.3 pg (25.0-35.0); MCHC 31.1 g/dL (31.0-37.0); MCV 97.5 fL (80.0-100.0); Macrocytosis Slight; Mean Platelet Volume 8.8; Monocytes # (A) 0.3 k/uL (0-1.0); Monocytes % (A) 2 %; Neutrophils # (A) 13.8 k/uL (1.3-7.7); Neutrophils % (A) 90 %; Platelet Count 470 k/uL (150-450); RDW 16.9 % (11.5-15.5); WBC 15.3 k/uL (3.8-10.6)
[2024-03-25 04:52] LABS: African American GFR (CKD) >90 (>60 ml/min/1.73 sqM); Anion Gap 2 mmol/L; Blood Urea Nitrogen 15 mg/dL (7-17); Calcium 7.3 mg/dL (8.4-10.2); Carbon Dioxide 31 mmol/L (22-30); Chloride 107 mmol/L (98-107); Glucose 177 mg/dL (74-99); Non-African American GFR(CKD) >90 (>60 ml/min/1.73 sqM); Potassium 3.9 mmol/L (3.5-5.1); Sodium 140 mmol/L (137-145)
[2024-03-25 05:38] LABS: Allen Test Performed? Yes
[2024-03-25 05:39] LABS: ABG HCO3 30 mmol/L (21-25); ABG PCO2 46 mmHg (35-45); ABG PH 7.42 (7.35-7.45); ABG PO2 92 mmHg (83-108)
[2024-03-25 05:40] LABS: ABG Base Excess 5.1 mmol/L; ABG TCO2 31 mmol/L (19-24)
[2024-03-25] MEDS ORDERED: Potassium Replacement Protocol 1 EACH MISC MISCELLANE PRN (06:49)
[2024-03-25 06:54] LABS: Glucose,Whole Blood 196 mg/dL (70-110)
[2024-03-25] MEDS: POTASSIUM BICARBONATE/CIT AC 20 MEQ TABLET.EFF NG-TUBE SCH (07:04)
--- NOTE | 2024-03-25 07:36 | P.PN ---
Subjective Progress Note Date: 03/25/24 PROGRESS NOTE The patient is a 78-year-old female with known history of hyperlipidemia, dementia who is intubated because of pneumonia. She had episodes of paroxysmal atrial fibrillation. She continues on IV heparin and was started yesterday on IV Cardizem because of episodes of paroxysmal atrial fibrillation. She is back in sinus mechanism. She is on no vasopressor. The patient was hypotensive ini tially requiring vasopressors. Her echocardiogram showed a preserved systolic function. March 24: The patient remains intubated. She is in sinus mechanism at this time. She had some episodes of paroxysmal atrial fibrillation. Her blood pressure is stable, she is not on vasopressors. Her chest x-ray shows evidence of pneumonia with consolidation on the right side, could be aspiration. She remains sedated on IV Cardizem. March 25: The patient remains intubated and sedated. She is in atrial fibrillation during the night with episodes of rapid ventricle response requiring higher dose of IV Cardizem. Her blood pressure was stable and did not require any vasopressor. CODE STATUS has been assessed by her guardian. There is no evidence of ventricular ectopic activity. Her chest x-ray is consistent with multilobar pneumonia. Medications: IV Cardizem, amiodarone 400 mg twice a day, atorvastatin 10 mg daily, Zosyn, subcu Lovenox PHYSICAL EXAMINATION: Blood pressure 122/58 heart rate 110, intubated and sedated LUNGS: Clear to auscultation anteriorly HEART: Regular rate and rhythm, S1, S2. No S3. Systolic ejection murmur ABDOMEN: Soft, no organomegaly EXTREMETIES: No edema LAB: Hemoglobin 12.1, platelets 470, potassium 3.9, BUN 15, creatinine 0.33 IMPRESSION: 1. Respiratory failure with aspiration pneumonia, with no significant progression in her respiratory status 2. Paroxysmal atrial fibrillation, with episodes of rapid ventricle response, receiving subcu Lovenox 3. History of hyperlipidemia 4. History of dementia PLAN: 1. Continue IV Cardizem for now 2. Add low-dose beta-nick orally 3. Awaiting decision regarding CODE STATUS. The prognosis remains poor. Objective - Vital Signs Vital signs: Vital Signs Temp 98.2 F 03/25/24 04:00 Pulse 112 H 03/25/24 07:00 Resp 17 03/25/24 07:00 BP 139/68 03/25/24 07:00 Pulse Ox 96 05/01/24 07:00 FiO2 30 03/25/24 04:11 Intake & Output 03/24/24 03/25/24 03/25/24 18:59 06:59 18:59 Intake Total 2798.664 2265.250 226 Output Total 455 656 85 Balance 4504.778 9257.250 141 Weight 64.552 kg Intake: IV 958 1106 88 .9 NS pressure bag 33 36 3 0.9 % NS KVO 70 10 Lactated Ringers 1,000 ml 825 900 75 @ 75 mls/hr IV .[id number] RON Rx#:[id number] Piperacillin-Tazobactam 3 100 100 .375 gm In Sodium Chloride 0.9% 100 ml @ 25 mls/hr IVPB Q8H RON Rx#: [id number] Intake, IV Titration 166.765 75.250 Amount Diltiazem 125 mg In 58.334 75.250 Sodium Chloride 0.9% 100 ml @ 15 MG/HR 15 mls/hr IV [id number] RON Rx#: [id number] Norepinephrine 8 mg In 26.395 Sodium Chloride 0.9% 250 ml @ 0.03 MCG/KG/MIN 3. 744 mls/hr IV .Q24H RON Rx#:[id number] propofoL 1,000 mg In 82.036 Empty Bag 1 bag @ 15 MCG/ KG/MIN 6.124 mls/hr IV . [id number] RON Rx#:[id number] Tube Feeding 326 456 38 Other 90 90 100 Output: Urine 455 656 85 Other: Voiding Method Indwelling Catheter Indwelling Catheter ABP, PAP, CO, CI - Last Documented Arterial Blood Pressure 122/58 - Labs CBC & Chem 7: 03/25/24 04:26 03/25/24 04:26 Labs: Abnormal Lab Results - Last 24 Hours (Table) 03/24/24 03/24/24 03/25/24 Range/Units 12:56 18:01 01:18 WBC (3.8-10.6) k/uL RDW (11.5-15.5) % Plt Count (150-450) k/uL Neutrophils # (1.3-7.7) k/uL Lymphocytes # (1.0-4.8) k/uL ABG pCO2 (35-45) mmHg ABG HCO3 (21-25) mmol/L ABG Total CO2 (19-24) mmol/L ABG O2 Saturation (94-97) % Carbon Dioxide (22-30) mmol/L Creatinine (0.52-1.04) mg/dL Glucose (74-99) mg/dL POC Glucose (mg/dL) 129 H 172 H 189 H (70-110) mg/dL Calcium (8.4-10.2) mg/dL 03/25/24 03/25/24 03/25/24 Range/Units 04:26 04:26 05:30 WBC 15.3 H (3.8-10.6) k/uL RDW 16.9 H (11.5-15.5) % Plt Count 470 H (150-450) k/uL Neutrophils # 13.8 H (1.3-7.7) k/uL Lymphocytes # 0.9 L (1.0-4.8) k/uL ABG pCO2 46 H (35-45) mmHg ABG HCO3 30 H (21-25) mmol/L ABG Total CO2 31 H (19-24) mmol/L ABG O2 Saturation 98.0 H (94-97) % Carbon Dioxide 31 H (22-30) mmol/L Creatinine 0.33 L (0.52-1.04) mg/dL Glucose 177 H (74-99) mg/dL POC Glucose (mg/dL) (70-110) mg/dL Calcium 7.3 L (8.4-10.2) mg/dL 03/25/24 Range/Units 06:53 WBC (3.8-10.6) k/uL RDW (11.5-15.5) % Plt Count (150-450) k/uL Neutrophils # (1.3-7.7) k/uL Lymphocytes # (1.0-4.8) k/uL ABG pCO2 (35-45) mmHg ABG HCO3 (21-25) mmol/L ABG Total CO2 (19-24) mmol/L ABG O2 Saturation (94-97) % Carbon Dioxide (22-30) mmol/L Creatinine (0.52-1.04) mg/dL Glucose (74-99) mg/dL POC Glucose (mg/dL) 196 H (70-110) mg/dL Calcium (8.4-10.2) mg/dL
--- NOTE | 2024-03-25 07:45 | XR ---
EXAMINATION TYPE: XR chest 1V portable DATE OF EXAM: 03/25/2024 5:40 AM CLINICAL INDICATION:Female, 78 years old with history of mechanical ventilation; H COMPARISON: Chest radiographs from 03/24/2024 TECHNIQUE: XR chest 1V portable Frontal view of the chest. FINDINGS: Lungs/Pleura: Similar multifocal airspace opacities. No evidence of pneumothorax or pleural effusion. Pulmonary vascularity: Unremarkable. Heart/mediastinum: Cardiomediastinal silhouette is unremarkable. Musculoskeletal: No acute osseous pathology. Fixation hardware left shoulder. Other findings: None Lines/Tubes: Endotracheal tube with distal tip 3.5 cm above the shay. Nasogastric tube with side-port projecting over the distal esophagus. Left central venous catheter with distal tip at the cavoatrial junction. IMPRESSION: 1. Nasogastric tube side-port near the gastroesophageal junction consider advancement of 6.5 cm for o ptimal placement. 2. Similar multifocal airspace opacities. 3. Stable support lines and tubes.
[2024-03-25] MEDS: ACETAMINOPHEN TAB 325 MG TAB PO PRN (08:00)
[2024-03-25] MEDS: METOPROLOL TARTRATE 25 MG TAB PO SCH (08:01)
[2024-03-25] MEDS ORDERED: DEXTROSE 50% SYRINGE 50 ML IVP PRN ×2 (10:05)
[2024-03-25] MEDS: FUROSEMIDE 10 MG/ML 4 ML VIAL IV SCH (10:08)
[2024-03-25 11:51] LABS: Glucose,Whole Blood 196 mg/dL (70-110)
[2024-03-25] MEDS: INSULIN ASPART (NovoLOG) 100 UNIT/ML VIAL SQ SCH (11:56)
--- NOTE | 2024-03-25 12:46 | P.PN ---
Subjective Progress Note Date: 03/25/24 This is a 78-year-old female patient with a known history of hyperlipidemia and dementia and resides in a adult foster care setting. He was brought into the emergency room earlier this morning for possible aspiration. Apparently the patient is nonverbal. She was found choking this morning after her breakfast of sausage and oatmeal. She developed productive cough. This x-ray initially revealed no acute pulmonary process. Her condition continued to deteriorate and she required intubation mechanical ventilatory support. He was seen in consultation in the emergency department. She remains intubated on the mechanical ventilator at assist-control mode at a rate of 16, tidal volume 350, FiO2 of 50% and a PEEP of 5. Initial blood gases on 100% FiO2 revealed a PaO2 of 314, pCO2 41, pH 7.35. White count 30.5. Hemoglobin 15.1. Platelets 680. INR 1.0. Sodium 140. Potassium 4.6. Bicarb 24. BUN 21. Creatinine 0.50. Glucose 132. proBNP 1580. She is sedated on propofol at 50 mcg/kg/min. She has been initiated on vancomycin, Flagyl and Zosyn. The patient is seen today March 18, 2024 and follow-up in the intensive care unit. She remains intubated on mechanical ventilator. Currently in assist- control mode at a rate of 16, tidal volume 350, FiO2 40% and a PEEP of 5. Morning blood gases revealed pO2 of 150, pCO2 43 and a pH of 7.22 that was on 50% FiO2. She remains sedated on propofol 35 mcg/kg/min. She has required norepinephrine at 9.5 mcg/min. She has lactated Ringer's at 75 mL/h. She is continued on Lovenox for DVT prophylaxis. Continued on antibiotics in the form of Zosyn. White count 28.6. Hemoglobin 13.2. Platelets 293. Sodium 141. Potassium 3.7. Bicarb 18. BUN 22. Creatinine 0.61. Glucose 130. Chest x-ray reveals endotracheal nasogastric tubes in good position. Left subclavian triple-lumen catheter in place. There is patchy infiltrates persist in the right upper lobe right perihilar and left perihilar lower lobe regions. Sputum culture is pending. The patient is seen today March 19, 2024 in follow-up in the intensive care unit. She remains intubated on mechanical ventilator. Currently on assist- control mode with a rate of 16, tidal volume 350, FiO2 30% and a PEEP of 5. Morning blood gases reveal a PaO2 of 127 pounds, pCO2 43, pH 7.33. Chest x-ray reveals right upper lobe and left lower lobe infiltrates. Procalcitonin 11.4. She is currently on Zosyn. Remains on lactated Ringer's at 75 MLS per hour. Continued on sedation with propofol at 25 mcg/kg/min. Norepinephrine at 4 mcg/min. Being nourished with vital AF. Blood cultures pending. Sputum culture revealed no growth. White count 21.0. Hemoglobin 11.6. Platelets 236. Sodium 143. Potassium 3.6. Bicarb 22. BUN 14. Creatinine 0.50. She is continued on DuoNeb inhalations, Lovenox for DVT prophylaxis. The patient is seen today March 20, 2024 in follow-up in the [facility] intensive care unit. She remains intubated on the mechanical ventilator. Current sett ings are assist-control mode with a rate of 16, tidal volume 350, FiO2 30% and a PEEP of 5. Morning blood gases revealed a PaO2 of 99, pCO2 46, pH 7.32. She has lactated Ringer's at 75 MLS per hour. Sedated on propofol at 40 mcg/kg/min. Remains on amiodarone at 1 mg/min. Vasopressin at 0.03 units/min. Norepinephrine at 7.2 mcg/min. She is being nourished with vital AF at 34 out of 34 MLS per hour. She is continued on Zosyn. Chest x-ray is stable with scattered airspace infiltrates bilaterally. White count 19.0. Hemoglobin 11.2. Platelets 252. Sodium 140. Potassium 3.7. Bicarb 21. BUN 10. Creatinine 0.35. Glucose 173. She is continued on bronchodilators. Continue on Lovenox for DVT prophylaxis. The patient is seen today March 21, 2024 in follow-up in the intensive care u [facility]. She remains intubated on the mechanical ventilator. Currently on assist- control mode at a rate of 16, tidal volume 350, FiO2 30% and a PEEP of 5. Morning blood gases revealed a PaO2 of 88, pCO2 39 and a pH of 7.43. She remains on a heparin drip. Continue on lactated Ringer's at 75 MLS per hour. Propofol at 15 mcg/kg/min. Vasopressin at 0.03 units/min. She is being nourished with vital HP at 10 with a goal of 29. She has had issues with high residuals. She is on Reglan. She remains in atrial fibrillation. Blood culture revealed no growth. Sputum culture revealed no growth. White count 12.6. Hemoglobin 10.5. Platelets 173. Sodium 136. Potassium 4.0. Bicarb 25. BUN 9. Creatinine 0.30. Glucose 113. Remains on bronchodilators. Remains on Zosyn. The patient is seen today March 22, 2024 in follow-up in the intensive care unit. She remains intubated on the mechanical ventilator and assist-control mode at a rate of 16, tidal volume 350, FiO2 30% and a PEEP of 5. Morning blood gases revealed a PaO2 of 106, pCO2 48, pH 7.41. She is sedated on propofol at 25 mcg/kg/min. Heparin drip per weight-based protocol. Lactated Ringer's at 75 MLS per hour. Vital AF tube feedings currently on hold due to high residuals. Chest x-ray continues to reveal bilateral patchy opacities. Blood culture revealed no growth. Sputum culture revealed no growth. White count 10.2. Hemoglobin 11.1. Platelets 198. Sodium 148. Potassium 3.1. Bicarb 30. BUN 7. Creatinine 0.31. Glucose 107. She remains on a heparin drip for episodes of atrial fibrillation. Continued on bronchodilators. Antibiotics in the form of Zosyn. On today's evaluation 03/23/2024, seen the patient for a follow-up. The patient remains intubated on mechanical ventilator. The patient had an acute hypoxic jose failure secondary aspiration and she became hemodynamically unstable requiring pressors. She also had atrial fibrillation with rapid medical response. She has advanced dementia. On today's evaluation, the patient is on propofol running at 15 mcg/kg/min patient is on lactated Ringer at 75 cc an hour. She is on a Cardizem drip at 5 mg an hour. Her current cardiac rhythm is sinus. I was told that she is still having some paroxysmal atrial fibrillation's. The patient had an echocardiogram that showed preserved LV function. She is currently on anticoagulation with Lovenox 60 mg subcu every 12 hours. Her procalcitonin level at time of admission was 11.4. She is on assist-control mode of mechanical ventilation at rate of 60, tidal volume of 350, FiO2 30% with a PEEP of 5. The blood gas showed a pH of 7.49 with a pCO2 of 38 and pO2 of 96. Fluid balance is +1.1 L over the past 24 hours. WBC count 11.4 with a hemoglobin of 11 and a platelet count of 243. BUN is at 5 with a creatinine of 0.33 and a sodium levels at 135. She did have an episode of hypothermia earlier and her TSH came back at 3.3. Potassium level is at 3.8. The patient had a follow-up chest x-ray today that showed persistent bilateral pulmonary infiltrates, essentially unchanged compared to yesterday's chest x-ray and the patient continues to have multifocal airspace disease. Orotracheal tube is in a good location. No other significant events overnight. On today's evaluation of 03/24/2024, seen the patient for a follow-up. The patient remains intubated on mechanical ventilator as the patient has multilobar pneumonia that is suspected to be related to aspiration. The patient remains on IV Zosyn. I was concerned that the patient was not showing any signs of improvement on her chest x-ray. I repeated the procalcitonin level and the level is obviously on the decline. The patient was kept on IV Zosyn. The chest x-ray findings are essentially unchanged compared to yesterday and the patient remains intubated on mechanical ventilator. The chest x-ray is showing an area of consolidation of the right upper lobe along with areas of airspace disease in the lower lobes bilaterally. Orotracheal tube is in good location. The patient is on propofol at the rate of 20 mcg/kg/min. The patient is on lactated Ringer at 75 cc an hour. The patient is on Cardizem drip at 5 mg an hour and the patient continues to have episodes of atrial fibrillation, paroxysmal and she converted to sinus rhythm following this. She was sent on amiodarone 4 mg p.o. twice daily and she is on Lovenox 60 mg subcu every 12 hours. She is on assist- control mode with rate of 60, tidal volume of 350, FiO2 of 30% with a PEEP of 5. The blood gas showed a pH of 7.42 with a pCO2 of 43 and pO2 of 70. Fluid balance is +1.1 L over the past 24 hours. She is on tube feeds with vital AF at a rate of 30 cc an hour. WBC count 12.5 with a hemoglobin 11.5 and a platelet count of 368 sodium is at 141, BUN is at 9 with a creatinine of 0.36 and a potassium level is at 3.7. On today's evaluation of 03/25/2024, the patient is being seen for a follow-up. This morning, the patient is on no sedation. She has been off propofol for the past 24 hours. She is unresponsive. Does not follow any commands. Does not grimace to painful stimulation. She has a positive cough and gag. She is assist-control mode with rate of 16, tidal volume of 350 with an FiO2 of 30% and 5. Blood gases from today showed a pH of 7.42 with a pCO2 of 46 and pO2 of 92. Chest x-ray still showing likely lobar pneumonia with areas of consolidation which is somewhat improved compared to yesterday. She will need to be pushed in by around 1 cm. Appropriate instructions were given. The patient remains hemodynamically stable. The patient remains on a Cardizem drip at 10 mg an hour as she continues to have episodes of PAF. Current rhythm is sinus. She is on vital AF at rate of 30 cc an hour. IV fluids are in the form of lactated Ringer at rate 75 cc an hour. Fluid balance is +2.1 L over the past 24 hours. Objective - Vital Signs Vital signs: Vital Signs Temp 97.5 F L 03/25/24 12:00 Pulse 75 03/25/24 12:00 Resp 21 03/25/24 12:00 BP 138/77 03/25/24 12:00 Pulse Ox 95 03/25/24 12:00 FiO2 30 03/25/24 12:00 Intake & Output 03/24/24 03/25/24 03/25/24 18:59 06:59 18:59 Intake Total 4230.507 5308.250 817.833 Output Total 689 010 7257 Balance 1129.580 8746.250 -887.167 Weight 64.552 kg Intake: IV 958 1106 333 .9 NS pressure bag 33 36 18 0.9 % NS KVO 70 60 Lactated Ringers 1,000 ml 825 900 255 @ 20 mls/hr IV .Q24H RON Rx#:[id number] Piperacillin-Tazobactam 3 100 100 .375 gm In Sodium Chloride 0.9% 100 ml @ 25 mls/hr IVPB Q8H RON Rx#: [id number] Intake, IV Titration 166.765 75.250 96.833 Amount Diltiazem 125 mg In 58.334 75.250 96.833 Sodium Chloride 0.9% 100 ml @ 15 MG/HR 15 mls/hr IV .Q8H20M RON Rx#: [id number] Norepinephrine 8 mg In 26.395 Sodium Chloride 0.9% 250 ml @ 0.03 MCG/KG/MIN 3. 744 mls/hr IV .Q24H RON Rx#:[id number] propofoL 1,000 mg In 82.036 Empty Bag 1 bag @ 15 MCG/ KG/MIN 6.124 mls/hr IV . [id number] RON Rx#:[id number] Tube Feeding 326 456 228 Other 90 90 160 Output: Urine 053 421 2221 Other: Voiding Method Indwelling Catheter Indwelling Catheter Indwelling Catheter ABP, PAP, CO, CI - Last Documented Arterial Blood Pressure 137/57 - Exam GENERAL EXAM: Intubated, sedated 78-year-old female, in no apparent distress. Patient is currently off propofol. Remains unresponsive. HEAD: Normocephalic. EYES: Sluggish reaction of pupils, equal size. NOSE: Clear with pink turbinates. THROAT: No erythema or exudates. NECK: Right IJ triple-lumen catheter in place no masses, no JVD. CHEST: No chest wall deformity. LUNGS: Equal air entry with bilateral scattered rhonchi. CVS: S1 and S2 normal with no audible murmur, regular rhythm. ABDOMEN: No hepatosplenomegaly, normal bowel sounds, no guarding or rigidity. SPINE: No scoliosis or deformity SKIN: No rashes CENTRAL NERVOUS SYSTEM: Unresponsive, pupils around 2 to 3 mm in size, sluggishly reactive to light. Positive cough and gag. Reflexes are diminished. Motor and sensory function cannot be accurately assessed. At the same time, the patient is not grimacing to painful stimulation. She does have a breathing reflex and the patient was able to to breathe spontaneous breathing trial. EXTREMITIES: Right femoral arterial line in place. There is no peripheral edema. No clubbing, no cyanosis. Peripheral pulses are intact. - Labs CBC & Chem 7: 03/25/24 04:26 03/25/24 04:26 Labs: Abnormal Lab Results - Last 24 Hours (Table) 03/24/24 03/24/24 03/25/24 Range/Units 12:56 18:01 01:18 WBC (3.8-10.6) k/uL RDW (11.5-15.5) % Plt Count (150-450) k/uL Neutrophils # (1.3-7.7) k/uL Lymphocytes # (1.0-4.8) k/uL ABG pCO2 (35-45) mmHg ABG HCO3 (21-25) mmol/L ABG Total CO2 (19-24) mmol/L ABG O2 Saturation (94-97) % Carbon Dioxide (22-30) mmol/L Creatinine (0.52-1.04) mg/dL Glucose (74-99) mg/dL POC Glucose (mg/dL) 129 H 172 H 189 H (70-110) mg/dL Calcium (8.4-10.2) mg/dL 03/25/24 03/25/24 03/25/24 Range/Units 04:26 04:26 05:30 WBC 15.3 H (3.8-10.6) k/uL RDW 16.9 H (11.5-15.5) % Plt Count 470 H (150-450) k/uL Neutrophils # 13.8 H (1.3-7.7) k/uL Lymphocytes # 0.9 L (1.0-4.8) k/uL ABG pCO2 46 H (35-45) mmHg ABG HCO3 30 H (21-25) mmol/L ABG Total CO2 31 H (19-24) mmol/L ABG O2 Saturation 98.0 H (94-97) % Carbon Dioxide 31 H (22-30) mmol/L Creatinine 0.33 L (0.52-1.04) mg/dL Glucose 177 H (74-99) mg/dL POC Glucose (mg/dL) (70-110) mg/dL Calcium 7.3 L (8.4-10.2) mg/dL 03/25/24 03/25/24 Range/Units 06:53 11:50 WBC (3.8-10.6) k/uL RDW (11.5-15.5) % Plt Count (150-450) k/uL Neutrophils # (1.3-7.7) k/uL Lymphocytes # (1.0-4.8) k/uL ABG pCO2 (35-45) mmHg ABG HCO3 (21-25) mmol/L ABG Total CO2 (19-24) mmol/L ABG O2 Saturation (94-97) % Carbon Dioxide (22-30) mmol/L Creatinine (0.52-1.04) mg/dL Glucose (74-99) mg/dL POC Glucose (mg/dL) 196 H 196 H (70-110) mg/dL Calcium (8.4-10.2) mg/dL Assessment and Plan Plan: Acute hypoxemic respiratory failure secondary to aspiration requiring intubation mechanical ventilatory support, and the patient continues to have multifocal airspace disease bilaterally. The patient had an elevated procalcitonin level at time of admission. The patient was treated with IV Zosyn. No significant interval improvement in the chest x-ray finding. Nevertheless, the patient's procalcitonin level is improving. Hemodynamically stable, the patient continues to have stable bilateral pulmonary consolidation more so in the right upper lobe. Remains on IV Zosyn. Chest x-ray shows some limited improvement in consolidation of the right lung. Nevertheless, the patient continues to have multilobar pneumonia. Remains on IV Zosyn. Hypotension secondary to above requiring pressor support, currently off pressors Leukocytosis secondary to above, improving Atrial fibrillation with a rapid ventricular response currently on Cardizem drip 5 mg an hour and the patient is also on anticoagulation with Lovenox 60 mg SQ every 12 hours. The patient is also on amiodarone. History of advanced dementia residing in an adult foster care Unresponsiveness, consider drug-induced encephalopathy. The patient has been on propofol over the past 24 hours. Hyperlipidemia DTI -buttock constpation and she has responded to Dulcolax Plan: Continue ventilator support, no changes on the mechanical ventilator for today. Continue monitoring the mental status and keep the patient off the propofol. Would like to repeat the CAT scan of the brain if there is no signs of neurologic recovery. Continue Zosyn Check procalcitonin level to assess her progress on the level is improving. Discontinued IV Solu-Medrol and put the patient on prednisone burst taper starting with 40 mg Continue Cardizem drip at 10 mg an hour. The patient is also on oral amiodarone and Lovenox for anticoagulation 60 mg every 12 hours. Restart enteral feeding for nutritional support and the patient was given appropriate laxatives Continue supportive care. Not ready for weaning at this point in time. Obviously, this going to be a difficult wean based on her underlying advanced dementia. Will have further discussion with the family regarding goals of gerald tment Will continue to follow make further recommendations based on her progress. This is a critical care evaluation that was done more than 30 minutes. Time with Patient: Greater than 30
--- NOTE | 2024-03-25 15:36 | P.PN ---
Progress Note - Text Progress Note Date: 03/25/24 Chief Complaint: Aspiration This is a 78-year-old patient, brought into the ER. She was sent in from [facility] which is assisted living via EMS for potential aspiration. Patient at baseline is nonverbal. Patient was found to be choking on her breakfast including sausages and oatmeal. Patient did expel the sausage and oatmeal. Patient became progressively hypoxic in the ER had to be intubated. oat meal was recovered beyond the vocal cords. Patient taken to the ICU. Intubated. Currently on FiO2 50% and a PEEP of 5. Drips include propofol. March 18: ICU. Remains intubated. FiO2 40 and a PEEP of 5. Patient last started on norepinephrine. Started on tube feeding at 10 cc an hour. Also on propofol. Vasopressin was ordered last night but never started. March 19: ICU. Intubated. FiO2 30% and a PEEP of 5. Drips include propofol 25 mics, norepinephrine 0.07 mcg. Tube feeding at 30 cc an hour. Sedated. Remains on IV Zosyn. March 20 ICU. Intubated. FiO2 30 and PEEP of 5. Last night went into atrial fibrillation. Put on IV amiodarone. Went back in sinus rhythm. Drips include propofol 35 mics, norepinephrine 0.11 nikolas. Vasopressin started at 0.03 mics. Minimal secretions. Tube feeding at 34 cc an hour. March 21: ICU. Intubated. FiO2 30 and a PEEP of 5. Patient had a high residual volume of 550 cc. Reglan was added. Drips include propofol 30 mics, vasopressin 0.3 mcg, patient IV heparin. Telemetry shows sinus rhythm. Has been in and out of A-fib. March 22: ICU. Intubated. Hypothermic overnight. Put on Jose hugger. Patient been off epinephrine since yesterday. Also taken off vasopressin. Blood pressures running with systolic around 130s. Propofol was discontinued this afternoon. Patient again had high residuals today around 500 cc. Reglan changed to 10 mg every 6. Dulcolax suppository 10 mg. If no good then we will try enema. Discussed with nurse. March 23: ICU. Intubated. FiO2 30 and a PEEP of 5. Was in A-fib uncontrolled again was given Cardizem drip 5 mg an hour. Drips include propofol at 15 mics. Tube feeding was held because of increased gastric residual. Has been on Reglan. Patient did have a golf ball sized hard stool with laxative yesterday. March 24: ICU. Intubated. FiO2 30 and a PEEP of 5. A-fib uncontrolled this morning.. Drips include IV Cardizem 5 mcg, norepinephrine 0.02 mcg, propofol 20 mcg. Tube feeding at 30 cc an hour. Prognosis remains guarded. I spoke to Guerline the legal guardian. And discussed patient's overall prognosis guarded. Given patient's overall comorbidities patient will be very appropriate for DNR. Chest x-ray diffuse infiltrates March 25 ICU. Intubated. FiO2 30 PEEP of 5. Patient went into out of A-fib uncontrolled. Cardizem drip include to 10 mg an hour. Tube feeding at 38 cc an hour. Does open eyes. Discussed with Dr. Zhang instrumentation technologist. Both of us feel patient will be appropriate for terminal wean. Quality of life is poor. Prior to all this patient has dementia. At baseline patient is nonverbal. Active Medications Acetaminophen (Acetaminophen Tab 325 Mg Tab) 650 mg PO Q6HR PRN PRN Reason: Fever and/ or Pain Last Admin: 03/25/24 08:00 Dose: 650 mg Albuterol/Ipratropium (Ipratropium-Albuterol 3 Ml Neb) 3 ml INHALATION RT-Q4H [facility] Last Admin: 03/25/24 15:19 Dose: 3 ml Amiodarone HCl (Amiodarone 200 Mg Tab) 400 mg PO BID [facility] Last Admin: 03/25/24 08:01 Dose: 400 mg Artificial Tears (Artificial Tears-Hypromellose Drops 15 Ml Btl) 2 drops BOTH EYES QID PRN PRN Reason: Dry Eye(s) Atorvastatin Calcium (Atorvastatin 10 Mg Tab) 10 mg PO HS@1999 [facility] Last Admin: 03/24/24 21:42 Dose: 10 mg Bisacodyl (Bisacodyl 10 Mg Supp) 10 mg RECTAL DAILY [facility] Last Admin: 03/25/24 07:44 Dose: Not Given Chlorhexidine Gluconate (Chlorhexidine Gluconate 15 Ml Cup) 15 ml MUCOUS MEM BID [facility] Last Admin: 03/25/24 08:01 Dose: 15 ml Cyproheptadine HCl (Cyproheptadine 4 Mg Tablet) 4 mg PO QID@08,12,16,20 [facility] Last Admin: 03/25/24 11:56 Dose: 4 mg Dextrose/Water (Dextrose 50% Syringe 50 Ml) 25 ml IVP PER PROTOCOL PRN; Protocol PRN Reason: Hypoglycemia Dextrose/Water (Dextrose 50% Syringe 50 Ml) 50 ml IVP PER PROTOCOL PRN; Protocol PRN Reason: Hypoglycemia Enoxaparin Sodium (Enoxaparin 60 Mg/0.6 Ml Syringe) 60 mg SQ Q12HR [facility] Last Admin: 03/25/24 08:01 Dose: 60 mg Famotidine (Famotidine 20 Mg Tab) 20 mg PO BID [facility] Last Admin: 03/25/24 08:01 Dose: 20 mg Furosemide (Furosemide 10 Mg/Ml 4 Ml Vial) 40 mg IV Q12HR [facility] Stop: 03/25/24 21:01 Last Admin: 03/25/24 10:08 Dose: 40 mg Propofol 1,000 mg/ IV Solution 100 mls @ 6.124 mls/hr IV .[id number] [facility]; Protocol Last Titration: 03/24/24 11:07 Dose: 0 mcg/kg/min, 0 mls/hr Lactated Ringer's (Lactated Ringers) 1,000 mls @ 20 mls/hr IV .Q24H [facility] Last Admin: 03/24/24 22:12 Dose: 75 mls/hr Diltiazem HCl 125 mg/ Sodium (Chloride) 125 mls @ 15 mls/hr IV .Q8H20M [facility] Last Admin: 03/25/24 13:47 Dose: Not Given Norepinephrine Bitartrate 8 mg (/ Sodium Chloride) 258 mls @ 3.744 mls/hr IV .Q24H [facility]; Protocol Last Admin: 03/25/24 01:23 Dose: Not Given Insulin Aspart (Insulin Aspart (Novolog) 100 Unit/Ml Vial) 0 unit SQ Q6HR [facility]; Protocol Last Admin: 03/25/24 11:56 Dose: 1 unit Metoclopramide HCl (Metoclopramide 5 Mg/Ml 2 Ml Vial) 10 mg IVP Q6HR [facility] Last Admin: 03/25/24 11:56 Dose: 10 mg Metoprolol Tartrate (Metoprolol Tartrate 25 Mg Tab) 25 mg PO BID [facility] Last Admin: 03/25/24 08:01 Dose: 25 mg Mirtazapine (Mirtazapine 15 Mg Tab) 30 mg PO HS@1999 [facility] Last Admin: 03/24/24 21:42 Dose: 30 mg Miscellaneous Information (Magnesium Replacement Protocol 1 Each Misc) 1 each MISCELLANE DAILY PRN; Protocol PRN Reason: Per Protocol Miscellaneous Information (Potassium Replacement Protocol 1 Each Misc) 1 each MISCELLANE DAILY PRN; Protocol PRN Reason: Per Protocol Naloxone HCl (Naloxone 0.4 Mg/Ml 1 Ml Vial) 0.2 mg IV Q2M PRN PRN Reason: Opioid Reversal Nystatin (Nystatin 100,000unit/Gm Cream 30 Gm Tube) 1 applic TOPICAL BID@799,1999 [facility]; Protocol Last Admin: 03/25/24 08:02 Dose: 1 applic Oxybutynin Chloride (Oxybutynin 10 Mg Tab.Er.24) 10 mg PO DAILY@0800 [facility] Last Admin: 03/25/24 07:44 Dose: Not Given Prednisone (Prednisone 20 Mg Tab) 40 mg PO DAILY [facility] Social history: Patient lives at [facility]. History of heavy alcohol use in the past. Started smoking at age of 14 smoked half a pack a day. Physical examination: VITAL SIGNS: 97.5, 77, 14, 138/73, 97% on the ventilator GENERAL: laying in bed intubated. Does open eyes EYES: Pupils equal. Conjunctiva paul l. HEENT: External appearance of nose and ears normal, oral cavity grossly normal. Endotracheal tube. OG tube feeding NECK: JVD not raised; masses not palpable. HEART: First and second heart sounds are normal; no edema. LUNGS: Respiratory rate increased diminished breath sounds some crackles. ABDOMEN: Soft, nontender, liver spleen not palpable, no masses palpable. PSYCH: Unable to assess MUSCULOSKELETAL: OA INVESTIGATIONS, reviewed in the clinical context: March 25: White count 15.3 hemoglobin 12.1 platelets 470 sodium 140 potassium 3.9 creatinine 0.33 Sputum culture [March 17]: Normal respiratory clara March 17, 2024: White count 3.5 hemoglobin 15.1 platelets 680 sodium 140 potassium 4.6. 21 creatinine 0.50 Troponin I 0.016. proBNP 1580 EKG tracing personally reviewed by me-sinus tachycardia. Questionable atrial flutter. Chest x-ray film personally reviewed by me-hyperinflation. Possible scant infiltrate Assessment plan: -Aspiration pneumonitis secondary to patient witnessed to choke on oatmeal and sausage. Some of that was coughed up. Some more was obtained when patient being intubated in the ER.: Not improving IV Zosyn -Septic shock from underlying pneumonia: Resolved IV norepinephrine, IV vasopressin-both discontinued -Hypothermia multifactorial: Improved Jose bucio. -Paroxysmal atrial fibrillation rapid ventricular rate, in and out of A-fib uncontrolled IV Cardizem drip at 10 mg an hour oral amiodarone Subcu Lovenox 60 mg every 12 -Acute hypoxic respiratory failure from aspiration pneumonia, requiring ventilator assist: FiO2 30%. PEEP 5. -Severe cognitive impairment underlying dementia, nonverbal at baseline -Primary osteoarthritis Tylenol as needed -Hyperlipidemia Lipitor 10 mg nightly -Chronic urinary incontinence Oxybutynin Full code -Public guardianGuerline Discussed with Dr. Zhang instrumentation technologist. Prognosis poor. Terminal wean will be appropriate./Comfort care. 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 History of Any Multi-Drug Resistant Organisms: None Reported Past Surgical History: Unable to Obtain, Orthopedic Surgery Past Anesthesia/Blood Transfusion Reactions: Unable to Obtain Additional Past Anesthesia/Blood Transfusion Reaction / Comment(s): PT DENIED EVER HAVING ANY SX Past Psychological History: Depression Smoking Status: Former smoker Past Alcohol Use History: Heavy Past Drug Use History: None Reported
[2024-03-25] MEDS: ARTIFICIAL TEARS-HYPROMELLOSE DROPS 15 ML BTL BOTH EYES PRN (17:05)
[2024-03-25 17:20] LABS: Glucose,Whole Blood 179 mg/dL (70-110)
[2024-03-26 00:01] LABS: Glucose,Whole Blood 150 mg/dL (70-110)
[2024-03-26 05:28] LABS: Anisocytosis Slight; Basophils # (A) 0.1 k/uL (0-0.2); Basophils % (A) 0 %; Eosinophils % (A) 0 %; HCT 37.8 % (34.0-46.0); Hypochromasia Slight; Lymphocytes # (A) 1.3 k/uL (1.0-4.8); Lymphocytes % (A) 8 %; MCH 30.8 pg (25.0-35.0); MCHC 31.7 g/dL (31.0-37.0); MCV 97.1 fL (80.0-100.0); Macrocytosis Slight; Monocytes # (A) 0.6 k/uL (0-1.0); Monocytes % (A) 4 %; Neutrophils # (A) 13.9 k/uL (1.3-7.7); Neutrophils % (A) 86 %; Platelet Count 400 k/uL (150-450); RBC 3.89 m/uL (3.80-5.40); RDW 16.7 % (11.5-15.5); WBC 16.2 k/uL (3.8-10.6)
[2024-03-26 05:47] LABS: African American GFR (CKD) >90 (>60 ml/min/1.73 sqM); Anion Gap -1 mmol/L; Blood Urea Nitrogen 22 mg/dL (7-17); Carbon Dioxide 34 mmol/L (22-30); Chloride 106 mmol/L (98-107); Glucose 129 mg/dL (74-99); Non-African American GFR(CKD) >90 (>60 ml/min/1.73 sqM); Potassium 3.6 mmol/L (3.5-5.1); Sodium 139 mmol/L (137-145)
[2024-03-26 05:49] LABS: ABG Base Excess 13.5 mmol/L; ABG HCO3 37 mmol/L (21-25); ABG Oxygen Saturation 97.2 % (94-97); ABG PCO2 49 mmHg (35-45); ABG PH 7.49 (7.35-7.45); ABG PO2 103 mmHg (83-108); ABG TCO2 38 mmol/L (19-24); Allen Test Performed? Yes
[2024-03-26] MEDS ORDERED: Potassium Replacement Protocol 1 EACH MISC MISCELLANE PRN (05:57)
[2024-03-26 06:12] LABS: Glucose,Whole Blood 130 mg/dL (70-110)
[2024-03-26] MEDS: POTASSIUM BICARBONATE/CIT AC 20 MEQ TABLET.EFF NG-TUBE SCH (06:19)
--- NOTE | 2024-03-26 07:09 | P.PN ---
Subjective Progress Note Date: 03/26/24 Principal diagnosis: Respiratory failure. This is a 78-year-old female patient with a known history of hyperlipidemia and dementia and resides in a adult foster care setting. He was brought into the emergency room earlier this morning for possible aspiration. Apparently the guerline billings is nonverbal. She was found choking this morning after her breakfast of sausage and oatmeal. She developed productive cough. This x-ray initially revealed no acute pulmonary process. Her condition continued to deteriorate and she required intubation mechanical ventilatory support. He was seen in consultation in the emergency department. She remains intubated on the mechanical ventilator at assist-control mode at a rate of 16, tidal volume 350, FiO2 of 50% and a PEEP of 5. Initial blood gases on 100% FiO2 revealed a PaO2 of 314, pCO2 41, pH 7.35. White count 30.5. Hemoglobin 15.1. Platelets 680. INR 1.0. Sodium 140. Potassium 4.6. Bicarb 24. BUN 21. Creatinine 0.50. Glucose 132. proBNP 1580. She is sedated on propofol at 50 mcg/kg/min. She has been initiated on vancomycin, Flagyl and Zosyn. The patient is seen today March 18, 2024 and follow-up in the intensive care unit. She remains intubated on mechanical ventilator. Currently in assist- control mode at a rate of 16, tidal volume 350, FiO2 40% and a PEEP of 5. Morning blood gases revealed pO2 of 150, pCO2 43 and a pH of 7.22 that was on 50% FiO2. She remains sedated on propofol 35 mcg/kg/min. She has required norepinephrine at 9.5 mcg/min. She has lactated Ringer's at 75 mL/h. She is continued on Lovenox for DVT prophylaxis. Continued on antibiotics in the form of Zosyn. White count 28.6. Hemoglobin 13.2. Platelets 293. Sodium 141. Potassium 3.7. Bicarb 18. BUN 22. Creatinine 0.61. Glucose 130. Chest x-ray reveals endotracheal nasogastric tubes in good position. Left subclavian triple-lumen catheter in place. There is patchy infiltrates persist in the right upper lobe right perihilar and left perihilar lower lobe regions. Sputum culture is pending. The patient is seen today March 19, 2024 in follow-up in the intensive care unit. She remains intubated on mechanical ventilator. Currently on assist- control mode with a rate of 16, tidal volume 350, FiO2 30% and a PEEP of 5. Morning blood gases reveal a PaO2 of 127 pounds, pCO2 43, pH 7.33. Chest x-ray reveals right upper lobe and left lower lobe infiltrates. Procalcitonin 11.4. She is currently on Zosyn. Remains on lactated Ringer's at 75 MLS per hour. Continued on sedation with propofol at 25 mcg/kg/min. Norepinephrine at 4 mcg/min. Being nourished with vital AF. Blood cultures pending. Sputum culture revealed no growth. White count 21.0. Hemoglobin 11.6. Platelets 236. Sodium 143. Potassium 3.6. Bicarb 22. BUN 14. Creatinine 0.50. She is continued on DuoNeb inhalations, Lovenox for DVT prophylaxis. The patient is seen today March 20, 2024 in follow-up in the [facility] intensive care unit. She remains intubated on the mechanical ventilator. Current settings are assist-control mode with a rate of 16, tidal volume 350, FiO2 30% and a PEEP of 5. Morning blood gases revealed a PaO2 of 99, pCO2 46, pH 7.32. She has lactated Ringer's at 75 MLS per hour. Sedated on propofol at 40 mcg/ kg/min. Remains on amiodarone at 1 mg/min. Vasopressin at 0.03 units/min. Norepinephrine at 7.2 mcg/min. She is being nourished with vital AF at 34 out of 34 MLS per hour. She is continued on Zosyn. Chest x-ray is stable with scattered airspace infiltrates bilaterally. White count 19.0. Hemoglobin 11.2. Platelets 252. Sodium 140. Potassium 3.7. Bicarb 21. BUN 10. Creatinine 0.35. Glucose 173. She is continued on bronchodilators. Continue on Lovenox for DVT prophylaxis. The patient is seen today March 21, 2024 in follow-up in the intensive care unit. She remains intubated on the mechanical ventilator. Currently on assist- control mode at a rate of 16, tidal volume 350, FiO2 30% and a PEEP of 5. Morning blood gases revealed a PaO2 of 88, pCO2 39 and a pH of 7.43. She wai ins on a heparin drip. Continue on lactated Ringer's at 75 MLS per hour. Propofol at 15 mcg/kg/min. Vasopressin at 0.03 units/min. She is being nourished with vital HP at 10 with a goal of 29. She has had issues with high residuals. She is on Reglan. She remains in atrial fibrillation. Blood culture revealed no growth. Sputum culture revealed no growth. White count 12.6. Hemoglobin 10.5. Platelets 173. Sodium 136. Potassium 4.0. Bicarb 25. BUN 9. Creatinine 0.30. Glucose 113. Remains on bronchodilators. Remains on Zosyn. The patient is seen today March 22, 2024 in follow-up in the intensive care unit. She remains intubated on the mechanical ventilator and assist-control mode at a rate of 16, tidal volume 350, FiO2 30% and a PEEP of 5. Morning blood gases revealed a PaO2 of 106, pCO2 48, pH 7.41. She is sedated on propofol at 25 mcg/kg/min. Heparin drip per weight-based protocol. Lactated Ringer's at 75 MLS per hour. Vital AF tube feedings currently on hold due to high residuals. Chest x-ray continues to reveal bilateral patchy opacities. Blood culture reve aled no growth. Sputum culture revealed no growth. White count 10.2. Hemoglobin 11.1. Platelets 198. Sodium 148. Potassium 3.1. Bicarb 30. BUN 7. Creatinine 0.31. Glucose 107. She remains on a heparin drip for episodes of atrial fibrillation. Continued on bronchodilators. Antibiotics in the form of Zosyn. On today's evaluation 03/23/2024, seen the patient for a follow-up. The patient remains intubated on mechanical ventilator. The patient had an acute hypoxic jose failure secondary aspiration and she became hemodynamically unstable requiring pressors. She also had atrial fibrillation with rapid medical response. She has advanced dementia. On today's evaluation, the patient is on propofol running at 15 mcg/kg/min patient is on lactated Ringer at 75 cc an hour. She is on a Cardizem drip at 5 mg an hour. Her current cardiac rhythm is sinus. I was told that she is still having some paroxysmal atrial fibrillation's. The patient had an echocardiogram that showed preserved LV function. She is currently on anticoagulation with Lovenox 60 mg subcu every 12 hours. Her procalcitonin level at time of admission was 11.4. She is on assist-control mode of mechanical ventilation at rate of 60, tidal volume of 350, FiO2 30% with a PEEP of 5. The blood gas showed a pH of 7.49 with a pCO2 of 38 and pO2 of 96. Fluid balance is +1.1 L over the past 24 hours. WBC count 11.4 with a hemoglobin of 11 and a platelet count of 243. BUN is at 5 with a creatinine of 0.33 and a sodium levels at 135. She did have an episode of hypothermia earlier and her TSH came back at 3.3. Potassium level is at 3.8. The patient had a follow-up chest x-ray today that showed persistent bilateral pulmonary infiltrates, essentially unchanged compared to yesterday's chest x-ray and the patient continues to have multifocal airspace disease. Orotracheal tube is in a good location. No other significant events overnight. On today's evaluation of 03/24/2024, seen the patient for a follow-up. The patient remains intubated on mechanical ventilator as the patient has multilobar pneumonia that is suspected to be related to aspiration. The patient remains on IV Zosyn. I was concerned that the patient was not showing any signs of improvement on her chest x-ray. I repeated the procalcitonin level and the level is obviously on the decline. The patient was kept on IV Zosyn. The chest x-ray findings are essentially unchanged compared to yesterday and the patient remains intubated on mechanical ventilator. The chest x-ray is showing an area of consolidation of the right upper lobe along with areas of airspace disease in the lower lobes bilaterally. Orotracheal tube is in good location. The patient is on propofol at the rate of 20 mcg/kg/min. The patient is on lactated Ringer at 75 cc an hour. The patient is on Cardizem drip at 5 mg an hour and the patient continues to have episodes of atrial fibrillation, paroxysmal and she converted to sinus rhythm following this. She was sent on amiodarone 4 mg p.o. twice daily and she is on Lovenox 60 mg subcu every 12 hours. She is on assist- control mode with rate of 60, tidal volume of 350, FiO2 of 30% with a PEEP of 5. The blood gas showed a pH of 7.42 with a pCO2 of 43 and pO2 of 70. Fluid balance is +1.1 L over the past 24 hours. She is on tube feeds with vital AF at a rate of 30 cc an hour. WBC count 12.5 with a hemoglobin 11.5 and a platelet count of 368 sodium is at 141, BUN is at 9 with a creatinine of 0.36 and a potassium level is at 3.7. On today's evaluation of 03/25/2024, the patient is being seen for a follow-up. This morning, the patient is on no sedation. She has been off propofol for the past 24 hours. She is unresponsive. Does not follow any commands. Does not grimace to painful stimulation. She has a positive cough and gag. She is assist-control mode with rate of 16, tidal volume of 350 with an FiO2 of 30% and 5. Blood gases from today showed a pH of 7.42 with a pCO2 of 46 and pO2 of 92. Chest x-ray still showing likely lobar pneumonia with areas of consolidation which is somewhat improved compared to yesterday. She will need to be pushed in by around 1 cm. Appropriate instructions were given. The patient remains hemodynamically stable. The patient remains on a Cardizem drip at 10 mg an hour as she continues to have episodes of PAF. Current rhythm is sinus. She is on vital AF at rate of 30 cc an hour. IV fluids are in the form of lactated Ringer at rate 75 cc an hour. Fluid balance is +2.1 L over the past 24 hours. Progress note dated March 26, 2024. The patient is seen today in the intensive care unit, room 264. She remains on mechanical ventilator. She is on volume assist-control, rate 16, tidal volume 350, FiO2 30%, and PEEP of 5. The patient continues on Cardizem drip at 5 mg an hour, lactated Ringer's at 10 cc an hour, saline at KVO, and vital AF at goal, which is 38 cc an hour. Current laboratory data includes a white count 16.2, hemoglobin 12, hematocrit 37.8, and a platelet count of 400,000. Sodium 139, potassium 3.6, chlorides 106, CO2 34, BUN 22, creatinine 0.28. Glucose 130. Calcium is 7. Cultures are thus far negative. Chest x-ray reveals an endotracheal tube above the tracheal shay. There is some patchy right-sided infiltrates. Objective - Vital Signs Vital signs: Vital Signs Temp 98.6 F 03/26/24 04:00 Pulse 64 03/26/24 06:00 Resp 25 H 03/26/24 06:00 BP 127/63 03/26/24 06:00 Pulse Ox 97 03/26/24 06:00 FiO2 30 03/26/24 04:40 Intake & Output 03/25/24 03/26/24 03/26/24 18:59 06:59 18:59 Intake Total 1277.583 985.667 Output Total 2675 1804 Balance -1397.417 -818.333 Weight 64.552 kg 62.341 kg Intake: IV 441 276 .9 NS pressure bag 36 36 0.9 % NS KVO 120 120 Lactated Ringers 1,000 ml 285 120 @ 20 mls/hr IV .Q24H [facility] Rx#:[id number] Intake, IV Titration 190.583 13.667 Amount Diltiazem 125 mg In 190.583 13.667 Sodium Chloride 0.9% 100 ml @ 15 MG/HR 15 mls/hr IV .Q8H20M [facility] Rx#: [id number] Tube Feeding 456 456 Other 190 240 Output: Urine 2675 1804 Other: Voiding Method Indwelling Catheter Indwelling Catheter ABP, PAP, CO, CI - Last Documented Arterial Blood Pressure 127/44 - Exam No acute distress, intubated, with an orally placed endotracheal tube. In no acute distress. HEENT examination is grossly unremarkable. Neck supple. Full range of motion. No adenopathy thyromegaly or neck vein distention. Cardiovascular examination reveals regular rhythm rate. S1-S2 normal. No S3 or S4. No discernible murmur noted. Heart rate 73 bpm. Heart sounds are distant. Lungs reveal scattered bilateral rhonchi. No wheezes or crackles. Breath sounds equal bilaterally. Saturations are in the low 90s. Abdomen soft with bowel sounds. No masses or tenderness. Extremities are intact. No cyanosis clubbing or edema. Skin is without rash or lesion. Neurologic examination is difficult to evaluate. Patient is currently off sedation. The patient is poorly responsive. - Labs CBC & Chem 7: 03/26/24 04:51 03/26/24 04:51 Labs: Abnormal Lab Results - Last 24 Hours (Table) 03/25/24 03/25/24 03/26/24 Range/Units 11:50 17:08 00:00 WBC (3.8-10.6) k/uL RDW (11.5-15.5) % Neutrophils # (1.3-7.7) k/uL ABG pH (7.35-7.45) ABG pCO2 (35-45) mmHg ABG HCO3 (21-25) mmol/L ABG Total CO2 (19-24) mmol/L ABG O2 Saturation (94-97) % Carbon Dioxide (22-30) mmol/L BUN (7-17) mg/dL Creatinine (0.52-1.04) mg/dL Glucose (74-99) mg/dL POC Glucose (mg/dL) 196 H 179 H 150 H (70-110) mg/dL Calcium (8.4-10.2) mg/dL 03/26/24 03/26/24 03/26/24 Range/Units 04:51 04:51 05:46 WBC 16.2 H (3.8-10.6) k/uL RDW 16.7 H (11.5-15.5) % Neutrophils # 13.9 H (1.3-7.7) k/uL ABG pH 7.49 H (7.35-7.45) ABG pCO2 49 H (35-45) mmHg ABG HCO3 37 H (21-25) mmol/L ABG Total CO2 38 H (19-24) mmol/L ABG O2 Saturation 97.2 H (94-97) % Carbon Dioxide 34 H (22-30) mmol/L BUN 22 H (7-17) mg/dL Creatinine 0.28 L (0.52-1.04) mg/dL Glucose 129 H (74-99) mg/dL POC Glucose (mg/dL) (70-110) mg/dL Calcium 7.0 L (8.4-10.2) mg/dL 03/26/24 Range/Units 06:11 WBC (3.8-10.6) k/uL RDW (11.5-15.5) % Neutrophils # (1.3-7.7) k/uL ABG pH (7.35-7.45) ABG pCO2 (35-45) mmHg ABG HCO3 (21-25) mmol/L ABG Total CO2 (19-24) mmol/L ABG O2 Saturation (94-97) % Carbon Dioxide (22-30) mmol/L BUN (7-17) mg/dL Creatinine (0.52-1.04) mg/dL Glucose (74-99) mg/dL POC Glucose (mg/dL) 130 H (70-110) mg/dL Calcium (8.4-10.2) mg/dL Assessment and Plan Assessment: Acute hypoxemic respiratory failure secondary to aspiration requiring intubation mechanical ventilatory support, and the patient continues to have multifocal airspace disease bilaterally. The patient had an elevated procalcitonin level at time of admission. The patient was treated with IV Zosyn. No significant interval improvement in the chest x-ray finding. Nevertheless, the patient's procalcitonin level is improving. Hemodynamically stable, the patient continues to have stable bilateral pulmonary consolidation more so in the right upper lobe. Remains on IV Zosyn. Chest x-ray shows some limited improvement in consolidation of the right lung. Nevertheless, the patient continues to have multilobar pneumonia. Remains on IV Zosyn. Hypotension secondary to above requiring pressor support, currently off pressors Leukocytosis secondary to above, improving Atrial fibrillation with a rapid ventricular response currently on Cardizem drip 5 mg an hour and the patient is also on anticoagulation with Lovenox 60 mg SQ every 12 hours. The patient is also on amiodarone. History of advanced dementia residing in an adult foster care Unresponsiveness, consider drug-induced encephalopathy. The patient has been on propofol over the past 24 hours. Hyperlipidemia DTI -buttock constpation and she has responded to Dulcolax Plan: Plan dated March 26, 2024. The patient continues on mechanical ventilatory support. She continues on Cardizem at 5 mg an hour. Labs, x-rays, medications are reviewed. The patient is getting saline at KVO, and also lactated Ringer's. Vital AF is running at 38 cc an hour, which is goal. The patient continues on GI DVT prophylaxis. Microbiologic sampling is negative thus far. The patient is currently off of all vasopressors. The patient is currently not on any antibiotics. We will continue to follow make recommendations along the way. Prognosis is guarded. Time with Patient: Greater than 30
--- NOTE | 2024-03-26 07:35 | P.PN ---
Subjective Progress Note Date: 03/26/24 PROGRESS NOTE The patient is a 78-year-old female with known history of hyperlipidemia, dementia who is intubated because of pneumonia. She had episodes of paroxysmal atrial fibrillation. She continues on IV heparin and was started yesterday on IV Cardizem because of episodes of paroxysmal atrial fibrillation. She is back in sinus mechanism. She is on no vasopressor. The patient was hypotensive ini tially requiring vasopressors. Her echocardiogram showed a preserved systolic function. March 24: The patient remains intubated. She is in sinus mechanism at this time. She had some episodes of paroxysmal atrial fibrillation. Her blood pressure is stable, she is not on vasopressors. Her chest x-ray shows evidence of pneumonia with consolidation on the right side, could be aspiration. She remains sedated on IV Cardizem. March 25: The patient remains intubated and sedated. She is in atrial fibrillation during the night with episodes of rapid ventricle response requiring higher dose of IV Cardizem. Her blood pressure was stable and did not require any vasopressor. CODE STATUS has been assessed by her guardian. There is no evidence of ventricular ectopic activity. Her chest x-ray is consistent with multilobar pneumonia. March 26: The patient remains intubated unresponsive. She is in sinus mechanism. There is no evidence of malignant arrhythmia. She has evidence of paroxysmal atrial fibrillation earlier. CODE STATUS is being decided by the guardian and the charge. She is not on any vasopressors. Urine output has been stable with IV Lasix. Medications: IV Cardizem, amiodarone 400 mg twice a day, atorvastatin 10 mg daily, Zosyn, subcu Lovenox, prednisone, metoprolol 25 mg twice a day PHYSICAL EXAMINATION: Blood pressure 126/60 heart rate 70, intubated, not responding or following commands LUNGS: Clear to auscultation anteriorly HEART: Regular rate and rhythm, S1, S2. No S3. Systolic ejection murmur ABDOMEN: Soft, no organomegaly EXTREMETIES: No edema LAB: Hemoglobin 12, platelets 400, potassium 3.6, BUN 22, creatinine 0.28 IMPRESSION: 1. Respiratory failure with aspiration pneumonia, with no significant progression in her respiratory status 2. Paroxysmal atrial fibrillation, with episodes of rapid ventricle response, receiving subcu Lovenox, back in sinus mechanism 3. History of hyperlipidemia 4. History of dementia PLAN: 1. Continue IV Cardizem for now 2. Decrease amiodarone to 200 mg twice a day 3. If no further episodes of atrial fibrillation stop IV Cardizem tomorrow 4. Prognosis remains poor Objective - Vital Signs Vital signs: Vital Signs Temp 98.6 F 03/26/24 04:00 Pulse 91 03/26/24 07:30 Resp 22 03/26/24 07:00 BP 126/63 03/26/24 07:00 Pulse Ox 92 L 03/26/24 07:00 FiO2 30 03/26/24 07:16 Intake & Output 03/25/24 03/26/24 03/26/24 18:59 06:59 18:59 Intake Total 1277.583 985.667 61 Output Total 2675 1804 40 Balance -1397.417 -818.333 21 Weight 64.552 kg 62.341 kg Intake: IV 441 276 23 .9 NS pressure bag 36 36 3 0.9 % NS KVO 120 120 10 Lactated Ringers 1,000 ml 285 120 10 @ 20 mls/hr IV .Q24H [facility] Rx#:[id number] Intake, IV Titration 190.583 13.667 Amount Diltiazem 125 mg In 190.583 13.667 Sodium Chloride 0.9% 100 ml @ 15 MG/HR 15 mls/hr IV .Q8H20M [facility] Rx#: [id number] Tube Feeding 456 456 38 Other 190 240 Output: Urine 2675 1804 40 Other: Voiding Method Indwelling Catheter Indwelling Catheter ABP, PAP, CO, CI - Last Documented Arterial Blood Pressure 127/44 - Labs CBC & Chem 7: 03/26/24 04:51 03/26/24 04:51 Labs: Abnormal Lab Results - Last 24 Hours (Table) 03/25/24 03/25/24 03/26/24 Range/Units 11:50 17:08 00:00 WBC (3.8-10.6) k/uL RDW (11.5-15.5) % Neutrophils # (1.3-7.7) k/uL ABG pH (7.35-7.45) ABG pCO2 (35-45) mmHg ABG HCO3 (21-25) mmol/L ABG Total CO2 (19-24) mmol/L ABG O2 Saturation (94-97) % Carbon Dioxide (22-30) mmol/L BUN (7-17) mg/dL Creatinine (0.52-1.04) mg/dL Glucose (74-99) mg/dL POC Glucose (mg/dL) 196 H 179 H 150 H (70-110) mg/dL Calcium (8.4-10.2) mg/dL 03/26/24 03/26/24 03/26/24 Range/Units 04:51 04:51 05:46 WBC 16.2 H (3.8-10.6) k/uL RDW 16.7 H (11.5-15.5) % Neutrophils # 13.9 H (1.3-7.7) k/uL ABG pH 7.49 H (7.35-7.45) ABG pCO2 49 H (35-45) mmHg ABG HCO3 37 H (21-25) mmol/L ABG Total CO2 38 H (19-24) mmol/L ABG O2 Saturation 97.2 H (94-97) % Carbon Dioxide 34 H (22-30) mmol/L BUN 22 H (7-17) mg/dL Creatinine 0.28 L (0.52-1.04) mg/dL Glucose 129 H (74-99) mg/dL POC Glucose (mg/dL) (70-110) mg/dL Calcium 7.0 L (8.4-10.2) mg/dL 03/26/24 Range/Units 06:11 WBC (3.8-10.6) k/uL RDW (11.5-15.5) % Neutrophils # (1.3-7.7) k/uL ABG pH (7.35-7.45) ABG pCO2 (35-45) mmHg ABG HCO3 (21-25) mmol/L ABG Total CO2 (19-24) mmol/L ABG O2 Saturation (94-97) % Carbon Dioxide (22-30) mmol/L BUN (7-17) mg/dL Creatinine (0.52-1.04) mg/dL Glucose (74-99) mg/dL POC Glucose (mg/dL) 130 H (70-110) mg/dL Calcium (8.4-10.2) mg/dL
[2024-03-26] MEDS: predniSONE 20 MG TAB PO SCH (09:02)
[2024-03-26] MEDS: AMIODARONE 200 MG TAB PO SCH (09:02)
--- NOTE | 2024-03-26 09:20 | XR ---
EXAMINATION TYPE: XR chest 1V portable DATE OF EXAM: 03/26/2024 5:30 AM CLINICAL INDICATION:Female, 78 years old with history of mechanical ventilation; [facility] COMPARISON: Chest radiograph from one day prior. TECHNIQUE: XR chest 1V portable Frontal view of the chest. FINDINGS: Lungs/Pleura: Improved aeration of lungs on today's exam with persistent airspace opacities scattered throughout the lungs. No evidence of pneumothorax or large pleural effusion. Pulmonary vascularity: Unremarkable. Heart/mediastinum: Cardiomediastinal silhouette is unremarkable. Musculoskeletal: No acute osseous pathology. Fixation hardware left shoulder. Other findings: None Lines/Tubes: Endotracheal tube with distal tip 4.2 cm above the shay. Nasogastric tube with its distal tip and side-port projecting under the diaphragm. Left central venous catheter with distal tip at the cavoatrial junction. IMPRESSION: 1. Nasogastric tube now in appropriate position. 2. Improved aeration with persistent multifocal airspace opacities. 3. Stable support lines and tubes.
[2024-03-26 11:35] LABS: Glucose,Whole Blood 147 mg/dL (70-110)
[2024-03-26] MEDS: SCOPOLAMINE 1 MG/72 HR PATCH TRANSDERM SCH (13:50)
[2024-03-26] MEDS: MORPHINE SULFATE 4 MG/ML SYRINGE IV PRN (13:50)
[2024-03-26] MEDS: LORazepam 2 MG/ML INJ IV PRN (13:51)
[2024-03-26] MEDS: MORPHINE SULFATE 2 MG/ML SYRINGE IV PRN (16:42)
[2024-03-26] MEDS ORDERED: LORazepam 1 MG/0.5 ML VIAL IV PRN (17:01)
--- NOTE | 2024-03-26 19:50 | P.PN ---
Progress Note - Text Progress Note Date: 03/26/24 Chief Complaint: Aspiration This is a 78-year-old patient, brought into the ER. She was sent in from [facility] which is assisted living via EMS for potential aspiration. Patient at baseline is nonverbal. Patient was found to be choking on her breakfast including sausages and oatmeal. Patient did expel the sausage and oatmeal. Patient became progressively hypoxic in the ER had to be intubated. oat meal was recovered beyond the vocal cords. Patient taken to the ICU. Intubated. Currently on FiO2 50% and a PEEP of 5. Drips include propofol. March 18: ICU. Remains intubated. FiO2 40 and a PEEP of 5. Patient last started on norepinephrine. Started on tube feeding at 10 cc an hour. Also on propofol. Vasopressin was ordered last night but never started. March 19: ICU. Intubated. FiO2 30% and a PEEP of 5. Drips include propofol 25 mics, norepinephrine 0.07 mcg. Tube feeding at 30 cc an hour. Sedated. Remains on IV Zosyn. March 20 ICU. Intubated. FiO2 30 and PEEP of 5. Last night went into atrial fibrillation. Put on IV amiodarone. Went back in sinus rhythm. Drips include propofol 35 mics, norepinephrine 0.11 nikolas. Vasopressin started at 0.03 mics. Minimal secretions. Tube feeding at 34 cc an hour. March 21: ICU. Intubated. FiO2 30 and a PEEP of 5. Patient had a high residual volume of 550 cc. Reglan was added. Drips include propofol 30 mics, vasopressin 0.3 mcg, patient IV heparin. Telemetry shows sinus rhythm. Has been in and out of A-fib. March 22: ICU. Intubated. Hypothermic overnight. Put on Jose hugger. Patient been off epinephrine since yesterday. Also taken off vasopressin. Blood pressures running with systolic around 130s. Propofol was discontinued this afternoon. Patient again had high residuals today around 500 cc. Reglan changed to 10 mg every 6. Dulcolax suppository 10 mg. If no good then we will try enema. Discussed with nurse. March 23: ICU. Intubated. FiO2 30 and a PEEP of 5. Was in A-fib uncontrolled again was given Cardizem drip 5 mg an hour. Drips include propofol at 15 mics. Tube feeding was held because of increased gastric residual. Has been on Reglan. Patient did have a golf ball sized hard stool with laxative yesterday. March 24: ICU. Intubated. FiO2 30 and a PEEP of 5. A-fib uncontrolled this morning.. Drips include IV Cardizem 5 mcg, norepinephrine 0.02 mcg, propofol 20 mcg. Tube feeding at 30 cc an hour. Prognosis remains guarded. I spoke to Guerline the legal guardian. And discussed patient's overall prognosis guarded. Given patient's overall comorbidities patient will be very appropriate for DNR. Chest x-ray diffuse infiltrates March 25 ICU. Intubated. FiO2 30 PEEP of 5. Patient went into out of A-fib uncontrolled. Cardizem drip include to 10 mg an hour. Tube feeding at 38 cc an hour. Does open eyes. Discussed with Dr. Zhang quality reviewer. Both of us feel patient will be appropriate for terminal wean. Quality of life is poor. Prior to all this patient has dementia. At baseline patient is nonverbal. March 26: ICU. Intubated. FiO2 30 PEEP of 5. I saw the patient this morning. On Cardizem drip 5 mg an hour. Of other drips. Got a message that legal guardian okay to proceed with terminal extubation. Hospice was consulted. Later this afternoon patient was extubated. On comfort measures. Active Medications Acetaminophen (Acetaminophen Tab 325 Mg Tab) 650 mg PO Q6HR PRN PRN Reason: Fever and/ or Pain Last Admin: 03/25/24 08:00 Dose: 650 mg Artificial Tears (Artificial Tears-Hypromellose Drops 15 Ml Btl) 2 drops BOTH EYES QID PRN PRN Reason: Dry Eye(s) Last Admin: 03/25/24 17:05 Dose: 2 drops Morphine Sulfate 100 mg/ (Sodium Chloride) 102 mls @ 1.02 mls/hr IV .Q24H RON; Protocol Lorazepam (Lorazepam 1 Mg/0.5 Ml Vial) 1 mg IV Q6HR PRN PRN Reason: Anxiety Morphine Sulfate (Morphine Sulfate 4 Mg/Ml Syringe) 4 mg IV Q15M PRN PRN Reason: Breakthrough Pain Last Admin: 03/26/24 13:50 Dose: 4 mg Morphine Sulfate (Morphine Sulfate 2 Mg/Ml Syringe) 2 mg IV Q15M PRN PRN Reason: Breakthrough Pain Last Admin: 03/26/24 16:42 Dose: 2 mg Nystatin (Nystatin 100,000unit/Gm Cream 30 Gm Tube) 1 applic TOPICAL BID@0800,2000 [facility]; Protocol Last Admin: 03/26/24 19:15 Dose: Not Given Scopolamine (Scopolamine 1 Mg/72 Hr Patch) 1 patch TRANSDERM Q72H [facility] Last Admin: 03/26/24 13:50 Dose: 1 patch Social history: Patient lives at [facility]. History of heavy alcohol use in the past. Started smoking at age of 14 smoked half a pack a day. Physical examination: VITAL SIGNS: 97.8, 71, 20, 136 x 63, 98% on the ventilator GENERAL: laying in bed intubated. Does open eyes EYES: Pupils equal. Conjunctiva paul l. HEENT: External appearance of nose and ears normal, oral cavity grossly normal. Endotracheal tube. OG tube feeding NECK: JVD not raised; masses not palpable. HEART: First and second heart sounds are normal; no edema. LUNGS: Respiratory rate increased diminished breath sounds some crackles. ABDOMEN: Soft, nontender, liver spleen not palpable, no masses palpable. PSYCH: Unable to assess MUSCULOSKELETAL: OA INVESTIGATIONS, reviewed in the clinical context: March 26: White count 16.2 hemoglobin 12 platelets 100 potassium 3.6 BUN 22 creatinine 0.28 March 25: White count 15.3 hemoglobin 12.1 platelets 470 sodium 140 potassium 3.9 creatinine 0.33 Sputum culture [March 17]: Normal respiratory clara March 17, 2024: White count 3.5 hemoglobin 15.1 platelets 680 sodium 140 potassium 4.6. 21 creatinine 0.50 Troponin I 0.016. proBNP 1580 EKG tracing personally reviewed by me-sinus tachycardia. Questionable atrial flutter. Chest x-ray film personally reviewed by me-hyperinflation. Possible scant infiltrate Assessment plan: -Aspiration pneumonitis secondary to patient witnessed to choke on oatmeal and sausage. Some of that was coughed up. Some more was obtained when patient being intubated in the ER.: Not improving IV Zosyn -Septic shock from underlying pneumonia: Resolved IV norepinephrine, IV vasopressin-both discontinued -Hypothermia multifactorial: Improved Jose hugger. -Paroxysmal atrial fibrillation rapid ventricular rate, in and out of A-fib uncontrolled IV Cardizem drip at 10 mg an hour oral amiodarone Subcu Lovenox 60 mg every 12 -Acute hypoxic respiratory failure from aspiration pneumonia, requiring ventilator assist: FiO2 30%. PEEP 5. -Severe cognitive impairment underlying dementia, nonverbal at baseline -Primary osteoarthritis Tylenol as needed -Hyperlipidemia Lipitor 10 mg nightly -Chronic urinary incontinence Oxybutynin DNR -Public guardian, Guerline Got a message that patient's legal guardian as okay patient repeatedly extubated. This was done. Comfort measures in place. 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 History of Any Multi-Drug Resistant Organisms: None Reported Past Surgical History: Unable to Obtain, Orthopedic Surgery Past Anesthesia/Blood Transfusion Reactions: Unable to Obtain Additional Past Anesthesia/Blood Transfusion Reaction / Comment(s): PT DENIED EVER HAVING ANY SX Past Psychological History: Depression Smoking Status: Former smoker Past Alcohol Use History: Heavy Past Drug Use History: None Reported
[2024-03-26] MEDS: MORPHINE SULFATE (100 MG/2 ML) 100 MG in SODIUM CHLORIDE 0.9% 100 ML IV SCH (19:54)
[2024-03-27 02:03] VITALS: BP 96/80; PULSE 130; RESP 15; TEMP 97.6
--- NOTE | 2024-03-27 16:24 | P.DS ---
Providers Date of admission: 03/17/24 15:12 Expected date of discharge: 03/27/24 () Attending physician: Toni Escobedo Consults: 03/17/24 15:09 Consult Physician Stat Consulting Provider: Nuno Nieto Consult Reason/Comments: Critical care management Do you want consulting provider notified?: Yes 03/19/24 14:32 Consult Physician Routine Consulting Provider: Shahab Coreas Consult Reason/Comments: A fib RVR Do you want consulting provider notified?: Yes 03/19/24 14:59 Consult Physician Routine Consulting Provider: Shahab Coreas Consult Reason/Comments: new onset Afib Do you want consulting provider notified?: Yes Primary care physician: [facility] Course: Chief Complaint: Aspiration This is a 78-year-old patient, brought into the ER. She was sent in from [facility] which is assisted living via EMS for potential aspiration. Patient at baseline is nonverbal. Patient was found to be choking on her breakfast including sausages and oatmeal. Patient did expel the sausage and oatmeal. Patient became progressively hypoxic in the ER had to be intubated. oat meal was recovered beyond the vocal cords. Patient taken to the ICU. Intubated. Currently on FiO2 50% and a PEEP of 5. Drips include propofol. March 18: ICU. Remains intubated. FiO2 40 and a PEEP of 5. Patient last started on norepinephrine. Started on tube feeding at 10 cc an hour. Also on propofol. Vasopressin was ordered last night but never started. March 19: ICU. Intubated. FiO2 30% and a PEEP of 5. Drips include propofol 25 mics, norepinephrine 0.07 mcg. Tube feeding at 30 cc an hour. Sedated. Remains on IV Zosyn. March 20 ICU. Intubated. FiO2 30 and PEEP of 5. Last night went into atrial fibrillation. Put on IV amiodarone. Went back in sinus rhythm. Drips include propofol 35 mics, norepinephrine 0.11 nikolas. Vasopressin started at 0.03 mics. Minimal secretions. Tube feeding at 34 cc an hour. March 21: ICU. Intubated. FiO2 30 and a PEEP of 5. Patient had a high residual volume of 550 cc. Reglan was added. Drips include propofol 30 mics, vasopressin 0.3 mcg, patient IV heparin. Telemetry shows sinus rhythm. Has been in and out of A-fib. March 22: ICU. Intubated. Hypothermic overnight. Put on Jose hugger. Patient been off epinephrine since yesterday. Also taken off vasopressin. Blood pressures running with systolic around 130s. Propofol was discontinued this afternoon. Patient again had high residuals today around 500 cc. Reglan changed to 10 mg every 6. Dulcolax suppository 10 mg. If no good then we will try enema. Discussed with nurse. March 23: ICU. Intubated. FiO2 30 and a PEEP of 5. Was in A-fib uncontrolled again was given Cardizem drip 5 mg an hour. Drips include propofol at 15 mics. Tube feeding was held because of increased gastric residual. Has been on Reglan. Patient did have a golf ball sized hard stool with laxative yesterday. March 24: ICU. Intubated. FiO2 30 and a PEEP of 5. A-fib uncontrolled this morning.. Drips include IV Cardizem 5 mcg, norepinephrine 0.02 mcg, propofol 20 mcg. Tube feeding at 30 cc an hour. Prognosis remains guarded. I spoke to Guerline the legal guardian. And discussed patient's overall prognosis guarded. Given patient's overall comorbidities patient will be very appropriate for DNR. Chest x-ray diffuse infiltrates March 25 ICU. Intubated. FiO2 30 PEEP of 5. Patient went into out of A-fib uncontrolled. Cardizem drip include to 10 mg an hour. Tube feeding at 38 cc an hour. Does open eyes. Discussed with Dr. Zhang wire saw operator. Both of us feel patient will be appropriate for terminal wean. Quality of life is poor. Prior to all this patient has dementia. At baseline patient is nonverbal. March 26: ICU. Intubated. FiO2 30 PEEP of 5. I saw the patient this morning. On Cardizem drip 5 mg an hour. Of other drips. Got a message that legal guardian okay to proceed with terminal extubation. Hospice was consulted. Later this afternoon patient was extubated. On comfort measures March 27: Patient early hours of this morning.. Social history: Patient lives at [facility]. History of heavy alcohol use in the past. Started smoking at age of 14 smoked half a pack a day. INVESTIGATIONS, reviewed in the clinical context: May 2: White count 16.2 hemoglobin 12 platelets 100 potassium 3.6 BUN 22 creatinine 0.28 March 25: White count 15.3 hemoglobin 12.1 platelets 470 sodium 140 potassium 3.9 creatinine 0.33 Sputum culture [March 17]: Normal respiratory clara March 17, 2024: White count 3.5 hemoglobin 15.1 platelets 680 sodium 140 potassium 4.6. 21 creatinine 0.50 Troponin I 0.016. proBNP 1580 EKG tracing personally reviewed by me-sinus tachycardia. Questionable atrial flutter. Chest x-ray film personally reviewed by me-hyperinflation. Possible scant infiltrate Cause of : Alzheimer's dementia Assessment plan: -Aspiration pneumonitis secondary to patient witnessed to choke on oatmeal and sausage. Some of that was coughed up. Some more was obtained when patient being intubated in the ER.: Not improving IV Zosyn -Septic shock from underlying pneumonia: Resolved IV norepinephrine, IV vasopressin-both discontinued -Hypothermia multifactorial: Improved Jose bucio. -Paroxysmal atrial fibrillation rapid ventricular rate, in and out of A-fib uncontrolled IV Cardizem drip at 10 mg an hour oral amiodarone Subcu Lovenox 60 mg every 12 -Acute hypoxic respiratory failure from aspiration pneumonia, requiring ventilator assist: FiO2 30%. PEEP 5. 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 History of Any Multi-Drug Resistant Organisms: None Reported Past Surgical History: Unable to Obtain, Orthopedic Surgery Past Anesthesia/Blood Transfusion Reactions: Unable to Obtain Additional Past Anesthesia/Blood Transfusion Reaction / Comment(s): PT DENIED EVER HAVING ANY SX Past Psychological History: Depression Smoking Status: Former smoker Past Alcohol Use History: Heavy Past Drug Use History: None Reported Plan - Discharge Summary New Discharge Prescriptions: No Action Psyllium Husk 100% [Metamucil Packet] 6 gm PO HS@2000 Acetaminophen Tab [Tylenol] 650 mg PO Q6HR PRN tab PRN Reason: Fever And/ Or Pain Loperamide HCl [Loperamide] 2 - 4 mg PO QID PRN MDD 16 MG PRN Reason: Diarrhea Ammonium Lactate Cream [Lac-Hydrin 12% Cream] 1 applic TOPICAL DAILY PRN PRN Reason: Dry Skin Pedialyte Pack 1 pack PO Q48H nitrofurantoin macrocrystaL 100 mg PO BID@0800,1999 Nystatin 100,000Unit/gm Cream [Mycostatin Cream] 1 applic TOPICAL BID@0800,20 00 Mirtazapine 30 mg PO HS@1999 Megestrol Acetate 624 mg PO DAILY@0800 Cyproheptadine [Cyproheptadine HCl] 4 mg PO QID@08,12,16,20 Magnesium Hydroxide [Milk of Magnesia] 2,400 mg PO DAILY PRN PRN Reason: if no bm in 3 days polyethylene glycoL 3350 [Miralax] 17 gm PO DAILY PRN PRN Reason: Constipation QUEtiapine [SEROquel] 25 mg PO HS@1999 Atorvastatin [Lipitor] 10 mg PO HS@1999 Oxybutynin Chloride [oxyBUTYnin chloride ER] 10 mg PO DAILY@0800 Magnesium Hydroxide [Milk of Magnesia] 2,400 mg PO DAILY@0800 Ibuprofen [Motrin] 400 mg PO Q8H PRN PRN Reason: Pain Or Fever > 100.5 Coricidin Hbp Chest Congestion & Cough 1 cap PO Q6H PRN PRN Reason: COUGH AND CONGESTION Benadryl [place] 2-0.1% 1 applic TOPICAL QID PRN PRN Reason: RASH/ALLERGIES Sennosides [Senokot] 17.2 mg PO HS@1999 Ascorbic Acid [Vitamin C] 500 mg PO DAILY@0800 Famotidine [Pepcid] 20 mg PO HS@1999 Ensure 1 can PO DAILY@0800 Discharge Medication List Atorvastatin [Lipitor] 10 mg PO HS@199912/25/21 [History] Magnesium Hydroxide [Milk of Magnesia] 2,400 mg PO DAILY@0812/25/21 [History] Oxybutynin Chloride [oxyBUTYnin chloride ER] 10 mg PO DAILY@0800 12/25/21 [History] Psyllium Husk 100% [Metamucil Packet] 6 gm PO HS@199912/25/21 [History] QUEtiapine [SEROquel] 25 mg PO HS@199912/25/21 [History] polyethylene glycoL 3350 [Miralax] 17 gm PO DAILY PRN 12/25/21 [History] Acetaminophen Tab [Tylenol] 650 mg PO Q6HR PRN tab 12/29/21 [Rx] Ammonium Lactate Cream [Lac-Hydrin 12% Cream] 1 applic TOPICAL DAILY PRN 03/17/24 [History] Ascorbic Acid [Vitamin C] 500 mg PO DAILY@0800 03/17/24 [History] Benadryl [place] 2-0.1% 1 applic TOPICAL QID PRN 03/17/24 [History] Coricidin Hbp Chest Congestion & Cough 1 cap PO Q6H PRN 03/17/24 [History] Cyproheptadine [Cyproheptadine HCl] 4 mg PO QID@08,12,16,20 03/17/24 [History] Ensure 1 can PO DAILY@0800 03/17/24 [History] Famotidine [Pepcid] 20 mg PO HS@199903/17/24 [History] Ibuprofen [Motrin] 400 mg PO Q8H PRN 03/17/24 [History] Loperamide HCl [Loperamide] 2 - 4 mg PO QID PRN MDD 16 MG 03/17/24 [History] Magnesium Hydroxide [Milk of Magnesia] 2,400 mg PO DAILY PRN 03/17/24 [History] Megestrol Acetate 624 mg PO DAILY@0803/17/24 [History] Mirtazapine 30 mg PO HS@199903/17/24 [History] Nystatin 100,000Unit/gm Cream [Mycostatin Cream] 1 applic TOPICAL BID@799,199903/17/24 [History] Pedialyte Pack 1 pack PO Q48H 03/17/24 [History] Sennosides [Senokot] 17.2 mg PO HS@199903/17/24 [History] nitrofurantoin macrocrystaL 100 mg PO BID@799,199903/17/24 [History] Discharge Disposition: - Preliminary Cause of Preliminary Cause of : Alzheimer's dementia
== END 2024-03-27 09:53 | disposition expired | DRG 870 ==
LOC: EC 09:52 → 2SICU 15:12
PROVIDERS: ADMIT Hospitalist; ATTEND Hospitalist
PROC: 0BH17EZ Insertion of Endotracheal Airway into Trachea, Via Natural or Artificial Opening (ICD-10-PCS; principal; 2024-03-17)
PROC: 5A1955Z Respiratory Ventilation, Greater than 96 Consecutive Hours (ICD-10-PCS; principal; 2024-03-17)
PROC: 0DH67UZ Insertion of Feeding Device into Stomach, Via Natural or Artificial Opening (ICD-10-PCS; 2024-03-18)
PROC: 4A133J1 Monitoring of Arterial Pulse, Peripheral, Percutaneous Approach (ICD-10-PCS; 2024-03-18)
PROC: 4A133B1 Monitoring of Arterial Pressure, Peripheral, Percutaneous Approach (ICD-10-PCS; 2024-03-18)
PROC: 03HY32Z Insertion of Monitoring Device into Upper Artery, Percutaneous Approach (ICD-10-PCS; 2024-03-18)
PROC: 4A133J1 Monitoring of Arterial Pulse, Peripheral, Percutaneous Approach (ICD-10-PCS; 2024-03-18)
PROC: 4A133B1 Monitoring of Arterial Pressure, Peripheral, Percutaneous Approach (ICD-10-PCS; 2024-03-18)
PROC: 03HY32Z Insertion of Monitoring Device into Upper Artery, Percutaneous Approach (ICD-10-PCS; 2024-03-18)
PROC: 02HV33Z Insertion of Infusion Device into Superior Vena Cava, Percutaneous Approach (ICD-10-PCS; 2024-03-18)
PROC: 3E0G76Z Introduction of Nutritional Substance into Upper GI, Via Natural or Artificial Opening (ICD-10-PCS; 2024-03-19)
PROC: 4A133B1 Monitoring of Arterial Pressure, Peripheral, Percutaneous Approach (ICD-10-PCS; 2024-03-21)
PROC: 4A133J1 Monitoring of Arterial Pulse, Peripheral, Percutaneous Approach (ICD-10-PCS; 2024-03-21)
PROC: 03HY32Z Insertion of Monitoring Device into Upper Artery, Percutaneous Approach (ICD-10-PCS; 2024-03-21)
PROC: 3E053XZ Introduction of Vasopressor into Peripheral Artery, Percutaneous Approach (ICD-10-PCS; 2024-03-21)
DX: A41.9 Sepsis, unspecified organism (principal); J69.0 Pneumonitis due to inhalation of food and vomit; R65.21 Severe sepsis with septic shock; J96.01 Acute respiratory failure with hypoxia; F02.84 Dementia in other diseases classified elsewhere, unspecified severity, with anxiety; F02.83 Dementia in other diseases classified elsewhere, unspecified severity, with mood disturbance; I48.92 Unspecified atrial flutter; E78.5 Hyperlipidemia, unspecified; T17.928A Food in respiratory tract, part unspecified causing other injury, initial encounter; W44.F3XA Food entering into or through a natural orifice, initial encounter; R68.0 Hypothermia, not associated with low environmental temperature; G30.9 Alzheimer's disease, unspecified; I27.20 Pulmonary hypertension, unspecified; I48.0 Paroxysmal atrial fibrillation; I49.3 Ventricular premature depolarization; M19.042 Primary osteoarthritis, left hand; M19.041 Primary osteoarthritis, right hand; R32 Unspecified urinary incontinence; Z66 Do not resuscitate; Z51.5 Encounter for palliative care; L89.326 Pressure-induced deep tissue damage of left buttock; L89.316 Pressure-induced deep tissue damage of right buttock; Z79.899 Other long term (current) drug therapy; Z87.891 Personal history of nicotine dependence; Z86.718 Personal history of other venous thrombosis and embolism
CPT/HCPCS: 31500; 36415; 36600; 71045; 71046; 80048; 80053; 81001; 82272; 82805; 83036; 83605; 83735; 83880; 84132; 84145; 84443; 84484; 85025; 85027; 85610; 85730; 87040; 87070; 87205; 93005; 93306; 94002; 94003; 94640; 96365; 96366; 96367; 96375; 99291